=== PATIENT | male | born 1955 | race Caucasian/White ===

== ENCOUNTER 2017-02-06 14:32 | Inpatient (IN) ==
[2017-02-06] MEDS ORDERED: Naloxone 0.4 MG/ML INJ IVP PRN (16:53)
[2017-02-06] MEDS ORDERED: Dextrose Gel 15 GM PO PRN ×2 (16:54)
[2017-02-06] MEDS ORDERED: Nitroglycerin 0.4 MG TAB.SUBL SL PRN (16:54)
[2017-02-06] MEDS ORDERED: *HR* Dextrose 50 % in Water (Syg) 50 ML SYRINGE IVP PRN (16:54)
[2017-02-06] MEDS ORDERED: Albuterol 2.5 MG/3 ML NEBULIZER IH PRN (16:54)
[2017-02-06] MEDS ORDERED: D5% in Water 1,000 ML IVC PRN (16:54)
--- NOTE | 2017-02-06 17:13 | Internal Med History&Physical ---
<Bharat Hernandez J - Last Filed: 02/06/17 18:01> Date of Encounter: 02/06/17 Time of Encounter: 17:07 Assessment and Plan (1) ESRD (end stage renal disease) on dialysis Current visit: No Status: Chronic H/O of ESRD on HD , , Sat. Missed appointment;Dr. Carrillo aware. Consulted nephrology, Plan is to HD tomorrow; avoid nephrotoxins. 2 Daily weights 3 Fluid Restriction 4 Strict i&O (2) Weakness Current visit: No Status: Acute Weakness for last 3 days and unable to complete ADL's. Likely secondary to receiving HD on Friday. Nephrology consulted, patient is to receive HD tomorrow. Falls precautions. (3) Diabetes Current visit: No Status: Chronic H/o DM. Continue basal insulin at home dose. Qualifiers: Diabetes mellitus type: type 2 Diabetes mellitus complication status: with unspecified complications Diabetes mellitus nursing home insulin use: with watermelon inspector use Qualified Code(s): E11.8 - Type 2 diabetes mellitus with unspecified complications; Z79.4 - skilled nursing (current) use of insulin (4) CAD in [place] artery Current visit: No Status: Chronic H/o CAD on ASA, Plavix, dual anti-platelet BB, statin and nitrates; plan is to continue meds. Place on telemetry and trend troponins. (5) Elevated troponin Current visit: No Status: Chronic Elevated troponin likely d/t ESRD but will Trend troponin d/t cardiac history. (6) DVT (deep venous thrombosis) Current visit: Yes Status: Acute H/O dvt. On eliquis plan is to continue home dose. Qualifiers: Qualified Code(s): I82.409 - Acute embolism and thrombosis of unspecified deep veins of unspecified lower extremity (7) DVT prophylaxis Current visit: No Status: Acute Continue eliquis Internal Medicine - H&P: HPI Chief complaint: weakness, fatigue Admitted From: Home Plans for Post Hospital Care: Home History of present illness: Mr. Barcenas is a 61 year old male with a PMH of ESRD, HTN, CHF, COPD, CAD, DVT, cardiomyopathy, arthritis, asthma, HLD, and GERD who presented to [facility] on with a 3 day h/o weakness and fatigue. Information obtained from chart review and patient report. He states that he has become progressively weaker since his Friday HD appointment. C/o decreased enery, decreased appetite and new onset diarrhea. at bedside and concerned for new intermittent confusion. He admits to weight gain, and abdominal swelling since his last HD visit. Missed today's HD appointment d/t feeling ill. Troponins elevated at H but likely d/t ESRD as they have been trending elevated for months upon review. Past Med Surg Social Fam HX - Past Medical History Medical history: arthritis, asthma, cardiomyopathy, CHF, COPD, coronary artery disease, DVT, diabetes, dialysis, GERD, hyperlipidemia, hypertension, osteoporosis, peripheral artery disease, renal disease, other Psychiatric history: no psych history - Past Surgical History Surgical History: coronary bypass (CABG), knee replacement, orthopedic, other, other - Social History Smoking Status: Former smoker Smokeless Tobacco Status: No Alcohol use: none Drug use: none - Family History Father Adopted: [place]: Jese Barcenas Family Member Ethnicity: Non- Living Status: Age at : 84 Cause of : Esophagal Cancer Hx Family Cardiac Disorders: No Hx Family Respiratory Disorders: No Hx Family Cancer: Yes Hx Family GI Disorders: No Hx Family Genitourinary Disorders: No Hx Family Endocrine Disorder: No Hx Family Musculoskeletal Disorders: No Hx Family Neuromuscular Disorders: No Hx Family Neurologic Disorders: No Hx Family HEENT Disorders: No Hx Family Autoimmune Disorders: No Hx Family Reproductive Disorders: No Hx Family Psychosocial Disorders: No Hx Family Medical Disorders: No Mother Adopted: [place]: Itzel Barcenas Family Member Ethnicity: Non- Living Status: Age at : 75 Cause of : Renal failure Hx Family Cardiac Disorders: Yes Hx Family Respiratory Disorders: No Hx Family Cancer: No Hx Family GI Disorders: No Hx Family Genitourinary Disorders: Yes Hx Family Endocrine Disorder: Yes Hx Family Musculoskeletal Disorders: No Hx Family Neuromuscular Disorders: No Hx Family Neurologic Disorders: No Hx Family HEENT Disorders: No Hx Family Autoimmune Disorders: No Hx Family Reproductive Disorders: No Hx Family Psychosocial Disorders: No Hx Family Medical Disorders: No Internal Medicine - H&P: Meds Febuxostat [Uloric] 40 mg PO QAM 03/02/15 [History] Sevelamer [Renvela] 800 mg PO TIDWM 05/01/15 [History] Nitroglycerin 0.4 mg SL Q5MIN PRN #3 tab.subl 08/20/15 [Rx] Apixaban [Eliquis] 5 mg PO BID 10/30/15 [History] Clopidogrel Bisulfate [Clopidogrel] 75 mg PO DAILY 10/30/15 [History] Amitriptyline [Elavil] 25 mg PO HS 04/01/16 [History] Budesonide/Formoterol 160/4.5 [Symbicort 160/4.5] 2 puff IH BIDR 04/01/16 [ History] Fluticasone Propionate Nasal [Flonase] 1 spray NS DAILY PRN 04/01/16 [History] Tiotropium [Spiriva] 18 mcg IH DAILY 04/01/16 [History] Albuterol Neb [Proventil Neb] 2.5 mg IH TID PRN 02/06/17 [History] Amlodipine Besylate 10 mg PO DAILY 02/06/17 [History] Aspirin [Lo-Dose Aspirin EC] 81 mg PO DAILY 02/06/17 [History] Atorvastatin Calcium [Lipitor] 80 mg PO HS 02/06/17 [History] Cholecalciferol (Vitamin D3) [Vitamin D3] 5,000 unit PO DAILY 02/06/17 [History] Hydralazine HCl 50 mg PO AD 02/06/17 [History] Insulin Glargine [Lantus] 20 unit SQ HS 02/06/17 [History] Isosorbide MONOnitrate [Isosorbide Mononitrate ER] 240 mg PO DAILY 02/06/17 [ History] Metoprolol Succinate 100 - 200 mg PO AD 02/06/17 [History] Pantoprazole Sodium [Protonix] 40 mg PO DAILY 02/06/17 [History] Allergies No Known Allergies Allergy (Verified 09/23/16 11:51) All Systems PM: A 10-system review of systems was performed and is negative for pertinent findings except as documented above in the HPI. - Constitutional Constitutional: fatigue, weakness, weight gain, no chills, no fever(s), no night sweats - EENT Eyes: no change in vision, no discharge, no pain, no photophobia Ears: no ear discharge, no ear pain, no tinnitus Nose, mouth and throat: no dysphagia, no nasal discharge, no neck pain, no sore throat - Cardiovascular Cardiovascular ROS IM: no chest pain, no diaphoresis, no dyspnea, no lightheadedness, no palpitations, no syncope - Respiratory Respiratory: no cough, no dyspnea, no wheezing, no excessive phlegm production - Gastrointestinal Gastrointestinal: diarrhea, no abdominal pain, no hematemesis, no hematochezia, no melena, no nausea, no vomiting - Musculoskeletal Musculoskeletal ROS IM: no numbness, no tingling - Integumentary Integumentary IM: no rash, no unusual bruising - Neurological Neurological ROS: behavioral changes, no confusion, no convulsions, no focal weakness, no numbness, no tingling, no tremor(s) Additional comments: behavior changes per at bedside - Hematologic/Lymphatic Hematologic/Lymphatic: no easy bruising - Constitutional Vitals: Temp Pulse Resp BP Pulse Ox 98.5 F 103 20 170/100 96 02/06/17 16:12 02/06/17 16:12 02/06/17 16:12 02/06/17 16:12 02/06/17 16:12 General appearance: Present: A&O X 3, no acute distress, answers questions appropriately - Head Head exam: Present: atraumatic, normocephalic - Eye Eye exam: Present: PERRL, conjuntiva pink, sclera anicteric Pupils: Present: PERRL - Neck Neck exam general surgery: Present: supple, trachea midline. Absent: lymphadenopathy - Respiratory Respiratory exam: Present: decreased breath sounds, CTAB. Absent: accessory muscle use, rales, rhonchi, wheezes - Cardiovascular Cardiovascular exam: Present: RRR, +S1, +S2. Absent: diastolic murmur, gallop, rubs, systolic murmur - GI/Abdominal GI/Abdominal exam: Present: normal bowel sounds, soft, no peritoneal signs. Absent: distended, tenderness Additional comments: Diffuse abdominal tenderness to palpation - Extremities Exam Extremities exam: Present: warm, radial pulses palpable and symetrical. Absent : calf tenderness, cyanotic, pedal edema - Neurological Exam Neurological exam: Present: CN II-XII intact, oriented X3, no focal deficits. Absent: pronater drift, facial droop, speech deficit - Skin Skin exam: Present: dry, intact <Benjamín Hillman H - Last Filed: 02/06/17 19:02> Date of Encounter: 02/06/17 Internal Medicine - H&P: HPI History of present illness: Mr. Barcenas is a 61 year old male All Systems PM: A 10-system review of systems was performed and is negative for pertinent findings except as documented above in the HPI. - Constitutional Vitals: Temp Pulse Resp BP Pulse Ox 98.5 F 103 20 170/100 96 02/06/17 16:12 02/06/17 16:12 02/06/17 16:12 02/06/17 16:12 02/06/17 16:12 - Attending Attestation 1. Acute metabolic encephalopathy likely secondary to noncompliance with hemodialysis Schedule dialysis for the Josefina with Dr. Newman Time spent on this admission 40 minutes For this encounter, I have reviewed the COMMUNITY OUTREACH COORDINATOR or PA documentation, treatment plan, and medical decision making; and I have had face to face time with this patient.
[2017-02-06] MEDS: Budesonide/Formoterol 160/4.5 MDI IH SCH (20:00)
[2017-02-06] MEDS: Insulin DETEMIR 100 UNIT/ML X5UNITS SQ SCH (20:03)
[2017-02-06] MEDS: APIXABAN 5 MG TABLET PO SCH (20:03)
[2017-02-06] MEDS ORDERED: hydrALAZINE 25 MG TABLET PO SCH (21:00)
[2017-02-06] MEDS: Insulin LISPRO 300 UNITS/3 ML VIAL SQ SCH (21:11)
[2017-02-07] MEDS ORDERED: *HR* Metoprolol 5 MG/5 ML VIAL IVP ONE (01:00)
[2017-02-07] MEDS: *HR* Metoprolol 5 MG/5 ML VIAL IVP ONE ×2 (01:14→04:08)
[2017-02-07 01:52] LABS: Basophils % 0.6 %; Eosinophils % 0.4 %; Hemoglobin 13.6 g/dL (12.9-16.9); Immature Granulocytes % 4.6 % (0-4); Lymphocytes # 0.4 K/mcL (0.6-4.6); Lymphocytes % 8.6 %; Mean Corpuscular HGB Conc 34.9 g/dL (31.6-35.5); Mean Corpuscular Hemoglobin 30.6 pg (28.0-33.3); Mean Corpuscular Volume 87.6 fL (83.0-100.0); Mean Platelet Volume 10.1 fL (9.4-12.4); Monocytes # 0.4 K/mcL (0.0-1.3); Monocytes % 7.4 %; Neutrophils # 3.9 K/mcL (1.6-8.9); Platelet Count 107 K/mcL (140-400); Red Blood Count 4.45 M/mcL (4.19-5.50); Red Cell Distribution Width 12.8 % (11.5-14.5); Segmented Neutrophils % 78.4 %
[2017-02-07 02:11] LABS: Albumin 3.2 g/dL (3.5-5.0); Bilirubin,Total 0.8 mg/dL (0.2-1.2); Calcium 8.4 mg/dL (8.6-10.8); Globulin 3.3 g/dL (2.4-3.5); Magnesium 1.8 mg/dL (1.6-2.6); Total Protein 6.5 g/dL (6.0-8.3)
[2017-02-07 02:12] LABS: Potassium 4.6 mEq/L (3.5-4.5)
[2017-02-07] MEDS: Budesonide/Formoterol 160/4.5 MDI IH SCH ×2 (07:58→20:58)
[2017-02-07] MEDS: Tiotropium 18 MCG inhalation IH SCH (07:58)
--- NOTE | 2017-02-07 08:21 | Nephrology Consult Note ---
Date of Encounter: 02/07/17 Time of Encounter: 08:19 Assessment and Plan (1) ESRD (end stage renal disease) on dialysis Current Visit: No Status: Chronic The patient has end-stage renal disease in the setting of diabetes and hypertension. He missed his dialysis yesterday. He presented to the emergency room with a complaint of weakness and simply not feeling well. Laboratory studies were stable. Vital signs are stable. Patient voices no other symptomatic complaints. Patient will undergo dialysis today. His troponin is being monitored. We will go ahead and check blood cultures just to rule out any type of occult infection. The patient does not have any indwelling lines. (2) End stage renal disease on dialysis due to type 2 diabetes mellitus Current Visit: Yes Status: Acute (3) CAD in [place] artery Current Visit: No Status: Chronic (4) History of coronary artery bypass graft Current Visit: No Status: Chronic History of Present Illness - History of Present Illness This is a 61-year-old male with end-stage renal disease receiving dialysis every Friday in [facility]. Patient was medicated through the emergency room with a several day history of weakness and simply not feeling well. He is unable to give any other details. He denies any other symptoms. He denies shortness of breath chest pain chest discomfort abdominal pain nausea vomiting diarrhea constipation fevers chills or sweats. Evaluation emergency room showed a mildly elevated troponin of 0.2. Currently at 0.27. Patient does have a history of coronary disease but again denies any cardiac symptoms whatsoever. He did miss his dialysis yesterday. Lab bower his hemoglobin is good at 13.6. White count is normal at 5.0. Potassium is 4.6. Blood pressure is controlled at 132/66. The patient is afebrile. Past Med Surg Social Fam HX - Past Medical History Medical history: arthritis, asthma, cardiomyopathy, CHF, COPD, coronary artery disease, DVT, diabetes, dialysis, GERD, hyperlipidemia, hypertension, osteoporosis, peripheral artery disease, renal disease, other Psychiatric history: no psych history - Past Surgical History Surgical History: coronary bypass (CABG), knee replacement, orthopedic, other, other - Social History Smoking Status: Former smoker Smokeless Tobacco Status: No Alcohol use: none Drug use: none - Family History Father Adopted: [place]: Jese Narinder Family Member Ethnicity: Non- Living Status: Age at : 84 Cause of : Esophagal Cancer Hx Family Cardiac Disorders: No Hx Family Respiratory Disorders: No Hx Family Cancer: Yes Hx Family GI Disorders: No Hx Family Genitourinary Disorders: No Hx Family Endocrine Disorder: No Hx Family Musculoskeletal Disorders: No Hx Family Neuromuscular Disorders: No Hx Family Neurologic Disorders: No Hx Family HEENT Disorders: No Hx Family Autoimmune Disorders: No Hx Family Reproductive Disorders: No Hx Family Psychosocial Disorders: No Hx Family Medical Disorders: No Mother Adopted: [place]: Itzel Barcenas Family Member Ethnicity: Non- Living Status: Age at : 75 Cause of : Renal failure Hx Family Cardiac Disorders: Yes Hx Family Respiratory Disorders: No Hx Family Cancer: No Hx Family GI Disorders: No Hx Family Genitourinary Disorders: Yes Hx Family Endocrine Disorder: Yes Hx Family Musculoskeletal Disorders: No Hx Family Neuromuscular Disorders: No Hx Family Neurologic Disorders: No Hx Family HEENT Disorders: No Hx Family Autoimmune Disorders: No Hx Family Reproductive Disorders: No Hx Family Psychosocial Disorders: No Hx Family Medical Disorders: No Medications and Allergies Febuxostat [Uloric] 40 mg PO QAM 03/02/15 [History] Sevelamer [Renvela] 800 mg PO TIDWM 05/01/15 [History] Nitroglycerin 0.4 mg SL Q5MIN PRN #3 tab.subl 08/20/15 [Rx] Apixaban [Eliquis] 5 mg PO BID 10/30/15 [History] Clopidogrel Bisulfate [Clopidogrel] 75 mg PO DAILY 10/30/15 [History] Amitriptyline [Elavil] 25 mg PO HS 04/01/16 [History] Budesonide/Formoterol 160/4.5 [Symbicort 160/4.5] 2 puff IH BIDR 04/01/16 [ History] Fluticasone Propionate Nasal [Flonase] 1 spray NS DAILY PRN 04/01/16 [History] Tiotropium [Spiriva] 18 mcg IH DAILY 04/01/16 [History] Albuterol Neb [Proventil Neb] 2.5 mg IH TID PRN 02/06/17 [History] Amlodipine Besylate 10 mg PO DAILY 02/06/17 [History] Aspirin [Lo-Dose Aspirin EC] 81 mg PO DAILY 02/06/17 [History] Atorvastatin Calcium [Lipitor] 80 mg PO HS 02/06/17 [History] Cholecalciferol (Vitamin D3) [Vitamin D3] 5,000 unit PO DAILY 02/06/17 [History] Hydralazine HCl 50 mg PO AD 02/06/17 [History] Insulin Glargine [Lantus] 20 unit SQ HS 02/06/17 [History] Isosorbide MONOnitrate [Isosorbide Mononitrate ER] 240 mg PO DAILY 02/06/17 [ History] Metoprolol Succinate 100 - 200 mg PO AD 02/06/17 [History] Pantoprazole Sodium [Protonix] 40 mg PO DAILY 02/06/17 [History] Allergies No Known Allergies Allergy (Verified 09/23/16 11:51) Review of Systems Constitutional: as per HPI, weakness Eyes: bilateral: blurred vision (patient denies), diplopia (patient denies) Nose, mouth and throat: no dizziness, no headache(s) Cardiovascular: no chest pain, no palpitations Respiratory: no cough, no dyspnea Gastrointestinal: no abdominal pain, no change in bowel habits Musculoskeletal: no muscle weakness, no numbness Integumentary: no hirsutism, no striae Neurological: as per HPI, weakness Psychiatric: no depression, no difficulty concentrating Endocrine: as per HPI Hematologic/Lymphatic: no easy bruising, no lymphadenopathy Exam - Vital Signs Vital signs: Initial Vital Signs Temp Pulse Resp BP Pulse Ox 98.5 F 103 20 170/100 96 02/06/17 16:12 02/06/17 16:12 02/06/17 16:12 02/06/17 16:12 02/06/17 16:12 Vital Signs - Last 8 Hours Temp Pulse Resp BP Pulse Ox 02/07/17 07:24 98.3 F 99 20 132/66 94 02/07/17 05:14 98.4 F 118 17 159/86 94 Intake and Output 02/06/17 02/07/17 02/07/17 23:59 07:59 15:59 Output Total 175 / 175 Balance -175 / -175 Output: Urine 175 / 175 Other: Weight 131 kg 129.98 kg Blood Glucose* 200 149 Patient Weight 02/07/17 23:59 Weight 129.98 kg - General Appearance Exam: Patient is alert and oriented. He is in no acute distress. Vital signs are stable. Neck is supple. Lungs somewhat diminished breath sounds otherwise clear. There is occasional expiratory wheezing noted however. Heart regular rate and rhythm with a 2/6 talk ejection murmur. Abdomen shows normal bowel sounds of breast masses, megaly or tenderness. There is trace lower extremity swelling on the left. Patient is status post right BKA. There is a functioning AV fistula in the right upper extremity. Results - Lab Results 02/07/17 01:12 02/07/17 01:12 Most recent lab results Calcium 8.4 mg/dL (8.6-10.8) L 02/07/17 01:12 Magnesium 1.8 mg/dL (1.6-2.6) 02/07/17 01:12 Consult Discharge Plan - Plan Referrals: Mansoor Loaiza MD [Primary Care Provider] -
[2017-02-07] MEDS ORDERED: 0.9 % Sodium Chloride 250 ML IVC PRN (08:24)
--- NOTE | 2017-02-07 08:38 | Internal Med Progress Note ---
<Babak Farooq - Last Filed: 02/07/17 13:10> Date of Encounter: 02/07/17 Time of Encounter: 08:38 - Assessment and plan (1) ESRD (end stage renal disease) on dialysis Current Visit: Yes Status: Chronic Assessment and plan: Hx ESRD TTS. Missed . Dr. Howell/nephrology are following. HD scheduled for today. avoid nephrotoxins. Follow daily weights, strict I&O and fluid restriction. (2) Diabetes Current Visit: No Status: Chronic Assessment and plan: continue home meds and SSI. Qualifiers: Diabetes mellitus type: type 2 Diabetes mellitus complication status: with unspecified complications Diabetes mellitus intermediate teacher insulin use: with custodial use Qualified Code(s): E11.8 - Type 2 diabetes mellitus with unspecified complications; Z79.4 - FPC (current) use of insulin (3) CAD in [place] artery Current Visit: No Status: Chronic Assessment and plan: continue home ASA, Plavix, BB, statin and nitrates. continue telemetry. (4) DVT prophylaxis Current Visit: No Status: Acute Assessment and plan: continue home eliquis (5) Elevated troponin Current Visit: No Status: Chronic Assessment and plan: chronically elevated trops w/ ESRD. will continue to trend trops 2/2 cardiac history (6) Weakness Current Visit: No Status: Acute Assessment and plan: most likely secondary to HD on friday. Dialysis today. fall precaution. (7) DVT (deep venous thrombosis) Current Visit: Yes Status: Acute Assessment and plan: continue eliquis Qualifiers: Qualified Code(s): I82.409 - Acute embolism and thrombosis of unspecified deep veins of unspecified lower extremity - Subjective Interval history: 61 yo M well known to service was admitted for 3 day h/o weakness and fatigue after dialysis on Friday with PMHx of ESRD, HTN, CHF, COPD, CAD, DVT, cardiomyopahty, arthritis, asthma, HLD, and GERD. He missed HD on due to filling ill. Trops were elevated but most likeley 2/2 ESRD as trops have been elevated for months on chart review. - Constitutional Vitals: Temp Pulse Resp BP Pulse Ox 98.3 F 99 20 132/66 94 02/07/17 07:24 02/07/17 07:24 02/07/17 07:24 02/07/17 07:24 02/07/17 07:24 General appearance: Present: A&O X 3, no acute distress, answers questions appropriately - Head Head exam: Present: atraumatic, normocephalic - Respiratory Respiratory exam: Present: decreased breath sounds (due to habitus, hard to hear breath sounds) - Cardiovascular Cardiovascular exam: Present: distant heart sounds - Expanded Lower Extremities Exam Lower Leg exam: Present: abrasion (left leg BKA. right abrasion between toe 2 and 3.) Internal Medicine: Result - Labs CBC & Chem 7: 02/07/17 01:12 02/07/17 01:12 Labs: Short CBC 02/07/17 Range/Units 01:12 WBC 5.0 (4.3-11.1) K/mcL Hgb 13.6 (12.9-16.9) g/dL Hct 39.0 (37.5-50.1) % Plt Count 107 L (140-400) K/mcL Neutrophils # 3.9 (1.6-8.9) K/mcL BMP 02/07/17 01:12 Sodium 127 L Potassium 4.6 H Chloride 94 L Carbon Dioxide 17 L BUN 72 H Creatinine 8.54 H Glucose 175 H Calcium 8.4 L Cardiac Enzymes 02/06/17 02/07/17 02/07/17 Range/Units 19:47 01:12 06:06 Troponin I 0.20 H* 0.19 H* 0.27 H* (0-0.03) ng/mL Liver Function 02/07/17 Range/Units 01:12 Total Bilirubin 0.8 (0.2-1.2) mg/dL AST 43 H (5-34) Units/L ALT 29 (0-55) Units/L Alkaline Phosphatase 72 (38-126) Units/L Albumin 3.2 L (3.5-5.0) g/dL Consult Discharge Plan - Plan Referrals: Mansoor Loaiza MD [Primary Care Provider] - <Adolph Dickinson - Last Filed: 02/07/17 19:42> Date of Encounter: 02/07/17 - Assessment and plan (1) Acute respiratory failure with hypoxia Current Visit: Yes Status: Acute (2) Acute metabolic encephalopathy Current Visit: Yes Status: Acute (3) Hyponatremia Current Visit: No Status: Acute (4) CAD (coronary artery disease) Current Visit: No Status: Acute Qualifiers: Coronary Disease-Associated Artery/Lesion type: [place] artery [place] vs. transplanted heart: [place] heart Associated angina: without angina Qualified Code(s): I25.10 - Atherosclerotic heart disease of [place] coronary artery without angina pectoris (5) Diabetes Current Visit: No Status: Chronic Qualifiers: Diabetes mellitus type: type 2 Diabetes mellitus complication status: with unspecified complications Diabetes mellitus custodial insulin use: with custodial use Qualified Code(s): E11.8 - Type 2 diabetes mellitus with unspecified complications; Z79.4 - FPC (current) use of insulin - Constitutional Vitals: Temp Pulse Resp BP Pulse Ox 98.9 F 120 16 160/76 100 02/07/17 19:27 02/07/17 19:27 02/07/17 19:27 02/07/17 19:27 02/07/17 19:27 Internal Medicine: Result - Labs CBC & Chem 7: 02/07/17 01:12 02/07/17 01:12 Labs: Short CBC 02/07/17 Range/Units 01:12 WBC 5.0 (4.3-11.1) K/mcL Hgb 13.6 (12.9-16.9) g/dL Hct 39.0 (37.5-50.1) % Plt Count 107 L (140-400) K/mcL Neutrophils # 3.9 (1.6-8.9) K/mcL BMP 02/07/17 01:12 Sodium 127 L Potassium 4.6 H Chloride 94 L Carbon Dioxide 17 L BUN 72 H Creatinine 8.54 H Glucose 175 H Calcium 8.4 L Cardiac Enzymes 02/06/17 02/07/17 02/07/17 Range/Units 19:47 01:12 06:06 Troponin I 0.20 H* 0.19 H* 0.27 H* (0-0.03) ng/mL Liver Function 02/07/17 Range/Units 01:12 Total Bilirubin 0.8 (0.2-1.2) mg/dL AST 43 H (5-34) Units/L ALT 29 (0-55) Units/L Alkaline Phosphatase 72 (38-126) Units/L Albumin 3.2 L (3.5-5.0) g/dL - Attending Attestation I examined this patient and my medical decision-making was reviewed with the Resident Physician on 02/07/17. I agree with the documented findings, disposition and treatment plan as described except to the extent set forth below. Mr. Barcenas is currently in observation for fluid overload and general malaise. He remains moderate to high risk due to potential for respiratory issues associated with fluid overload. Mr. Barcenas is alert but not oriented. He is awaiting dialysis. He denies pain at this time. No fever or chills. No GI issues. Exam Alert. Oriented to person Mucus membranes dry Heart reg - not tachy Lungs diminished Abd soft and nontender Edema present I/P 1. Hypoxic resp failure 2. Fluid overload 3. Encephalopathy Further diagnoses and plan as above.
[2017-02-07] MEDS ORDERED: Metoprolol XL (24 HR) Succ 50 MG TAB.ER.24H PO SCH (09:00)
[2017-02-07] MEDS ORDERED: Febuxostat [Uloric] 40 MG PO SCH (09:00)
[2017-02-07] MEDS: Aspirin Enteric Coated 81 MG Tablet PO SCH (09:56)
[2017-02-07] MEDS: Insulin LISPRO 300 UNITS/3 ML VIAL SQ SCH ×4 (09:57→22:19)
[2017-02-07 10:22] LABS: Hepatitis B Surface Antibody 6.13 mIU/mL; Hepatitis B Surface Antigen Nonreactive (Nonreactive)
[2017-02-07] MEDS: APIXABAN 5 MG TABLET PO SCH ×2 (14:33→22:19)
[2017-02-07] MEDS: amLODIPine 5 MG TABLET PO SCH (14:34)
[2017-02-07] MEDS: Isosorbide MONOnitrate (24 HR) 60 MG TAB.ER.24H PO SCH (14:34)
[2017-02-07] MEDS ORDERED: hydrALAZINE 25 MG TABLET PO SCH ×2 (15:00→21:00)
[2017-02-07] MEDS ORDERED: Ketorolac 30 MG/ML VIAL IVP PRN (16:40)
--- NOTE | 2017-02-07 16:52 | Event Note ---
<Babak Farooq - Last Filed: 02/07/17 16:49> Date of Encounter: 02/07/17 Time of Encounter: 16:49 61 yo M had complaints of sever abdominal pain in the middle of dialysis. Nurse stated patient is restless and having trouble with dialysis. Also encountered who mentions that patient has progressively become more lucid for the last week and today when she was in the room he did not recognize her presence. also reports that patient has not been eating for the last two weeks. Patient was slightly cool to touch, and unable to verbally answer questions. he did follow commands and was able to point to his abdominal pain in the left lower quadrant. Pain was only elicited upon deep palpation. No active bowel sounds were heard. Ordered Toradol for abdominal pain. Ct abd/pelvis/head. Ordered ABG, blood cultures and urine <Adolph Dickinson - Last Filed: 02/07/17 19:43> Date of Encounter: 02/07/17 Above reviewed. Pt more alert but still confused. Noted to be tachycardic and EKG has rapid a fib which is new. BP borderline and has no IV access. Plan CT as above. Small amount IV fluid Rate control if able. Cultures and labs pending.
[2017-02-07] MEDS ORDERED: 0.9 % Sodium Chloride 2,000 ML ONE (21:05)
[2017-02-07] MEDS: Insulin DETEMIR 100 UNIT/ML X5UNITS SQ SCH (22:28)
[2017-02-08] MEDS ORDERED: 0.9 % Sodium Chloride 500 ML IVC ONE ×3 (01:06→02:47)
--- NOTE | 2017-02-08 01:09 | Event Note ---
Date of Encounter: 02/08/17 Time of Encounter: 01:06 61-year-old male history of end-stage renal disease underwent dialysis today with removal of 4 L. During dialysis patient became hypotensive, syncopal. Since then patient's mental status has been waxing and waning. Furthermore he was complaining of abdominal pain and morning team ordered CT abdomen and pelvis and head. CT head was unremarkable. CT abdomen and pelvis shows possible beginnings of acute cholecystitis. Patient was started on IV Zosyn. Furthermore patient's nurse paged me stating that they are unable to drive ABGs and labs due to poor IV access. Patient has a parvovirus which does not drive. Dr. Valentin and I examined the patient appears clammy, cold, and states he feels lethargic. Patient administered 500 mL of normal saline bolus. We will revaluate patient after boluses administered.
[2017-02-08] MEDS ORDERED: 0.9 % Sodium Chloride 500 ML IVC SCH (02:45)
[2017-02-08] MEDS: Budesonide/Formoterol 160/4.5 MDI IH SCH ×2 (07:44→22:13)
[2017-02-08] MEDS: Tiotropium 18 MCG inhalation IH SCH (07:44)
[2017-02-08] MEDS: Insulin LISPRO 300 UNITS/3 ML VIAL SQ SCH ×2 (07:46→16:00)
[2017-02-08] MEDS ORDERED: Lidocaine/EPI 1:100k 2% 20 ML VIAL INFILT ONE (07:58)
[2017-02-08] MEDS ORDERED: Piperacillin/Tazobactam 3.375 GM in D5% in Water (Mini-Bag+) 100 ML IVPB SCH ×2 (08:00→20:00)
[2017-02-08] MEDS: amLODIPine 5 MG TABLET PO SCH (08:11)
[2017-02-08] MEDS: Aspirin Enteric Coated 81 MG Tablet PO SCH (08:12)
[2017-02-08] MEDS: Isosorbide MONOnitrate (24 HR) 60 MG TAB.ER.24H PO SCH (08:12)
[2017-02-08] MEDS ORDERED: Metoprolol XL (24 HR) Succ 50 MG TAB.ER.24H PO SCH ×2 (09:00→09:45)
--- NOTE | 2017-02-08 09:25 | Procedure Note ---
<Parag Corrales - Last Filed: 02/08/17 09:43> Date of procedure: 02/08/17 Pre-op diagnosis: Poor Venous Access Post-op diagnosis: same Procedure: Written consent was obtained from the patient. The left and right internal jugular veins were surveyed using ultrasound and the left was deamed to be a suitable target. The patient was cleaned and draped in usual sterile fashion. The skin and soft tissues were anesthetized using 1% lidocaine with epinephrine. Under ultrasound guidance introducer needle was advanced into the left internal jugular vein. Dark red, nonpulsatile blood flow was returned. The guidewire was advanced into the syringe and needle into the vein without resistance. The needle was removed. The guidewire was visualized using ultrasound within the left internal jugular vein. A marli and the skin was made in the skin and soft tissues were dilated using the dilator. A 20 cm triple- lumen catheter was then advanced over the guidewire and into the vein without resistance. The guidewire was removed intact. The catheter sutured in place to 2 points. Biopatch and sterile dressing were applied by nursing staff. The patient tolerated the procedure well, there were no immediate complications. Chest x-ray is pending. Anesthesia: local (20cc 2% lidocaine with epi) Surgeon: Parag Corrales Estimated blood loss (cc): 5 IV fluids (cc): 15 Pathology: none sent Condition: stable Disposition: floor <Adolph Dickinson - Last Filed: 02/08/17 15:10> Disposition: floor Attestation Statement - Attestation Attestation: I examined this patient and my medical decision-making was reviewed with the Resident Physician on 02/08/17. I agree with the documented findings, disposition and treatment plan as described except to the extent set forth below. I was supervising and procedure was greater than 5 minutes.
--- NOTE | 2017-02-08 09:34 | Nephrology Progress Note ---
Date of Encounter: 02/08/17 Time of Encounter: 09:35 - Assessment and Plan (1) ESRD (end stage renal disease) on dialysis Current Visit: Yes Status: Chronic 1. ESRD. was dialyzed yesterday. f/u labs from today 2. Hypotension. Had UF of 4 lts yeaterday. received 1 lt of IVF last night. - CXR, blood c/s pend. RUQ us pend. on zosyn empirically. pt does not make urine - mild elevation in troponin that is chronic, pt denies chest pain or SOB - Continue metoprolol, decrease isosorbide, hold hydralazine and amlodipine 3. HB stable Subjective Principal diagnosis: esrd Interval history: events from yesterday noted. pt became clammy, hypotensive, waxing and wanning mentlal status. had abdominal pain. received 1 lt of IVF. central line was placed this morning for iv access. hear rate is irregular. pt is awake, feels better this morning. alert oriented x 3. denies abd pain. feels weak, has non productive cough for the last few days Objective - Vital Signs Vital signs: Vital Signs Temp Pulse Resp BP Pulse Ox 02/08/17 08:19 111 18 91/62 99 02/08/17 08:18 99 02/08/17 07:42 17 99 02/08/17 06:57 98.0 F 99 17 95/61 98 02/08/17 03:51 97.8 F 100 16 105/71 96 02/08/17 02:25 109/77 02/08/17 01:05 96/46 02/07/17 23:50 98.2 F 114 18 109/68 100 02/07/17 20:58 17 96 02/07/17 19:27 98.9 F 120 16 160/76 100 02/07/17 18:03 98.4 F 109 16 102/55 96 02/07/17 17:18 99.1 F 16 146/57 02/07/17 17:10 113 18 88/54 100 02/07/17 16:55 126/66 02/07/17 16:40 146/56 02/07/17 16:35 140/72 02/07/17 16:20 138/90 02/07/17 16:13 98.4 F 56 16 102/68 96 02/07/17 16:05 116/63 08/04/17 15:50 127/60 02/07/17 15:35 105/71 02/07/17 15:20 109/80 02/07/17 15:05 115/62 02/07/17 14:50 109/59 02/07/17 14:35 117/66 02/07/17 14:20 111/67 02/07/17 14:05 101/80 02/07/17 13:50 120/88 02/07/17 13:35 122/74 02/07/17 13:20 100.8 F H 20 131/71 02/07/17 11:03 98.4 F 98 20 133/69 93 Intake and Output 02/07/17 02/08/17 02/08/17 23:59 07:59 15:59 Intake Total 500 / 500 Output Total 3396 / 3396 Balance -3396 / -3396 500 / 500 Intake: IV Fluids 500 / 500 0.9 % Sodium Chloride 500 500 / 500 ML @ 937.5 mls/hr IVC . 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 lt BKA, no edema in the rt ankle, DP pulse not palpable AVF in the rt fore arm , has bruit - Lab 02/07/17 01:12 02/07/17 01:12 Most recent lab results Calcium 8.4 mg/dL (8.6-10.8) L 02/07/17 01:12 Magnesium 1.8 mg/dL (1.6-2.6) 02/07/17 01:12 Consult Discharge Plan - Plan Referrals: Mansoor Loaiza MD [Primary Care Provider] -
[2017-02-08 09:42] LABS: Hematocrit 36.5 % (37.5-50.1); Hemoglobin 12.8 g/dL (12.9-16.9); Mean Corpuscular HGB Conc 35.1 g/dL (31.6-35.5); Mean Corpuscular Hemoglobin 30.8 pg (28.0-33.3); Platelet Count 102 K/mcL (140-400); Red Blood Count 4.15 M/mcL (4.19-5.50); Red Cell Distribution Width 13.2 % (11.5-14.5)
[2017-02-08 09:46] LABS: INR 1.7; Prothrombin Time 18.4 Seconds (9.4-12.1); VBG HCO3 22.1 mEq/L (21-27); VBG PH 7.3 pH Units (7.32-7.42)
[2017-02-08 09:52] LABS: Magnesium 2.1 mg/dL (1.6-2.6); Phosphorous 6.8 mg/dL (2.3-4.7)
[2017-02-08 09:54] LABS: Calcium 8.2 mg/dL (8.6-10.8); Potassium 4.7 mEq/L (3.5-4.5)
[2017-02-08 09:55] LABS: Albumin 2.9 g/dL (3.5-5.0); Albumin/Globulin Ratio 0.9 (1.1-2.2); Bilirubin,Direct 0.3 mg/dL (0.0-0.5); Bilirubin,Indirect 0.3 mg/dL (0.0-1.2); Bilirubin,Total 0.6 mg/dL (0.2-1.2); Globulin 3.1 g/dL (2.4-3.5)
[2017-02-08] MEDS: APIXABAN 5 MG TABLET PO SCH ×2 (10:07→21:45)
[2017-02-08] MEDS ORDERED: 0.9 % Sodium Chloride 1,000 ML ONE (10:44)
[2017-02-08] MEDS ORDERED: Norepinephrine 4 MG in D5% in Water 250 ML IVC SCH ×2 (11:45→12:08)
[2017-02-08] MEDS ORDERED: D5% in Water 1,000 ML IVC PRN (12:08)
[2017-02-08] MEDS ORDERED: *HR* Dextrose 50 % in Water (Syg) 50 ML SYRINGE IVP PRN (12:08)
[2017-02-08] MEDS ORDERED: Nitroglycerin 0.4 MG TAB.SUBL SL PRN (12:08)
[2017-02-08] MEDS ORDERED: Dextrose Gel 15 GM PO PRN ×2 (12:08)
[2017-02-08] MEDS ORDERED: 0.9 % Sodium Chloride 250 ML IVC PRN (12:08)
[2017-02-08] MEDS ORDERED: Albuterol 2.5 MG/3 ML NEBULIZER IH PRN (12:08)
[2017-02-08] MEDS ORDERED: Naloxone 0.4 MG/ML INJ IVP PRN (12:08)
--- NOTE | 2017-02-08 12:09 | Pulmonology Consult Note ---
<Akhil Vu M - Last Filed: 02/08/17 12:12> Date of Encounter: 02/08/17 Medications and Allergies Febuxostat [Uloric] 40 mg PO QAM 03/02/15 [History] Sevelamer [Renvela] 800 mg PO TIDWM 05/01/15 [History] Nitroglycerin 0.4 mg SL Q5MIN PRN #3 tab.subl 08/20/15 [Rx] Apixaban [Eliquis] 5 mg PO BID 10/30/15 [History] Clopidogrel Bisulfate [Clopidogrel] 75 mg PO DAILY 10/30/15 [History] Amitriptyline [Elavil] 25 mg PO HS 04/01/16 [History] Budesonide/Formoterol 160/4.5 [Symbicort 160/4.5] 2 puff IH BIDR 04/01/16 [ History] Fluticasone Propionate Nasal [Flonase] 1 spray NS DAILY PRN 04/01/16 [History] Tiotropium [Spiriva] 18 mcg IH DAILY 04/01/16 [History] Albuterol Neb [Proventil Neb] 2.5 mg IH TID PRN 02/06/17 [History] Amlodipine Besylate 10 mg PO DAILY 02/06/17 [History] Aspirin [Lo-Dose Aspirin EC] 81 mg PO DAILY 02/06/17 [History] Atorvastatin Calcium [Lipitor] 80 mg PO HS 02/06/17 [History] Cholecalciferol (Vitamin D3) [Vitamin D3] 5,000 unit PO DAILY 02/06/17 [History] Hydralazine HCl 50 mg PO AD 02/06/17 [History] Insulin Glargine [Lantus] 20 unit SQ HS 02/06/17 [History] Isosorbide MONOnitrate [Isosorbide Mononitrate ER] 240 mg PO DAILY 02/06/17 [ History] Metoprolol Succinate 100 - 200 mg PO AD 02/06/17 [History] Pantoprazole Sodium [Protonix] 40 mg PO DAILY 02/06/17 [History] Allergies No Known Allergies Allergy (Verified 09/23/16 11:51) All Systems: A 10-system review of systems was performed and is negative for pertinent findings except as documented above in the HPI. Physical Examination Vital Signs: Vital Signs, Last 4 Hours Temp Pulse Resp BP Pulse Ox 02/08/17 10:42 50/35 02/08/17 10:38 115 18 94 02/08/17 10:20 98.4 F 108 15 94 02/08/17 08:19 111 18 91/62 99 02/08/17 08:18 99 Results - Laboratory Findings CBC and BMP: 02/08/17 09:30 02/08/17 09:30 PT/INR, D-dimer PT 18.4 Seconds (9.4-12.1) H 02/08/17 09:30 Abnormal lab findings: Abnormal lab results RBC 4.15 M/mcL (4.19-5.50) L 02/08/17 09:30 Hgb 12.8 g/dL (12.9-16.9) L 02/08/17 09:30 Hct 36.5 % (37.5-50.1) L 02/08/17 09:30 Plt Count 102 K/mcL (140-400) L 02/08/17 09:30 Immature Gran % 4.6 % (0-4) H 02/07/17 01:12 Lymphocytes # 0.4 K/mcL (0.6-4.6) L 02/07/17 01:12 PT 18.4 Seconds (9.4-12.1) H 02/08/17 09:30 VBG pH 7.30 pH Units (7.32-7.42) L 02/08/17 09:30 VBG pO2 59 mmHg (25-40) H 02/08/17 09:30 Sodium 134 mEq/L (136-145) L D 02/08/17 09:30 Potassium 4.7 mEq/L (3.5-4.5) H 02/08/17 09:30 Chloride 96 mEq/L (98-109) L 02/08/17 09:30 BUN 68 mg/dL (8-26) H 02/08/17 09:30 Creatinine 8.28 mg/dL (0.72-1.25) H 02/08/17 09:30 Est GFR ( Amer) 8 (> 60) L 02/08/17 09:30 Est GFR (Non-Af Amer) 7 (> 60) L 02/08/17 09:30 Glucose 171 mg/dL (70-99) H 02/08/17 09:30 POC Glucose 154 (58-89) H 02/08/17 10:16 Calculated Osmolality 302 (280-300) H 02/08/17 09:30 Calcium 8.2 mg/dL (8.6-10.8) L 02/08/17 09:30 Phosphorus 6.8 mg/dL (2.3-4.7) H 02/08/17 09:30 AST 44 Units/L (5-34) H 02/08/17 09:30 Troponin I 0.27 ng/mL (0-0.03) H* 02/07/17 06:06 Albumin 2.9 g/dL (3.5-5.0) L 02/08/17 09:30 Albumin/Globulin Ratio 0.9 (1.1-2.2) L 02/08/17 09:30 - Clinical Findings Intake & Output: Intake & Output 02/07/17 02/08/17 02/08/17 23:59 07:59 15:59 Intake Total 500 / 500 500 / 500 Output Total 3396 / 3396 Balance -3396 / -3396 500 / 500 500 / 500 Weight 128.4 kg Consult Discharge Plan - Plan Referrals: Mansoor Loaiza MD [Primary Care Provider] - (web request sent on 02/08/17 ) - Attending Attestation I examined this patient and my medical decision-making was reviewed with the Resident Physician. I agree with the documented findings, disposition and treatment plan as described except to the extent set forth below. Patient seen and examined. Labs, radiology, chart personally reviewed. 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 There is a risk of volume overload with fluid resuscitation and close monitoring to keep his SPO2 above 90 %. Cardiovascular: unstable. Patient with shock at this time since he is not responding to fluid resuscitation and it is not clear at this time the exact etiology I suspect it is multifactorial from side effects of medications mainly of his antihypertensive medication and could be a cardiac event. There is a slight elevation of his troponin. Repeat echocardiogram and cardiology consultation. Repeat EKG to my reading does not show any significant changes from previous one which was done. Patient has significant cardiovascular disease and he is at risk of cardiac events. His left upper extremity is cold or than right side and since he has history of DVT with hypotension he will need CT angiogram to make sure there is no any pulmonary embolisms and to evaluate his thoracic aorta. GI: Nutrition per dietary and GI prophylaxis per routine. We will keep patient nothing by mouth since his condition could deteriorate. Heme: DVT prophylaxis per routine. Patient has been on anticoagulation and he has history of DVT in the past. ID: Continue antibiotics and plan to de-escalation. He was empirically started on antibiotics and I will add empirically vancomycin and check lactic acid, however I do not feel strongly sepsis is the main reason here. Renal; urine out put and renal funtion reviewed. Patient will have IV contrast and nephrology may need to do hemodialysis. Endorcine: blood glucose is monitored Lines: all lines checked and no evidence of infections Skin: skin care to prevent pressure ulcers per nursing routine care Discussed with primary team and thank you for consultation. Overall patient does not look could and I am hoping she will respond to the fluid otherwise he will need to be on vasopressor and also we need to reverse beta petrona medication that he received. I spent 35 min of Critical Care time with this patient. It involved decision making of high complexity to assess, manipulate, and support vital organ system failure and/or to prevent further life threatening deterioration of the patient' s condition. The time involved in the performance of separately reportable procedures was not counted toward critical care time. <Mansoor Melton - Last Filed: 02/08/17 14:44> Date of Encounter: 02/08/17 Time of Encounter: 11:45 Assessment and Plan (1) Hypotension Current Visit: Yes Status: Acute Blood pressure was 50s over 40s when patient was admitted to the ICU. He was given a fluid bolus 1 L normal saline. Blood pressure is now 90s to 100/60 70s. Hypertension could be due to multiple issues. Patient was given extra dose of beta petrona this morning. This could be secondary to beta petrona overdose. This could also be secondary to possible infectious source. CT scan of abdomen and pelvis showed possible early cholecystitis. Possible BB Overdose: Given IV glucagon 5 mg, 3 g of calcium gluconate Possible early cholecystitis: Gallbladder ultrasound pending On Zosyn and vancomycin empirically for possible infectious etiology Blood cultures pending Urine culture pending Lactic acid pending, we will continue to trend Possible cardiac/vascular etiology: Cardiology consulted due to new onset A. fib, elevated troponins We will obtain echocardiogram to assess LV function Trend troponins Will also obtain CT angio of the chest and abdomen and pelvis to assess for any aortic dissection or PE. Qualifiers: Hypotension type: unspecified hypotension type Qualified Code(s): I95.9 - Hypotension, unspecified (2) Weakness Current Visit: No Status: Acute Generalized fatigue. See workup above. (3) ESRD (end stage renal disease) on dialysis Current Visit: Yes Status: Chronic Patient has dialysis on Friday, , Friday. Missed dialysis on Friday. Nephrology consulted, dialyze as necessary per nephrology recs (4) Abdominal pain Current Visit: Yes Status: Acute Patient had abdominal pain yesterday. CT scan of the abdomen and pelvis was obtained by hospitalist team. It showed a subtle injection of the fat surrounding the gallbladder which is either artifact or due to an early finding cholecystitis. Gallbladder ultrasound pending Patient was started on Zosyn empirically in case gallbladder sounds positive Qualifiers: Abdominal location: generalized Qualified Code(s): R10.84 - Generalized abdominal pain (5) CAD (coronary artery disease) Current Visit: No Status: Acute Continue aspirin, Plavix, statin. We will continue metoprolol 50 mg daily once blood pressure is more stable. Qualifiers: Coronary Disease-Associated Artery/Lesion type: [place] artery [place] vs. transplanted heart: [place] heart Associated angina: without angina Qualified Code(s): I25.10 - Atherosclerotic heart disease of [place] coronary artery without angina pectoris (6) Cold extremities Current Visit: Yes Status: Acute Patient has a history of peripheral vascular disease. He is a subsequent left [id number] amputation. Currently, right upper extremity is warm but left upper extremity and bilateral lower extremities are cool to touch. Delayed cap refill of all toes of right foot. Patient has no current complaints of chest pain or shortness of breath but he does complain of fatigue. Concern for possible dissection that could be causing the difference in temperatures of extremities. Will obtain CT angiogram of the chest and abdomen and pelvis for further assessment of the aorta. We will also check for PE due to history of DVT. (7) Diabetes Current Visit: No Status: Chronic Glucose and 170s. He is on sliding scale insulin. We will continue sliding scale and continue to monitor. 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 No active chest pain or shortness of breath at this time. He does have generalized fatigue. He also has a new onset A. fib. EKG shows previous bundle branch block but no acute ST elevation or depression. This could be secondary to end-stage renal disease, however, this is elevated above patient's baseline. We will continue to monitor troponin levels. Cardiology consulted Echocardiogram ordered (9) DVT (deep venous thrombosis) Current Visit: Yes Status: Acute Patient's previous right popliteal vein DVT. He is currently on Eliquis Qualifiers: DVT location: lower extremity Affected thrombotic vein of extremity: unspecified vein of extremity Chronicity: unspecified Laterality: unspecified laterality Qualified Code(s): I82.409 - Acute embolism and thrombosis of unspecified deep veins of unspecified lower extremity History of Present Illness Consult date: 02/08/17 Requesting physician: Parag Corrales Reason for consult: other (hypotension) Chief complaint: hypotension History of present illness: Patient is a 61-year-old male with past medical history of CAD, [place], previous cardiac bypass, end-stage renal disease and on dialysis Friday, , Friday, left [id number] amputation, COPD, hypertension, previous DVT and on Eliquis. He originally presented to the ER on 02/06/2017 due to a 3 day history of weakness and fatigue. Due to not feeling well, he missed his Friday dialysis appointment. He was also confused on presentation per initial H&P note. During his initial stay, nephrology was consulted for hemodialysis. Home beta petrona, Plavix, aspirin,eliquis were all continued. Patient had dialysis on 02/07/2017. Since then, he has been having hypotension. He is complaining of abdominal pain and headache. At that time, according to noting, the patient appeared clammy, cold, said that he felt lethargic. He was given a 500 mL of normal saline bolus and blood pressure improved. CT of the head and abdomen were obtained. CT of the head showed no acute intracranial abnormality , CT of abdomen and pelvis showed subtle injection of the fat surrounding the gallbladder that could be artifact or an early finding of cholecystitis. Patient had a central line placed this morning and was given an additional 500 mL bolus. Blood pressures were 50s over 40s. He was transferred to the ICU for further care. Of note, due to hypotension, patient was planned by primary hospitalist team to decrease his beta petrona to 50 mg daily. His usual dose of metoprolol XL 100-200 mg every other day, norvasc, isosorbide were not canceled this morning and he was given those with an additional 50mg of metoprolol today prior to me receiving the patient. Currently, blood pressures or 60s over 40s. Patient denies any chest pain, chest pressure, shortness of breath, nausea, vomiting, abdominal pain. He complains of generalized fatigue. Past Med Surg Social Fam HX - Past Medical History Medical history: arthritis, asthma, cardiomyopathy, CHF, COPD, coronary artery disease, DVT, diabetes, dialysis, GERD, hyperlipidemia, hypertension, osteoporosis, peripheral artery disease, renal disease, other Psychiatric history: no psych history - Past Surgical History Surgical History: coronary bypass (CABG), knee replacement, orthopedic, other, other - Social History Smoking Status: Former smoker Smokeless Tobacco Status: No Alcohol use: none Drug use: none - Family History Father Adopted: [place]: Jese Barcenas Family Member Ethnicity: Non- Living Status: Age at : 84 Cause of : Esophagal Cancer Hx Family Cardiac Disorders: No Hx Family Respiratory Disorders: No Hx Family Cancer: Yes Hx Family GI Disorders: No Hx Family Genitourinary Disorders: No Hx Family Endocrine Disorder: No Hx Family Musculoskeletal Disorders: No Hx Family Neuromuscular Disorders: No Hx Family Neurologic Disorders: No Hx Family HEENT Disorders: No Hx Family Autoimmune Disorders: No Hx Family Reproductive Disorders: No Hx Family Psychosocial Disorders: No Hx Family Medical Disorders: No Mother Adopted: [place]: Itzel Narinder Family Member Ethnicity: Non- Living Status: Age at : 75 Cause of : Renal failure Hx Family Cardiac Disorders: Yes Hx Family Respiratory Disorders: No Hx Family Cancer: No Hx Family GI Disorders: No Hx Family Genitourinary Disorders: Yes Hx Family Endocrine Disorder: Yes Hx Family Musculoskeletal Disorders: No Hx Family Neuromuscular Disorders: No Hx Family Neurologic Disorders: No Hx Family HEENT Disorders: No Hx Family Autoimmune Disorders: No Hx Family Reproductive Disorders: No Hx Family Psychosocial Disorders: No Hx Family Medical Disorders: No All Systems: A 10-system review of systems was performed and is negative for pertinent findings except as documented above in the HPI. - Constitutional Constitutional: fatigue - EENT Nose, mouth and throat: no dizziness - Cardiovascular Cardiovascular: no chest pain, no dyspnea, no rapid heart rate - Respiratory Respiratory: no cough, no dyspnea - Gastrointestinal Gastrointestinal: no abdominal pain, no diarrhea, no nausea, no vomiting - Musculoskeletal Musculoskeletal: no numbness, no tingling - Integumentary Integumentary: no rash - Endocrine Endocrine: fatigue Physical Examination Vital Signs: Vital Signs, Last 4 Hours Temp Pulse Resp BP Pulse Ox 02/08/17 10:42 50/35 02/08/17 10:38 115 18 94 02/08/17 10:20 98.4 F 108 15 94 02/08/17 08:19 111 18 91/62 99 02/08/17 08:18 99 General appearance: no acute distress Eyes: nonicteric ENT: oropharynx moist Neck: supple Effort: normal Inspection: normal Auscultation: bilateral: clear Cardiovascular: other (A. fib, normal rate) Gastrointestinal: normoactive bowel sounds, non-distended Integumentary: other (Midline chest scar from previous CABG, incisional scar of left below the knee amputation; ) Musculoskeletal: other (right upper extremity is warm, left upper extremity and bilateral lower extremity cold to touch. Delayed cap refill in toes of right foot.) Gait: normal posture normal mental status, non-focal exam mood appropriate, affect normal Results - Laboratory Findings CBC and BMP: 02/08/17 09:30 02/08/17 09:30 PT/INR, D-dimer PT 18.4 Seconds (9.4-12.1) H 02/08/17 09:30 Abnormal lab findings: Abnormal lab results RBC 4.15 M/mcL (4.19-5.50) L 02/08/17 09:30 Hgb 12.8 g/dL (12.9-16.9) L 02/08/17 09:30 Hct 36.5 % (37.5-50.1) L 02/08/17 09:30 Plt Count 102 K/mcL (140-400) L 02/08/17 09:30 Immature Gran % 4.6 % (0-4) H 02/07/17 01:12 Lymphocytes # 0.4 K/mcL (0.6-4.6) L 02/07/17 01:12 PT 18.4 Seconds (9.4-12.1) H 02/08/17 09:30 VBG pH 7.30 pH Units (7.32-7.42) L 02/08/17 09:30 VBG pO2 59 mmHg (25-40) H 02/08/17 09:30 Sodium 134 mEq/L (136-145) L D 02/08/17 09:30 Potassium 4.7 mEq/L (3.5-4.5) H 02/08/17 09:30 Chloride 96 mEq/L (98-109) L 02/08/17 09:30 BUN 68 mg/dL (8-26) H 02/08/17 09:30 Creatinine 8.28 mg/dL (0.72-1.25) H 02/08/17 09:30 Est GFR ( Amer) 8 (> 60) L 02/08/17 09:30 Est GFR (Non-Af Amer) 7 (> 60) L 02/08/17 09:30 Glucose 171 mg/dL (70-99) H 02/08/17 09:30 POC Glucose 154 (58-89) H 02/08/17 10:16 Calculated Osmolality 302 (280-300) H 02/08/17 09:30 Calcium 8.2 mg/dL (8.6-10.8) L 02/08/17 09:30 Phosphorus 6.8 mg/dL (2.3-4.7) H 02/08/17 09:30 AST 44 Units/L (5-34) H 02/08/17 09:30 Troponin I 0.27 ng/mL (0-0.03) H* 02/07/17 06:06 Albumin 2.9 g/dL (3.5-5.0) L 02/08/17 09:30 Albumin/Globulin Ratio 0.9 (1.1-2.2) L 02/08/17 09:30 - Clinical Findings Intake & Output: Intake & Output 02/07/17 02/08/17 02/08/17 23:59 07:59 15:59 Intake Total 500 / 500 500 / 500 Output Total 3396 / 3396 Balance -3396 / -3396 500 / 500 500 / 500 Weight 128.4 kg
[2017-02-08] MEDS ORDERED: 0.9 % Sodium Chloride 1,000 ML IVC ONE (12:12)
[2017-02-08] MEDS ORDERED: Calcium Gluconate 3,000 MG in D5% in Water 250 ML IVPB ONE (12:16)
[2017-02-08] MEDS ORDERED: Vancomycin 2,000 MG in D5% in Water 250 ML IVPB SCH (13:00)
[2017-02-08] MEDS ORDERED: Vancomycin 2,000 MG in D5% in Water 500 ML IVPB ONE (13:30)
[2017-02-08] MEDS ORDERED: Perflutren Lipid Microsphere 1.3 ML in 0.9 % Sodium Chloride 8.7 ML IVP ONE (13:32)
[2017-02-08] MEDS: Ondansetron 4 MG/2 ML VIAL IVP PRN ×2 (13:42→21:48)
--- NOTE | 2017-02-08 14:02 | Internal Med Progress Note ---
<Parag Corrales - Last Filed: 02/08/17 14:05> Date of Encounter: 02/08/17 Time of Encounter: 08:00 - Assessment and plan (1) Weakness Current Visit: No Status: Acute Assessment and plan: Patient has generalized weakness with no focal complaints at this time. He is borderline hypotensive requiring intermittent fluid boluses to support his blood pressure. Differential includes sepsis, relation to atrial fibrillation, vascular disease. At this point we will transfer to the ICU for closer monitoring. Central line placed today for definitive IV access. Critical care consult ordered. (2) Atrial fibrillation Current Visit: Yes Status: Acute Assessment and plan: Apparently this is new onset, no documented A. fib or any record of A. fib in our system, patient states that he has never been told he has had an abnormal heart rhythm before. Possibly related to underlying stress in the setting of illness requiring hospitalization. Patient's heart rate is mildly elevated although unsure if this is driven by his atrial fibrillation or underlying illness. Will continue rate controlling medications as blood pressure allows, his blood pressure remains relatively low patient may benefit from digoxin. Patient is starting anticoagulated with Eliquis. Will obtain echocardiogram and cardiology will see the patient. Qualifiers: Atrial fibrillation type: unspecified Qualified Code(s): I48.91 - Unspecified atrial fibrillation (3) ESRD (end stage renal disease) on dialysis Current Visit: Yes Status: Chronic Assessment and plan: Patient apparently missed dialysis this week due to general feeling of unwell. Dialysis was resumed yesterday on his normal schedule. Further management per nephrology. (4) Diabetes Current Visit: No Status: Chronic Assessment and plan: Blood sugars been under good control. Continue Levemir 20 units at bedtime and sliding scale insulin. Qualifiers: Diabetes mellitus type: type 2 Diabetes mellitus complication status: with unspecified complications Diabetes mellitus tank terminal gauger insulin use: with tank terminal gauger use Qualified Code(s): E11.8 - Type 2 diabetes mellitus with unspecified complications; Z79.4 - correction (current) use of insulin (5) CAD (coronary artery disease) Current Visit: No Status: Acute Assessment and plan: No evidence of active ACS. Troponin is mildly elevated but this is likely related to the patient's end-stage renal disease and poor clearance. No ischemic changes noted on EKG. New onset atrial fibrillation could be indicative of myocardial ischemia, however the patient is not actively having chest pain. We will obtain an echo and consult cardiology. Qualifiers: Coronary Disease-Associated Artery/Lesion type: [place] artery [place] vs. transplanted heart: [place] heart Associated angina: without angina Qualified Code(s): I25.10 - Atherosclerotic heart disease of [place] coronary artery without angina pectoris (6) DVT (deep venous thrombosis) Current Visit: Yes Status: Acute Assessment and plan: Stable. No evidence of new DVT clinically. Continue Eliquis. Qualifiers: DVT location: lower extremity Affected thrombotic vein of extremity: unspecified vein of extremity Chronicity: unspecified Laterality: unspecified laterality Qualified Code(s): I82.409 - Acute embolism and thrombosis of unspecified deep veins of unspecified lower extremity - Subjective Interval history: Patient seen and examined at bedside. Patient states he feels pretty good this morning. He denies cough, shortness of breath, chest pain, abdominal pain, nausea, vomiting. - Constitutional Vitals: Temp Pulse Resp BP Pulse Ox 98.4 F 96 18 93/52 97 02/08/17 10:20 02/08/17 12:35 02/08/17 12:35 02/08/17 12:35 02/08/17 12:35 General appearance: Present: A&O X 3, no acute distress, answers questions appropriately - Respiratory Respiratory exam: Present: CTAB. Absent: rales, rhonchi, wheezes - Cardiovascular Cardiovascular exam: Present: irregular rhythm, tachycardia. Absent: gallop, rubs, systolic murmur - GI/Abdominal GI/Abdominal exam: Present: normal bowel sounds, soft. Absent: distended, tenderness - Extremities Exam Extremities exam: Present: pedal edema (trace). Absent: tenderness, warm Additional comments: All 4 extremities are cool to touch. Radial pulses and pedal pulses palpable. - Neurological Exam Neurological exam: Present: alert, CN II-XII intact, oriented X3, no focal deficits Internal Medicine: Result - Labs CBC & Chem 7: 02/08/17 09:30 02/08/17 09:30 Labs: Short CBC 02/08/17 Range/Units 09:30 WBC 8.1 D (4.3-11.1) K/mcL Hgb 12.8 L (12.9-16.9) g/dL Hct 36.5 L (37.5-50.1) % Plt Count 102 L (140-400) K/mcL BMP 02/08/17 09:30 Sodium 134 L D Potassium 4.7 H Chloride 96 L Carbon Dioxide 21 BUN 68 H Creatinine 8.28 H Glucose 171 H Calcium 8.2 L Cardiac Enzymes 02/08/17 Range/Units 11:54 Troponin I 0.24 H* (0-0.03) ng/mL Liver Function 02/08/17 Range/Units 09:30 Total Bilirubin 0.6 (0.2-1.2) mg/dL Direct Bilirubin 0.3 (0.0-0.5) mg/dL AST 44 H (5-34) Units/L ALT 32 (0-55) Units/L Alkaline Phosphatase 72 (38-126) Units/L Albumin 2.9 L (3.5-5.0) g/dL - ABG Interpretation ABG results: PT/INR, D-dimer PT 18.4 Seconds (9.4-12.1) H 02/08/17 09:30 - Impressions Impressions Abdomen/Pelvis CT 02/07/17 19:00 IMPRESSION: Subtle injection of the fat surrounding the gallbladder, either artifactual or due to an early finding of cholecystitis. D/ / Les Vazquez MD / Les Vazquez MD Interpreting Provider: Les Vazquez MD Head CT 02/07/17 19:00 IMPRESSION: Limited by motion. No acute intracranial abnormality Minimal small vessel ischemic change for age D/ / Les Vazquez MD / Les Vazquez MD Interpreting Provider: Les Vazquez MD Chest X-Ray 02/08/17 09:22 IMPRESSION: 1. Left internal jugular central venous catheter tip terminates in the lower superior vena cava. No complication. 2. Low lung volumes with small left effusion. 3. Mild perihilar vascular prominence without overt failure. D/ / 02/08/2017 09:53:51 Coleen Sanon MD / gabi Interpreting Provider: Coleen Sanon MD Gallbladder Ultrasound 02/08/17 11:00 IMPRESSION: Normal gallbladder. D/ / 02/08/2017 13:16:40 Lux Hernandez MD / [email or web address] Interpreting Provider: Lux Hernandez MD Consult Discharge Plan - Plan Referrals: Mansoor Loaiza MD [Primary Care Provider] - (web request sent on 02/08/17 ) <Adolph Dickinson - Last Filed: 02/08/17 15:07> Date of Encounter: 02/08/17 - Assessment and plan (1) Atrial fibrillation Current Visit: Yes Status: Acute Qualifiers: Atrial fibrillation type: persistent Qualified Code(s): I48.1 - Persistent atrial fibrillation (2) Hypotension Current Visit: Yes Status: Acute Qualifiers: Hypotension type: unspecified hypotension type Qualified Code(s): I95.9 - Hypotension, unspecified (3) Acute respiratory failure with hypoxia Current Visit: Yes Status: Acute (4) Acute metabolic encephalopathy Current Visit: Yes Status: Acute (5) Hyponatremia Current Visit: No Status: Acute (6) CAD (coronary artery disease) Current Visit: No Status: Acute Qualifiers: Coronary Disease-Associated Artery/Lesion type: [place] artery [place] vs. transplanted heart: [place] heart Associated angina: without angina Qualified Code(s): I25.10 - Atherosclerotic heart disease of [place] coronary artery without angina pectoris (7) Diabetes Current Visit: No Status: Chronic Qualifiers: Diabetes mellitus type: type 2 Diabetes mellitus complication status: with unspecified complications Diabetes mellitus tank terminal gauger insulin use: with nursing home use Qualified Code(s): E11.8 - Type 2 diabetes mellitus with unspecified complications; Z79.4 - correction (current) use of insulin (8) Weakness Current Visit: Yes Status: Acute - Constitutional Vitals: Temp Pulse Resp BP Pulse Ox 98.4 F 93 18 71/52 93 02/08/17 10:20 02/08/17 14:00 02/08/17 14:00 02/08/17 14:00 02/08/17 14:00 Internal Medicine: Result - Labs CBC & Chem 7: 02/08/17 09:30 02/08/17 09:30 Labs: Short CBC 02/08/17 Range/Units 09:30 WBC 8.1 D (4.3-11.1) K/mcL Hgb 12.8 L (12.9-16.9) g/dL Hct 36.5 L (37.5-50.1) % Plt Count 102 L (140-400) K/mcL BMP 02/08/17 09:30 Sodium 134 L D Potassium 4.7 H Chloride 96 L Carbon Dioxide 21 BUN 68 H Creatinine 8.28 H Glucose 171 H Calcium 8.2 L Cardiac Enzymes 02/08/17 Range/Units 11:54 Troponin I 0.24 H* (0-0.03) ng/mL Liver Function 02/08/17 Range/Units 09:30 Total Bilirubin 0.6 (0.2-1.2) mg/dL Direct Bilirubin 0.3 (0.0-0.5) mg/dL AST 44 H (5-34) Units/L ALT 32 (0-55) Units/L Alkaline Phosphatase 72 (38-126) Units/L Albumin 2.9 L (3.5-5.0) g/dL - ABG Interpretation ABG results: PT/INR, D-dimer PT 18.4 Seconds (9.4-12.1) H 02/08/17 09:30 - Impressions Impressions Abdomen/Pelvis CT 02/07/17 19:00 IMPRESSION: Subtle injection of the fat surrounding the gallbladder, either artifactual or due to an early finding of cholecystitis. D/ / Les Vazquez MD / Les Vazquez MD Interpreting Provider: Les Vazquez MD Head CT 02/07/17 19:00 IMPRESSION: Limited by motion. No acute intracranial abnormality Minimal small vessel ischemic change for age D/ / Les Vazquez MD / Les Vazquez MD Interpreting Provider: Les Vazquez MD Chest X-Ray 02/08/17 09:22 IMPRESSION: 1. Left internal jugular central venous catheter tip terminates in the lower superior vena cava. No complication. 2. Low lung volumes with small left effusion. 3. Mild perihilar vascular prominence without overt failure. D/ / 02/08/2017 09:53:51 Coleen Sanon MD / gabi Interpreting Provider: Coleen Sanon MD Gallbladder Ultrasound 02/08/17 11:00 IMPRESSION: Normal gallbladder. D/ / 02/08/2017 13:16:40 Lux Hernandez MD / victoriano Interpreting Provider: Lux Hernandez MD - Attending Attestation I examined this patient and my medical decision-making was reviewed with the Resident Physician on 02/08/17. I agree with the documented findings, disposition and treatment plan as described except to the extent set forth below. Mr Barcenas is currently admitted for weakness and fluid overload. He continues to have waxing and waning mental status and blood pressure. Now in atrial fibrillation which is new. He remains high risk due to potential for worsening cardiac, pulmonary and infectious status. Mr. Barcenas is more alert this AM. Says he feels better overall. Powerglide in but not drawing blood. Have been unable to get labs. No current fever or chills. Abd pain not an issue now. BP continued to fluctuate overnight and heart rate elevated. Exam Alert. Comfortable Mucus membranes dry Heart irreg and tachy Lungs diminished Abd nontender today Edema present I/P 1. Abd pain - CT ? cholecystitis - ultrasound pending. 2. New a fib - rate control. On Eliquis 3. ESRD on HD Further diagnoses and plan as above. Pt had drop in his BP and continued to be tachycardic. He is less responsive now. Will transfer to ICU for further monitoring. May need pressor agent.
[2017-02-08 14:20] LABS: Thyroid Stimulating Hormone 0.707 mcIU/mL (0.350-4.840)
[2017-02-08] MEDS ORDERED: Insulin DETEMIR 100 UNIT/ML X5UNITS SQ SCH (21:00)
[2017-02-08] MEDS ORDERED: Insulin LISPRO 300 UNITS/3 ML VIAL SQ SCH (21:00)
[2017-02-09 04:06] LABS: Red Cell Distribution Width 13.2 % (11.5-14.5)
[2017-02-09 04:08] LABS: Basophils % 0.5 %; Eosinophils # 0.2 K/mcL (0.0-0.6); Eosinophils % 2.7 %; Hematocrit 29.6 % (37.5-50.1); Hemoglobin 10.2 g/dL (12.9-16.9); Immature Granulocytes % 1.1 % (0-4); Immature Platelets 5.2 % (1.1-6.1); Lymphocytes # 1.4 K/mcL (0.6-4.6); Lymphocytes % 25.7 %; Mean Corpuscular HGB Conc 34.5 g/dL (31.6-35.5); Mean Corpuscular Hemoglobin 30.8 pg (28.0-33.3); Mean Corpuscular Volume 89.4 fL (83.0-100.0); Mean Platelet Volume 10.5 fL (9.4-12.4); Monocytes # 0.8 K/mcL (0.0-1.3); Monocytes % 14.6 %; Red Blood Count 3.31 M/mcL (4.19-5.50); Segmented Neutrophils % 55.4 %
[2017-02-09 04:19] LABS: Albumin 2.7 g/dL (3.5-5.0); Bilirubin,Direct 0.2 mg/dL (0.0-0.5); Bilirubin,Indirect 0.3 mg/dL (0.0-1.2); Bilirubin,Total 0.5 mg/dL (0.2-1.2); Globulin 2.8 g/dL (2.4-3.5); Magnesium 1.8 mg/dL (1.6-2.6); Phosphorous 5.9 mg/dL (2.3-4.7); Potassium 4.1 mEq/L (3.5-4.5); Total Protein 5.5 g/dL (6.0-8.3)
[2017-02-09 04:31] LABS: Neutrophils # 3.1 K/mcL (1.6-8.9)
[2017-02-09 04:32] LABS: Platelet Count 96 K/mcL (140-400)
[2017-02-09 04:35] LABS: Platelet Estimate Decreased (Normal); Reactive Lymphocytes Present (Not Present)
--- NOTE | 2017-02-09 07:18 | Pulmonology Progress Note ---
<Mansoor Melton - Last Filed: 02/09/17 08:16> Date of Encounter: 02/09/17 Time of Encounter: 07:15 Assessment and Plan (1) Hypotension Current Visit: Yes Status: Acute Blood pressure was 50s over 40s when patient was admitted to the ICU. He was given 1 L fluid bolus and was also given IV glucagon 5 mg and 3 g of calcium gluconate due to possible beta [place] overdose. Blood pressures up in stable since. Blood pressure and 110s/50-60s. No complaints of generalized fatigue, lightheadedness, dizziness; he is mentating well. Additional testing was performed yesterday for possible etiologies and I discussed below. I feel that overall, patient's hypertension was due to beta [place] overdose which was treated yesterday. - Transfer out of the unit today to floor Possible BB Overdose: (Given IV glucagon 5 mg, 3 g of calcium gluconate yesterday) Resolved. Blood pressure stabilized. No additional medication will be given at this time. Holding blood pressure meds in the meantime. Possible early cholecystitis: Gallbladder ultrasound on 02/08/2070 negative. Abdomen soft and nontender today, afebrile overnight, with blood cell count within normal limits. Patient was started on Zosyn and vancomycin empirically for possible infectious etiology of possible early cholecystitis seen on CT scan. However, gallbladder scan was normal, will consider discontinuing these medications at this time. Blood cultures pending Lactic acid on 02/08/2017 was within normal limits. At this point, imaging is negative, lactic acid within normal limits, afebrile, normal white blood cell count. I do not believe that patient's low blood pressure was infectious etiology at this time. We will discontinue the antibiotics and continue to monitor. Possible cardiac/vascular etiology: Cardiology consulted due to new onset A. fib, elevated troponins Echocardiogram obtained on 02/08/2017 showed normal LV EF 60-65%. Troponins highest at 0.27 yesterday, they have trended down to 0.20. No chest pain or shortness of breath at this time. CT angiogram of the chest and abdomen and pelvis was negative for PE and did not show any major abnormalities with the aorta. 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 Patient is in normal sinus rhythm today, troponins trended down, no chest pain or shortness breath, CT angiogram showed no abnormalities of the aorta. At this time, I do not feel that the patient's hypertension was cardiac/vascular in nature. Qualifiers: Hypotension type: unspecified hypotension type Qualified Code(s): I95.9 - Hypotension, unspecified (2) Weakness Current Visit: Yes Status: Acute Resolved. No longer complaining of generalized fatigue. See above. (3) ESRD (end stage renal disease) on dialysis Current Visit: Yes Status: Chronic Patient has dialysis on Friday, , Friday. Nephrology consulted, dialyze as necessary per nephrology recs (4) Abdominal pain Current Visit: Yes Status: Acute Patient had abdominal pain on 02/07/17. CT scan of the abdomen and pelvis was obtained by hospitalist team. It showed a subtle injection of the fat surrounding the gallbladder which is either artifact or due to an early finding cholecystitis. Gallbladder US was ordered for further assessment. Patient has had no abdominal pain, soft nontender abdomen yesterday and today. Gallbladder ultrasound on 02/08/17 - normal exam Patient was started on Zosyn empirically in case gallbladder utrasound was positive, can likely discontinue today. No elevation in WBC and afebrile overnight, no abdominal pain. Qualifiers: Abdominal location: generalized Qualified Code(s): R10.84 - Generalized abdominal pain (5) CAD (coronary artery disease) Current Visit: No Status: Acute Continue aspirin, Plavix, statin. We will continue metoprolol 50 mg daily once blood pressure is stabilized. Qualifiers: Coronary Disease-Associated Artery/Lesion type: [place] artery [place] vs. transplanted heart: [place] heart Associated angina: without angina Qualified Code(s): I25.10 - Atherosclerotic heart disease of [place] coronary artery without angina pectoris (6) Cold extremities Current Visit: Yes Status: Acute Patient has a history of peripheral vascular disease. He is a subsequent left [id number] amputation. Yesterday, right upper extremitywas warm but left upper extremity and bilateral lower extremities are cool to touch. Delayed cap refill of all toes of right foot. 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 He is on sliding scale insulin. We will continue sliding scale and continue to monitor. Qualifiers: Diabetes mellitus type: type 2 Diabetes mellitus complication status: with unspecified complications Diabetes mellitus detention insulin use: with detention use Qualified Code(s): E11.8 - Type 2 diabetes mellitus with unspecified complications; Z79.4 - group home (current) use of insulin (8) Elevated troponin Current Visit: No Status: Chronic Patient had elevated troponin highest at 0.27 yesterday but no active chest pain or shortness of breath at this time. He did have generalized fatigue and a new onset A. fib with previously seen bundle branch block, no acute ST elevation or depression. Troponin in trended down overnight, now 0.20. Continues to be asymptomatic. Cardiology consulted Echocardiogram ordered yesterday 02/08/17 - normal LVEF 60-65% (9) DVT (deep venous thrombosis) Current Visit: Yes Status: Acute Patient has previous right popliteal vein DVT. He is currently on Eliquis Qualifiers: DVT location: lower extremity Affected thrombotic vein of extremity: unspecified vein of extremity Chronicity: unspecified Laterality: unspecified laterality Qualified Code(s): I82.409 - Acute embolism and thrombosis of unspecified deep veins of unspecified lower extremity Subjective Principal diagnosis: esrd Interval history: No acute events overnight. Patient had stable blood pressures overnight. No somatic complaints overnight. This morning he denies any chest pain, shortness of breath, nausea, vomiting, abdominal pain, lightheadedness, dizziness. Objective PUL Vital signs: Last Vital Signs Temp 97.9 F 02/09/17 04:57 Pulse 82 02/09/17 07:00 Resp 18 02/09/17 07:00 BP 97/58 02/09/17 07:00 Pulse Ox 94 02/09/17 07:00 General appearance: no acute distress General appearance: no acute distress Eyes: nonicteric ENT: oropharynx moist Neck: supple Effort: normal Inspection: normal Auscultation: bilateral: clear Cardiovascular: NSR, RR Gastrointestinal: normoactive bowel sounds, non-distended, nontender, soft Integumentary: other (Midline chest scar from previous CABG, incisional scar of left below the knee amputation; ) Musculoskeletal: other (warm left and right UE; cool RLE with delayed cap refill in toes of right foot.) Gait: normal posture normal mental status, non-focal exam mood appropriate, affect normal Results - Laboratory Findings CBC and BMP: 02/09/17 03:55 02/09/17 03:55 PT/INR, D-dimer PT 18.4 Seconds (9.4-12.1) H 02/08/17 09:30 Abnormal lab findings: Abnormal lab results RBC 3.31 M/mcL (4.19-5.50) L 02/09/17 03:55 Hgb 10.2 g/dL (12.9-16.9) L D 02/09/17 03:55 Hct 29.6 % (37.5-50.1) L 02/09/17 03:55 Plt Count 96 K/mcL (140-400) L 02/09/17 03:55 Reactive Lymphocytes Present (Not Present) A 02/09/17 03:55 Platelet Estimate Decreased (Normal) L 02/09/17 03:55 PT 18.4 Seconds (9.4-12.1) H 02/08/17 09:30 VBG pH 7.30 pH Units (7.32-7.42) L 02/08/17 09:30 VBG pO2 59 mmHg (25-40) H 02/08/17 09:30 Sodium 129 mEq/L (136-145) L 02/09/17 03:55 Chloride 94 mEq/L (98-109) L 02/09/17 03:55 BUN 86 mg/dL (8-26) H D 02/09/17 03:55 Creatinine 9.37 mg/dL (0.72-1.25) H 02/09/17 03:55 Est GFR ( Amer) 7 (> 60) L 02/09/17 03:55 Est GFR (Non-Af Amer) 6 (> 60) L 02/09/17 03:55 Glucose 150 mg/dL (70-99) H 02/09/17 03:55 POC Glucose 176 (58-89) H 02/08/17 20:07 Calcium 8.0 mg/dL (8.6-10.8) L 02/09/17 03:55 Phosphorus 5.9 mg/dL (2.3-4.7) H 02/09/17 03:55 AST 36 Units/L (5-34) H 02/09/17 03:55 Troponin I 0.20 ng/mL (0-0.03) H* 02/09/17 03:55 Serum Total Protein 5.5 g/dL (6.0-8.3) L 02/09/17 03:55 Albumin 2.7 g/dL (3.5-5.0) L 02/09/17 03:55 Albumin/Globulin Ratio 1.0 (1.1-2.2) L 02/09/17 03:55 - Clinical Findings Intake & Output: Intake & Output 02/08/17 02/08/17 02/09/17 15:59 23:59 07:59 Intake Total 500 / 500 480 / 480 100 / 100 Output Total 0 / 0 Balance 500 / 500 480 / 480 100 / 100 Weight 124.7 kg - VTE Reasons for not Prescribing Prophylaxis: Not indicated-Anticoagulated or INR therapeutic Consult Discharge Plan - Plan Referrals: Mansoor Loaiza MD [Primary Care Provider] - (web request sent on 02/08/17 ) <Akhil Vu - Last Filed: 02/09/17 09:05> Date of Encounter: 02/09/17 Objective PUL Vital signs: Last Vital Signs Temp 97.6 F 02/09/17 07:36 Pulse 81 02/09/17 08:00 Resp 18 02/09/17 08:00 BP 112/63 02/09/17 08:00 Pulse Ox 95 02/09/17 08:00 Results - Laboratory Findings CBC and BMP: 02/09/17 03:55 02/09/17 03:55 PT/INR, D-dimer PT 18.4 Seconds (9.4-12.1) H 02/08/17 09:30 Abnormal lab findings: Abnormal lab results RBC 3.31 M/mcL (4.19-5.50) L 02/09/17 03:55 Hgb 10.2 g/dL (12.9-16.9) L D 02/09/17 03:55 Hct 29.6 % (37.5-50.1) L 02/09/17 03:55 Plt Count 96 K/mcL (140-400) L 02/09/17 03:55 Reactive Lymphocytes Present (Not Present) A 02/09/17 03:55 Platelet Estimate Decreased (Normal) L 02/09/17 03:55 PT 18.4 Seconds (9.4-12.1) H 02/08/17 09:30 VBG pH 7.30 pH Units (7.32-7.42) L 02/08/17 09:30 VBG pO2 59 mmHg (25-40) H 02/08/17 09:30 Sodium 129 mEq/L (136-145) L 02/09/17 03:55 Chloride 94 mEq/L (98-109) L 02/09/17 03:55 BUN 86 mg/dL (8-26) H D 02/09/17 03:55 Creatinine 9.37 mg/dL (0.72-1.25) H 02/09/17 03:55 Est GFR ( Amer) 7 (> 60) L 02/09/17 03:55 Est GFR (Non-Af Amer) 6 (> 60) L 02/09/17 03:55 Glucose 150 mg/dL (70-99) H 02/09/17 03:55 POC Glucose 111 (58-89) H 02/09/17 07:31 Calcium 8.0 mg/dL (8.6-10.8) L 02/09/17 03:55 Phosphorus 5.9 mg/dL (2.3-4.7) H 02/09/17 03:55 AST 36 Units/L (5-34) H 02/09/17 03:55 Troponin I 0.20 ng/mL (0-0.03) H* 02/09/17 03:55 Serum Total Protein 5.5 g/dL (6.0-8.3) L 02/09/17 03:55 Albumin 2.7 g/dL (3.5-5.0) L 02/09/17 03:55 Albumin/Globulin Ratio 1.0 (1.1-2.2) L 02/09/17 03:55 - Clinical Findings Intake & Output: Intake & Output 02/08/17 02/09/17 02/09/17 23:59 07:59 15:59 Intake Total 480 / 480 100 / 100 120 / 120 Output Total 0 / 0 Balance 480 / 480 100 / 100 120 / 120 Weight 124.7 kg - Attending Attestation I examined this patient and my medical decision-making was reviewed with the Resident Physician. I agree with the documented findings, disposition and treatment plan as described except to the extent set forth below. Patient seen and examined. Labs, radiology, chart personally reviewed. 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 Blood pressure is normal and hypotension was most likely iatrogenic secondary to blood pressure medications. Patient will be transferred to the floor and will defer resuming his blood pressure medications to primary team and his women's health care nurse practitioner. GI: Nutrition per dietary and GI prophylaxis per routine Heme: DVT prophylaxis per routine ID: Continue antibiotics and plan to de-escalation Renal; urine out put and renal funtion reviewed Endorcine: blood glucose is monitored Lines: all lines checked and no evidence of infections Skin: skin care to prevent pressure ulcers per nursing routine care Patient is stable to be transferred to the floor.
[2017-02-09] MEDS: Budesonide/Formoterol 160/4.5 MDI IH SCH ×3 (07:55→22:10)
[2017-02-09] MEDS: APIXABAN 5 MG TABLET PO SCH ×3 (08:15→21:57)
[2017-02-09] MEDS: Insulin LISPRO 300 UNITS/3 ML VIAL SQ SCH ×4 (08:19→21:18)
[2017-02-09] MEDS ORDERED: 0.9 % Sodium Chloride 250 ML IVC PRN (09:00)
[2017-02-09] MEDS ORDERED: Nitroglycerin 0.4 MG TAB.SUBL SL PRN (09:00)
[2017-02-09] MEDS ORDERED: Isosorbide MONOnitrate (24 HR) 30 MG TAB.ER.24H PO SCH (09:00)
[2017-02-09] MEDS ORDERED: Albuterol 2.5 MG/3 ML NEBULIZER IH PRN (09:00)
[2017-02-09] MEDS ORDERED: Dextrose Gel 15 GM PO PRN ×2 (09:00)
[2017-02-09] MEDS ORDERED: D5% in Water 1,000 ML IVC PRN (09:00)
[2017-02-09] MEDS ORDERED: Aspirin Enteric Coated 81 MG Tablet PO SCH (09:00)
[2017-02-09] MEDS ORDERED: Tiotropium 18 MCG inhalation IH SCH (09:00)
[2017-02-09] MEDS ORDERED: Naloxone 0.4 MG/ML INJ IVP PRN (09:00)
[2017-02-09] MEDS ORDERED: Ondansetron 4 MG/2 ML VIAL IVP PRN (09:00)
[2017-02-09] MEDS ORDERED: *HR* Dextrose 50 % in Water (Syg) 50 ML SYRINGE IVP PRN (09:00)
--- NOTE | 2017-02-09 10:15 | Cardiology Consult Note ---
Date of Encounter: 02/09/17 Time of Encounter: 10:10 Assessment and Plan (1) Elevated troponin Current Visit: No Status: Chronic This is likely secondary to hypotension and ESRD. He has chronically elevated troponins. Doubt ACS (2) Hypovolemic shock Current Visit: No Status: Acute (3) Atrial fibrillation Current Visit: Yes Status: Acute New onset, mildy symptomatic. Would add back rate controlling medications as BP allows. retirement anticoagulation would be recommended. Qualifiers: Atrial fibrillation type: paroxysmal Qualified Code(s): I48.0 - Paroxysmal atrial fibrillation Discussion w patient/family: The assessment and plan as outlined above was discussed with the patient and/or family members who expressed understanding and agreement. All questions were answered. Thank you for involving us in the care of your patient. Please call with any questions. History of Present Illness Consult date: 02/09/17 Requesting physician: Adolph Dickinson Consult reason: Elevated trop., AF Chief complaint: Weakness, lethargy History of present illness: Mr. Barcenas is a 61 year old male with multiple medical problems. Known CAD, S/P CABG. He was admitted for nonspecific symptoms and found to have hypotension possibly secondary to hypovolemia. While in the hospital he has also developed atrial fibrillation with mild RVR. Does not appear to be symptomatic. Past Med Surg Social Fam HX - Past Medical History Medical history: arthritis, asthma, cardiomyopathy, CHF, COPD, coronary artery disease, DVT, diabetes, dialysis, GERD, hyperlipidemia, hypertension, osteoporosis, peripheral artery disease, renal disease, other Psychiatric history: no psych history - Past Surgical History Surgical History: coronary bypass (CABG), knee replacement, orthopedic, other, other - Social History Smoking Status: Former smoker Smokeless Tobacco Status: No Alcohol use: none Drug use: none - Family History Father Adopted: [employer]: Jese Barcenas Family Member Ethnicity: Non- Living Status: Age at : 84 Cause of : Esophagal Cancer Hx Family Cardiac Disorders: No Hx Family Respiratory Disorders: No Hx Family Cancer: Yes Hx Family GI Disorders: No Hx Family Genitourinary Disorders: No Hx Family Endocrine Disorder: No Hx Family Musculoskeletal Disorders: No Hx Family Neuromuscular Disorders: No Hx Family Neurologic Disorders: No Hx Family HEENT Disorders: No Hx Family Autoimmune Disorders: No Hx Family Reproductive Disorders: No Hx Family Psychosocial Disorders: No Hx Family Medical Disorders: No Mother Adopted: [employer]: Itzel Barcenas Family Member Ethnicity: Non- Living Status: Age at : 75 Cause of : Renal failure Hx Family Cardiac Disorders: Yes Hx Family Respiratory Disorders: No Hx Family Cancer: No Hx Family GI Disorders: No Hx Family Genitourinary Disorders: Yes Hx Family Endocrine Disorder: Yes Hx Family Musculoskeletal Disorders: No Hx Family Neuromuscular Disorders: No Hx Family Neurologic Disorders: No Hx Family HEENT Disorders: No Hx Family Autoimmune Disorders: No Hx Family Reproductive Disorders: No Hx Family Psychosocial Disorders: No Hx Family Medical Disorders: No Medications and Allergies Febuxostat [Uloric] 40 mg PO QAM 03/02/15 [History] Sevelamer [Renvela] 800 mg PO TIDWM 05/01/15 [History] Nitroglycerin 0.4 mg SL Q5MIN PRN #3 tab.subl 08/20/15 [Rx] Apixaban [Eliquis] 5 mg PO BID 10/30/15 [History] Clopidogrel Bisulfate [Clopidogrel] 75 mg PO DAILY 10/30/15 [History] Amitriptyline [Elavil] 25 mg PO HS 04/01/16 [History] Budesonide/Formoterol 160/4.5 [Symbicort 160/4.5] 2 puff IH BIDR 04/01/16 [ History] Fluticasone Propionate Nasal [Flonase] 1 spray NS DAILY PRN 04/01/16 [History] Tiotropium [Spiriva] 18 mcg IH DAILY 04/01/16 [History] Albuterol Neb [Proventil Neb] 2.5 mg IH TID PRN 02/06/17 [History] Amlodipine Besylate 10 mg PO DAILY 02/06/17 [History] Aspirin [Lo-Dose Aspirin EC] 81 mg PO DAILY 02/06/17 [History] Atorvastatin Calcium [Lipitor] 80 mg PO HS 02/06/17 [History] Cholecalciferol (Vitamin D3) [Vitamin D3] 5,000 unit PO DAILY 02/06/17 [History] Hydralazine HCl 50 mg PO AD 02/06/17 [History] Insulin Glargine [Lantus] 20 unit SQ HS 02/06/17 [History] Isosorbide MONOnitrate [Isosorbide Mononitrate ER] 240 mg PO DAILY 02/06/17 [ History] Metoprolol Succinate 100 - 200 mg PO AD 02/06/17 [History] Pantoprazole Sodium [Protonix] 40 mg PO DAILY 02/06/17 [History] Allergies No Known Allergies Allergy (Verified 09/23/16 11:51) All Systems Review: A 10-system review of systems was performed and is negative for pertinent findings except as documented above in the HPI. Physical Examination Vital Signs, Last 4 Hours Temp Pulse Resp BP Pulse Ox 02/09/17 10:00 83 18 93/44 95 02/09/17 08:00 81 18 112/63 95 02/09/17 07:56 17 95 02/09/17 07:36 97.6 F 02/09/17 07:00 82 18 97/58 94 General: Conversant, No Apparent Distress HEENT: Atraumatic, Normocephaly, Mucus Membranes Moist Neck: No JVD, Normal carotid pulses Cardiac: Other (Irregular) Lungs: Normal Breath Sounds, No Wheeze, Rales, Rhonchi Neuro: Alert and responsive, No focal deficits noted Abdomen: Soft, Non-Tender Skin: No rashes noted on visualized skin Musculoskeletal: No Chest Wall Tenderness Results 02/09/17 03:55 02/09/17 03:55 Lab Results 02/08/17 02/08/17 02/09/17 11:45 11:54 03:55 WBC 5.5 Hgb 10.2 L D Hct 29.6 L Plt Count 96 L Sodium Potassium Chloride Carbon Dioxide BUN Creatinine Glucose Calcium Magnesium Total Bilirubin AST ALT Alkaline Phosphatase Troponin I 0.24 H* TSH 0.707 02/09/17 02/09/17 03:55 03:55 WBC Hgb Hct Plt Count Sodium 129 L Potassium 4.1 Chloride 94 L Carbon Dioxide 21 BUN 86 H D Creatinine 9.37 H Glucose 150 H Calcium 8.0 L Magnesium 1.8 Total Bilirubin 0.5 AST 36 H ALT 28 Alkaline Phosphatase 66 Troponin I 0.20 H* TSH - EKG Interpretation EKG results cardiology: other (AF, mild RVR, no acute ST or T wave chnages) Consult Discharge Plan - Plan Referrals: Mansoor Loaiza MD [Primary Care Provider] - (web request sent on 02/08/17 )
[2017-02-09] MEDS: Aspirin Enteric Coated 81 MG Tablet PO SCH (10:43)
[2017-02-09] MEDS: Tiotropium 18 MCG inhalation IH SCH (10:43)
--- NOTE | 2017-02-09 11:11 | Nephrology Progress Note ---
Date of Encounter: 02/09/17 Time of Encounter: 10:53 - Assessment and Plan (1) ESRD (end stage renal disease) on dialysis Current Visit: Yes Status: Chronic 1. ESRD. plan for HD in a.m depending on fluid status and labs 2. Hypotension. A.FIB with RVR. BP and heart rate are stable. currently not on BP meds. blood c/s pend 3. hyperphosphatemia, cont renvela Subjective Principal diagnosis: esrd Interval history: pt had A.Fib with RVR, became hypotensive yesterday, wa tranferred to ICU. received IVF. RUQ US was unremarkable 2-D echo LVEF 60 to 65%, dilated RV. See by cardiology and Pulmonary services. transfered back to floor. feels much better, has taken PO. Objective - Vital Signs Vital signs: Vital Signs Temp Pulse Resp BP Pulse Ox 02/09/17 10:25 81 18 108/58 96 02/09/17 10:00 83 18 93/44 95 02/09/17 08:00 81 18 112/63 95 02/09/17 07:56 17 95 02/09/17 07:36 97.6 F 02/09/17 07:00 82 18 97/58 94 02/09/17 06:00 84 18 108/53 92 02/09/17 05:00 83 16 110/62 93 02/09/17 04:57 97.9 F 02/09/17 04:00 84 18 98/53 95 02/09/17 03:00 81 14 86/56 95 02/09/17 02:00 85 16 99/57 96 02/09/17 01:00 93 18 101/83 94 02/09/17 00:00 85 16 99/58 90 02/08/17 23:29 97.5 F L 02/08/17 23:00 94 14 73/56 92 02/08/17 22:13 17 96 02/08/17 22:00 90 12 97/70 95 02/08/17 21:00 91 16 106/74 95 02/08/17 20:43 97.7 F 02/08/17 20:00 89 14 96/62 97 02/08/17 19:00 92 16 104/69 96 02/08/17 18:00 92 18 113/73 96 02/08/17 17:00 82 18 110/77 97 02/08/17 16:00 79 18 98/79 97 02/08/17 15:00 85 20 104/61 97 02/08/17 14:00 93 18 71/52 93 02/08/17 13:00 90 18 86/54 94 02/08/17 12:35 96 18 93/52 97 Intake and Output 02/08/17 02/09/17 02/09/17 23:59 07:59 15:59 Intake Total 480 / 480 100 / 100 360 / 360 Output Total 0 / 0 Balance 480 / 480 100 / 100 360 / 360 Intake: IV Fluids 100 / 100 Zosyn 3.375 GM In 100 / 100 Dextrose 5% (Minibag+) 100 ML 100 ML @ 25 mls/hr IVPB Q12H DAVE Rx#: [id number] Oral 480 / 480 360 / 360 Output: Urine 0 / 0 Other: Meal Dinner Breakfast Percent of Meal Consumed 100% 25% Weight 124.7 kg Blood Glucose* 176 111 - General Appearance Exam: CVS;s1s2 present , irregular RSEP;god air entry, clear ABD;soft, NT, BS present EXT; rt foot and left arm are more warm today. rt fore arm AVF has bruit [employer]; alert, oriented x 3. - Lab 02/09/17 03:55 02/09/17 03:55 Most recent lab results Calcium 8.0 mg/dL (8.6-10.8) L 02/09/17 03:55 Phosphorus 5.9 mg/dL (2.3-4.7) H 02/09/17 03:55 Magnesium 1.8 mg/dL (1.6-2.6) 02/09/17 03:55 - VTE Reasons for not Prescribing Prophylaxis: Not indicated-Anticoagulated or INR therapeutic Consult Discharge Plan - Plan Referrals: Mansoor Loaiza MD [Primary Care Provider] - (web request sent on 02/08/17 )
[2017-02-09] MEDS: Insulin DETEMIR 100 UNIT/ML X5UNITS SQ SCH (21:58)
[2017-02-10 04:39] LABS: Albumin 2.7 g/dL (3.5-5.0); Albumin/Globulin Ratio 0.9 (1.1-2.2); Bilirubin,Direct 0.2 mg/dL (0.0-0.5); Bilirubin,Indirect 0.2 mg/dL (0.0-1.2); Bilirubin,Total 0.4 mg/dL (0.2-1.2); Calcium 7.6 mg/dL (8.6-10.8); Globulin 2.9 g/dL (2.4-3.5); Magnesium 2.1 mg/dL (1.6-2.6); Phosphorous 5.7 mg/dL (2.3-4.7); Total Protein 5.6 g/dL (6.0-8.3)
[2017-02-10 04:57] LABS: Hematocrit 28.3 % (37.5-50.1); Hemoglobin 9.6 g/dL (12.9-16.9); Immature Platelets 5.4 % (1.1-6.1); Mean Corpuscular HGB Conc 33.9 g/dL (31.6-35.5); Mean Corpuscular Hemoglobin 30.3 pg (28.0-33.3); Mean Corpuscular Volume 89.3 fL (83.0-100.0); Mean Platelet Volume 10.8 fL (9.4-12.4); Platelet Count 107 K/mcL (140-400); Red Blood Count 3.17 M/mcL (4.19-5.50); Red Cell Distribution Width 13.1 % (11.5-14.5)
[2017-02-10 05:21] LABS: Eosinophils # 0.1 K/mcL (0.0-0.6); Lymphocytes # 2.3 K/mcL (0.6-4.6); Monocytes # 0.9 K/mcL (0.0-1.3); Neutrophils # 3.2 K/mcL (1.6-8.9); Platelet Estimate Decreased (Normal)
[2017-02-10 05:22] LABS: Reactive Lymphocytes Present (Not Present)
[2017-02-10] MEDS: Budesonide/Formoterol 160/4.5 MDI IH SCH ×2 (07:40→19:57)
[2017-02-10] MEDS: Tiotropium 18 MCG inhalation IH SCH (07:41)
--- NOTE | 2017-02-10 09:18 | Cardiology Progress Note ---
Date of Encounter: 02/10/17 Time of Encounter: 09:16 Assessment and Plan (1) Atrial fibrillation Current Visit: Yes Status: Acute New onset afib. Currently HR is controlled. Restart low dose bb as tolerated and increase as needed. CHADS VASC=4. He is already on eliquis for DVT. Continue eliquis. Monitor anemia. Consider anemia evaluation if needed. Denies signs of bleeding. Currently on triple therapy. Ok to stop plavix to avoid triple therapy. Last PCI was a PTCA 08/2015. Qualifiers: Atrial fibrillation type: paroxysmal Qualified Code(s): I48.0 - Paroxysmal atrial fibrillation (2) CAD (coronary artery disease) Current Visit: No Status: Acute H/o CABG. Denies chest pain. Last C 08/2015: 20% stenosis LMCA. LAD: 80% stenosis in the Proximal LAD, FONTAINE-mLAD is patent, SVG to 1st diag is patent. LCx: 100% stenosis in the Mid Circumflex (small vessel), 80-90% stenosis in the proximal 1st Marginal. An intervention was performed on the obtuse marginal with PTCA - small for stenting. There were no lesion complications. 50-60% residual stenosis. RCA: 100% stenosis in the Proximal RCA. Ipsilateral collaterals. The saphenous vein graft to the Right PDA is patent. Continue asa and statin. Restart low dose bb as tolerated. Ok to stop plavix to avoid triple therapy. Qualifiers: Coronary Disease-Associated Artery/Lesion type: [place] artery [place] vs. transplanted heart: [place] heart Associated angina: without angina Qualified Code(s): I25.10 - Atherosclerotic heart disease of [place] coronary artery without angina pectoris (3) Elevated troponin Current Visit: No Status: Chronic This is likely secondary to hypotension and ESRD, doubt ACS. He has chronically elevated troponins. Repeat TTE showes preserved LV function and no significant valvular disease. Discussion w patient/family: The assessment and plan as outlined above was discussed with the patient and/or family members who expressed understanding and agreement. All questions were answered. Thank you for involving us in the care of your patient. Please call with any questions. Subjective Principal diagnosis: Hypotension, ESRD, new afib with RVR, elevated troponin Interval history: Mr. Barcenas is resting in bed with no complaint. Treated for low b/p yesterday. B /p as low as 50/35. Reported to have afib with RVR at that time. Denies chest pain or palpitations. Objective Vital Signs, Last 4 Hours Temp Pulse Resp BP Pulse Ox 02/10/17 07:42 14 96 02/10/17 07:01 97.8 F 91 17 107/64 95 General: Conversant, No Apparent Distress HEENT: Atraumatic, Normocephaly, Mucus Membranes Moist Neck: No JVD, Normal carotid pulses Cardiac: Other (irregularly irregular.) Lungs: Normal Breath Sounds, No Wheeze, Rales, Rhonchi, Other (Moist cough noted.) Neuro: Alert and responsive, No focal deficits noted Abdomen: Soft, Non-Tender Skin: No rashes noted on visualized skin Musculoskeletal: No Chest Wall Tenderness Extremities: No Clubbing, No Cyanosis, No Edema, Normal Pulses Results 02/10/17 04:15 02/10/17 04:15 Lab Results 02/10/17 02/10/17 04:15 04:15 WBC 6.7 Hgb 9.6 L Hct 28.3 L Plt Count 107 L Sodium 131 L Potassium 4.0 Chloride 95 L Carbon Dioxide 21 BUN 96 H Creatinine 11.64 H Glucose 103 H Calcium 7.6 L Magnesium 2.1 Total Bilirubin 0.4 AST 28 ALT 25 Alkaline Phosphatase 64 - EKG Interpretation EKG results cardiology: personally reviewed - VTE Reasons for not Prescribing Prophylaxis: Not indicated-Anticoagulated or INR therapeutic Consult Discharge Plan - Plan Referrals: Mansoor Loaiza MD [Primary Care Provider] - 02/17/17 3:30 pm (web request sent on 02/08/17 )
[2017-02-10] MEDS: Insulin LISPRO 300 UNITS/3 ML VIAL SQ SCH ×4 (09:56→22:04)
[2017-02-10] MEDS: APIXABAN 5 MG TABLET PO SCH ×2 (10:02→22:04)
[2017-02-10] MEDS: Aspirin Enteric Coated 81 MG Tablet PO SCH (10:02)
--- NOTE | 2017-02-10 11:17 | Internal Med Progress Note ---
<Babak Farooq - Last Filed: 02/10/17 11:15> Date of Encounter: 02/10/17 Time of Encounter: 11:16 - Assessment and plan (2) ESRD (end stage renal disease) on dialysis Current Visit: Yes Status: Chronic Assessment and plan: scheduled to received HD today. (3) Diabetes Current Visit: No Status: Chronic Assessment and plan: Blood sugars been under good control. Continue Levemir 20 units at bedtime and sliding scale insulin. 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 continue telemetry. (5) DVT prophylaxis Current Visit: Yes Status: Acute Assessment and plan: continue home eliquis (6) Elevated troponin Current Visit: Yes Status: Chronic Assessment and plan: chronically elevated trops w/ ESRD. (7) Weakness Current Visit: Yes Status: Acute Assessment and plan: no focal complaints at this time. He is borderline hypotensive requiring intermittent fluid boluses to support his blood pressure. Differential includes sepsis, relation to atrial fibrillation, vascular disease. (8) DVT (deep venous thrombosis) Current Visit: Yes Status: Acute Assessment and plan: Stable. No evidence of new DVT clinically. Continue Eliquis. Qualifiers: DVT location: lower extremity Affected thrombotic vein of extremity: unspecified vein of extremity Chronicity: unspecified Laterality: unspecified laterality Qualified Code(s): I82.409 - Acute embolism and thrombosis of unspecified deep veins of unspecified lower extremity - Subjective Interval history: 61 yo M day 4 of admit. well known to service was admitted for 3 day h/o weakness and fatigue after dialysis on Friday with PMHx of ESRD, HTN, CHF, COPD , CAD, DVT, cardiomyopahty, arthritis, asthma, HLD, and GERD. He missed HD on due to filling ill. Patient says he's feeling a lot better today. no complaints of n/v/f/c. he was unsure if he will received dialysis today. - Constitutional Vitals: Temp Pulse Resp BP Pulse Ox 97.7 F 93 18 105/58 92 02/10/17 10:38 02/10/17 10:38 02/10/17 10:38 02/10/17 10:38 02/10/17 10:38 General appearance: Present: A&O X 3, no acute distress, answers questions appropriately - Head Head exam: Present: atraumatic, normocephalic - Respiratory Respiratory exam: Present: CTAB. Absent: accessory muscle use, rales, rhonchi, wheezes - Cardiovascular Cardiovascular exam: Present: irregular rhythm, +S1, +S2. Absent: diastolic murmur, gallop, rubs, systolic murmur Additional comments: radial pulses bilaterally were irregular - GI/Abdominal GI/Abdominal exam: Present: distended, soft - Expanded Neurological Exam Patient oriented to: Present: person (cooperative, and very talkative and coherent today), place, time - Psychiatric Psychiatric exam: Present: normal affect, normal mood Internal Medicine: Result - Labs CBC & Chem 7: 02/10/17 04:15 02/10/17 04:15 Labs: Short CBC 02/10/17 Range/Units 04:15 WBC 6.7 (4.3-11.1) K/mcL Hgb 9.6 L (12.9-16.9) g/dL Hct 28.3 L (37.5-50.1) % Plt Count 107 L (140-400) K/mcL Neutrophils # 3.2 (1.6-8.9) K/mcL BMP 02/10/17 04:15 Sodium 131 L Potassium 4.0 Chloride 95 L Carbon Dioxide 21 BUN 96 H Creatinine 11.64 H Glucose 103 H Calcium 7.6 L Liver Function 02/10/17 Range/Units 04:15 Total Bilirubin 0.4 (0.2-1.2) mg/dL Direct Bilirubin 0.2 (0.0-0.5) mg/dL AST 28 (5-34) Units/L ALT 25 (0-55) Units/L Alkaline Phosphatase 64 (38-126) Units/L Albumin 2.7 L (3.5-5.0) g/dL - ABG Interpretation ABG results: PT/INR, D-dimer PT 18.4 Seconds (9.4-12.1) H 02/08/17 09:30 - VTE Reasons for not Prescribing Prophylaxis: Not indicated-Anticoagulated or INR therapeutic Consult Discharge Plan - Plan Referrals: Mansoor Loaiza MD [Primary Care Provider] - 02/17/17 3:30 pm (web request sent on 02/08/17 ) <Adolph Dickinson - Last Filed: 02/11/17 17:57> Date of Encounter: 02/11/17 - Assessment and plan (1) Atrial fibrillation Current Visit: Yes Status: Acute Qualifiers: Atrial fibrillation type: paroxysmal Qualified Code(s): I48.0 - Paroxysmal atrial fibrillation (2) Hypotension Current Visit: Yes Status: Acute Qualifiers: Hypotension type: unspecified hypotension type Qualified Code(s): I95.9 - Hypotension, unspecified (3) Acute respiratory failure with hypoxia Current Visit: Yes Status: Acute (4) Acute metabolic encephalopathy Current Visit: Yes Status: Acute (5) Hyponatremia Current Visit: No Status: Acute (6) CAD (coronary artery disease) Current Visit: No Status: Acute Qualifiers: Coronary Disease-Associated Artery/Lesion type: [place] artery [place] vs. 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 Qualified Code(s): E11.8 - Type 2 diabetes mellitus with unspecified complications; Z79.4 - FDC (current) use of insulin (8) Weakness Current Visit: Yes Status: Acute - Constitutional Vitals: Temp Pulse Resp BP Pulse Ox 98.1 F 101 18 100/56 96 02/11/17 16:18 02/11/17 16:18 02/11/17 16:18 02/11/17 16:18 02/11/17 16:18 Internal Medicine: Result - Labs CBC & Chem 7: 02/11/17 04:23 02/11/17 04:23 Labs: Short CBC 02/11/17 Range/Units 04:23 WBC 6.7 (4.3-11.1) K/mcL Hgb 9.6 L (12.9-16.9) g/dL Hct 27.8 L (37.5-50.1) % Plt Count 113 L (140-400) K/mcL Neutrophils # 2.4 (1.6-8.9) K/mcL [facility] 02/11/17 04:23 Sodium 135 L Potassium 3.7 Chloride 98 Carbon Dioxide 28 BUN 48 H D Creatinine 8.22 H Glucose 80 Calcium 8.0 L - ABG Interpretation ABG results: PT/INR, D-dimer PT 18.4 Seconds (9.4-12.1) H 02/08/17 09:30 - Attending Attestation Not seen by me today. <Parish Aldana T - Last Filed: 02/12/17 07:25> Date of Encounter: 02/12/17 - Constitutional Vitals: Temp Pulse Resp BP Pulse Ox 98.1 F 98 16 129/61 94 02/12/17 04:12 02/12/17 04:12 02/12/17 04:12 02/12/17 04:12 02/12/17 04:12 Internal Medicine: Result - Labs CBC & Chem 7: 02/12/17 04:30 02/12/17 04:30 Labs: Short CBC 02/12/17 Range/Units 04:30 WBC 6.5 (4.3-11.1) K/mcL Hgb 9.2 L (12.9-16.9) g/dL Hct 27.3 L (37.5-50.1) % Plt Count 148 (140-400) K/mcL [facility] 02/12/17 04:30 Sodium 134 L Potassium 4.1 Chloride 97 L Carbon Dioxide 26 BUN 60 H Creatinine 9.71 H Glucose 90 Calcium 7.5 L - ABG Interpretation ABG results: PT/INR, D-dimer PT 18.4 Seconds (9.4-12.1) H 02/08/17 09:30 - Attending Attestation I examined this patient and my medical decision-making was reviewed with the Resident Physician on 02/11/17. I agree with the documented findings, disposition and treatment plan as described except to the extent set forth below. Seen and evaluated at bedside 61 M, known ESRD on HD, Afib , DVT on AC, CAD, Hypotension He has no new complains Physical ecam: VSS, L BKA, stump clean, R serna with chronic wounds that do not look infected HIs anemia continues to worsen His hypotension improved FOBT positive D/C central line Consult GI NPO till GI eval Rest of details as in resident physician's documentation
--- NOTE | 2017-02-10 11:57 | Nephrology Progress Note ---
Date of Encounter: 02/10/17 Time of Encounter: 11:10 - Assessment and Plan (1) ESRD (end stage renal disease) on dialysis Current Visit: Yes Status: Chronic Will dialyze today. Orders given. Afib, rate stable. Subjective Principal diagnosis: Hypotension, ESRD, new afib with RVR, elevated troponin Interval history: Laying in bed, states still feels weak, no appetite. Objective - Vital Signs Vital signs: Vital Signs Temp Pulse Resp BP Pulse Ox 02/10/17 10:38 97.7 F 93 18 105/58 92 02/10/17 07:42 14 96 02/10/17 07:01 97.8 F 91 17 107/64 95 02/10/17 04:04 98.4 F 90 18 113/61 94 02/09/17 23:20 97.8 F 95 19 111/57 95 02/09/17 22:10 16 95 02/09/17 20:03 97.8 F 84 19 139/71 95 02/09/17 15:45 97.8 F 88 16 115/58 93 02/09/17 12:13 97.6 F 80 18 104/65 94 Intake and Output 02/09/17 02/10/17 02/10/17 23:59 07:59 15:59 Intake Total 120 / 120 Output Total 375 / 375 Balance 120 / 120 -375 / -375 Intake: Oral 120 / 120 Output: Urine 375 / 375 Other: Weight 125.5 kg Blood Glucose* 144 84 93 Patient Weight 02/10/17 23:59 Weight 125.5 kg - General Appearance General appearance: Present: well-developed, well-nourished, appears started age , obese EENT: Present: mucous membranes moist Neck: Present: no JVD Respiratory: Present: clear Cardiology: Present: no edema, irregular rhythm Gastrointestinal: Present: normoactive bowel sounds, no tenderness Integumentary: Present: warm and dry Neurologic: Present: alert and oriented x3 Psychiatric: Present: mood/affect appropriate, cooperative - Lab 02/10/17 04:15 02/10/17 04:15 Most recent lab results Calcium 7.6 mg/dL (8.6-10.8) L 02/10/17 04:15 Phosphorus 5.7 mg/dL (2.3-4.7) H 02/10/17 04:15 Magnesium 2.1 mg/dL (1.6-2.6) 02/10/17 04:15 - VTE Reasons for not Prescribing Prophylaxis: Not indicated-Anticoagulated or INR therapeutic Consult Discharge Plan - Plan Referrals: Mansoor Loaiza MD [Primary Care Provider] - 02/17/17 3:30 pm (web request sent on 02/08/17 )
[2017-02-10] MEDS ORDERED: 0.9 % Sodium Chloride 250 ML IVC PRN (12:01)
[2017-02-10] MEDS ORDERED: 0.9 % Sodium Chloride 1,000 ML PRIME SCH (12:15)
--- NOTE | 2017-02-10 15:09 | Electrocardiograph Report ---
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
--- NOTE | 2017-02-10 15:10 | Electrocardiograph Report ---
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
[2017-02-10] MEDS ORDERED: Acetaminophen 325 MG TABLET PO PRN (18:41)
--- NOTE | 2017-02-10 19:42 | Event Note ---
Date of Encounter: 02/10/17 Time of Encounter: 10:00 I examined this patient and my medical decision-making was reviewed with the Resident Physician on 02/10/17. I agree with the documented findings, disposition and treatment plan as described except to the extent set forth below. I am unable to sign the note from today - EMR won't allow me. I have reviewed the note today from Dr. Farooq. Mr Barcenas is currently admitted for weakness, hypotension. He remains moderate to high risk due to potential for worsening fluid status. Mr. Barcenas feels better today. He is more alert and oriented. BP better. No new issues. Exam alert. Comfortable Heart reg No wheeze Abd soft I/P 1. Hypotension - improved 2. Anemia - check stool guiac 3. ESRD 4. DM 5. Weakness. Working on d/c planning.
[2017-02-10] MEDS ORDERED: 0.9 % Sodium Chloride 1,000 ML ONE (19:46)
[2017-02-10] MEDS: Insulin DETEMIR 100 UNIT/ML X5UNITS SQ SCH (23:23)
[2017-02-11 04:46] LABS: Basophils % 0.6 %; Eosinophils # 0.1 K/mcL (0.0-0.6); Eosinophils % 1.8 %; Hematocrit 27.8 % (37.5-50.1); Hemoglobin 9.6 g/dL (12.9-16.9); Immature Granulocytes % 1.8 % (0-4); Lymphocytes # 3.2 K/mcL (0.6-4.6); Lymphocytes % 48.1 %; Mean Corpuscular HGB Conc 34.5 g/dL (31.6-35.5); Mean Corpuscular Hemoglobin 30.6 pg (28.0-33.3); Mean Corpuscular Volume 88.5 fL (83.0-100.0); Mean Platelet Volume 10.4 fL (9.4-12.4); Monocytes # 0.8 K/mcL (0.0-1.3); Monocytes % 11.5 %; Neutrophils # 2.4 K/mcL (1.6-8.9); Platelet Count 113 K/mcL (140-400); Red Blood Count 3.14 M/mcL (4.19-5.50); Red Cell Distribution Width 13.2 % (11.5-14.5); Segmented Neutrophils % 36.2 %
[2017-02-11 05:00] LABS: Magnesium 1.9 mg/dL (1.6-2.6); Phosphorous 3.3 mg/dL (2.3-4.7); Potassium 3.7 mEq/L (3.5-4.5)
[2017-02-11 05:27] LABS: Platelet Estimate Normal (Normal)
[2017-02-11] MEDS: Budesonide/Formoterol 160/4.5 MDI IH SCH ×2 (08:10→20:26)
[2017-02-11] MEDS: Tiotropium 18 MCG inhalation IH SCH (08:11)
--- NOTE | 2017-02-11 08:18 | Nephrology Progress Note ---
Date of Encounter: 02/11/17 Time of Encounter: 08:00 - Assessment and Plan (1) ESRD (end stage renal disease) on dialysis Current Visit: Yes Status: Chronic No HD today. Will dialyze in [place] on if discharged home. Subjective Principal diagnosis: Hypotension, ESRD, new afib with RVR, elevated troponin Interval history: Laying in bed, states feels somewhat stronger. Appetite remains decreased. Wants to go home today. Objective - Vital Signs Vital signs: Vital Signs Temp Pulse Resp BP Pulse Ox 02/11/17 08:10 18 94 02/11/17 08:02 97.7 F 100 20 106/57 95 02/11/17 03:33 98.0 F 90 17 124/75 96 02/10/17 23:30 97.9 F 86 16 126/98 96 02/10/17 20:00 16 94 02/10/17 19:18 97.9 F 88 18 117/58 96 02/10/17 16:45 97.9 F 18 120/44 02/10/17 16:15 102/57 02/10/17 15:45 112/48 02/10/17 15:15 103/40 02/10/17 14:45 107/81 02/10/17 14:15 118/56 02/10/17 13:45 148/80 02/10/17 13:15 97 F L 18 144/72 02/10/17 10:38 97.7 F 93 18 105/58 92 Intake and Output 02/10/17 02/11/17 02/11/17 23:59 07:59 15:59 Intake Total 500 / 500 0 / 0 Output Total 3600 / 3600 0 / 0 Balance -3100 / -3100 0 / 0 Intake: Oral 500 / 500 0 / 0 Output: Urine 0 / 0 0 / 0 Total Dialysis (HD) 3600 / 3600 Output Other: Weight 124.5 kg Blood Glucose* 160 65 Hemodialysis Net Fluid 3000 Removed (mL) Patient Weight 02/11/17 23:59 Weight 124.5 kg - General Appearance General appearance: Present: well-developed, well-nourished, appears started age , obese EENT: Present: mucous membranes moist Neck: Present: no JVD Respiratory: Present: clear Cardiology: Present: no edema, irregular rhythm Additional Comments: left BKA Gastrointestinal: Present: normoactive bowel sounds, no tenderness Integumentary: Present: warm and dry Neurologic: Present: alert and oriented x3 Psychiatric: Present: mood/affect appropriate, cooperative - Lab 02/11/17 04:23 02/11/17 04:23 Most recent lab results Calcium 8.0 mg/dL (8.6-10.8) L 02/11/17 04:23 Phosphorus 3.3 mg/dL (2.3-4.7) 02/11/17 04:23 Magnesium 1.9 mg/dL (1.6-2.6) 02/11/17 04:23 - VTE Reasons for not Prescribing Prophylaxis: Not indicated-Anticoagulated or INR therapeutic Consult Discharge Plan - Plan Referrals: Mansoor Loaiza MD [Primary Care Provider] - 02/17/17 3:30 pm (web request sent on 02/08/17 )
[2017-02-11] MEDS: Insulin LISPRO 300 UNITS/3 ML VIAL SQ SCH ×4 (08:20→20:48)
[2017-02-11] MEDS: APIXABAN 5 MG TABLET PO SCH (08:24)
[2017-02-11] MEDS: Aspirin Enteric Coated 81 MG Tablet PO SCH (08:25)
--- NOTE | 2017-02-11 11:08 | Internal Med Progress Note ---
<Babak Farooq - Last Filed: 02/11/17 13:09> Date of Encounter: 02/11/17 Time of Encounter: 11:06 - Assessment and plan (1) Anemia Current Visit: Yes Status: Acute Assessment and plan: hgb has downtrended since admission. today and yesterday hgb 9.6. positive occult guiaic. GI consult pending Qualifiers: Qualified Code(s): D64.9 - Anemia, unspecified (2) ESRD (end stage renal disease) on dialysis Current Visit: Yes Status: Chronic Assessment and plan: scheduled HD tomorrow. (3) Diabetes Current Visit: No Status: Chronic Assessment and plan: Blood sugars been under good control. Continue Levemir 20 units at bedtime and sliding scale insulin. 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 continue telemetry. (5) DVT prophylaxis Current Visit: Yes Status: Acute Assessment and plan: continue home eliquis (6) Elevated troponin Current Visit: Yes Status: Chronic Assessment and plan: chronically elevated trops w/ ESRD. (7) Weakness Current Visit: Yes Status: Acute Assessment and plan: no focal complaints at this time. He is borderline hypotensive requiring intermittent fluid boluses to support his blood pressure. Differential includes sepsis, relation to atrial fibrillation, vascular disease. (8) DVT (deep venous thrombosis) Current Visit: Yes Status: Acute Assessment and plan: Stable. No evidence of new DVT clinically. Continue Eliquis. Qualifiers: DVT location: lower extremity Affected thrombotic vein of extremity: unspecified vein of extremity Chronicity: unspecified Laterality: unspecified laterality Qualified Code(s): I82.409 - Acute embolism and thrombosis of unspecified deep veins of unspecified lower extremity - Subjective Interval history: 61 yo M day 5 of admit. well known to service was admitted for 3 day h/o weakness and fatigue after dialysis on Friday with PMHx of ESRD, HTN, CHF, COPD , CAD, DVT, cardiomyopahty, arthritis, asthma, HLD, and GERD. He missed HD on due to filling ill. Patient has no complaints today. he denies n/v/f/c. - Constitutional Vitals: Temp Pulse Resp BP Pulse Ox 97.5 F L 96 20 114/53 96 02/11/17 10:47 02/11/17 10:47 02/11/17 10:47 02/11/17 10:47 02/11/17 10:47 General appearance: Present: A&O X 3, no acute distress, answers questions appropriately - Respiratory Respiratory exam: Present: CTAB. Absent: accessory muscle use, rales, rhonchi, wheezes - Cardiovascular Cardiovascular exam: Present: RRR, +S1, +S2. Absent: diastolic murmur, gallop, rubs, systolic murmur - GI/Abdominal GI/Abdominal exam: Present: normal bowel sounds, soft, no peritoneal signs. Absent: distended, tenderness - Neurological Exam Neurological exam: Present: alert, oriented X3 Internal Medicine: Result - Labs CBC & Chem 7: 02/11/17 04:23 02/11/17 04:23 Labs: Short CBC 02/11/17 Range/Units 04:23 WBC 6.7 (4.3-11.1) K/mcL Hgb 9.6 L (12.9-16.9) g/dL Hct 27.8 L (37.5-50.1) % Plt Count 113 L (140-400) K/mcL Neutrophils # 2.4 (1.6-8.9) K/mcL BMP 02/10/17 02/11/17 04:15 04:23 Sodium 131 L 135 L Potassium 4.0 3.7 Chloride 95 L 98 Carbon Dioxide 21 28 BUN 96 H 48 H D Creatinine 11.64 H 8.22 H Glucose 103 H 80 Calcium 7.6 L 8.0 L Liver Function 02/10/17 Range/Units 04:15 Total Bilirubin 0.4 (0.2-1.2) mg/dL Direct Bilirubin 0.2 (0.0-0.5) mg/dL AST 28 (5-34) Units/L ALT 25 (0-55) Units/L Alkaline Phosphatase 64 (38-126) Units/L Albumin 2.7 L (3.5-5.0) g/dL - ABG Interpretation ABG results: PT/INR, D-dimer PT 18.4 Seconds (9.4-12.1) H 02/08/17 09:30 - Impressions Impressions Echocardiogram 02/08/17 12:11 Impressions: LVEF 60-65%. RV is visualized in Definity images. It appears to be dilated with normal function. Indeterminate diastolic function. Definity echo contrast was used. No significant valvular dysfunction. No pulmonary hypertension. Left Ventricular Wall Motion: Rest Echo Findings The mid inferior lateral and basal inferior lateral [place] were not visualized. All other wall segments showed normal motion. Findings: Study Quality * Technically sub-optimal due to clinical status. ECG Findings * Unclear underlying rhythm. It appears regular with BBB. Aorta * Not well visualized. Aortic Valve * No aortic regurgitation. * No aortic stenosis. * Aortic valve not well visualized. Mitral Valve * No mitral regurgitation. * Mitral valve not well visualized. * No mitral stenosis. Tricuspid Valve * Tricuspid valve not well visualized. * No tricuspid regurgitation. Pulmonic Valve * Pulmonic valve is not well visualized. * No pulmonic stenosis. * No pulmonic regurgitation. Pulmonary Artery * Pulmonary artery not well visualized. Left Atrium * Normal left atrial size. Right Atrium * Normal right atrial size. Right Ventricle * RV is visualized in Definity images. It appears to be dilated with normal function. Left Ventricle * Indeterminate diastolic function. * LVEF 60-65%. * Definity echo contrast was used. * Suboptimal PLAX window for LV measurements. Visually LV size appears normal. Interatrial Septum * Interatrial septum not well evaluated. IVC * The IVC is not well evaluated. - VTE Reasons for not Prescribing Prophylaxis: Not indicated-Anticoagulated or INR therapeutic Consult Discharge Plan - Plan Referrals: Mansoor Loaiza MD [Primary Care Provider] - 02/17/17 3:30 pm (web request sent on 02/08/17 ) <Parish Aldana - Last Filed: 02/11/17 16:27> Date of Encounter: 02/11/17 - Constitutional Vitals: Temp Pulse Resp BP Pulse Ox 98.1 F 101 18 100/56 96 02/11/17 16:18 02/11/17 16:18 02/11/17 16:18 02/11/17 16:18 02/11/17 16:18 Internal Medicine: Result - Labs CBC & Chem 7: 02/11/17 04:23 02/11/17 04:23 Labs: Short CBC 02/11/17 Range/Units 04:23 WBC 6.7 (4.3-11.1) K/mcL Hgb 9.6 L (12.9-16.9) g/dL Hct 27.8 L (37.5-50.1) % Plt Count 113 L (140-400) K/mcL Neutrophils # 2.4 (1.6-8.9) K/mcL BMP 02/11/17 04:23 Sodium 135 L Potassium 3.7 Chloride 98 Carbon Dioxide 28 BUN 48 H D Creatinine 8.22 H Glucose 80 Calcium 8.0 L - ABG Interpretation ABG results: PT/INR, D-dimer PT 18.4 Seconds (9.4-12.1) H 02/08/17 09:30 - Attending Attestation I examined this patient and my medical decision-making was reviewed with the Resident Physician on 02/11/17. I agree with the documented findings, disposition and treatment plan as described except to the extent set forth below. Seen and evaluated at bedside 61 M, known ESRD on HD, Afib , DVT on AC, CAD, Hypotension He has no new complains Physical ecam: VSS, L BKA, stump clean, R serna with chronic wounds that do not look infected HIs anemia continues to worsen His hypotension improved FOBT positive D/C central line Consult GI NPO till GI eval Rest of details as in resident physician's documentation
[2017-02-11] MEDS: Insulin DETEMIR 100 UNIT/ML X5UNITS SQ SCH (21:35)
[2017-02-12 04:38] LABS: Hematocrit 27.3 % (37.5-50.1); Hemoglobin 9.2 g/dL (12.9-16.9); Mean Corpuscular HGB Conc 33.7 g/dL (31.6-35.5); Mean Corpuscular Hemoglobin 30.4 pg (28.0-33.3); Mean Corpuscular Volume 90.1 fL (83.0-100.0); Platelet Count 148 K/mcL (140-400); Red Blood Count 3.03 M/mcL (4.19-5.50); Red Cell Distribution Width 12.9 % (11.5-14.5)
[2017-02-12 04:55] LABS: Calcium 7.5 mg/dL (8.6-10.8); Potassium 4.1 mEq/L (3.5-4.5)
[2017-02-12] MEDS: Budesonide/Formoterol 160/4.5 MDI IH SCH ×2 (07:44→21:49)
[2017-02-12] MEDS: Tiotropium 18 MCG inhalation IH SCH (07:45)
[2017-02-12] MEDS: Insulin LISPRO 300 UNITS/3 ML VIAL SQ SCH ×4 (08:14→20:43)
[2017-02-12] MEDS: Aspirin Enteric Coated 81 MG Tablet PO SCH (08:26)
--- NOTE | 2017-02-12 08:38 | Nephrology Progress Note ---
Date of Encounter: 02/12/17 Time of Encounter: 08:30 - Assessment and Plan (1) ESRD (end stage renal disease) on dialysis Current Visit: Yes Status: Chronic No HD today. Will dialyze in [place] on if discharged home. Awaiting GI consult for guiac pos stool. Subjective Principal diagnosis: Hypotension, ESRD, new afib with RVR, elevated troponin Interval history: Laying in bed, states feels somewhat stronger. Appetite remains decreased. Wants to go home today. Objective - Vital Signs Vital signs: Vital Signs Temp Pulse Resp BP Pulse Ox 02/12/17 07:48 98.3 F 99 18 146/75 94 02/12/17 04:12 98.1 F 98 16 129/61 94 02/11/17 23:57 98.2 F 98 16 110/64 94 02/11/17 20:26 18 95 02/11/17 19:33 98.0 F 100 16 148/74 95 02/11/17 16:18 98.1 F 101 18 100/56 96 02/11/17 10:47 97.5 F L 96 20 114/53 96 Intake and Output 02/11/17 02/12/17 02/12/17 23:59 07:59 15:59 Other: Meal NPO Percent of Meal Consumed 0% Weight 128.2 kg Blood Glucose* 87 85 Patient Weight 02/12/17 23:59 Weight 128.2 kg - General Appearance General appearance: Present: well-developed, well-nourished, appears started age , obese EENT: Present: mucous membranes moist Neck: Present: no JVD Respiratory: Present: clear Cardiology: Present: no edema, irregular rhythm Additional Comments: left BKA Gastrointestinal: Present: normoactive bowel sounds, no tenderness Neurologic: Present: alert and oriented x3 Psychiatric: Present: mood/affect appropriate, cooperative - Lab 02/12/17 04:30 02/12/17 04:30 Most recent lab results Calcium 7.5 mg/dL (8.6-10.8) L 02/12/17 04:30 Phosphorus 3.3 mg/dL (2.3-4.7) 02/11/17 04:23 Magnesium 1.9 mg/dL (1.6-2.6) 02/11/17 04:23 - VTE Reasons for not Prescribing Prophylaxis: Not indicated-Anticoagulated or INR therapeutic Consult Discharge Plan - Plan Referrals: Mansoor Loaiza MD [Primary Care Provider] - 02/17/17 3:30 pm (web request sent on 02/08/17 )
--- NOTE | 2017-02-12 09:08 | Internal Med Progress Note ---
<Babak Farooq - Last Filed: 02/12/17 13:36> Date of Encounter: 02/12/17 Time of Encounter: 09:06 - Assessment and plan (1) Anemia Current Visit: Yes Status: Acute Assessment and plan: hgb has downtrended since admission. today hgb 9.2. positive occult guiaic. GI consult pending Qualifiers: Qualified Code(s): D64.9 - Anemia, unspecified (2) ESRD (end stage renal disease) on dialysis Current Visit: Yes Status: Chronic Assessment and plan: scheduled HD today. (3) Diabetes Current Visit: No Status: Chronic Assessment and plan: Blood sugars been under good control. Continue Levemir 20 units at bedtime and sliding scale insulin. 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 continue telemetry. (5) DVT prophylaxis Current Visit: Yes Status: Acute Assessment and plan: continue home eliquis (6) Elevated troponin Current Visit: Yes Status: Chronic Assessment and plan: chronically elevated trops w/ ESRD. (7) Weakness Current Visit: Yes Status: Acute Assessment and plan: no focal complaints at this time. He is borderline hypotensive requiring intermittent fluid boluses to support his blood pressure. Differential includes sepsis, relation to atrial fibrillation, vascular disease. (8) DVT (deep venous thrombosis) Current Visit: Yes Status: Acute Assessment and plan: Stable. No evidence of new DVT clinically. Qualifiers: DVT location: lower extremity Affected thrombotic vein of extremity: unspecified vein of extremity Chronicity: unspecified Laterality: unspecified laterality Qualified Code(s): I82.409 - Acute embolism and thrombosis of unspecified deep veins of unspecified lower extremity - Subjective Interval history: 61 yo M day 6 of admit. well known to service was admitted for 3 day h/o weakness and fatigue after dialysis on Friday with PMHx of ESRD, HTN, CHF, COPD , CAD, DVT, cardiomyopahty, arthritis, asthma, HLD, and GERD. He missed HD on due to filling ill. Patient has no new complaints today. he denies n/v/f/c. - Constitutional Vitals: Temp Pulse Resp BP Pulse Ox 98.3 F 99 18 146/75 94 02/12/17 07:48 02/12/17 07:48 02/12/17 07:48 02/12/17 07:48 02/12/17 07:48 General appearance: Present: A&O X 3, no acute distress, answers questions appropriately - Head Head exam: Present: atraumatic, normocephalic - Respiratory Respiratory exam: Present: CTAB. Absent: accessory muscle use, rales, rhonchi, wheezes - Cardiovascular Cardiovascular exam: Present: RRR, +S1, +S2. Absent: diastolic murmur, gallop, rubs, systolic murmur - GI/Abdominal GI/Abdominal exam: Present: normal bowel sounds, soft, no peritoneal signs. Absent: distended, tenderness Internal Medicine: Result - Labs CBC & Chem 7: 02/12/17 04:30 02/12/17 04:30 Labs: Short CBC 02/12/17 Range/Units 04:30 WBC 6.5 (4.3-11.1) K/mcL Hgb 9.2 L (12.9-16.9) g/dL Hct 27.3 L (37.5-50.1) % Plt Count 148 (140-400) K/mcL BMP 02/12/17 04:30 Sodium 134 L Potassium 4.1 Chloride 97 L Carbon Dioxide 26 BUN 60 H Creatinine 9.71 H Glucose 90 Calcium 7.5 L - ABG Interpretation ABG results: PT/INR, D-dimer PT 18.4 Seconds (9.4-12.1) H 02/08/17 09:30 - VTE Reasons for not Prescribing Prophylaxis: Not indicated-Anticoagulated or INR therapeutic Consult Discharge Plan - Plan Referrals: Mansoor Loaiza MD [Primary Care Provider] - 02/17/17 3:30 pm (web request sent on 02/08/17 ) <Parish Aldana - Last Filed: 02/12/17 15:33> Date of Encounter: 02/12/17 - Constitutional Vitals: Temp Pulse Resp BP Pulse Ox 97.7 F 86 18 153/70 95 02/12/17 10:58 02/12/17 10:58 02/12/17 10:58 02/12/17 10:58 02/12/17 10:58 Internal Medicine: Result - Labs CBC & Chem 7: 02/12/17 04:30 02/12/17 04:30 Labs: Short CBC 02/12/17 Range/Units 04:30 WBC 6.5 (4.3-11.1) K/mcL Hgb 9.2 L (12.9-16.9) g/dL Hct 27.3 L (37.5-50.1) % Plt Count 148 (140-400) K/mcL BMP 02/12/17 04:30 Sodium 134 L Potassium 4.1 Chloride 97 L Carbon Dioxide 26 BUN 60 H Creatinine 9.71 H Glucose 90 Calcium 7.5 L - ABG Interpretation ABG results: PT/INR, D-dimer PT 18.4 Seconds (9.4-12.1) H 02/08/17 09:30 - Attending Attestation I examined this patient and my medical decision-making was reviewed with the Resident Physician on 02/12/17. I agree with the documented findings, disposition and treatment plan as described except to the extent set forth below. Seen and evaluated at bedside 61 M, known ESRD on HD, Afib , DVT on AC, CAD, Hypotension At time of review, he was awaiting GI review He denies new complains Physical exam: VSS, L BKA, stump clean, Chest is clear, R serna with chronic wounds that do not look infected, overlying wound dressing slightly soaked A/P Acute on chronic anemia: Hb is stable, and no melena. GI eval today, for EGD/ Colonoscopy. D/C Plavix, Hold eliquis till procedure, no indication for blood transfusion at this time Consult wound care for R serna wound, patient has Home nursing care, but no wound care is noted Continue other management Renal is following for scheduled HD Rest of details as in resident physician's documentation
--- NOTE | 2017-02-12 11:04 | Gastroenterology Consult Note ---
<Parag Juarez Hugo - Last Filed: 02/12/17 11:01> Date of Encounter: 02/12/17 Time of Encounter: 10:05 - Assessment and plan (1) Anemia Current Visit: Yes Status: Acute Assessment and plan: On admission, Hgb 13.6 which has trended downward and today Hgb 9.2. FOBT was positive on 02/10. Continue to monitor CBC and transfuse PRBC as needed. Pt has never had EGD or colonoscopy. Plan for EGD and colonoscopy tomorrow. Clear liquid diet today, no red or purple. NPO at midnight. If unable tolerate NuLytely please use MiraLAX prep. If not clear by 6 AM, give 2 tap water enemas. Request director of early childhood education dialysis tomorrow. Qualifiers: Qualified Code(s): D64.9 - Anemia, unspecified (2) ESRD (end stage renal disease) on dialysis Current Visit: Yes Status: Chronic Assessment and plan: Request director of early childhood education dialysis tomorrow so we can complete EGD and colonoscopy tomorrow afternoon. (3) Hx of CABG Current Visit: No Status: Chronic - Time Spent With Patient Total time spent is greater than 50% in coordination of care (as documented) at patient's floor/unit and/or counseling patient: GI History of Present Illness - Data of Consult Patient: new to practice Consult date: 02/12/17 Requesting Physician: Parish Aldana MD - Consult Narrative Reason for consult: Downward trending Hgb History of present illness: Mr. Barcenas is a 61 year old male with PMHx of ESRD, HTN, CHF, COPD, CAD, DVT, cardiomyopathy, arthritis, asthma, HLD, and GERD who presented with 3 day history of weakness and fatigue since his Friday HD. He denied fever, chills, shortness of breath, chest pain, abdominal pain, nausea, vomiting, diarrhea, or constipation. CT A/P the subtle injection of fat surrounding the gallbladder. RUQ US with normal gallbladder. On admission, Hgb 13.6 which has trended downward and today Hgb 9.2. FOBT was positive on 02/10. He states he has never had EGD or colonoscopy. Procedures: None NSAIDs: ASA Anticoagulation: Plavix, Eliquis Past Med Surg Social Fam HX - Past Medical History Medical history: arthritis, asthma, cardiomyopathy, CHF, COPD, coronary artery disease, DVT, diabetes, dialysis, GERD, hyperlipidemia, hypertension, osteoporosis, peripheral artery disease, renal disease, other Psychiatric history: no psych history - Past Surgical History Surgical History: coronary bypass (CABG), knee replacement, orthopedic, other, other - Social History Smoking Status: Former smoker Smokeless Tobacco Status: No Alcohol use: none Drug use: none - Family History Father Adopted: [place]: Jese Barcenas Family Member Ethnicity: Non- Living Status: Age at : 84 Cause of : Esophagal Cancer Hx Family Cardiac Disorders: No Hx Family Respiratory Disorders: No Hx Family Cancer: Yes Hx Family GI Disorders: No Hx Family Genitourinary Disorders: No Hx Family Endocrine Disorder: No Hx Family Musculoskeletal Disorders: No Hx Family Neuromuscular Disorders: No Hx Family Neurologic Disorders: No Hx Family HEENT Disorders: No Hx Family Autoimmune Disorders: No Hx Family Reproductive Disorders: No Hx Family Psychosocial Disorders: No Hx Family Medical Disorders: No Mother Adopted: [place]: Itzel Barcenas Family Member Ethnicity: Non- Living Status: Age at : 75 Cause of : Renal failure Hx Family Cardiac Disorders: Yes Hx Family Respiratory Disorders: No Hx Family Cancer: No Hx Family GI Disorders: No Hx Family Genitourinary Disorders: Yes Hx Family Endocrine Disorder: Yes Hx Family Musculoskeletal Disorders: No Hx Family Neuromuscular Disorders: No Hx Family Neurologic Disorders: No Hx Family HEENT Disorders: No Hx Family Autoimmune Disorders: No Hx Family Reproductive Disorders: No Hx Family Psychosocial Disorders: No Hx Family Medical Disorders: No - Gastrointestinal Gastrointestinal: Present: as per HPI - Constitutional Constitutional: as per HPI - EENT Eyes: as per HPI Ears: Present: as per HPI Nose, mouth and throat: Present: as per HPI - Cardiovascular Cardiovascular ROS: Present: as per HPI - Respiratory Respiratory IM: Present: as per HPI - Genitourinary Genitourinary: Absent: change in color, Urinary frequency - Neurological ROS Neurological GI: Present: as per HPI - Hematologic/Lymphatic Hematologic/Lymphatic pediatric: Present: as per HPI - Musculoskeletal Musculoskeletal ROS GI: Present: as per HPI - Integumentary Integumentary GI: Present: as per HPI - Psychiatric ROS Psychiatric GI: Present: as per HPI - Endocrine Endocrine IM: Present: as per HPI - Constitutional Vitals: Temp Pulse Resp BP Pulse Ox 98.3 F 99 18 146/75 94 02/12/17 07:48 02/12/17 07:48 02/12/17 07:48 02/12/17 07:48 02/12/17 07:48 General appearance: Present: cooperative, A&O X 3, no acute distress, answers questions appropriately - Head Head exam: Present: atraumatic, normocephalic - Eye Eye exam: Present: normal appearance, sclera anicteric - ENT ENT exam: Present: mucous membranes dry - Neck Neck exam general surgery: Present: normal inspection, trachea midline - Respiratory Respiratory exam: Present: CTAB. Absent: rales, rhonchi - Cardiovascular Cardiovascular exam: Present: RRR, +S1, +S2 - GI/Abdominal GI/Abdominal exam: Present: soft, no peritoneal signs. Absent: distended, firm , guarding, tenderness - Rectal Rectal exam: Present: deferred - Extremities Exam Extremities exam: Present: warm - Neurological Exam Neurological exam: Present: no focal deficits - Psychiatric Psychiatric exam: Present: normal affect, normal mood - Skin Skin exam: Present: dry, intact, normal color, warm Results - Labs CBC & Chem 7: 02/12/17 04:30 02/12/17 04:30 Labs: Last Result Calcium 7.5 mg/dL (8.6-10.8) L 02/12/17 04:30 Iron 128 mcg/dL (65-175) 02/10/17 04:15 % Saturation 89 % (20-55) H 02/10/17 04:15 Transferrin 103 mg/dL (174-364) L 02/10/17 04:15 Ferritin 51226 ng/ml (22-275) H 02/10/17 04:15 Troponin I 0.20 ng/mL (0-0.03) H* 02/09/17 03:55 Stool Occult Blood Positive (Negative) A 02/10/17 Unknown Entire Visit Hgb 9.2 g/dL (12.9-16.9) L 02/12/17 04:30 Hct 27.3 % (37.5-50.1) L 02/12/17 04:30 PT 18.4 Seconds (9.4-12.1) H 02/08/17 09:30 Ferritin 58789 ng/ml (22-275) H 02/10/17 04:15 Total Bilirubin 0.4 mg/dL (0.2-1.2) 02/10/17 04:15 AST 28 Units/L (5-34) 02/10/17 04:15 ALT 25 Units/L (0-55) 02/10/17 04:15 Ammonia 48 mcmol/L (18-72) 02/08/17 00:24 - ABG ABG results: PT/INR, D-dimer PT 18.4 Seconds (9.4-12.1) H 02/08/17 09:30 Consult Discharge Plan - Plan Referrals: Mansoor Loaiza MD [Primary Care Provider] - 02/17/17 3:30 pm (web request sent on 02/08/17 ) <Alexei Moulton - Last Filed: 02/12/17 17:03> Date of Encounter: 02/12/17 Time of Encounter: 14:00 - Time Spent With Patient Total time spent is greater than 50% in coordination of care (as documented) at patient's floor/unit and/or counseling patient: GI History of Present Illness - Data of Consult Requesting Physician: Parish Aldana MD - Consult Narrative History of present illness: Mr. Barcenas is a 61 year old male - Constitutional Vitals: Temp Pulse Resp BP Pulse Ox 98.5 F 93 23 173/81 97 02/12/17 16:10 02/12/17 16:10 02/12/17 16:10 02/12/17 16:10 02/12/17 16:10 Results - Labs CBC & Chem 7: 02/12/17 04:30 02/12/17 04:30 Labs: Last Result Calcium 7.5 mg/dL (8.6-10.8) L 02/12/17 04:30 Iron 128 mcg/dL (65-175) 02/10/17 04:15 % Saturation 89 % (20-55) H 02/10/17 04:15 Transferrin 103 mg/dL (174-364) L 02/10/17 04:15 Ferritin 39585 ng/ml (22-275) H 02/10/17 04:15 Troponin I 0.20 ng/mL (0-0.03) H* 02/09/17 03:55 Stool Occult Blood Positive (Negative) A 02/10/17 Unknown Entire Visit Hgb 9.2 g/dL (12.9-16.9) L 02/12/17 04:30 Hct 27.3 % (37.5-50.1) L 02/12/17 04:30 PT 18.4 Seconds (9.4-12.1) H 02/08/17 09:30 Ferritin 98849 ng/ml (22-275) H 02/10/17 04:15 Total Bilirubin 0.4 mg/dL (0.2-1.2) 02/10/17 04:15 AST 28 Units/L (5-34) 02/10/17 04:15 ALT 25 Units/L (0-55) 02/10/17 04:15 Ammonia 48 mcmol/L (18-72) 02/08/17 00:24 - ABG ABG results: PT/INR, D-dimer PT 18.4 Seconds (9.4-12.1) H 02/08/17 09:30 - Attending Attestation I examined this patient and my medical decision-making was reviewed with the Resident Physician. I agree with the documented findings, disposition and treatment plan as described except to the extent set forth below.
[2017-02-12] MEDS: APIXABAN 5 MG TABLET PO SCH (11:34)
[2017-02-12] MEDS ORDERED: SODIUM CHLORIDE/NAHCO3/KCL/PEG 4,000 ML SOLN.RECON PO ONE (17:00)
[2017-02-12] MEDS: Insulin DETEMIR 100 UNIT/ML X5UNITS SQ SCH (22:57)
[2017-02-13 05:42] LABS: Hematocrit 27.5 % (37.5-50.1); Hemoglobin 9.5 g/dL (12.9-16.9); Mean Corpuscular HGB Conc 34.5 g/dL (31.6-35.5); Mean Corpuscular Hemoglobin 30.8 pg (28.0-33.3); Mean Corpuscular Volume 89.3 fL (83.0-100.0); Mean Platelet Volume 10.1 fL (9.4-12.4); Platelet Count 190 K/mcL (140-400); Red Blood Count 3.08 M/mcL (4.19-5.50); Red Cell Distribution Width 12.8 % (11.5-14.5)
[2017-02-13 05:45] LABS: Calcium 7.8 mg/dL (8.6-10.8)
[2017-02-13 06:01] LABS: Potassium 4.4 mEq/L (3.5-4.5)
[2017-02-13] MEDS: Tiotropium 18 MCG inhalation IH SCH (07:46)
[2017-02-13] MEDS: Budesonide/Formoterol 160/4.5 MDI IH SCH ×2 (07:47→20:35)
[2017-02-13] MEDS: Insulin LISPRO 300 UNITS/3 ML VIAL SQ SCH ×4 (07:56→21:17)
[2017-02-13] MEDS: Aspirin Enteric Coated 81 MG Tablet PO SCH (08:02)
--- NOTE | 2017-02-13 08:52 | Internal Med Progress Note ---
<Babak Farooq - Last Filed: 02/13/17 15:15> Date of Encounter: 02/13/17 Time of Encounter: 08:49 - Assessment and plan (1) Anemia Current Visit: Yes Status: Acute Assessment and plan: hgb has downtrended since admission. today hgb 9.5. positive occult guiaic. GI consult will perform EGD and Colonoscopy today. Plavix was D/C'ed and Eliquis was held until after procedure. Pt has not had a bowel movement since hospitalization. - D/C NPO after procedure - consider enema if patient still has not had a bowel movement. Qualifiers: Qualified Code(s): D64.9 - Anemia, unspecified (2) ESRD (end stage renal disease) on dialysis Current Visit: Yes Status: Chronic Assessment and plan: scheduled HD tomorrow (3) Diabetes Current Visit: No Status: Chronic Assessment and plan: Blood sugars been under good control. Continue Levemir 20 units at bedtime and sliding scale insulin. Qualifiers: Diabetes mellitus type: type 2 Diabetes mellitus complication status: with unspecified complications Diabetes mellitus fdc insulin use: with fdc use Qualified Code(s): E11.8 - Type 2 diabetes mellitus with unspecified complications; Z79.4 - group home (current) use of insulin (4) CAD in [place] artery Current Visit: Yes Status: Chronic Assessment and plan: continue home ASA, Plavix(D/C'ed), BB, statin and nitrates. continue telemetry. (5) DVT prophylaxis Current Visit: Yes Status: Acute Assessment and plan: continue home eliquis after procedure, held for now. (6) Elevated troponin Current Visit: Yes Status: Chronic Assessment and plan: chronically elevated trops w/ ESRD. (7) Weakness Current Visit: Yes Status: Acute Assessment and plan: no focal complaints at this time. He is borderline hypotensive requiring intermittent fluid boluses to support his blood pressure. Differential includes sepsis, relation to atrial fibrillation, vascular disease. (8) DVT (deep venous thrombosis) Current Visit: Yes Status: Acute Assessment and plan: Stable. No evidence of new DVT clinically. Qualifiers: DVT location: lower extremity Affected thrombotic vein of extremity: unspecified vein of extremity Chronicity: unspecified Laterality: unspecified laterality Qualified Code(s): I82.409 - Acute embolism and thrombosis of unspecified deep veins of unspecified lower extremity - Subjective Interval history: 61 yo M day 7 of admit. well known to service was admitted for 3 day h/o weakness and fatigue after dialysis on Friday with PMHx of ESRD, HTN, CHF, COPD , CAD, DVT, cardiomyopahty, arthritis, asthma, HLD, and GERD. He missed HD on due to filling ill. Patient continues to have no new complaints today. he denies n/v/f/c. - Constitutional Vitals: Temp Pulse Resp BP Pulse Ox 97.9 F 80 16 136/71 96 02/13/17 07:50 02/13/17 07:50 02/13/17 07:50 02/13/17 07:50 02/13/17 07:50 General appearance: Present: A&O X 3, no acute distress, answers questions appropriately - Head Head exam: Present: atraumatic, normocephalic - Respiratory Respiratory exam: Present: CTAB. Absent: accessory muscle use, rales, rhonchi, wheezes - Cardiovascular Cardiovascular exam: Present: RRR, +S1, +S2. Absent: diastolic murmur, gallop, rubs, systolic murmur - GI/Abdominal GI/Abdominal exam: Present: hypoactive bowel sounds, soft, no peritoneal signs. Absent: distended, tenderness Internal Medicine: Result - Labs CBC & Chem 7: 02/13/17 05:18 02/13/17 05:18 Labs: Short CBC 02/13/17 Range/Units 05:18 WBC 7.3 (4.3-11.1) K/mcL Hgb 9.5 L (12.9-16.9) g/dL Hct 27.5 L (37.5-50.1) % Plt Count 190 (140-400) K/mcL BMP 02/13/17 05:18 Sodium 133 L Potassium 4.4 Chloride 96 L Carbon Dioxide 24 BUN 64 H Creatinine 10.52 H Glucose 108 H Calcium 7.8 L - ABG Interpretation ABG results: PT/INR, D-dimer PT 18.4 Seconds (9.4-12.1) H 02/08/17 09:30 - VTE Reasons for not Prescribing Prophylaxis: Not indicated-Anticoagulated or INR therapeutic Consult Discharge Plan - Plan Referrals: Mansoor Loaiza MD [Primary Care Provider] - 02/17/17 3:30 pm (web request sent on 02/08/17 ) <Parish Aldana T - Last Filed: 02/13/17 16:56> Date of Encounter: 02/13/17 - Constitutional Vitals: Temp Pulse Resp BP Pulse Ox 97.6 F 81 17 150/84 94 02/13/17 16:00 02/13/17 16:15 02/13/17 16:15 02/13/17 16:15 02/13/17 16:15 Internal Medicine: Result - Labs CBC & Chem 7: 02/13/17 05:18 02/13/17 05:18 Labs: Short CBC 02/13/17 Range/Units 05:18 WBC 7.3 (4.3-11.1) K/mcL Hgb 9.5 L (12.9-16.9) g/dL Hct 27.5 L (37.5-50.1) % Plt Count 190 (140-400) K/mcL BMP 02/13/17 05:18 Sodium 133 L Potassium 4.4 Chloride 96 L Carbon Dioxide 24 BUN 64 H Creatinine 10.52 H Glucose 108 H Calcium 7.8 L - ABG Interpretation ABG results: PT/INR, D-dimer PT 18.4 Seconds (9.4-12.1) H 02/08/17 09:30 - Attending Attestation I examined this patient and my medical decision-making was reviewed with the Resident Physician on 02/13/17. I agree with the documented findings, disposition and treatment plan as described except to the extent set forth below. Seen and evaluated at bedside 61 M, known ESRD on HD, Afib , DVT on AC, CAD He has no ew symptoms and is awaiting EGD/Colonoscopy Physical exam: VSS, Not in distress, L BKA, stump clean, Chest is clear, S1, S2 only, R serna with clean wound dressing A/P Acute on chronic anemia: Hb is stable, and no melena. for EGD/Colonoscopy. D/C Plavix, Hold eliquis till procedure, no indication for blood transfusion at this time. Resume eliquis if no active bleeding on EGD/Colonoscopy Continue other management Renal is following for scheduled HD Rest of details as in resident physician's documentation
[2017-02-13] MEDS ORDERED: Silvasorb 44.4 ML TUBE TP SCH (09:00)
[2017-02-13] MEDS ORDERED: 0.9 % Sodium Chloride 250 ML IVC PRN (09:05)
[2017-02-13] MEDS ORDERED: 0.9 % Sodium Chloride 1,000 ML ONE (09:12)
[2017-02-13] MEDS ORDERED: 0.9 % Sodium Chloride 1,000 ML PRIME SCH (09:15)
--- NOTE | 2017-02-13 10:07 | Nephrology Progress Note ---
Date of Encounter: 02/13/17 Time of Encounter: 09:25 - Assessment and Plan (1) ESRD (end stage renal disease) on dialysis Current Visit: Yes Status: Chronic HD today, orders given. Subjective Principal diagnosis: Hypotension, ESRD, new afib with RVR, elevated troponin Interval history: Laying in bed, states feels somewhat better. Scheduled for EGD and Colonoscopy this morning. Objective - Vital Signs Vital signs: Vital Signs Temp Pulse Resp BP Pulse Ox 02/13/17 07:50 97.9 F 80 16 136/71 96 02/13/17 05:13 98.5 F 76 16 128/64 96 02/13/17 00:27 98.0 F 96 18 131/70 97 02/12/17 21:49 21 96 02/12/17 19:25 98.1 F 98 20 135/79 96 02/12/17 16:10 98.5 F 93 23 173/81 97 02/12/17 10:58 97.7 F 86 18 153/70 95 Intake and Output 02/12/17 02/13/17 02/13/17 23:59 07:59 15:59 Intake Total 240 / 240 Balance 240 / 240 Intake: Oral 240 / 240 Other: Meal Dinner NPO Stool Size Small Moderate Smear Stool Consistency formed liquid Stool Characteristics Normal for Patient Normal for Patient Stool Color Brown Brown # Voids 1 # Bowel Movements 1 # Bowel Movement Diapers 1 Weight 129.6 kg Blood Glucose* 144 95 Patient Weight 02/13/17 23:59 Weight 129.6 kg - General Appearance General appearance: Present: well-developed, well-nourished, appears started age , obese EENT: Present: mucous membranes moist Neck: Present: no JVD Respiratory: Present: clear Cardiology: Present: no edema, regular rate, regular rhythm Additional Comments: left BKA Gastrointestinal: Present: normoactive bowel sounds, no tenderness Integumentary: Present: warm and dry Neurologic: Present: alert and oriented x3 Psychiatric: Present: mood/affect appropriate, cooperative - Lab 02/13/17 05:18 02/13/17 05:18 Most recent lab results Calcium 7.8 mg/dL (8.6-10.8) L 02/13/17 05:18 Phosphorus 3.3 mg/dL (2.3-4.7) 02/11/17 04:23 Magnesium 1.9 mg/dL (1.6-2.6) 02/11/17 04:23 - VTE Reasons for not Prescribing Prophylaxis: Not indicated-Anticoagulated or INR therapeutic Consult Discharge Plan - Plan Referrals: Mansoor Loaiza MD [Primary Care Provider] - 02/17/17 3:30 pm (web request sent on 02/08/17 )
[2017-02-13] MEDS ORDERED: Lidocaine -MPF 2% 5 ML VIAL INFILT ONE (12:35)
[2017-02-13] MEDS ORDERED: *HR* Propofol 200 MG/20 ML VIAL IVP ONE (12:35)
--- NOTE | 2017-02-13 14:30 | Anesthesia Evaluation PreOp ---
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 HX Other Medical History: Renal (ESRD for 3 years; dialysis today), Diabetes Type II Anesthesia History: No Prior Anesthetic Complications Alcohol Use: none Drug use: none Medications and Allergies Febuxostat [Uloric] 40 mg PO QAM 03/02/15 [History] Sevelamer [Renvela] 800 mg PO TIDWM 05/01/15 [History] Nitroglycerin 0.4 mg SL Q5MIN PRN #3 tab.subl 08/20/15 [Rx] Apixaban [Eliquis] 5 mg PO BID 10/30/15 [History] Clopidogrel Bisulfate [Clopidogrel] 75 mg PO DAILY 10/30/15 [History] Amitriptyline [Elavil] 25 mg PO HS 04/01/16 [History] Budesonide/Formoterol 160/4.5 [Symbicort 160/4.5] 2 puff IH BIDR 04/01/16 [ History] Fluticasone Propionate Nasal [Flonase] 1 spray NS DAILY PRN 04/01/16 [History] Tiotropium [Spiriva] 18 mcg IH DAILY 04/01/16 [History] Albuterol Neb [Proventil Neb] 2.5 mg IH TID PRN 02/06/17 [History] Amlodipine Besylate 10 mg PO DAILY 02/06/17 [History] Aspirin [Lo-Dose Aspirin EC] 81 mg PO DAILY 02/06/17 [History] Atorvastatin Calcium [Lipitor] 80 mg PO HS 02/06/17 [History] Cholecalciferol (Vitamin D3) [Vitamin D3] 5,000 unit PO DAILY 02/06/17 [History] Hydralazine HCl 50 mg PO AD 02/06/17 [History] Insulin Glargine [Lantus] 20 unit SQ HS 02/06/17 [History] Isosorbide MONOnitrate [Isosorbide Mononitrate ER] 240 mg PO DAILY 02/06/17 [ History] Metoprolol Succinate 100 - 200 mg PO AD 02/06/17 [History] Pantoprazole Sodium [Protonix] 40 mg PO DAILY 02/06/17 [History] Allergies No Known Allergies Allergy (Verified 09/23/16 11:51) - Meds/Allergy Pre-op Review Medications Reviewed: Yes Allergies Reviewed: Yes Beta Blockers on Current Med List: Yes If Beta Blockers taken, Date/Time (Last Dose taken): 02-13-17 metoprolol 8:02 Anesthesia Results - Labs 02/13/17 05:18 02/13/17 05:18 - Imaging EKG: report reviewed, image reviewed (ATRIAL FIBRILLATION WITH RAPID VENTRICULAR RESPONSE INFERIOR MYOCARDIAL INFARCTION, PROBABLY OLD WITH POSTERIOR EXTENSION) Additional studies: TTE: Impressions: LVEF 60-65%. RV is visualized in Definity images. It appears to be dilated with normal function. Indeterminate diastolic function. Definity echo contrast was used. No significant valvular dysfunction. No pulmonary hypertension. 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
--- NOTE | 2017-02-13 15:23 | Electrocardiograph Report ---
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
[2017-02-13] MEDS: Insulin DETEMIR 100 UNIT/ML X5UNITS SQ SCH (21:32)
[2017-02-14 05:30] LABS: Potassium 3.8 mEq/L (3.5-4.5)
[2017-02-14 05:38] LABS: Hematocrit 22.7 % (37.5-50.1); Mean Corpuscular Hemoglobin 30.4 pg (28.0-33.3); Mean Corpuscular Volume 91.9 fL (83.0-100.0); Mean Platelet Volume 9.7 fL (9.4-12.4); Platelet Count 250 K/mcL (140-400); Red Blood Count 2.47 M/mcL (4.19-5.50); Red Cell Distribution Width 12.7 % (11.5-14.5)
[2017-02-14 05:40] LABS: Hemoglobin 7.5 g/dL (12.9-16.9)
[2017-02-14 08:03] VITALS: BP 133/75
--- NOTE | 2017-02-14 08:43 | Discharge Summary ---
<Babak Farooq - Last Filed: 02/14/17 14:45> Date of Encounter: 02/14/17 Time of Encounter: 08:40 - Discharge Diagnosis (1) Anemia Priority: Secondary Status: Acute Qualifiers: Qualified Code(s): D64.9 - Anemia, unspecified (2) ESRD (end stage renal disease) on dialysis Priority: Primary Status: Chronic (3) Diabetes Priority: Secondary Status: Chronic Qualifiers: Diabetes mellitus type: type 2 Diabetes mellitus complication status: with unspecified complications Diabetes mellitus alf insulin use: with alf use Qualified Code(s): E11.8 - Type 2 diabetes mellitus with unspecified complications; Z79.4 - director long term care (current) use of insulin (4) CAD in [place] artery Priority: Secondary Status: Chronic (5) DVT prophylaxis Priority: Secondary Status: Acute (6) Elevated troponin Priority: Secondary Status: Chronic (7) Weakness Priority: Secondary Status: Inactive (8) DVT (deep venous thrombosis) Priority: Secondary Status: Acute Qualifiers: DVT location: lower extremity Affected thrombotic vein of extremity: unspecified vein of extremity Chronicity: unspecified Laterality: unspecified laterality Qualified Code(s): I82.409 - Acute embolism and thrombosis of unspecified deep veins of unspecified lower extremity - Discharge Medications Home Medications: Febuxostat [Uloric] 40 mg PO QAM 03/02/15 [History] Sevelamer [Renvela] 800 mg PO TIDWM 05/01/15 [History] Nitroglycerin 0.4 mg SL Q5MIN PRN #3 tab.subl 08/20/15 [Rx] Apixaban [Eliquis] 5 mg PO BID 10/30/15 [History] Clopidogrel Bisulfate [Clopidogrel] 75 mg PO DAILY 10/30/15 [History] Amitriptyline [Elavil] 25 mg PO HS 04/01/16 [History] Budesonide/Formoterol 160/4.5 [Symbicort 160/4.5] 2 puff IH BIDR 04/01/16 [ History] Fluticasone Propionate Nasal [Flonase] 1 spray NS DAILY PRN 04/01/16 [History] Tiotropium [Spiriva] 18 mcg IH DAILY 04/01/16 [History] Albuterol Neb [Proventil Neb] 2.5 mg IH TID PRN 02/06/17 [History] Amlodipine Besylate 10 mg PO DAILY 02/06/17 [History] Aspirin [Lo-Dose Aspirin EC] 81 mg PO DAILY 02/06/17 [History] Atorvastatin Calcium [Lipitor] 80 mg PO HS 02/06/17 [History] Cholecalciferol (Vitamin D3) [Vitamin D3] 5,000 unit PO DAILY 02/06/17 [History] Hydralazine HCl 50 mg PO AD 02/06/17 [History] Insulin Glargine [Lantus] 20 unit SQ HS 02/06/17 [History] Isosorbide MONOnitrate [Isosorbide Mononitrate ER] 240 mg PO DAILY 02/06/17 [ History] Metoprolol Succinate 100 - 200 mg PO AD 02/06/17 [History] Pantoprazole Sodium [Protonix] 40 mg PO DAILY 02/06/17 [History] Allergies/Adverse Reactions: Allergies No Known Allergies Allergy (Verified 09/23/16 11:51) Procedures/tests Complete & Pending: Procedures Performed prior 72 hours Category Date Time Status ECG 12 lead ECG [ECG] Routine Y 02/12/17 00:39 Completed Date of admission: 02/09/17 10:57 Primary care physician: Mansoor Loaiza MD Consults: 02/06/17 16:52 Consult to Nephrology [CONS] Routine Consulting Provider: [facility] SRAVAN Reason for Consult: dialysis Time Notified: 16:53 Call Completed: Yes 02/08/17 12:39 Consult to Cardiology [CONS] Routine Comment: Consulting Provider: Cardiology Mala Reason for Consult: hx of CAD, NH, bypass, ESRD on dilaysis. In ICU for hypotension; generalized fatigue, elevated trop, new onset a fib; Call Completed: Yes 02/10/17 12:15 Consult to Dialysis [CONS] ONCE 02/11/17 12:57 Consult to Gastroenterology [CONS] Routine Consulting Provider: Gastroenterology Mala Reason for Consult: downward trending hgb Call Completed: Yes 02/12/17 13:49 Consult to Wound Care [CONS] Routine Reason for Consult: leg ulcers Call Completed: No 02/13/17 09:15 Consult to Dialysis [CONS] ONCE - Patient Status Disposition: Home, Self-Care Condition: Good Functional capacity at discharge: wheelchair bound Overall status at discharge: patient is back to baseline - Discharge Instructions Follow Up With: Mansoor Loaiza MD [Primary Care Provider] - 02/17/17 3:30 pm (web request sent on 02/08/17 ) Additional Instructions: Recommended to patient to not over consume liquids and to not miss dialysis appointments. Will follow up with PCP within a week. continue HD TuThSat - Diet and Activity Activity: as per physical therapy Diet: diabetic diet Hospital course: Mr. Barcenas is a 61 year old male was admitted due to 3 day history of weakness and fatigue after dialysis on Friday with PMHx of ESRD, HTN, CHF, COPD, CAD, DVT, cardiomyopahty, arthritis, asthma, HLD, and GERD. He missed HD on before admission due to filling ill. In the ED his Trops were elevated but had been for months on chart review. During first dialysis patient stopped mentating, and developed abdominal pain. 20 minutes after dialysis patient started being able to verbalize but started to develop chest pain. Abd/Pelvis Ct fat surrounding gallbladder found that was either artifactual or early finding of cholecystitis, Head CT - minimal vessel change, CXR - low lung volumes and mild perihilar vascular prominence w/o over failure. Gallbladder U/S showed normal gallbladder. Trops remianed stable. EKG taken showed newl developed afib. Echo showed LVEF 60-65%. Patient two days later returned to normal mental state, with continued HD. On 02/08 hgb started to downward trend which eventually remained at 9.5. Blood Occult was positive. EGD and colonscopy were performed. No acute bleeding, but polyps were removed. Eliquis was restarted upon discharge, and patient instructed to strictly follow diabetic diet and HD. - Time Spent with Patient Total time spent providing and/or coordinating discharge services: - Constitutional Vitals: Temp Pulse Resp BP Pulse Ox 97.8 F 85 18 133/75 97 02/14/17 08:06 02/14/17 08:06 02/14/17 08:06 02/14/17 08:06 02/14/17 08:06 General appearance: Present: A&O X 3, no acute distress, answers questions appropriately - Head Head exam: Present: atraumatic, normocephalic - Respiratory Respiratory exam: Present: CTAB. Absent: accessory muscle use, rales, rhonchi, wheezes - Cardiovascular Cardiovascular exam: Present: RRR, +S1, +S2. Absent: diastolic murmur, gallop, rubs, systolic murmur - GI/Abdominal GI/Abdominal exam: Present: normal bowel sounds, soft, no peritoneal signs. Absent: distended, tenderness - Extremities Exam Additional comments: bilateral BKA - Neurological Exam Neurological exam: Present: alert, oriented X3 - Psychiatric Psychiatric exam: Present: normal affect, normal mood - VTE Reasons for not Prescribing Prophylaxis: Not indicated-Anticoagulated or INR therapeutic <Parish Aldana T - Last Filed: 02/14/17 16:14> Date of Encounter: 02/14/17 Procedures/tests Complete & Pending: Procedures Performed prior 72 hours Category Date Time Status ECG 12 lead ECG [ECG] Routine Y 02/12/17 00:39 Completed Date of admission: 02/09/17 10:57 Primary care physician: Mansoor Loaiza MD Consults: 02/06/17 16:52 Consult to Nephrology [CONS] Routine Consulting Provider: [facility] SRAVAN Reason for Consult: dialysis Time Notified: 16:53 Call Completed: Yes 02/08/17 12:39 Consult to Cardiology [CONS] Routine Comment: Consulting Provider: Cardiology Mala Reason for Consult: hx of CAD, NH, bypass, ESRD on dilaysis. In ICU for hypotension; generalized fatigue, elevated trop, new onset a fib; Call Completed: Yes 02/10/17 12:15 Consult to Dialysis [CONS] ONCE 02/11/17 12:57 Consult to Gastroenterology [CONS] Routine Consulting Provider: Gastroenterology Mala Reason for Consult: downward trending hgb Call Completed: Yes 02/12/17 13:49 Consult to Wound Care [CONS] Routine Reason for Consult: leg ulcers Call Completed: No 02/13/17 09:15 Consult to Dialysis [CONS] ONCE Hospital course: Mr. Barcenas is a 61 year old male - Time Spent with Patient Total time spent providing and/or coordinating discharge services: - Constitutional Vitals: Temp Pulse Resp BP Pulse Ox 97.8 F 85 17 133/75 98 02/14/17 08:06 02/14/17 08:06 02/14/17 10:17 02/14/17 08:06 02/14/17 10:17 - Attending Attestation I examined this patient and my medical decision-making was reviewed with the Resident Physician on 02/14/17. I agree with the documented findings, disposition and treatment plan as described except to the extent set forth below. Seen and evaluated at bedside 61 M, known ESRD on HD, Afib , DVT on AC, CAD No new complains EGD showed non-bleeding duodenal ulcers Colonoscopy showed polyps s/p resection Physical exam: VSS, Not in distress, L BKA, stump clean, Chest is clear, S1, S2 only, R serna with clean wound dressing Labs and imaging reviewed Hb today 7.5 (9.5 yesterday)-patient has no source of bleeding A/P Acute on chronic anemia: Repeat Hb a.m at dialysis center , no current source of bleeding He is otherwise stable for discharge on current meds Rest of details as in resident physician's documentation
[2017-02-14] MEDS: Aspirin Enteric Coated 81 MG Tablet PO SCH (08:44)
[2017-02-14] MEDS: Insulin LISPRO 300 UNITS/3 ML VIAL SQ SCH (08:45)
--- NOTE | 2017-02-14 09:00 | Physician Discharge Referral ---
Home Health/Hosp Referral Info Transfer to: Home Health Provider in Charge Post Discharge: PCP - Diagnosis (1) Anemia Priority: Secondary Status: Acute (2) ESRD (end stage renal disease) on dialysis Priority: Primary Status: Chronic (3) Diabetes Priority: Secondary Status: Chronic (4) CAD in [place] artery Priority: Secondary Status: Chronic (5) DVT prophylaxis Priority: Secondary Status: Acute (6) Elevated troponin Priority: Secondary Status: Chronic (7) Weakness Priority: Secondary Status: Inactive (8) DVT (deep venous thrombosis) Priority: Secondary Status: Acute - Respiratory Orders Smoking Cessation: Smoking cessation has been advised. For more information, call the [place] Tobacco Quit Line at 5-202-FGNP-NOW. - Diet/Nutrition Diet/Nutrition Orders: Renal - Activity Activity Orders: Chair - Transfer Medications Home Medications: Febuxostat [Uloric] 40 mg PO QAM 03/02/15 [History] Sevelamer [Renvela] 800 mg PO TIDWM 05/01/15 [History] Nitroglycerin 0.4 mg SL Q5MIN PRN #3 tab.subl 08/20/15 [Rx] Apixaban [Eliquis] 5 mg PO BID 10/30/15 [History] Clopidogrel Bisulfate [Clopidogrel] 75 mg PO DAILY 10/30/15 [History] Amitriptyline [Elavil] 25 mg PO HS 04/01/16 [History] Budesonide/Formoterol 160/4.5 [Symbicort 160/4.5] 2 puff IH BIDR 04/01/16 [ History] Fluticasone Propionate Nasal [Flonase] 1 spray NS DAILY PRN 04/01/16 [History] Tiotropium [Spiriva] 18 mcg IH DAILY 04/01/16 [History] Albuterol Neb [Proventil Neb] 2.5 mg IH TID PRN 02/06/17 [History] Amlodipine Besylate 10 mg PO DAILY 02/06/17 [History] Aspirin [Lo-Dose Aspirin EC] 81 mg PO DAILY 02/06/17 [History] Atorvastatin Calcium [Lipitor] 80 mg PO HS 02/06/17 [History] Cholecalciferol (Vitamin D3) [Vitamin D3] 5,000 unit PO DAILY 02/06/17 [History] Hydralazine HCl 50 mg PO AD 02/06/17 [History] Insulin Glargine [Lantus] 20 unit SQ HS 02/06/17 [History] Isosorbide MONOnitrate [Isosorbide Mononitrate ER] 240 mg PO DAILY 02/06/17 [ History] Metoprolol Succinate 100 - 200 mg PO AD 02/06/17 [History] Pantoprazole Sodium [Protonix] 40 mg PO DAILY 02/06/17 [History] Allergies/Adverse Reactions: Allergies No Known Allergies Allergy (Verified 09/23/16 11:51) Certification: Further, I certify that my clinical findings support that this patient is homebound (i.e. absences from home require considerable and taxing effort and are for medical reasons or christian services or infrequently or short duration when for other reasons) because: Homebound Reason: Patient requires assistance of a person or device to safely leave home Attestation: My signature below is to certify that this patient is under my care and that I, or nurse practitioner, or a physician's graduate assistant athletic trainer working with me, has a face-to -face encounter with this patient.
--- NOTE | 2017-02-14 09:28 | Nephrology Progress Note ---
Date of Encounter: 02/14/17 Time of Encounter: 09:15 - Assessment and Plan (1) ESRD (end stage renal disease) on dialysis Current Visit: Yes Status: Chronic EGD, Colonoscopy yesterday-see report. NO HD today. If discharged home will dialyze in [place] tomorrow, keeping TTS schedule. Subjective Principal diagnosis: Hypotension, ESRD, new afib with RVR, elevated troponin Interval history: Laying in bed, states feels somewhat better. No new complaints. Objective - Vital Signs Vital signs: Vital Signs Temp Pulse Resp BP Pulse Ox 02/14/17 08:06 97.8 F 85 18 133/75 97 02/14/17 08:01 97.7 F 81 18 133/75 100 02/14/17 07:41 97.7 F 82 19 146/56 02/14/17 04:04 97.7 F 89 21 111/61 94 02/13/17 23:59 98.2 F 77 20 136/81 97 02/13/17 21:12 98.8 F 94 14 105/64 96 02/13/17 20:36 18 94 02/13/17 17:19 90 18 138/65 94 02/13/17 17:00 98 16 137/79 95 02/13/17 16:15 81 17 150/84 94 02/13/17 16:00 97.6 F 82 16 116/70 95 02/13/17 14:17 97.6 F 83 18 114/78 96 02/13/17 12:50 97.6 F 18 123/88 02/13/17 12:35 106/82 02/13/17 12:20 106/73 02/13/17 12:05 121/80 02/13/17 11:50 128/57 02/13/17 11:35 120/70 02/13/17 11:20 139/82 02/13/17 11:05 137/76 02/13/17 10:50 144/80 02/13/17 10:35 137/62 02/13/17 10:20 116/92 02/13/17 10:05 123/71 02/13/17 09:50 143/76 02/13/17 09:35 97.9 F 18 164/84 Intake and Output 02/13/17 02/14/17 02/14/17 23:59 07:59 15:59 Intake Total 360 / 360 Output Total 500 / 500 Balance -140 / -140 Intake: Oral 360 / 360 Output: Urine 500 / 500 Other: Meal Dinner Percent of Meal Consumed 85% Weight 129.3 kg Blood Glucose* 220 94 Patient Weight 02/14/17 23:59 Weight 129.3 kg - General Appearance General appearance: Present: well-developed, well-nourished, appears started age , obese EENT: Present: mucous membranes moist Neck: Present: no JVD Respiratory: Present: clear Cardiology: Present: no edema, regular rate, regular rhythm Gastrointestinal: Present: normoactive bowel sounds, no tenderness Integumentary: Present: warm and dry Neurologic: Present: alert and oriented x3 Psychiatric: Present: mood/affect appropriate, cooperative - Lab 02/14/17 05:12 02/14/17 05:12 Most recent lab results Calcium 8.0 mg/dL (8.6-10.8) L 02/14/17 05:12 Phosphorus 3.3 mg/dL (2.3-4.7) 02/11/17 04:23 Magnesium 1.9 mg/dL (1.6-2.6) 02/11/17 04:23 - VTE Reasons for not Prescribing Prophylaxis: Not indicated-Anticoagulated or INR therapeutic Consult Discharge Plan - Plan Additional Instructions: Recommended to patient to not over consume liquids and to not miss dialysis appointments. Will follow up with PCP within a week. continue HD TuThSat Referrals: Mansoor Loaiza MD [Primary Care Provider] - 02/17/17 3:30 pm (web request sent on 02/08/17 )
[2017-02-14] MEDS: Budesonide/Formoterol 160/4.5 MDI IH SCH (10:15)
[2017-02-14] MEDS: Tiotropium 18 MCG inhalation IH SCH (10:15)
[2017-02-14] MEDS ORDERED: Aminoglycoside Consult 1 EACH MC ONE (12:35)
== END 2017-02-14 12:36 | disposition home health service (06) | DRG 917 ==
LOC: 2ANU → SUATTDRO 15:52 → ICNU 02-08 11:36 → 2ANU 02-09 10:37 → SUATTDRO 02-09 10:57
PROVIDERS: ADMIT Internal Medicine; ATTEND Internal Medicine
PROC: ENDOCBX (2017-02-13 14:00)
PROC: ENDOEBX (2017-02-13 14:00)

== ENCOUNTER 2017-08-18 08:46 | Inpatient (IN) ==
--- NOTE | 2017-08-17 21:59 | Discharge Summary ---
<Isabella Bass E - Last Filed: 08/17/17 21:57> Date of Encounter: 08/17/17 - Discharge Diagnosis (1) Osteoarthritis of right knee Priority: Primary Status: Chronic Qualifiers: Osteoarthritis type: unspecified Qualified Code(s): M17.11 - Unilateral primary osteoarthritis, right knee (2) HTN (hypertension) Priority: Secondary Status: Chronic Qualifiers: Hypertension type: unspecified Qualified Code(s): I10 - Essential (primary ) hypertension (3) Diabetes mellitus Priority: Secondary Status: Chronic Qualifiers: Diabetes mellitus type: type 2 Diabetes mellitus complication status: with unspecified complications Diabetes mellitus snf insulin use: with snf use Qualified Code(s): E11.8 - Type 2 diabetes mellitus with unspecified complications; Z79.4 - half-way (current) use of insulin; Z79.4 - garageman ( current) use of insulin; Z79.4 - garageman (current) use of insulin; Z79.4 - garageman (current) use of insulin (4) CAD (coronary artery disease) Priority: Secondary Status: Chronic Qualifiers: Coronary Disease-Associated Artery/Lesion type: unspecified vessel or lesion type [place] vs. transplanted heart: unspecified whether [place] or transplanted heart Associated angina: angina presence unspecified Qualified Code(s): I25.10 - Atherosclerotic heart disease of [place] coronary artery without angina pectoris (5) garageman current use of anticoagulant Priority: Secondary Status: Chronic (6) ESRD (end stage renal disease) on dialysis Priority: Secondary Status: Chronic (7) HLD (hyperlipidemia) Priority: Secondary Status: Chronic Qualifiers: Hyperlipidemia type: unspecified Qualified Code(s): E78.5 - Hyperlipidemia , unspecified (8) Gout Priority: Secondary Status: Chronic Qualifiers: Gout site: unspecified site Gout etiology: unspecified cause Chronicity: unspecified Qualified Code(s): M10.9 - Gout, unspecified (9) CHF (congestive heart failure) Priority: Secondary Status: Chronic Qualifiers: Heart failure type: unspecified Heart failure chronicity: unspecified Qualified Code(s): I50.9 - Heart failure, unspecified (10) PVD (peripheral vascular disease) Priority: Secondary Status: Chronic (11) Obesity Priority: Secondary Status: Chronic Qualifiers: Obesity type: unspecified obesity type Obesity classification: unspecified obesity classification Serious obesity comorbidity presence: unspecified whether serious comorbidity present Qualified Code(s): E66.9 - Obesity, unspecified; Z68.35 - Body mass index (BMI) 35.0-35.9, adult; Z68.35 - Body mass index (BMI) 35.0-35.9, adult (12) History of left below knee amputation Priority: Secondary Status: Chronic (13) Status post right knee replacement Priority: Primary Status: Acute - Discharge Medications Home Medications: Febuxostat [Uloric] 40 mg PO QAM 03/02/15 [History] Sevelamer [Renvela] 800 mg PO TIDWM 05/01/15 [History] Nitroglycerin 0.4 mg SL Q5MIN PRN #3 tab.subl 08/20/15 [Rx] Apixaban [Eliquis] 5 mg PO BID 10/30/15 [History] Amitriptyline [Elavil] 25 mg PO HS 04/01/16 [History] Budesonide/Formoterol 160/4.5 [Symbicort 160/4.5] 2 puff IH BIDR 04/01/16 [ History] Fluticasone Propionate Nasal [Flonase] 1 spray NS DAILY PRN 04/01/16 [History] Tiotropium [Spiriva] 18 mcg IH DAILY 04/01/16 [History] Albuterol Neb [Proventil Neb] 2.5 mg IH TID PRN 02/06/17 [History] Amlodipine Besylate 10 mg PO DAILY 02/06/17 [History] Aspirin [Lo-Dose Aspirin EC] 81 mg PO DAILY 02/06/17 [History] Atorvastatin Calcium [Lipitor] 80 mg PO HS 02/06/17 [History] Cholecalciferol (Vitamin D3) [Vitamin D3] 5,000 unit PO DAILY 02/06/17 [History] Insulin Glargine [Lantus] 20 unit SQ HS 02/06/17 [History] Isosorbide MONOnitrate [Isosorbide Mononitrate ER] 240 mg PO DAILY 02/06/17 [ History] Metoprolol Succinate 200 mg PO DAILY 02/06/17 [History] Pantoprazole Sodium [Protonix] 40 mg PO DAILY 02/06/17 [History] OxyCODONE Immed Rel [Roxicodone 5 MG] 5 mg PO Q6HR PRN 7 Days #28 tablet [Rx] Allergies/Adverse Reactions: 3 Allergy/AdvReac Type Severity Reaction Status Date / Time No Known Allergies Allergy Verified 08/18/17 09:34 Primary care physician: Mansoor Loaiza MD - Patient Status Disposition: Transfer Inpatient Rehab Fac Condition: Good - Discharge Instructions Follow Up With: Mansoor Loaiza MD [Primary Care Provider] - - Hospital Course Hospital course: Mr. Barcenas is a 61 year old male - Time Spent with Patient Total time spent providing and/or coordinating discharge services: <Raimundo Anderson - Last Filed: 08/20/17 05:59> Date of Encounter: 08/20/17 Time of Encounter: 05:58 - Discharge Diagnosis (1) Hx of CABG Priority: Secondary Status: Chronic (2) Diabetes Priority: Secondary Status: Chronic Qualifiers: Diabetes mellitus type: type 2 Diabetes mellitus complication status: with unspecified complications Diabetes mellitus traffic supervisor insulin use: with snf use Qualified Code(s): E11.8 - Type 2 diabetes mellitus with unspecified complications; Z79.4 - half-way (current) use of insulin (3) Hyperlipemia Priority: Secondary Status: Chronic Qualifiers: Hyperlipidemia type: mixed hyperlipidemia Qualified Code(s): E78.2 - Mixed hyperlipidemia (4) PVD (peripheral vascular disease) Priority: Secondary Status: Chronic (5) Chronic deep venous thrombosis Priority: Secondary Status: Chronic Qualifiers: DVT location: lower extremity Affected thrombotic vein of extremity: unspecified vein of extremity Laterality: unspecified laterality Qualified Code(s): I82.509 - Chronic embolism and thrombosis of unspecified deep veins of unspecified lower extremity (6) CAD in [place] artery Priority: Secondary Status: Chronic (7) History of coronary artery bypass graft Priority: Secondary Status: Chronic (8) Insulin dependent diabetes mellitus Priority: Secondary Status: Chronic (9) Hypotension Priority: Secondary Status: Acute Qualifiers: Hypotension type: unspecified hypotension type Qualified Code(s): I95.9 - Hypotension, unspecified (10) Atrial fibrillation Priority: Secondary Status: Acute Qualifiers: Atrial fibrillation type: paroxysmal Qualified Code(s): I48.0 - Paroxysmal atrial fibrillation (11) Osteoarthritis of right knee Priority: Primary Status: Chronic Qualifiers: Osteoarthritis type: unspecified Qualified Code(s): M17.11 - Unilateral primary osteoarthritis, right knee (12) HTN (hypertension) Priority: Secondary Status: Chronic Qualifiers: Hypertension type: unspecified Qualified Code(s): I10 - Essential (primary ) hypertension (13) CAD (coronary artery disease) Priority: Secondary Status: Chronic Qualifiers: Coronary Disease-Associated Artery/Lesion type: unspecified vessel or lesion type [place] vs. transplanted heart: unspecified whether [place] or transplanted heart Associated angina: angina presence unspecified Qualified Code(s): I25.10 - Atherosclerotic heart disease of [place] coronary artery without angina pectoris (14) ESRD (end stage renal disease) on dialysis Priority: Secondary Status: Chronic (15) HLD (hyperlipidemia) Priority: Secondary Status: Chronic Qualifiers: Hyperlipidemia type: unspecified Qualified Code(s): E78.5 - Hyperlipidemia , unspecified (16) Gout Priority: Secondary Status: Chronic Qualifiers: Gout site: unspecified site Gout etiology: unspecified cause Chronicity: unspecified Qualified Code(s): M10.9 - Gout, unspecified (17) CHF (congestive heart failure) Priority: Secondary Status: Chronic Qualifiers: Heart failure type: unspecified Heart failure chronicity: unspecified Qualified Code(s): I50.9 - Heart failure, unspecified (18) Obesity Priority: Secondary Status: Chronic Qualifiers: Obesity type: unspecified obesity type Obesity classification: adult class 2 (BMI 35 - 39.9) Serious obesity comorbidity presence: unspecified whether serious comorbidity present Body mass index: BMI 35.0-35.9 Qualified Code(s) : E66.9 - Obesity, unspecified; Z68.35 - Body mass index (BMI) 35.0-35.9, adult ; Z68.35 - Body mass index (BMI) 35.0-35.9, adult (19) History of left below knee amputation Priority: Secondary Status: Chronic (20) Status post right knee replacement Priority: Primary Status: Acute Primary care physician: Mansoor Loaiza MD - Patient Status Functional capacity at discharge: uses cane/walker Overall status at discharge: patient is progressing back to baseline - Hospital Course Hospital course: Mr. Barcenas is a 61 year old male Status post right total knee replacementThe patient had an uneventful postoperative course. They received antibiotics and physical therapy and were discharged in stable condition. There will follow-up in the office in 2 weeks. - Time Spent with Patient Total time spent providing and/or coordinating discharge services:
--- NOTE | 2017-08-17 22:04 | Physician Discharge Referral ---
ExtendedCare Referral Info Transfer To: [facility] Provider in Charge: Dr Anderson - Diagnosis (1) Osteoarthritis of right knee Priority: Primary Status: Chronic (2) HTN (hypertension) Priority: Secondary Status: Chronic (3) Diabetes mellitus Priority: Secondary Status: Chronic (4) CAD (coronary artery disease) Priority: Secondary Status: Chronic (5) half-way current use of anticoagulant Priority: Secondary Status: Chronic (6) ESRD (end stage renal disease) on dialysis Priority: Secondary Status: Chronic (7) HLD (hyperlipidemia) Priority: Secondary Status: Chronic (8) Gout Priority: Secondary Status: Chronic (9) CHF (congestive heart failure) Priority: Secondary Status: Chronic (10) PVD (peripheral vascular disease) Priority: Secondary Status: Chronic (11) Obesity Priority: Secondary Status: Chronic (12) History of left below knee amputation Priority: Secondary Status: Chronic (13) Status post right knee replacement Priority: Primary Status: Acute Expected Duration of Placement: less than 30 days Prognosis: Good Aware of Diagnosis: Patient Aware of Prognosis: Patient - Transfer Medications Prescriptions: OxyCODONE Immed Rel [Roxicodone 5 MG] 5 mg PO Q6HR PRN 7 Days #28 tablet PRN Reason: Severe Pain Home Medications: Febuxostat [Uloric] 40 mg PO QAM 03/02/15 [History] Sevelamer [Renvela] 800 mg PO TIDWM 05/01/15 [History] Nitroglycerin 0.4 mg SL Q5MIN PRN #3 tab.subl 08/20/15 [Rx] Apixaban [Eliquis] 5 mg PO BID 10/30/15 [History] Clopidogrel Bisulfate [Clopidogrel] 75 mg PO DAILY 10/30/15 [History] Amitriptyline [Elavil] 25 mg PO HS 04/01/16 [History] Budesonide/Formoterol 160/4.5 [Symbicort 160/4.5] 2 puff IH BIDR 04/01/16 [ History] Fluticasone Propionate Nasal [Flonase] 1 spray NS DAILY PRN 04/01/16 [History] Tiotropium [Spiriva] 18 mcg IH DAILY 04/01/16 [History] Albuterol Neb [Proventil Neb] 2.5 mg IH TID PRN 02/06/17 [History] Amlodipine Besylate 10 mg PO DAILY 02/06/17 [History] Aspirin [Lo-Dose Aspirin EC] 81 mg PO DAILY 02/06/17 [History] Atorvastatin Calcium [Lipitor] 80 mg PO HS 02/06/17 [History] Cholecalciferol (Vitamin D3) [Vitamin D3] 5,000 unit PO DAILY 02/06/17 [History] Hydralazine HCl 50 mg PO AD 02/06/17 [History] Insulin Glargine [Lantus] 20 unit SQ HS 02/06/17 [History] Isosorbide MONOnitrate [Isosorbide Mononitrate ER] 240 mg PO DAILY 02/06/17 [ History] Metoprolol Succinate 100 - 200 mg PO AD 02/06/17 [History] Pantoprazole Sodium [Protonix] 40 mg PO DAILY 02/06/17 [History] HYDROcodone/Acet 5/325 mg [[place] 5-325 mg] 1 tab PO Q4H PRN #7 tab 06/23/17 [Rx] OxyCODONE Immed Rel [Roxicodone 5 MG] 5 mg PO Q6HR PRN 7 Days #28 tablet [Rx] Allergies/Adverse Reactions: 3 Allergy/AdvReac Type Severity Reaction Status Date / Time No Known Allergies Allergy Verified 09/23/16 11:51 - Respiratory Orders Smoking Cessation: Smoking cessation has been advised. For more information, call the [place] Tobacco Quit Line at 6-099-IYUT-NOW. - Ancillary Orders May use pressure relief devices daily prn, May go on LUBNA w/family/respon democrat w /meds at nurse discretion PRN, May consult with Dentist, Supreme Court Judge, Back Gray Cloth Washer PRN - Mobility Orders Chair, Ambulate - Rehabiliation Orders Rehab Potential: Good Rehab Orders: Evaluation for Physical Therapy, Evaluation for Occupational Therapy Other: Total Knee replacement Precautions x 6 weeks Apply cold therapy wrap 3-6x/day for 20 minutes at a time. Encourage ambulation throughout the day and incentive spirometer 10x/hour. Elevate affected extremity above heart as tolerated. Brace: Wear knee immobilizer at night x 2 weeks. - Treatments Skin tear care topically daily PRN per policy List/Other: Opsite placed. Keep dressing intact until first follow up appointment. If > 50% saturated, notify office, remove dressing and place appropriate dressing back in place. Leave Zipline intact. Opsite dressing is water resistant, not water- proof. OK to shower, but do not get dressing wet. - Diet Orders Regular CERTIFICATION: I certify that the transfer of the above named patient to an Extended Care Facility is necessary for the continuing treatment of the diagnosis listed. The above information is true and accurate reflection of patient's current condition. Confidential - Redisclosure prohibited without a patient's written consent.
[2017-08-18] MEDS ORDERED: CeFAZolin Syr 2,000MG/20 ML 2,000 MG/20 ML SYRINGE IVPB ONE (09:05)
[2017-08-18] MEDS ORDERED: Vancomycin 1,750 MG in D5% in Water 500 ML IVPB ONE (09:08)
[2017-08-18] MEDS ORDERED: Albuterol 2.5 MG/3 ML NEBULIZER IH ONE (09:09)
[2017-08-18] MEDS ORDERED: Albuterol 2.5 MG/3 ML NEBULIZER ONE (09:11)
[2017-08-18] MEDS ORDERED: Ethanol\\Acetic Acid\\Na Ace\\Ben 1,000 ML IRRIG.SOLN IR ONE (09:12)
[2017-08-18] MEDS ORDERED: 0.9 % Sodium Chloride 1,000 ML IVC SCH (09:15)
--- NOTE | 2017-08-18 09:47 | History & Physical Report ---
Date of Encounter: 08/18/17 Time of Encounter: 09:47 24 Hour HP Update - Instructions Instructions: If the History and Physical is less than 30 days old and was completed prior to A.M. admission and or procedure and has NOT been updated on calendar day of procedure please complete this update prior to performing procedure. - Update Patient reports changes in Medical Condition: No Changes in examination, assessment, or condition: No Changes in Medication: No Preop tests/diagnostics Reviewed: Yes Surgery Remains Indicated: Yes Consent for Planned Operative Procedure(s) Verified: Yes - Pre-Operative Checklist Preoperative Checklist Indicated: No Prophylactic Antibiotic Ordered: Yes Is VTE Prophylaxis Indicated?: Yes
--- NOTE | 2017-08-18 09:53 | Anesthesia Evaluation PreOp ---
Date of Encounter: 08/18/17 Time of Encounter: 09:50 - Past History Planned Operation: Robotic R-TKR Cardiac History: IN (NSTEMI 2015), CHF ( R-sided heart failure), HTN ( maintained on Imdur, Metoprolol, Norvasc), Hyperlipidemia (maintained on Lipitor ), Cardiac Surgery (s/p CABG x 3v 2008), Other (PVDz maintained on ASA off since 08/15, Eliquis off since 08/16..............ECHO 02/08/2017 - 0014 EV/EV echocardiogram w enhance Impressions: LVEF 60-65%. RV is visualized in Definity images. It appears to be dilated with normal function. Indeterminate diastolic function. Definity echo contrast was used. No significant valvular dysfunction. No pulmonary hypertension. Left Ventricular Wall Motion: Rest Echo Findings The mid inferior lateral and basal inferior lateral tomlinson were not visualized. All other wall segments showed normal motion.) Pulmonary History: Smoker (quit 25yrs ago), COPD (maintained on Symbicort, Spiriva, Albuterol) PROMOTIONAL MARKETING ANALYST History: Other (maintained on Amitryptiline) Other Medical History: Renal (ESRD w/Dialysis T/R/Sa - maintained on Renvela), Diabetes Type II (maintained on Lantus), GERD (maintained on Pantoprazole) Anesthesia History: No Prior Anesthetic Complications, Past Anesthesia (L-BKA 2012, CABG 2008, TKR 2009, L-ankle ORIF 2011, laser eye surgery 10/2014) Alcohol Use: none Drug use: none Medications and Allergies RX: Febuxostat [Uloric] 40 mg PO QAM 03/02/15 [History] RX: Sevelamer [Renvela] 800 mg PO TIDWM 05/01/15 [History] RX: Nitroglycerin 0.4 mg SL Q5MIN PRN #3 tab.subl 08/20/15 [Rx] RX: Apixaban [Eliquis] 5 mg PO BID 10/30/15 [History] RX: Amitriptyline [Elavil] 25 mg PO HS 04/01/16 [History] RX: Budesonide/Formoterol 160/4.5 [Symbicort 160/4.5] 2 puff IH BIDR 04/01/16 [ History] RX: Fluticasone Propionate Nasal [Flonase] 1 spray NS DAILY PRN 04/01/16 [ History] RX: Tiotropium [Spiriva] 18 mcg IH DAILY 04/01/16 [History] RX: Albuterol Neb [Proventil Neb] 2.5 mg IH TID PRN 02/06/17 [History] RX: Amlodipine Besylate 10 mg PO DAILY 02/06/17 [History] RX: Aspirin [Lo-Dose Aspirin EC] 81 mg PO DAILY 02/06/17 [History] RX: Atorvastatin Calcium [Lipitor] 80 mg PO HS 02/06/17 [History] RX: Cholecalciferol (Vitamin D3) [Vitamin D3] 5,000 unit PO DAILY 02/06/17 [ History] RX: Insulin Glargine [Lantus] 20 unit SQ HS 02/06/17 [History] RX: Isosorbide MONOnitrate [Isosorbide Mononitrate ER] 240 mg PO DAILY 02/06/17 [History] RX: Metoprolol Succinate 200 mg PO DAILY 02/06/17 [History] RX: Pantoprazole Sodium [Protonix] 40 mg PO DAILY 02/06/17 [History] RX: OxyCODONE Immed Rel [Roxicodone 5 MG] 5 mg PO Q6HR PRN 7 Days #28 tablet 05/24 [Rx] 3 Allergy/AdvReac Type Severity Reaction Status Date / Time No Known Allergies Allergy Verified 08/18/17 09:34 - Meds/Allergy Pre-op Review Medications Reviewed: Yes Allergies Reviewed: Yes Beta Blockers on Current Med List: Yes (Metoprolol) If Beta Blockers taken, Date/Time (Last Dose taken): 08/18/2017 @ 0700 Anesthesia Results - Labs Laboratory Tests 07/21/17 07/21/17 07/21/17 16:00 16:00 16:00 WBC 9.0 Hgb 11.0 L Hct 33.0 L Plt Count 318 INR 1.6 Sodium 130 L Potassium 4.9 Chloride 95 L Carbon Dioxide 19 L BUN 93 H Creatinine 11.82 H Est GFR (Non-Af Amer) 4 L Est Mean Plasma Glucose Hemoglobin A1c 07/21/17 16:00 WBC Hgb Hct Plt Count INR Sodium Potassium Chloride Carbon Dioxide BUN Creatinine Est GFR (Non-Af Amer) Est Mean Plasma Glucose 126 Hemoglobin A1c 6.0 H Anesthesia Exam O2 Sat Height 1.83 m Height 1.83 m Weight 117.934 kg Weight 117.934 kg O2 Sat by Pulse Oximetry 100 Vital Signs Temp Pulse Resp BP Pulse Ox 97.8 F 70 18 146/74 100 08/18/17 09:10 08/18/17 09:10 08/18/17 09:10 08/18/17 09:10 08/18/17 09:10 Height: 5'11" Weight: 260# BMI = 35 NPO (# of Hours): MNOC - HEENT Pupil (Motor): Pupils equal, EOMI Mallampati: III Teeth: Missing, Poor dentition Oral Opening: Greater than 3 - PROMOTIONAL MARKETING ANALYST LOC: Confused PROMOTIONAL MARKETING ANALYST Motor: Normal RUE, Normal LUE, Normal RLE, Normal Face, Deficit LLE (NOt present) PROMOTIONAL MARKETING ANALYST Sensory: Deficit: LLE - Cardiac Rhythm: Regular Murmur: None - Pulmonary Breath Sounds: bilateral Clear Respiratory Effort: Symmetrical Anesthesia Assess/Plan ASA Score: 4 (ESRD, DM, HTN, CAD, PVDz, COPD/Asthma) Modified Rice Scale for Level of Consciousness: Cooperative, oriented, and tranquil Anesthetic Plan: Regional (SAB + Femoral PNB), MAC Monitoring Plan: Standard Monitors Recovery Plan: PACU Anes Supervising Prov Stmt: Pt seen/evaluated, R&B Discussed,questions answered and consent obtained. Sea Hankins MD
[2017-08-18] MEDS ORDERED: *HR* Midazolam HCl 2 MG/2 ML VIAL ONE (10:04)
[2017-08-18] MEDS ORDERED: *HR* FentaNYL (PF) 100 MCG/2 ML VIAL ONE (10:04)
[2017-08-18] MEDS ORDERED: Propofol 500 MG/50 ML INFUS..BTL ONE (10:07)
[2017-08-18] MEDS ORDERED: *HR* Morphine Sulfate/PF 10 MG/10 ML AMPUL ONE (10:42)
[2017-08-18] MEDS ORDERED: *HR* Ropivacaine/PF 0.5% 20 ML VIAL ONE (10:42)
--- NOTE | 2017-08-18 11:54 | Anesthesia Procedures ---
Date of Encounter: 08/18/17 Time of Encounter: 11:52 Procedures: Anesthesia - Nerve Block Procedure Date: 08/18/17 Time: 11:53 Allergies/Adv Reactions: Allergies No Known Allergies Allergy (Verified 08/18/17 09:34) Pre-op Diagnosis: oa righlt knee Surgical Procedure: right tka Checklist: Correct Patient Identifier, Correct procedure, History checked Correct side: Right Blood Thinner: No Monitor Applied: EKG, BP, Pulse Oximetry Supplemental Oxygen via Nasal Cannula (L/min): 2 Sedation: Versed (mg): 2 Sedation: Fentanyl (mcg): 100 Indication: Post Op Analgesia Block Type: Femoral Catheter placed: No Sterile Technique: Yes Ultrasound used: Yes Anatomy identified: Yes Visual spread of Local: Yes Neuro Stimulation: No Blood on Needle Aspiration: No Smooth Injection of Local: Yes Pain with Injection of Local: No Prep: Chlorhexadine Needle: 22 x 50 mm Stimuplex Local: Ropivacaine (0.5%) Volume (cc): 40 Number of Attempts: 1 Complications: None/effective block
--- NOTE | 2017-08-18 12:20 | Orthopedic Operative Note ---
Date of procedure: 08/18/17 Pre-op diagnosis: Right knee arthritis Post-op diagnosis: same Procedure: Procedure: Right robotic-assisted Total knee replacement Estimated blood loss: 200 cc Hardware: Metal and polyethylene replacement. [place] Femur: 6 Tibia: 7 tS insert: 9 Patella: 39 Exam Under anesthesia: Flexion contracture of 14 degrees varus 8 degrees as calculated by the robot full flexion and no instability Procedural Notes: Grade 4 arthritic changes OR compartments. Operative procedure: The patient was brought to the operating room and placed on the operating room table. After general anesthesia was administered the operative knee was examined. Findings were noted in the exam under anesthesia. The operative extremity was prepped and draped in sterile surgical fashion. The patient received IV antibiotics prior to skin incision. A standard midline incision was made centered over the patella. The incision was made through the skin and subcutaneous tissue. A medial parapatellar tendon approach was performed. Care was taken to preserve tissue along the medial aspect of the patella. And to protect the patella tendon. The deep MCL was released off the medial tibia. The infra patella fat pad was excised. The patella was everted and cut was made at the level of the insertion of the quadriceps and patella tendon. The patella was sized to a 39 the guide was seated and the lug holes are drilled. Knee was brought into flexion. Patient noted to have grade 4 arthritic changes all 3 compartments. Steinmann pins were placed in the tibia and the femur for the tibial and femoral arrays respectively. Checkpoints were also placed in the tibia and the femur for calculation purposes. The knee including the femur and the tibial registered. Osteophytes, ACL and PCL were excised at this point. Extension and flexion were assessed with a valgus stress components were adjusted on the computer to balance the knee. Femoral cuts were made first with robotic assistance, these included the anterior cut posterior cuts chamfer cuts. Tibial cut was then performed with robotic assistance as well. Bone fragments were removed, as well as the medial and lateral meniscus. The size 6 femoral guide was seated box cut was made lug holes are drilled. The size 7 tibial tray was seated and prepared with the fin cutter. Trial reduction with the 9 TS Kirsten revealed extension of 2 degree loss and 3 varus and full flexion. No varus valgus instability. Trial reduction revealed excellent patella tracking. All trial components were removed all bony surfaces were irrigated. The Tibia was seated followed by the femur, The Kirsten size 9 was seated and secured patella. Patient had similar findings for motion and stability. The knee was closed by the PA. The knee was then irrigated out with 2 L of pulse irrigation. The extensor mechanism was closed with #2 FiberWire suture and #2 PDS suture. The subcutaneous tissue was then irrigated and closed deep with #1 PDS suture superficially with 0 PDS suture and skin was closed with zip tie The patient was then placed in a sterile dressing and a postoperative brace extubated and transferred to recovery room in stable condition. Anesthesia: GETA Surgeon: Raimundo Anderson Was there an care team assistant present: No Estimated blood loss (cc): 200 Condition: stable Disposition: PACU
[2017-08-18 13:43] LABS: Hematocrit 29.1 % (37.5-50.1); Hemoglobin 9.3 g/dL (12.9-16.9)
--- NOTE | 2017-08-18 14:14 | Anesthesia Evaluation Post Op ---
Date of Encounter: 08/18/17 Time of Encounter: 14:12 - Vital Signs Vital Signs: Vital Signs Temp Pulse Resp BP Pulse Ox 08/18/17 13:59 97.4 F L 59 16 101/69 94 08/18/17 13:49 58 16 102/53 98 08/18/17 13:39 60 16 88/49 98 08/18/17 13:29 97.5 F L 59 16 80/47 98 08/18/17 13:19 58 16 70/42 98 08/18/17 13:09 60 18 65/47 98 08/18/17 12:59 97.1 F L 61 18 67/42 95 08/18/17 11:08 66 16 127/97 99 08/18/17 10:55 66 16 127/77 99 08/18/17 10:43 67 16 155/82 95 08/18/17 09:10 97.8 F 70 18 146/74 100 Intake and Output 08/17/17 08/18/17 08/18/17 23:59 07:59 15:59 Intake Total 500 / 500 Balance 500 / 500 Intake: IV Fluids 500 / 500 Vancocin 1,750 MG In Dextrose 5 500 / 500 % 500 ML @ 334.014 mls/hr IVPB ONCE ONE Rx#:[id number] Other: Weight 117.934 kg Blood Glucose* 113 Patient Weight 08/18/17 23:59 Weight 117.934 kg - Lungs Lungs: Clear Ascult./Percussion - Airway Airway: Non-obstructed - Cardiovascular Irregular Rate, Baseline Rhythm - Mental Status Mental Status: Alert & Oriented, Answers Appropriately - Pain Pain Scale: 0 Pain Scale used: Numeric (1 - 10) - Nausea Vomiting Nausea Vomiting: Not Present - Hydration Hydration: Tolerates oral liquids - Discharge PostOp Status: Discharge Patient to home Anes Supervising Prov Stmt: PT seen/evaluated, VSS and pt has met criteria for discharge to floor. - MD Nhi
[2017-08-18] MEDS ORDERED: Sennosides 8.6 MG TABLET PO PRN (14:28)
[2017-08-18] MEDS ORDERED: MOM Conc 10 ML UD.LIQ PO PRN (14:28)
[2017-08-18] MEDS ORDERED: Fluticasone Propionate Nasal 50 MCG/SPRAY BOTTLE NS PRN (14:28)
[2017-08-18] MEDS ORDERED: *HR* OxyCODONE Immed Rel 5 MG TABLET PO PRN (14:28)
[2017-08-18] MEDS ORDERED: Nitroglycerin 0.4 MG TAB.SUBL SL PRN (14:28)
[2017-08-18] MEDS ORDERED: Ondansetron 4 MG/2 ML VIAL IVP PRN (14:28)
[2017-08-18] MEDS ORDERED: Albuterol 2.5 MG/3 ML NEBULIZER IH PRN (14:28)
[2017-08-18] MEDS ORDERED: Naloxone 0.4 MG/ML INJ IVP PRN (14:28)
[2017-08-18] MEDS: Ringers Solution, Lactated 1,000 ML IVC SCH (16:26)
[2017-08-18] MEDS: CeFAZolin Premix DUPLEX 2,000 MG/50 ML BAG IVPB SCH ×2 (16:27→22:56)
[2017-08-18] MEDS ORDERED: Temazepam 15 MG CAPSULE PO PRN (21:00)
[2017-08-18] MEDS ORDERED: NON-FORMULARY MEDICATION 1 EACH EACH (Insulin Glargine [Lantus] 20 UNIT) SQ SCH (21:00)
[2017-08-18] MEDS: Apixaban 5 MG TABLET PO SCH (22:43)
[2017-08-18] MEDS: Budesonide/Formoterol 160/4.5 MDI IH SCH (22:44)
[2017-08-18] MEDS: *HR* OxyCODONE Immed Rel 5 MG TABLET PO PRN (22:45)
[2017-08-18] MEDS: Insulin DETEMIR 100 UNIT/ML X5UNITS SQ SCH (23:00)
[2017-08-19] MEDS: *HR* OxyCODONE Immed Rel 5 MG TABLET PO PRN ×2 (05:55→21:04)
--- NOTE | 2017-08-19 06:22 | Orthopedics Progress Note ---
Date of Encounter: 08/19/17 Time of Encounter: 06:21 - Assessment and Plan (1) Hx of CABG Current Visit: No Status: Chronic (2) Diabetes Current Visit: No Status: Chronic Qualifiers: Diabetes mellitus type: type 2 Diabetes mellitus complication status: with unspecified complications Diabetes mellitus intermission coordinator insulin use: with intermission coordinator use Qualified Code(s): E11.8 - Type 2 diabetes mellitus with unspecified complications; Z79.4 - termination clerk (current) use of insulin (3) Hyperlipemia Current Visit: No Status: Chronic Qualifiers: Hyperlipidemia type: mixed hyperlipidemia Qualified Code(s): E78.2 - Mixed hyperlipidemia (4) PVD (peripheral vascular disease) Current Visit: No Status: Chronic (5) Chronic deep venous thrombosis Current Visit: No Status: Chronic Qualifiers: DVT location: lower extremity Affected thrombotic vein of extremity: unspecified vein of extremity Laterality: unspecified laterality Qualified Code(s): I82.509 - Chronic embolism and thrombosis of unspecified deep veins of unspecified lower extremity (6) CAD in [place] artery Current Visit: No Status: Chronic (7) History of coronary artery bypass graft Current Visit: No Status: Chronic (8) Insulin dependent diabetes mellitus Current Visit: No Status: Chronic (9) Hypotension Current Visit: No Status: Acute Qualifiers: Hypotension type: unspecified hypotension type Qualified Code(s): I95.9 - Hypotension, unspecified (10) Atrial fibrillation Current Visit: No Status: Acute Qualifiers: Atrial fibrillation type: paroxysmal Qualified Code(s): I48.0 - Paroxysmal atrial fibrillation (11) Osteoarthritis of right knee Current Visit: No Status: Chronic Qualifiers: Osteoarthritis type: unspecified Qualified Code(s): M17.11 - Unilateral primary osteoarthritis, right knee (12) HTN (hypertension) Current Visit: No Status: Chronic Qualifiers: Hypertension type: unspecified Qualified Code(s): I10 - Essential (primary ) hypertension (13) CAD (coronary artery disease) Current Visit: No Status: Chronic Qualifiers: Coronary Disease-Associated Artery/Lesion type: unspecified vessel or lesion type [place] vs. transplanted heart: unspecified whether [place] or transplanted heart Associated angina: angina presence unspecified Qualified Code(s): I25.10 - Atherosclerotic heart disease of [place] coronary artery without angina pectoris (14) ESRD (end stage renal disease) on dialysis Current Visit: No Status: Chronic (15) HLD (hyperlipidemia) Current Visit: No Status: Chronic Qualifiers: Hyperlipidemia type: unspecified Qualified Code(s): E78.5 - Hyperlipidemia , unspecified (16) Gout Current Visit: No Status: Chronic Qualifiers: Gout site: unspecified site Gout etiology: unspecified cause Chronicity: unspecified Qualified Code(s): M10.9 - Gout, unspecified (17) CHF (congestive heart failure) Current Visit: No Status: Chronic Qualifiers: Heart failure type: unspecified Heart failure chronicity: unspecified Qualified Code(s): I50.9 - Heart failure, unspecified (18) Obesity Current Visit: No Status: Chronic Qualifiers: Obesity type: unspecified obesity type Obesity classification: adult class 2 (BMI 35 - 39.9) Serious obesity comorbidity presence: unspecified whether serious comorbidity present Body mass index: BMI 35.0-35.9 Qualified Code(s) : E66.9 - Obesity, unspecified; Z68.35 - Body mass index (BMI) 35.0-35.9, adult ; Z68.35 - Body mass index (BMI) 35.0-35.9, adult (19) History of left below knee amputation Current Visit: No Status: Chronic (20) Status post right knee replacement Current Visit: No Status: Acute Subjective Interval history: Patient was seen this morning doing well without complaints. Afebrile vital signs stable. Operative extremity: Neurovascularly intact Dressing clean dry and intact Calves nontender Assessment and plan: Continue with postoperative care Hematocrit 29 Objective Vital signs: Vital Signs Temp Pulse Resp BP Pulse Ox 08/19/17 04:02 97.8 F 67 18 105/70 93 08/18/17 23:40 98.6 F 63 18 90/52 94 08/18/17 22:45 12 98 08/18/17 19:58 97.6 F 67 18 104/61 98 08/18/17 17:30 97.4 F L 57 16 104/62 95 08/18/17 16:30 97.3 F L 58 16 103/30 96 08/18/17 15:30 59 16 127/69 96 08/18/17 15:00 60 16 113/62 94 08/18/17 14:30 97.3 F L 60 16 124/70 94 08/18/17 13:59 97.4 F L 59 16 101/69 94 08/18/17 13:49 58 16 102/53 98 08/18/17 13:39 60 16 88/49 98 08/18/17 13:29 97.5 F L 59 16 80/47 98 08/18/17 13:19 58 16 70/42 98 08/18/17 13:09 60 18 65/47 98 08/18/17 12:59 97.1 F L 61 18 67/42 95 08/18/17 11:08 66 16 127/97 99 08/18/17 10:55 66 16 127/77 99 08/18/17 10:43 67 16 155/82 95 08/18/17 09:10 97.8 F 70 18 146/74 100 Intake and Output 08/18/17 08/18/17 08/19/17 15:59 23:59 07:59 Intake Total 500 / 500 925 / 925 50 / 50 Output Total 0 / 0 0 / 0 Balance 500 / 500 925 / 925 50 / 50 Intake: IV Fluids 500 / 500 50 / 50 50 / 50 Ancef Premix DUPLEX 2,000 mg In 50 / 50 50 / 50 50 ml @ 100 mls/hr IVPB Q8HR DAVE Rx#:[id number] Vancocin 1,750 MG In Dextrose 5 500 / 500 % 500 ML @ 334.014 mls/hr IVPB ONCE ONE Rx#:[id number] Oral 875 / 875 0 / 0 Output: Urine 0 / 0 0 / 0 Other: Meal Dinner Percent of Meal Consumed 100% Weight 117.934 kg Blood Glucose* 113 - Labs CBC & BMP: 08/18/17 13:09 Labs: Abnormal lab results Hgb 9.3 g/dL (12.9-16.9) L 08/18/17 13:09 Hct 29.1 % (37.5-50.1) L 08/18/17 13:09 POC Glucose 123 (58-89) H 08/18/17 20:07 - VTE Documentation of Mechanical Device: Venous foot pump, device Consult Discharge Plan - Plan Referrals: Mansoor Loaiza MD [Primary Care Provider] -
[2017-08-19] MEDS: Budesonide/Formoterol 160/4.5 MDI IH SCH ×2 (07:40→22:06)
[2017-08-19] MEDS: Tiotropium 18 MCG inhalation IH SCH ×2 (07:41→07:49)
[2017-08-19] MEDS: Metoprolol XL (24 HR) Succ 50 MG TAB.ER.24H PO SCH (08:14)
[2017-08-19 08:26] LABS: Hematocrit 31.4 % (37.5-50.1); Hemoglobin 10.1 g/dL (12.9-16.9)
[2017-08-19] MEDS: Isosorbide MONOnitrate (24 HR) 60 MG TAB.ER.24H PO SCH (08:41)
[2017-08-19] MEDS: amLODIPine 5 MG TABLET PO SCH (08:42)
[2017-08-19] MEDS: (Febuxostat [Uloric] 40 MG) PO SCH (08:42)
[2017-08-19 09:20] LABS: Calcium 8.4 mg/dL (8.6-10.3); Potassium 5.4 mEq/L (3.5-5.1)
--- NOTE | 2017-08-19 09:37 | Nephrology Consult Note ---
Date of Encounter: 08/19/17 Time of Encounter: 08:35 Assessment and Plan (1) ESRD (end stage renal disease) on dialysis Current Visit: No Status: Chronic S/P right knee replacement. ESRD-Will do HD today, keeping TTS schedule. Orders given. Will hold BP medication for SBP< 130. History of Present Illness - Reason for Consult end stage renal disease - History of Present Illness Mr. Barcenas is a 61 year old male with ESRD who dialyzes at [place] on TTS. Last dialysis on Friday. Other PMH-DM, HTN, CAD, PVD, COPD/asthma, left BKA. Mr. Barcenas is S/P right knee replacement on Aug 18. This morning he is somnolent, but arousable when name called. He states his pain is under control and readily falls back to sleep. Nursing states BP low this AM and held BP rx. Past Med Surg Social Fam HX - Past Medical History Medical history: arthritis, asthma, cardiomyopathy, CHF, COPD, coronary artery disease, DVT, diabetes, dialysis, GERD, hyperlipidemia, hypertension, osteoporosis, peripheral artery disease, renal disease, other Psychiatric history: no psych history - Past Surgical History Surgical History: coronary bypass (CABG), knee replacement, orthopedic, other, other - Social History Smoking Status: Former smoker Smokeless Tobacco Status: No Alcohol use: none Drug use: none - Family History Father Adopted: No Family Member Ethnicity: Non- Living Status: Hx Family Cardiac Disorders: No Hx Family Respiratory Disorders: No Hx Family Cancer: Yes Hx Family GI Disorders: No Hx Family Endocrine Disorder: No Hx Family Neuromuscular Disorders: No Hx Family Neurologic Disorders: No Hx Family HEENT Disorders: No Hx Family Autoimmune Disorders: No Mother Adopted: No Family Member Ethnicity: Non- Living Status: Hx Family Cardiac Disorders: Yes Hx Family Respiratory Disorders: No Hx Family Cancer: No Hx Family GI Disorders: No Hx Family Endocrine Disorder: Yes Hx Family Neuromuscular Disorders: No Hx Family Neurologic Disorders: No Hx Family HEENT Disorders: No Hx Family Autoimmune Disorders: No Medications and Allergies Febuxostat [Uloric] 40 mg PO QAM 03/02/15 [History] Sevelamer [Renvela] 800 mg PO TIDWM 05/01/15 [History] Nitroglycerin 0.4 mg SL Q5MIN PRN #3 tab.subl 08/20/15 [Rx] Apixaban [Eliquis] 5 mg PO BID 10/30/15 [History] Amitriptyline [Elavil] 25 mg PO HS 04/01/16 [History] Budesonide/Formoterol 160/4.5 [Symbicort 160/4.5] 2 puff IH BIDR 04/01/16 [ History] Fluticasone Propionate Nasal [Flonase] 1 spray NS DAILY PRN 04/01/16 [History] Tiotropium [Spiriva] 18 mcg IH DAILY 04/01/16 [History] Albuterol Neb [Proventil Neb] 2.5 mg IH TID PRN 02/06/17 [History] Amlodipine Besylate 10 mg PO DAILY 02/06/17 [History] Aspirin [Lo-Dose Aspirin EC] 81 mg PO DAILY 02/06/17 [History] Atorvastatin Calcium [Lipitor] 80 mg PO HS 02/06/17 [History] Cholecalciferol (Vitamin D3) [Vitamin D3] 5,000 unit PO DAILY 02/06/17 [History] Insulin Glargine [Lantus] 20 unit SQ HS 02/06/17 [History] Isosorbide MONOnitrate [Isosorbide Mononitrate ER] 240 mg PO DAILY 02/06/17 [ History] Metoprolol Succinate 200 mg PO DAILY 02/06/17 [History] Pantoprazole Sodium [Protonix] 40 mg PO DAILY 02/06/17 [History] OxyCODONE Immed Rel [Roxicodone 5 MG] 5 mg PO Q6HR PRN 7 Days #28 tablet [Rx] 3 Allergy/AdvReac Type Severity Reaction Status Date / Time No Known Allergies Allergy Verified 08/18/17 09:34 Review of Systems All Systems: reviewed and no additional remarkable complaints except as stated Exam - Vital Signs Vital signs: Initial Vital Signs Temp Pulse Resp BP Pulse Ox 97.8 F 70 18 146/74 100 08/18/17 09:10 08/18/17 09:10 08/18/17 09:10 08/18/17 09:10 08/18/17 09:10 Vital Signs - Last 8 Hours Temp Pulse Resp BP Pulse Ox 08/19/17 07:43 14 94 08/19/17 07:34 66 10 102/59 94 08/19/17 07:15 98.0 F 64 10 83/52 96 08/19/17 04:02 97.8 F 67 18 105/70 93 Intake and Output 08/18/17 08/19/17 08/19/17 23:59 07:59 15:59 Intake Total 925 / 925 50 / 50 Output Total 0 / 0 0 / 0 Balance 925 / 925 50 / 50 Intake: IV Fluids 50 / 50 50 / 50 Ancef Premix DUPLEX 2,000 mg In 50 / 50 50 / 50 50 ml @ 100 mls/hr IVPB Q8HR [facility] Rx#:[id number] Oral 875 / 875 0 / 0 Output: Urine 0 / 0 0 / 0 Other: Meal Dinner Percent of Meal Consumed 100% Blood Glucose* 106 - General Appearance General appearance: well-developed, well-nourished, appears started age Exam: somnolent, arousable when name called EENT: mucous membranes moist Neck: no JVD Respiratory: clear Cardiology: regular rate, regular rhythm Additional Comments: left BKA, mild RLE edema Gastrointestinal: hypoactive bowel sounds, no tenderness Integumentary: warm and dry Psychiatric: mood/affect appropriate Results - Lab Results 08/19/17 07:52 08/19/17 07:52 Most recent lab results Calcium 8.4 mg/dL (8.6-10.3) L 08/19/17 07:52 Consult Discharge Plan - Plan Referrals: Mansoor Loaiza MD [Primary Care Provider] -
[2017-08-19] MEDS: Cholecalciferol (D-3) 1,000 UNIT TABLET PO SCH (09:47)
[2017-08-19] MEDS: Aspirin Enteric Coated 81 MG Tablet PO SCH (09:47)
[2017-08-19 10:52] LABS: Hepatitis B Surface Antigen Nonreactive (Nonreactive)
[2017-08-19] MEDS ORDERED: 0.9 % Sodium Chloride 250 ML IVC PRN (11:23)
[2017-08-19] MEDS ORDERED: 0.9 % Sodium Chloride 1,000 ML PRIME SCH (11:30)
[2017-08-19] MEDS: Apixaban 5 MG TABLET PO SCH ×2 (11:58→21:04)
--- NOTE | 2017-08-19 18:05 | Event Note ---
Date of Encounter: 08/19/17 Time of Encounter: 12:35 PCR- POD#1 R TKR robot Justin PCR - Patient seen at bedside. Pain control: Adequate Participating in PT. All questions and concerns addressed. Educated on use of incentive spirometer, ambulation, and hydration. Patient educated on post-operative restrictions and care. Addressed: Patient to get Dialysis today. Hypotensive - holding meds - Maria De Jesus with nephro aware of hypotension D/C plan:. ECF
[2017-08-19] MEDS: Insulin DETEMIR 100 UNIT/ML X5UNITS SQ SCH (21:07)
[2017-08-20 01:45] LABS: Hepatitis B Surface Antibody 0.34 mIU/mL
--- NOTE | 2017-08-20 06:00 | Orthopedics Progress Note ---
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 of insulin (3) Hyperlipemia Current Visit: No Status: Chronic Qualifiers: Hyperlipidemia type: mixed hyperlipidemia Qualified Code(s): E78.2 - Mixed hyperlipidemia (4) PVD (peripheral vascular disease) Current Visit: No Status: Chronic (5) Chronic deep venous thrombosis Current Visit: No Status: Chronic Qualifiers: DVT location: lower extremity Affected thrombotic vein of extremity: unspecified vein of extremity Laterality: unspecified laterality Qualified Code(s): I82.509 - Chronic embolism and thrombosis of unspecified deep veins of unspecified lower extremity (6) CAD in [place] artery Current Visit: No Status: Chronic (7) History of coronary artery bypass graft Current Visit: No Status: Chronic (8) Insulin dependent diabetes mellitus Current Visit: No Status: Chronic (9) Hypotension Current Visit: No Status: Acute Qualifiers: Hypotension type: unspecified hypotension type Qualified Code(s): I95.9 - Hypotension, unspecified (10) Atrial fibrillation Current Visit: No Status: Acute Qualifiers: Atrial fibrillation type: paroxysmal Qualified Code(s): I48.0 - Paroxysmal atrial fibrillation (11) Osteoarthritis of right knee Current Visit: No Status: Chronic Qualifiers: Osteoarthritis type: unspecified Qualified Code(s): M17.11 - Unilateral primary osteoarthritis, right knee (12) HTN (hypertension) Current Visit: No Status: Chronic Qualifiers: Hypertension type: unspecified Qualified Code(s): I10 - Essential (primary ) hypertension (13) CAD (coronary artery disease) Current Visit: No Status: Chronic Qualifiers: Coronary Disease-Associated Artery/Lesion type: unspecified vessel or lesion type [place] vs. transplanted heart: unspecified whether [place] or transplanted heart Associated angina: angina presence unspecified Qualified Code(s): I25.10 - Atherosclerotic heart disease of [place] coronary artery without angina pectoris (14) ESRD (end stage renal disease) on dialysis Current Visit: No Status: Chronic (15) HLD (hyperlipidemia) Current Visit: No Status: Chronic Qualifiers: Hyperlipidemia type: unspecified Qualified Code(s): E78.5 - Hyperlipidemia , unspecified (16) Gout Current Visit: No Status: Chronic Qualifiers: Gout site: unspecified site Gout etiology: unspecified cause Chronicity: unspecified Qualified Code(s): M10.9 - Gout, unspecified (17) CHF (congestive heart failure) Current Visit: No Status: Chronic Qualifiers: Heart failure type: unspecified Heart failure chronicity: unspecified Qualified Code(s): I50.9 - Heart failure, unspecified (18) Obesity Current Visit: No Status: Chronic Qualifiers: Obesity type: unspecified obesity type Obesity classification: adult class 2 (BMI 35 - 39.9) Serious obesity comorbidity presence: unspecified whether serious comorbidity present Body mass index: BMI 35.0-35.9 Qualified Code(s) : E66.9 - Obesity, unspecified; Z68.35 - Body mass index (BMI) 35.0-35.9, adult ; Z68.35 - Body mass index (BMI) 35.0-35.9, adult (19) History of left below knee amputation Current Visit: No Status: Chronic (20) Status post right knee replacement Current Visit: No Status: Acute Subjective Interval history: Patient was seen this morning doing well without complaints. Afebrile vital signs stable. Operative extremity: Neurovascularly intact Dressing clean dry and intact Calves nontender Assessment and plan: Continue with postoperative care Discharge today Objective Vital signs: Vital Signs Temp Pulse Resp BP Pulse Ox 08/20/17 02:51 99.0 F 96 14 93/46 95 08/19/17 23:35 100.1 F H 94 18 98/63 94 08/19/17 22:07 17 96 08/19/17 19:27 100.0 F H 83 18 132/58 95 08/19/17 18:10 98.7 F 15 145/92 08/19/17 17:50 127/77 08/19/17 17:35 133/65 08/19/17 17:20 144/69 08/19/17 17:05 121/93 08/19/17 16:50 115/63 08/19/17 16:35 116/97 08/19/17 16:20 149/70 08/19/17 16:05 155/90 08/19/17 15:50 144/72 08/19/17 15:35 124/64 08/19/17 15:20 144/80 08/19/17 15:05 127/67 08/19/17 14:50 98.8 F 15 115/51 08/19/17 11:54 98.2 F 64 16 93/60 96 08/19/17 07:43 14 94 08/19/17 07:34 66 10 102/59 94 08/19/17 07:15 98.0 F 64 10 83/52 96 Intake and Output 08/19/17 08/19/17 08/20/17 15:59 23:59 07:59 Intake Total 600 / 600 400 / 400 0 / 0 Output Total 600 / 600 0 / 0 Balance 600 / 600 -200 / -200 0 / 0 Intake: Oral 0 / 0 400 / 400 0 / 0 Intake, Rinseback and Flushes 600 / 600 Output: Urine 0 / 0 0 / 0 Total Dialysis (HD) Output 600 / 600 Other: Blood Glucose* 78 124 Hemodialysis Net Fluid Removed 200 0 (mL) - Labs CBC & BMP: 08/19/17 07:52 08/19/17 07:52 Labs: Abnormal lab results Hgb 10.1 g/dL (12.9-16.9) L 08/19/17 07:52 Hct 31.4 % (37.5-50.1) L 08/19/17 07:52 Sodium 129 mEq/L (136-145) L 08/19/17 07:52 Potassium 5.4 mEq/L (3.5-5.1) H 08/19/17 07:52 Chloride 94 mEq/L (98-107) L 08/19/17 07:52 Carbon Dioxide 21 mEq/L (23-29) L 08/19/17 07:52 BUN 62 mg/dL (8-23) H 08/19/17 07:52 Creatinine 9.06 mg/dL (0.70-1.30) H 08/19/17 07:52 Est GFR ( Amer) 7 (> 60) L 08/19/17 07:52 Est GFR (Non-Af Amer) 6 (> 60) L 08/19/17 07:52 Glucose 114 mg/dL (70-105) H 08/19/17 07:52 Calcium 8.4 mg/dL (8.6-10.3) L 08/19/17 07:52 - VTE Documentation of Mechanical Device: Venous foot pump, device Consult Discharge Plan - Plan Referrals: Mansoor Loaiza MD [Primary Care Provider] -
[2017-08-20 06:07] LABS: Hematocrit 26.6 % (37.5-50.1); Hemoglobin 8.8 g/dL (12.9-16.9)
[2017-08-20 06:42] LABS: Calcium 8.2 mg/dL (8.6-10.3); Potassium 3.5 mEq/L (3.5-5.1)
[2017-08-20] MEDS: Metoprolol XL (24 HR) Succ 50 MG TAB.ER.24H PO SCH (08:08)
[2017-08-20] MEDS: *HR* OxyCODONE Immed Rel 5 MG TABLET PO PRN ×2 (08:08→17:52)
[2017-08-20] MEDS: (Febuxostat [Uloric] 40 MG) PO SCH (08:08)
[2017-08-20] MEDS: Apixaban 5 MG TABLET PO SCH ×2 (08:08→22:46)
[2017-08-20] MEDS: Cholecalciferol (D-3) 1,000 UNIT TABLET PO SCH (08:08)
[2017-08-20] MEDS: amLODIPine 5 MG TABLET PO SCH (08:08)
[2017-08-20] MEDS: Aspirin Enteric Coated 81 MG Tablet PO SCH (08:08)
[2017-08-20] MEDS: Isosorbide MONOnitrate (24 HR) 60 MG TAB.ER.24H PO SCH (08:08)
[2017-08-20] MEDS: Tiotropium 18 MCG inhalation IH SCH (08:31)
[2017-08-20] MEDS: Budesonide/Formoterol 160/4.5 MDI IH SCH ×2 (08:31→20:14)
--- NOTE | 2017-08-20 09:49 | Nephrology Progress Note ---
Date of Encounter: 08/20/17 Time of Encounter: 09:20 - Assessment and Plan (1) ESRD (end stage renal disease) on dialysis Current Visit: No Status: Chronic S/P right knee replacement. ESRD- No HD today, keeping TTS schedule. Hold BP medication for SBP< 130. Subjective Interval history: PT in room, assisting to chair. Objective - Vital Signs Vital signs: Vital Signs Temp Pulse Resp BP Pulse Ox 08/20/17 06:36 98.8 F 91 16 98/53 96 08/20/17 02:51 99.0 F 96 14 93/46 95 08/19/17 23:35 100.1 F H 94 18 98/63 94 08/19/17 22:07 17 96 08/19/17 19:27 100.0 F H 83 18 132/58 95 08/19/17 18:10 98.7 F 15 145/92 08/19/17 17:50 127/77 08/19/17 17:35 133/65 08/19/17 17:20 144/69 08/19/17 17:05 121/93 08/19/17 16:50 115/63 08/19/17 16:35 116/97 08/19/17 16:20 149/70 08/19/17 16:05 155/90 08/19/17 15:50 144/72 08/19/17 15:35 124/64 08/19/17 15:20 144/80 08/19/17 15:05 127/67 08/19/17 14:50 98.8 F 15 115/51 08/19/17 11:54 98.2 F 64 16 93/60 96 Intake and Output 08/19/17 08/20/17 08/20/17 23:59 07:59 15:59 Intake Total 400 / 400 0 / 0 Output Total 600 / 600 0 / 0 200 / 200 Balance -200 / -200 0 / 0 -200 / -200 Intake: Oral 400 / 400 0 / 0 Output: Urine 0 / 0 0 / 0 Total Dialysis (HD) Output 600 / 600 Estimated Blood Loss 200 / 200 Other: Blood Glucose* 124 61 Hemodialysis Net Fluid Removed 0 (mL) - General Appearance General appearance: Present: well-developed, well-nourished, appears started age , obese EENT: Present: mucous membranes moist Neck: Present: no JVD Respiratory: Present: clear Cardiology: Present: edema, regular rate, regular rhythm Additional Comments: mild right LE, left BKA Gastrointestinal: Present: normoactive bowel sounds, no tenderness Integumentary: Present: warm and dry Neurologic: Present: alert and oriented x3 - Lab 08/20/17 05:44 08/20/17 05:44 Most recent lab results Calcium 8.2 mg/dL (8.6-10.3) L 08/20/17 05:44 - VTE Documentation of Mechanical Device: Intermittent pneumatic compression device Consult Discharge Plan - Plan Referrals: Mansoor Loaiza MD [Primary Care Provider] -
--- NOTE | 2017-08-20 16:10 | Event Note ---
Date of Encounter: 08/20/17 Time of Encounter: 12:55 PCR- POD#2 R TKR robot Justin 08/18/17 PCR - Patient seen at bedside. Pain control: will add lidoderm patch for better control Participating in PT although patient has left BTKA so only RLE exercises in bed , he is being transferred into chair at bedside/non-ambulatory All questions and concerns addressed. Educated on use of incentive spirometer, ambulation, and hydration. Patient educated on post-operative restrictions and care. Addressed: Patient got Dialysis yesterday. Hypotensive - holding meds - Maria De Jesus with nephro aware of hypotension D/C plan:. ECF No current bed availability at [facility] where patient would like to go. [facility] has availability tomorrow if patient willing to go until a bed opens at [place], patient still deciding on plan.
[2017-08-20] MEDS ORDERED: Ipratropium/Albuterol Neb 3 ML IH ONE (22:09)
[2017-08-20] MEDS ORDERED: Ipratropium/Albuterol Neb 3 ML IH PRN (22:16)
[2017-08-20] MEDS ORDERED: D5% in Water 1,000 ML IVC PRN (22:24)
[2017-08-20] MEDS ORDERED: Dextrose Gel 15 GM/37.5 ML TUBE PO PRN ×2 (22:24)
[2017-08-20] MEDS ORDERED: *HR* Dextrose 50 % in Water (Syg) 50 ML SYRINGE IVP PRN (22:24)
[2017-08-20 22:25] LABS: Basophils % 0.2 %; Hemoglobin 8.4 g/dL (12.9-16.9); Immature Granulocytes % 1.4 % (0-4); Lymphocytes % 10.2 %; Mean Corpuscular HGB Conc 33.6 g/dL (31.6-35.5); Mean Corpuscular Volume 92.3 fL (83.0-100.0); Mean Platelet Volume 9.6 fL (9.4-12.4); Monocytes # 1.1 K/mcL (0.0-1.3); Monocytes % 11.4 %; Neutrophils # 7.3 K/mcL (1.6-8.9); Platelet Count 148 K/mcL (140-400); Red Blood Count 2.71 M/mcL (4.19-5.50); Red Cell Distribution Width 13.7 % (11.5-14.5); Segmented Neutrophils % 76.8 %
[2017-08-20 22:45] LABS: Calcium 8.4 mg/dL (8.6-10.3); Potassium 4.3 mEq/L (3.5-5.1)
[2017-08-20] MEDS: methylPREDNISolone 125 MG/2 ML VIAL IVP SCH ×2 (22:45→22:51)
[2017-08-20] MEDS: 0.9 % Sodium Chloride 1,000 ML IVC SCH (22:46)
[2017-08-20 22:55] LABS: Bilirubin,Urine Negative (Negative); Blood,Urine Large (Negative); Clarity,Urine Cloudy (Clear); Color,Urine Yellow (Yellow); Glucose,Urine (UA) Normal (Normal); Ketones,Urine Negative (Negative); Leukocyte Esterase,Urine Moderate (Negative); Nitrite,Urine Negative (Negative); Protein,Urine 100 mg/dL (Neg-Trace); Specific Gravity,Urine 1.014 (1.010-1.025); Urobilinogen,Urine Normal (Normal)
[2017-08-20] MEDS: Insulin DETEMIR 100 UNIT/ML X5UNITS SQ SCH (22:56)
[2017-08-20 22:57] LABS: Bacteria,Urine None Seen per hpf (None-Few); Hyaline Casts,Urine None Seen per lpf (None-Few); RBC,Urine TNTC per hpf (0-3); Squamous Epithelial Cell,Urine Few per lpf (None-Few); WBC,Urine 15-30 per hpf (0-3)
[2017-08-20] MEDS ORDERED: Vancomycin 1,750 MG in D5% in Water 250 ML IVPB SCH (23:00)
[2017-08-20 23:05] LABS: ABG Base Excess 3 mEq/L (-2 to 3); ABG HCO3 26 mEq/L (21-27); ABG Oxygen Saturation 91 % (95-98); ABG PCO2 35 mmHg (35-45); ABG PH 7.49 pH Units (7.32-7.45); ABG PO2 56 mmHg (85-104); ABG TCO2 28 mEq/L (20-26)
--- NOTE | 2017-08-21 03:10 | Internal Medicine Consult Note ---
Date of Encounter: 08/20/17 Time of Encounter: 21:00 - Assessment and Plan (1) Sepsis Current Visit: Yes Status: Acute Assessment and plan: Pt meets sepsis criteria with tachycardia, tachypnea, hypoxia, and fever. Etiology is probably pneumonia. - Early goal directed fluid resuscitation started. - Cont Abx treatment. - F/l lactate level. F/U blood culture. Qualifiers: Sepsis type: sepsis due to unspecified organism Qualified Code(s): A41.9 - Sepsis, unspecified organism (2) Hospital acquired PNA Current Visit: Yes Status: Acute Assessment and plan: Pt was suspected PE as hx of DVT and recent TKR. CTA shows negative for PE to the segmental level but signs of lung inflammation/infection. Pt has general anesthesia yesterday, will treat pt as hospital acquired pneumonia/ventilation associated pneumonia. - Flu test negatibe - Will start to treat pt with vanco and zosyn at this point, f/u with blood culture. - Place pt on BiPAP tonight for supportive treatment. - Closely monitor pt. (3) CAD (coronary artery disease) Current Visit: No Status: Chronic Assessment and plan: S/P CABG, denies chest pain. Will cont home meds. Qualifiers: Coronary Disease-Associated Artery/Lesion type: unspecified vessel or lesion type [place] vs. transplanted heart: unspecified whether [place] or transplanted heart Associated angina: angina presence unspecified Qualified Code(s): I25.10 - Atherosclerotic heart disease of [place] coronary artery without angina pectoris (4) CHF (congestive heart failure) Current Visit: No Status: Chronic Assessment and plan: Appears not fluid overload. Pt has chronic elevated BNP and this time the value is about at baseline. Will check Echo. Qualifiers: Heart failure type: unspecified Heart failure chronicity: unspecified Qualified Code(s): I50.9 - Heart failure, unspecified (5) COPD exacerbation Current Visit: No Status: Chronic Assessment and plan: Pt has wheezes. Consider COPD exacerbation. - Cont Abx, steroid, and bronchidilater. - Cont O2 supportive treatment. (6) Diabetes Current Visit: No Status: Chronic Assessment and plan: Cont basal and sliding scale insulin Qualifiers: Diabetes mellitus type: type 2 Diabetes mellitus complication status: with unspecified complications Diabetes mellitus long-term insulin use: with middle or intermediate school principal use Qualified Code(s): E11.8 - Type 2 diabetes mellitus with unspecified complications; Z79.4 - middle or intermediate school principal (current) use of insulin (7) ESRD (end stage renal disease) on dialysis Current Visit: No Status: Chronic Assessment and plan: Cont HD. Pt had CTA today, need HD within 24 hours. (8) Elevated troponin Current Visit: No Status: Chronic Assessment and plan: Pt has chronic elevated troponin. However, this time troponin level higher than baseline. - Pt has no chest pain, EKG shows no ST elevation, no significant changes vs previous EKG. - Consider NSTEMI vs demand ischemia caused by sepsis - No heparin drip because pt is on full dose Eliquis. - Will cont patient monitor, track 3 sets of troponin. - Will consult cardio in AM. (9) UTI (urinary tract infection) Current Visit: Yes Status: Acute Assessment and plan: Pt's UA shows UTI, he is on abx now, will f/u urine culture. Thank you for the consult, hospitalist will follow. Qualifiers: Urinary tract infection type: acute cystitis Hematuria presence: without hematuria Qualified Code(s): N30.00 - Acute cystitis without hematuria Internal Medicine - CN: HPI - Data of Consult Patient: new to practice Consult date: 08/20/17 Requesting Physician: Raimundo Anderson MD - Consult Narrative Reason for consult: SOB History of present illness: Mr. Barcenas is a 61 year old male with Hx of COPD, CAD s/p CABG, CHF, HTN, DM, Hx of DVT on Eliquis, ESRD on HD, admitted for Rt TKR. Pt had surgery done yesterday. Medical consult was called because sudden onset SOB since last evening. Pt has worsen cough as well, which is nonproductive. Pt also has mild fever. Pt has some runny nose earlier. Pt denies chest pain, or nausea. Pt denies muscle ache. His respiratory rate increased to 34 per min and pt is in acute distress. Past Med Surg Social Fam HX - Past Medical History Medical history: arthritis, asthma, cardiomyopathy, CHF, COPD, coronary artery disease, DVT, diabetes, dialysis, GERD, hyperlipidemia, hypertension, osteoporosis, peripheral artery disease, renal disease, other Psychiatric history: no psych history - Past Surgical History Surgical History: coronary bypass (CABG), knee replacement, orthopedic, other, other - Social History Smoking Status: Former smoker Smokeless Tobacco Status: No Alcohol use: none Drug use: none - Family History Father Adopted: No Family Member Ethnicity: Non- Living Status: Hx Family Cardiac Disorders: No Hx Family Respiratory Disorders: No Hx Family Cancer: Yes Hx Family GI Disorders: No Hx Family Endocrine Disorder: No Hx Family Neuromuscular Disorders: No Hx Family Neurologic Disorders: No Hx Family HEENT Disorders: No Hx Family Autoimmune Disorders: No Mother Adopted: No Family Member Ethnicity: Non- Living Status: Hx Family Cardiac Disorders: Yes Hx Family Respiratory Disorders: No Hx Family Cancer: No Hx Family GI Disorders: No Hx Family Endocrine Disorder: Yes Hx Family Neuromuscular Disorders: No Hx Family Neurologic Disorders: No Hx Family HEENT Disorders: No Hx Family Autoimmune Disorders: No Internal Medicine - CN: Meds Febuxostat [Uloric] 40 mg PO QAM 03/02/15 [History] Sevelamer [Renvela] 800 mg PO TIDWM 05/01/15 [History] Nitroglycerin 0.4 mg SL Q5MIN PRN #3 tab.subl 08/20/15 [Rx] Apixaban [Eliquis] 5 mg PO BID 10/30/15 [History] Amitriptyline [Elavil] 25 mg PO HS 04/01/16 [History] Budesonide/Formoterol 160/4.5 [Symbicort 160/4.5] 2 puff IH BIDR 04/01/16 [ History] Fluticasone Propionate Nasal [Flonase] 1 spray NS DAILY PRN 04/01/16 [History] Tiotropium [Spiriva] 18 mcg IH DAILY 04/01/16 [History] Albuterol Neb [Proventil Neb] 2.5 mg IH TID PRN 02/06/17 [History] Amlodipine Besylate 10 mg PO DAILY 02/06/17 [History] Aspirin [Lo-Dose Aspirin EC] 81 mg PO DAILY 02/06/17 [History] Atorvastatin Calcium [Lipitor] 80 mg PO HS 02/06/17 [History] Cholecalciferol (Vitamin D3) [Vitamin D3] 5,000 unit PO DAILY 02/06/17 [History] Insulin Glargine [Lantus] 20 unit SQ HS 02/06/17 [History] Isosorbide MONOnitrate [Isosorbide Mononitrate ER] 240 mg PO DAILY 02/06/17 [ History] Metoprolol Succinate 200 mg PO DAILY 02/06/17 [History] Pantoprazole Sodium [Protonix] 40 mg PO DAILY 02/06/17 [History] OxyCODONE Immed Rel [Roxicodone 5 MG] 5 mg PO Q6HR PRN 7 Days #28 tablet [Rx] 3 Allergy/AdvReac Type Severity Reaction Status Date / Time No Known Allergies Allergy Verified 08/18/17 09:34 Internal Medicine - CN: Exam - Constitutional Vitals: Temp Pulse Resp BP Pulse Ox 98.8 F 100 28 153/87 97 08/21/17 02:39 08/21/17 02:39 08/21/17 02:39 08/21/17 02:39 08/21/17 02:39 General appearance IM: Present: mild distress, A&O X 3, answers questions appropriately - Head Head exam: Present: atraumatic, normocephalic - Eye Eye exam: Present: EOMI, PERRL - Neck Neck exam general surgery: Present: full ROM. Absent: lymphadenopathy - Respiratory Respiratory exam: Present: accessory muscle use, wheezes (Scattered wheezes b/l , Rt > Lt) - Cardiovascular Cardiovascular exam IM: Present: RRR, tachycardia - GI/Abdominal GI/Abdominal exam IM: Present: normal bowel sounds, soft. Absent: tenderness - Extremities Exam Extremities exam IM: Present: full ROM, warm Additional comments: S/P Rt TKR and S/P left BKA - Neurological Exam Neurological exam: Present: alert, altered, CN II-XII intact, oriented X3, strengths equal and symetr throughout. Absent: pronater drift, facial droop, speech deficit - Skin Skin exam IM: Present: intact, warm Internal Medicine - CN: Reslt - Labs CBC & Chem 7: 08/20/17 21:55 08/20/17 21:55 Labs: Short CBC 08/20/17 08/20/17 Range/Units 05:44 21:55 WBC 9.5 (4.3-11.1) K/mcL Hgb 8.8 L 8.4 L (12.9-16.9) g/dL Hct 26.6 L 25.0 L (37.5-50.1) % Plt Count 148 (140-400) K/mcL Neutrophils # 7.3 (1.6-8.9) K/mcL BMP 08/20/17 08/20/17 05:44 21:55 Sodium 134 L 129 L Potassium 3.5 D 4.3 Chloride 95 L 91 L Carbon Dioxide 26 22 L BUN 42 H 49 H Creatinine 6.93 H 8.22 H Glucose 62 L 130 H Calcium 8.2 L 8.4 L Cardiac Enzymes 08/20/17 Range/Units 21:54 Troponin I 1.07 H* (< 0.04) ng/mL Urine 08/20/17 Range/Units 22:40 Urine Color Yellow (Yellow) Urine Clarity Cloudy A (Clear) Urine pH 6.0 (5.0-8.0) pH Units Ur Specific [place] 1.014 (1.010-1.025) Urine Protein 100 H (Neg-Trace) mg/dL Urine Glucose (UA) Normal (Normal) mg/dL - ABG Interpretation ABG results: ABG ABG pH 7.49 pH Units (7.32-7.45) H 08/20/17 23:02 ABG pCO2 35 mmHg (35-45) 08/20/17 23:02 ABG pO2 56 mmHg (85-104) L 08/20/17 23:02 ABG O2 Saturation 91 % (95-98) L 08/20/17 23:02 - EKG Data -: EKG Interpreted by Myself EKG shows normal: sinus rhythm Rate: normal - EKG Data Prior EKG available for review: yes When compared to previous EKG: there is no significant change Interpretation IM: normal EKG - Impressions Impressions Chest CTA 08/20/17 20:38 IMPRESSION: Negative for acute pulmonary embolism to the segmental level. Evaluation limited by respiratory motion artifact. Mosaic attenuation of the pulmonary parenchyma suspected to be due to air trapping given patient is in expiration during imaging. Difficult to exclude superimposed airspace disease such as aspiration or pneumonia in some areas, particularly the right upper and middle lobes. Hydropic gallbladder. No definite wall thickening or pericholecystic fluid although evaluation is limited. Correlate with cholestatic parameters and consider further evaluation with ultrasound if there is concern for cholecystitis. Mildly enlarged main pulmonary artery which may indicate underlying pulmonary hypertension. D/ / Jorge Elise / Jorge Elise Interpreting Provider: Jorge Elise Chest X-Ray 08/20/17 20:46 IMPRESSION: No focal airspace disease identified. D/ / 08/20/2017 21:05:49 Korey Dejesus MD / [email or web address] Interpreting Provider: Korey Dejesus MD Consult Discharge Plan - Plan Referrals: Mansoor Loaiza MD [Primary Care Provider] -
[2017-08-21] MEDS: Ipratropium/Albuterol Neb 3 ML IH SCH ×4 (03:28→21:50)
[2017-08-21] MEDS ORDERED: 0.9 % Sodium Chloride 2,000 ML ONE (07:02)
[2017-08-21] MEDS ORDERED: 0.9 % Sodium Chloride 250 ML IVC PRN (07:36)
[2017-08-21] MEDS: methylPREDNISolone 125 MG/2 ML VIAL IVP SCH ×2 (08:23→17:38)
[2017-08-21] MEDS: Isosorbide MONOnitrate (24 HR) 60 MG TAB.ER.24H PO SCH (08:24)
[2017-08-21] MEDS: amLODIPine 5 MG TABLET PO SCH (08:24)
[2017-08-21] MEDS: Apixaban 5 MG TABLET PO SCH (08:25)
[2017-08-21] MEDS: Metoprolol XL (24 HR) Succ 50 MG TAB.ER.24H PO SCH (08:25)
[2017-08-21] MEDS: Aspirin Enteric Coated 81 MG Tablet PO SCH (08:25)
[2017-08-21] MEDS: Cholecalciferol (D-3) 1,000 UNIT TABLET PO SCH (08:25)
[2017-08-21] MEDS: Insulin LISPRO 300 UNITS/3 ML VIAL SQ SCH ×4 (08:25→21:00)
--- NOTE | 2017-08-21 09:27 | Orthopedics Progress Note ---
Date of Encounter: 08/21/17 Time of Encounter: 09:25 - Assessment and Plan (1) Hx of CABG Current Visit: No Status: Chronic (2) Diabetes Current Visit: No Status: Chronic Qualifiers: Diabetes mellitus type: type 2 Diabetes mellitus complication status: with unspecified complications Diabetes mellitus terminologist insulin use: with terminologist use Qualified Code(s): E11.8 - Type 2 diabetes mellitus with unspecified complications; Z79.4 - [facility] (current) use of insulin (3) Hyperlipemia Current Visit: No Status: Chronic Qualifiers: Hyperlipidemia type: mixed hyperlipidemia Qualified Code(s): E78.2 - Mixed hyperlipidemia (4) PVD (peripheral vascular disease) Current Visit: No Status: Chronic (5) Chronic deep venous thrombosis Current Visit: No Status: Chronic Qualifiers: DVT location: lower extremity Affected thrombotic vein of extremity: unspecified vein of extremity Laterality: unspecified laterality Qualified Code(s): I82.509 - Chronic embolism and thrombosis of unspecified deep veins of unspecified lower extremity (6) CAD in [place] artery Current Visit: No Status: Chronic (7) History of coronary artery bypass graft Current Visit: No Status: Chronic (8) Insulin dependent diabetes mellitus Current Visit: No Status: Chronic (9) Hypotension Current Visit: No Status: Acute Qualifiers: Hypotension type: unspecified hypotension type Qualified Code(s): I95.9 - Hypotension, unspecified (10) Atrial fibrillation Current Visit: No Status: Acute Qualifiers: Atrial fibrillation type: paroxysmal Qualified Code(s): I48.0 - Paroxysmal atrial fibrillation (11) Osteoarthritis of right knee Current Visit: No Status: Chronic Qualifiers: Osteoarthritis type: unspecified Qualified Code(s): M17.11 - Unilateral primary osteoarthritis, right knee (12) HTN (hypertension) Current Visit: No Status: Chronic Qualifiers: Hypertension type: unspecified Qualified Code(s): I10 - Essential (primary ) hypertension (13) CAD (coronary artery disease) Current Visit: No Status: Chronic Qualifiers: Coronary Disease-Associated Artery/Lesion type: unspecified vessel or lesion type [place] vs. transplanted heart: unspecified whether [place] or transplanted heart Associated angina: angina presence unspecified Qualified Code(s): I25.10 - Atherosclerotic heart disease of [place] coronary artery without angina pectoris (14) ESRD (end stage renal disease) on dialysis Current Visit: No Status: Chronic (15) HLD (hyperlipidemia) Current Visit: No Status: Chronic Qualifiers: Hyperlipidemia type: unspecified Qualified Code(s): E78.5 - Hyperlipidemia , unspecified (16) Gout Current Visit: No Status: Chronic Qualifiers: Gout site: unspecified site Gout etiology: unspecified cause Chronicity: unspecified Qualified Code(s): M10.9 - Gout, unspecified (17) CHF (congestive heart failure) Current Visit: No Status: Chronic Qualifiers: Heart failure type: unspecified Heart failure chronicity: unspecified Qualified Code(s): I50.9 - Heart failure, unspecified (18) Obesity Current Visit: No Status: Chronic Qualifiers: Obesity type: unspecified obesity type Obesity classification: adult class 2 (BMI 35 - 39.9) Serious obesity comorbidity presence: unspecified whether serious comorbidity present Body mass index: BMI 35.0-35.9 Qualified Code(s) : E66.9 - Obesity, unspecified; Z68.35 - Body mass index (BMI) 35.0-35.9, adult ; Z68.35 - Body mass index (BMI) 35.0-35.9, adult (19) History of left below knee amputation Current Visit: No Status: Chronic (20) Status post right knee replacement Current Visit: No Status: Acute Subjective Interval history: Patient was seen this morning overnight the patient had acute onset of shortness of breath. Patient was evaluated by the hospitalist. Patient CTA which was negative for PE. It did show infiltrates and he is being treated for pneumonia. Patient has a significant end-stage kidney disease and is on dialysis. Afebrile vital signs stable. Operative extremity: Neurovascularly intact Dressing clean dry and intact Calves nontender Assessment and plan: Continue with postoperative care As per hospitalist cardiac consult also placed. Objective Vital signs: Vital Signs Temp Pulse Resp BP Pulse Ox 08/21/17 08:46 96 08/21/17 06:48 23 96 08/21/17 06:38 98.5 F 104 20 148/91 96 08/21/17 03:28 20 99 08/21/17 02:39 98.8 F 100 28 153/87 97 08/20/17 23:48 100.4 F H 104 30 142/71 100 08/20/17 23:12 98 08/20/17 23:08 26 98 08/20/17 22:35 22 96 02/14/18 21:42 29 92 08/20/17 20:39 99.7 F H 113 34 153/79 92 08/20/17 20:15 18 93 08/20/17 19:35 99.1 F 109 18 159/81 93 08/20/17 14:08 98.7 F 101 16 98/67 96 08/20/17 10:00 98.4 F 97 16 102/63 95 Intake and Output 08/20/17 08/21/17 08/21/17 23:59 07:59 15:59 Intake Total 500 / 500 650 / 650 Output Total 300 / 300 0 / 0 Balance 200 / 200 650 / 650 Intake: IV Fluids 600 / 600 Zosyn 3.375 GM In 0.9 % Sodium 100 / 100 Chloride 100 ML @ 25 mls/hr IVPB Q12HR DAVE Rx#:[id number] Vancocin 1,750 MG In 0.9 % 500 / 500 Sodium Chloride 500 ML @ 333.3 mls/hr IVPB ONCE ONE Rx#: [id number] Oral 500 / 500 50 / 50 Output: Urine 0 / 0 0 / 0 Catheter 300 / 300 Other: Blood Glucose* 143 193 - Labs CBC & BMP: 08/20/17 21:55 08/20/17 21:55 Labs: Abnormal lab results RBC 2.71 M/mcL (4.19-5.50) L 08/20/17 21:55 Hgb 8.4 g/dL (12.9-16.9) L 08/20/17 21:55 Hct 25.0 % (37.5-50.1) L 08/20/17 21:55 ABG pH 7.49 pH Units (7.32-7.45) H 08/20/17 23:02 ABG pO2 56 mmHg (85-104) L 08/20/17 23:02 ABG Total CO2 28 mEq/L (20-26) H 08/20/17 23:02 ABG O2 Saturation 91 % (95-98) L 08/20/17 23:02 Sodium 129 mEq/L (136-145) L 08/20/17 21:55 Chloride 91 mEq/L (98-107) L 08/20/17 21:55 Carbon Dioxide 22 mEq/L (23-29) L 08/20/17 21:55 BUN 49 mg/dL (8-23) H 08/20/17 21:55 Creatinine 8.22 mg/dL (0.70-1.30) H 08/20/17 21:55 Est GFR ( Amer) 8 (> 60) L 08/20/17 21:55 Est GFR (Non-Af Amer) 7 (> 60) L 08/20/17 21:55 Glucose 130 mg/dL (70-105) H 08/20/17 21:55 POC Glucose 143 (58-89) H 08/20/17 20:48 Calcium 8.4 mg/dL (8.6-10.3) L 08/20/17 21:55 Troponin I 1.07 ng/mL (< 0.04) H* 08/20/17 21:54 B-Natriuretic Peptide 1415 pg/mL (Less than 100) H 08/20/17 21:55 Urine Clarity Cloudy (Clear) A 08/20/17 22:40 Urine Protein 100 mg/dL (Neg-Trace) H 08/20/17 22:40 Urine Blood Large (Negative) H 08/20/17 22:40 Ur Leukocyte Esterase Moderate (Negative) H 08/20/17 22:40 Urine Microscopic RBC TNTC per hpf (0-3) H 08/20/17 22:40 Urine Microscopic WBC 15-30 per hpf (0-3) H 08/20/17 22:40 Ur Culture Indicated? YES (NO) A 08/20/17 22:40 - VTE Documentation of Mechanical Device: Venous foot pump, device Consult Discharge Plan - Plan Referrals: Isabella Bass PAC [Physician Cancer Genetic Counselor] - 08/28/17 9:15 am Raimundo Anderson MD [Partnered Physician] - 09/17/17 4:45 pm Mansoor Loaiza MD [Primary Care Provider] - Ranulfo Warren MD [Non-Partnered Physician] - 08/22/17 9:40 am
[2017-08-21 09:29] LABS: Basophils % 0.2 %; Hematocrit 23.2 % (37.5-50.1); Hemoglobin 7.9 g/dL (12.9-16.9); Immature Granulocytes % 1.9 % (0-4); Lymphocytes # 0.3 K/mcL (0.6-4.6); Lymphocytes % 2.7 %; Mean Corpuscular HGB Conc 34.1 g/dL (31.6-35.5); Mean Corpuscular Hemoglobin 31.2 pg (28.0-33.3); Mean Corpuscular Volume 91.7 fL (83.0-100.0); Mean Platelet Volume 9.7 fL (9.4-12.4); Monocytes # 0.3 K/mcL (0.0-1.3); Platelet Count 152 K/mcL (140-400); Red Blood Count 2.53 M/mcL (4.19-5.50); Red Cell Distribution Width 13.8 % (11.5-14.5); Segmented Neutrophils % 92.2 %
[2017-08-21] MEDS: (Febuxostat [Uloric] 40 MG) PO SCH (09:40)
[2017-08-21] MEDS: Tiotropium 18 MCG inhalation IH SCH (09:45)
[2017-08-21 10:31] LABS: Calcium 8.7 mg/dL (8.6-10.3); Potassium 3.9 mEq/L (3.5-5.1)
--- NOTE | 2017-08-21 10:43 | Internal Med Progress Note ---
Date of Encounter: 08/21/17 Time of Encounter: 10:42 - Assessment and plan (1) Elevated troponin Current Visit: No Status: Chronic Assessment and plan: Anticoagulated with eliquis. Echo was ordered. Cardiology is consulted. Repeat EKG. EKG checked last night with some [place] inversions in leads I, aVL, v5, v6. Also ST depression in those leads. Trend cardiac enzymes. Troponin seems to be elevated above baseline. Patient is already on aspirin, statin, beta [place]. (2) Acute blood loss as cause of postoperative anemia Current Visit: Yes Status: Acute Assessment and plan: Expected postoperatively. We will continue to monitor. No need to transfuse. (3) COPD exacerbation Current Visit: No Status: Chronic Assessment and plan: Continue Solu-Medrol IV. No weaning today. Continue nebulizers. Wean down oxygen as tolerated. (4) Sepsis Current Visit: Yes Status: Acute Assessment and plan: Patient is tachycardic and tachypneic. Has a source being pneumonia as well as possibly a urinary tract infection. Lactic acid is not elevated. We will continue to treat underlying source as below. Qualifiers: Sepsis type: sepsis due to unspecified organism Qualified Code(s): A41.9 - Sepsis, unspecified organism (5) Hospital acquired PNA Current Visit: Yes Status: Acute Assessment and plan: Continue with vancomycin and Zosyn. Follow up on cultures. We will check urine strep and Legionella. Check sputum cultures if able to get a sample. wean down oxygen as tolerated. Continue nebulizers. (6) CAD (coronary artery disease) Current Visit: No Status: Acute Assessment and plan: Continue aspirin and statin beta [place]. Qualifiers: Coronary Disease-Associated Artery/Lesion type: [place] artery [place] vs. transplanted heart: [place] heart Associated angina: without angina Qualified Code(s): I25.10 - Atherosclerotic heart disease of [place] coronary artery without angina pectoris (7) CHF (congestive heart failure) Current Visit: No Status: Chronic Assessment and plan: Euvolemic. BNP is chronically elevated. Echo is pending. Qualifiers: Heart failure type: unspecified Heart failure chronicity: unspecified Qualified Code(s): I50.9 - Heart failure, unspecified (8) Diabetes mellitus Current Visit: No Status: Chronic Assessment and plan: Continue with insulin sliding scale. Continue with Levemir 20 units nightly. Continue Accu-Cheks. Qualifiers: Diabetes mellitus type: type 2 Diabetes mellitus complication status: with unspecified complications Diabetes mellitus non destructive testing engineer insulin use: with usp use Qualified Code(s): E11.8 - Type 2 diabetes mellitus with unspecified complications; Z79.4 - friction paint machine tender (current) use of insulin; Z79.4 - custodial ( current) use of insulin; Z79.4 - custodial (current) use of insulin; Z79.4 - friction paint machine tender (current) use of insulin (9) ESRD (end stage renal disease) on dialysis Current Visit: No Status: Chronic Assessment and plan: Continue dialysis per nephrology. (10) History of DVT (deep vein thrombosis) Current Visit: Yes Status: Acute Assessment and plan: on eliquis (11) DVT prophylaxis Current Visit: No Status: Acute Assessment and plan: Patient is on eliquis - Subjective Interval history: She was seen and examined. No acute events but medicine has been consulted regarding shortness breath. Being treated as healthcare associated pneumonia and COPD exacerbation. Noted to have elevated troponins for which cardiology is consulted. No chest pain. MAXIMUM TEMPERATURE of 100.4 around midnight - Constitutional Vitals: Temp Pulse Resp BP Pulse Ox 97.4 F L 104 20 130/75 96 08/21/17 08:35 08/21/17 06:38 08/21/17 08:35 08/21/17 09:35 08/21/17 08:46 General appearance: Present: mild distress, A&O X 3, answers questions appropriately Exam: GEN: NAD CVS: RRR. S1, S2, No m/r/g RESP: Diminished ABD: Soft, NT, ND, +BS EXT: No edema. 2+ DP. No rashes. R AKA noted NEURO: Nonfocal Internal Medicine: Result - Labs CBC & Chem 7: 08/21/17 09:11 08/21/17 09:11 Labs: Short CBC 08/20/17 08/21/17 Range/Units 21:55 09:11 WBC 9.5 9.8 (4.3-11.1) K/mcL Hgb 8.4 L 7.9 L (12.9-16.9) g/dL Hct 25.0 L 23.2 L (37.5-50.1) % Plt Count 148 152 (140-400) K/mcL Neutrophils # 7.3 9.0 H (1.6-8.9) K/mcL BMP 08/20/17 08/21/17 21:55 09:11 Sodium 129 L 134 L Potassium 4.3 3.9 Chloride 91 L 95 L Carbon Dioxide 22 L 23 BUN 49 H 43 H Creatinine 8.22 H 6.93 H Glucose 130 H 176 H Calcium 8.4 L 8.7 Cardiac Enzymes 08/20/17 08/21/17 Range/Units 21:54 09:11 Troponin I 1.07 H* 4.61 H* (< 0.04) ng/mL Urine 08/20/17 Range/Units 22:40 Urine Color Yellow (Yellow) Urine Clarity Cloudy A (Clear) Urine pH 6.0 (5.0-8.0) pH Units Ur Specific [place] 1.014 (1.010-1.025) Urine Protein 100 H (Neg-Trace) mg/dL Urine Glucose (UA) Normal (Normal) mg/dL - ABG Interpretation ABG results: ABG ABG pH 7.49 pH Units (7.32-7.45) H 08/20/17 23:02 ABG pCO2 35 mmHg (35-45) 08/20/17 23:02 ABG pO2 56 mmHg (85-104) L 08/20/17 23:02 ABG O2 Saturation 91 % (95-98) L 08/20/17 23:02 - Impressions Impressions Chest CTA 08/20/17 20:38 IMPRESSION: Negative for acute pulmonary embolism to the segmental level. Evaluation limited by respiratory motion artifact. Mosaic attenuation of the pulmonary parenchyma suspected to be due to air trapping given patient is in expiration during imaging. Difficult to exclude superimposed airspace disease such as aspiration or pneumonia in some areas, particularly the right upper and middle lobes. Hydropic gallbladder. No definite wall thickening or pericholecystic fluid although evaluation is limited. Correlate with cholestatic parameters and consider further evaluation with ultrasound if there is concern for cholecystitis. Mildly enlarged main pulmonary artery which may indicate underlying pulmonary hypertension. D/ / Jorge Elise / Jorge Elise Interpreting Provider: Jorge Elise Chest X-Ray 08/20/17 20:46 IMPRESSION: No focal airspace disease identified. D/ / 08/20/2017 21:05:49 Korey Dejesus MD / [email or web address] Interpreting Provider: Korey Dejesus MD - VTE Documentation of Mechanical Device: Venous foot pump, device Consult Discharge Plan - Plan Referrals: Isabella Bass PAC [Physician Drier Take Off Tender] - 08/28/17 9:15 am Raimundo Anderson MD [Partnered Physician] - 09/17/17 4:45 pm Mansoor Loaiza MD [Primary Care Provider] - Ranulfo Warren MD [Non-Partnered Physician] - 08/22/17 9:40 am
--- NOTE | 2017-08-21 11:15 | Nephrology Progress Note ---
Date of Encounter: 08/21/17 Time of Encounter: 09:45 - Assessment and Plan (1) ESRD (end stage renal disease) on dialysis Current Visit: No Status: Chronic S/P right knee replacement. ESRD- No HD today, keeping TTS schedule. Hold BP medication for SBP< 130. Subjective Interval history: Seen on HD. Objective - Vital Signs Vital signs: Vital Signs Temp Pulse Resp BP Pulse Ox 08/21/17 10:35 120/67 08/21/17 10:20 130/81 08/21/17 10:05 133/84 08/21/17 09:50 123/77 08/21/17 09:35 130/75 08/21/17 09:20 143/79 08/21/17 09:05 130/77 08/21/17 08:50 147/99 08/21/17 08:46 96 08/21/17 08:35 97.4 F L 20 169/86 08/21/17 06:48 23 96 08/21/17 06:38 98.5 F 104 20 148/91 96 08/21/17 03:28 20 99 08/21/17 02:39 98.8 F 100 28 153/87 97 08/20/17 23:48 100.4 F H 104 30 142/71 100 08/20/17 23:12 98 08/20/17 23:08 26 98 08/20/17 22:35 22 96 08/20/17 21:42 29 92 08/20/17 20:39 99.7 F H 113 34 153/79 92 08/20/17 20:15 18 93 08/20/17 19:35 99.1 F 109 18 159/81 93 08/20/17 14:08 98.7 F 101 16 98/67 96 Intake and Output 08/20/17 08/21/17 08/21/17 23:59 07:59 15:59 Intake Total 500 / 500 650 / 650 600 / 600 Output Total 300 / 300 0 / 0 Balance 200 / 200 650 / 650 600 / 600 Intake: IV Fluids 600 / 600 Zosyn 3.375 GM In 0.9 % Sodium 100 / 100 Chloride 100 ML @ 25 mls/hr IVPB Q12HR [facility] Rx#:[id number] Vancocin 1,750 MG In 0.9 % 500 / 500 Sodium Chloride 500 ML @ 333.3 mls/hr IVPB ONCE ONE Rx#: [id number] Oral 500 / 500 50 / 50 0 / 0 Intake, Rinseback and Flushes 600 / 600 Output: Urine 0 / 0 0 / 0 Catheter 300 / 300 Other: Weight 117.934 kg Blood Glucose* 143 193 Hemodialysis Net Fluid Removed 1739 (mL) Patient Weight 08/21/17 23:59 Weight 117.934 kg - General Appearance General appearance: Present: well-developed, well-nourished, appears started age , obese EENT: Present: mucous membranes moist Neck: Present: no JVD Respiratory: Present: clear Cardiology: Present: edema, regular rate, regular rhythm Additional Comments: mild-1+ right LE edema, left BKA. Gastrointestinal: Present: normoactive bowel sounds, no tenderness Integumentary: Present: warm and dry Neurologic: Present: alert and oriented x3 - Lab 08/21/17 09:11 08/21/17 09:11 Most recent lab results ABG pH 7.49 pH Units (7.32-7.45) H 08/20/17 23:02 ABG pCO2 35 mmHg (35-45) 08/20/17 23:02 ABG pO2 56 mmHg (85-104) L 08/20/17 23:02 ABG HCO3 26 mEq/L (21-27) 08/20/17 23:02 ABG O2 Saturation 91 % (95-98) L 08/20/17 23:02 Calcium 8.7 mg/dL (8.6-10.3) 08/21/17 09:11 - VTE Documentation of Mechanical Device: Venous foot pump, device Consult Discharge Plan - Plan Referrals: Isabella Bass PAC [Physician Supervisor Cytology] - 08/28/17 9:15 am Raimundo Anderson MD [Partnered Physician] - 09/17/17 4:45 pm Mansoor Loaiza MD [Primary Care Provider] - Ranulfo Warren MD [Non-Partnered Physician] - 08/22/17 9:40 am
[2017-08-21] MEDS: Budesonide/Formoterol 160/4.5 MDI IH SCH ×2 (11:20→21:50)
[2017-08-21] MEDS: *HR* OxyCODONE Immed Rel 5 MG TABLET PO PRN ×2 (12:30→21:00)
[2017-08-21] MEDS ORDERED: Perflutren Lipid Microsphere 1.3 ML in 0.9 % Sodium Chloride 8.7 ML IVP ONE (14:22)
--- NOTE | 2017-08-21 17:33 | Cardiology Consult Note ---
Date of Encounter: 08/21/17 Time of Encounter: 14:00 Assessment and Plan (1) NSTEMI (non-ST elevated myocardial infarction) Current Visit: No Status: Acute Per cardiology: -Troponins 1.07, 4.61. In the setting of anemia, post op, sepsis, hospital acquired PNA, ESRD on HD. -Denies chest pain. -ECG with no acute ECG changes. -TTE with LVEF preserved, no segmental wall motion abnormalities. -On asa, eliquis, statin, beta petron[place]. -Will hold eliquis. Possible heparin drip in am if hemoglobin stable. -Suspect will need C prior to discharge once hemoglobin and clinical picture improves. (2) CAD (coronary artery disease) Current Visit: No Status: Chronic Per cardiology: -Known CAD s/p CABG 2008. -Left heart catheterization 08/19/2015: Left main 20% stenosis. LAD proximal 80% stenosis. Circumflex mid 100% stenosis. OM1 80-90% stenosis (PTCA performed, residual stenosis 50-60% stenosis, too small for stenting). Ramus minimal disease. RCA proximal 100% stenosis. SVG to RPDA patent. FONTAINE to mid LAD patent. SVG to D1 patent. Qualifiers: Coronary Disease-Associated Artery/Lesion type: unspecified vessel or lesion type [place] vs. transplanted heart: [place] heart Associated angina: without angina Qualified Code(s): I25.10 - Atherosclerotic heart disease of [place] coronary artery without angina pectoris Discussion w patient/family: The assessment and plan as outlined above was discussed with the patient who expressed understanding and agreement. All questions were answered. Thank you for involving us in the care of your patient. Please call with any questions. Discussed and reviewed with . History of Present Illness Consult date: 08/20/17 Requesting physician: Dara Tracey Consult reason: elevated troponin Chief complaint: right knee pain History of present illness: Mr. Barcenas is a 61 year old male with a relevant past medical history of DM, ESRD on HD, CHF, HTN, COPD, PVD, CAD s/p CABG 2008, PR, DVT. Patient presented to [facility] for right total knee replacement. Cardiology has been asked to see and evaluate patient due to elevated troponins. Patient denies chest pain. Admits to shortness of breath. Patient reports a lot of pain in right leg. Past Med Surg Social Fam HX - Past Medical History Attestation: Yes The following information was validated with the patient. Source: patient, old records reviewed Medical history: arthritis, asthma, cardiomyopathy, CHF, COPD, coronary artery disease, DVT, diabetes, dialysis, GERD, hyperlipidemia, hypertension, osteoporosis, peripheral artery disease, renal disease, other Psychiatric history: no psych history - Past Surgical History Surgical History: coronary bypass (CABG), knee replacement, orthopedic, other, other - Social History Smoking Status: Former smoker Smokeless Tobacco Status: No Alcohol use: none Drug use: none - Family History Father Adopted: No Family Member Ethnicity: Non- Living Status: Hx Family Cardiac Disorders: No Hx Family Respiratory Disorders: No Hx Family Cancer: Yes Hx Family GI Disorders: No Hx Family Endocrine Disorder: No Hx Family Neuromuscular Disorders: No Hx Family Neurologic Disorders: No Hx Family HEENT Disorders: No Hx Family Autoimmune Disorders: No Mother Adopted: No Family Member Ethnicity: Non- Living Status: Hx Family Cardiac Disorders: Yes Hx Family Respiratory Disorders: No Hx Family Cancer: No Hx Family GI Disorders: No Hx Family Endocrine Disorder: Yes Hx Family Neuromuscular Disorders: No Hx Family Neurologic Disorders: No Hx Family HEENT Disorders: No Hx Family Autoimmune Disorders: No Medications and Allergies Febuxostat [Uloric] 40 mg PO QAM 03/02/15 [History] Sevelamer [Renvela] 800 mg PO TIDWM 05/01/15 [History] Nitroglycerin 0.4 mg SL Q5MIN PRN #3 tab.subl 08/20/15 [Rx] Apixaban [Eliquis] 5 mg PO BID 10/30/15 [History] Amitriptyline [Elavil] 25 mg PO HS 04/01/16 [History] Budesonide/Formoterol 160/4.5 [Symbicort 160/4.5] 2 puff IH BIDR 04/01/16 [ History] Fluticasone Propionate Nasal [Flonase] 1 spray NS DAILY PRN 04/01/16 [History] Tiotropium [Spiriva] 18 mcg IH DAILY 04/01/16 [History] Albuterol Neb [Proventil Neb] 2.5 mg IH TID PRN 02/06/17 [History] Amlodipine Besylate 10 mg PO DAILY 02/06/17 [History] Aspirin [Lo-Dose Aspirin EC] 81 mg PO DAILY 02/06/17 [History] Atorvastatin Calcium [Lipitor] 80 mg PO HS 02/06/17 [History] Cholecalciferol (Vitamin D3) [Vitamin D3] 5,000 unit PO DAILY 02/06/17 [History] Insulin Glargine [Lantus] 20 unit SQ HS 02/06/17 [History] Isosorbide MONOnitrate [Isosorbide Mononitrate ER] 240 mg PO DAILY 02/06/17 [ History] Metoprolol Succinate 200 mg PO DAILY 02/06/17 [History] Pantoprazole Sodium [Protonix] 40 mg PO DAILY 02/06/17 [History] OxyCODONE Immed Rel [Roxicodone 5 MG] 5 mg PO Q6HR PRN 7 Days #28 tablet [Rx] 3 Allergy/AdvReac Type Severity Reaction Status Date / Time No Known Allergies Allergy Verified 08/18/17 09:34 All Systems Review: A 10-system review of systems was performed and is negative for pertinent findings except as documented above in the HPI. - Cardiovascular Cardiovascular: as per HPI, dyspnea on exertion - Musculoskeletal Musculoskeletal: arthralgias Physical Examination Vital Signs, Last 4 Hours Temp Pulse Resp BP Pulse Ox 08/21/17 16:14 18 97 08/21/17 14:38 98.5 F 108 24 144/78 96 General: Conversant, No Apparent Distress HEENT: Atraumatic, Normocephaly, Mucus Membranes Moist Neck: No JVD, Normal carotid pulses Cardiac: Reg Rate and Rhythm, Normal S1 and S2, No Murmur Lungs: Other (Lung sounds diminished throughout. ) Neuro: Alert and responsive, No focal deficits noted Abdomen: Soft, Non-Tender Skin: Other (Right lower extremity with redness noted. ) Musculoskeletal: No Chest Wall Tenderness Extremities: No Clubbing, No Cyanosis, Normal Pulses, Other (Right lower extremity edema noted. ) Results 08/21/17 09:11 08/21/17 09:11 Lab Results Impressions Chest CTA 08/20/17 20:38 IMPRESSION: Negative for acute pulmonary embolism to the segmental level. Evaluation limited by respiratory motion artifact. Mosaic attenuation of the pulmonary parenchyma suspected to be due to air trapping given patient is in expiration during imaging. Difficult to exclude superimposed airspace disease such as aspiration or pneumonia in some areas, particularly the right upper and middle lobes. Hydropic gallbladder. No definite wall thickening or pericholecystic fluid although evaluation is limited. Correlate with cholestatic parameters and consider further evaluation with ultrasound if there is concern for cholecystitis. Mildly enlarged main pulmonary artery which may indicate underlying pulmonary hypertension. D/ / Jorge Elise / Jorge Elise Interpreting Provider: Jorge Elise Chest X-Ray 08/20/17 20:46 IMPRESSION: No focal airspace disease identified. D/ / 08/20/2017 21:05:49 Korey Dejesus MD / [email or web address] Interpreting Provider: Korey Dejesus MD Echocardiogram 08/21/17 03:09 Impressions: Technically challenging study due to body habitus. LVEF 60%. Definity echo contrast was used. Not all LV segments were well visualized. RV is not well visualized. Indeterminate diastolic function. No significant valvular dysfunction. Lack of TR signal to estimate RVSP. Left Ventricular Wall Motion: Rest Echo Findings The mid anterior septal, mid inferior lateral, basal anterior septal and basal inferior lateral [place] were not visualized. All other wall segments showed normal motion. Findings: Study Quality * Technically sub-optimal due to body habitus. ECG Findings * Normal sinus rhythm. Left Ventricle * Unable to evaluate segmental wall motion due to technical quality. * LV size and wall measurements could not be well obtained. * Indeterminate diastolic function. * Definity echo contrast was used. * LVEF 60%. Right Ventricle * RV is not well visualized. Left Atrium * Left atrium is not well visualized. Right Atrium * Right atrium is not well visualized. Aortic Valve * Aortic valve not well visualized. * No aortic regurgitation. * No aortic stenosis. Mitral Valve * No mitral regurgitation. * Mitral valve not well visualized. * No mitral stenosis. Tricuspid Valve * Tricuspid valve not well visualized. * No tricuspid regurgitation. Pulmonic Valve * Pulmonic valve is not well visualized. * No pulmonic stenosis. * No pulmonic regurgitation. Pulmonary Artery * Pulmonary artery not well visualized. Aorta * Not well visualized. Pericardium * There is no pericardial effusion present. Interatrial Septum * No evidence of PFO by color Doppler. IVC * The IVC is not well evaluated. Active Medications Albuterol Sulfate (Proventil Neb) 2.5 mg IH TIDR PRN; Protocol PRN Reason: Shortness Of Breath Stop: 02/17/18 14:29 Last Admin: 08/21/17 06:48 Dose: 2.5 mg Albuterol/Ipratropium (Duoneb) 3 ml IH [id number] DAVE Stop: 02/20/18 04:01 Last Admin: 08/21/17 16:13 Dose: 3 ml Albuterol/Ipratropium (Duoneb) 3 ml IH [id number] PRN PRN Reason: Shortness Of Breath/Wheezing Stop: 02/19/18 22:17 Amitriptyline HCl (Elavil) 25 mg PO HS DAVE Stop: 02/17/18 21:01 Last Admin: 08/20/17 22:12 Dose: Not Given Amlodipine Besylate (Norvasc) 10 mg PO DAILY DAVE Stop: 02/18/18 09:01 Last Admin: 08/21/17 08:24 Dose: 10 mg Aspirin (Aspirin Ec) 81 mg PO DAILY DAVE Stop: 02/18/18 09:01 Last Admin: 08/21/17 08:25 Dose: 81 mg Atorvastatin Calcium (Lipitor) 80 mg PO HS DAVE Stop: 02/17/18 21:01 Last Admin: 08/20/17 22:12 Dose: Not Given Budesonide/Formoterol Fumarate (Symbicort) 2 puff IH BIDR DAVE PRN Reason: Protocol Stop: 02/17/18 22:01 Last Admin: 08/21/17 11:20 Dose: Not Given Dextrose/Water (Dextrose 50% (Syg)) 25 ml IVP AD PRN PRN Reason: Hypoglycemia Stop: 02/19/18 22:25 Docusate Sodium (Colace) 100 mg PO BID DAVE Stop: 02/17/18 21:01 Last Admin: 08/21/17 08:24 Dose: 100 mg Fluticasone Propionate (Flonase) 50 mcg NS DAILY PRN; Protocol PRN Reason: Allergy Symptoms Stop: 02/17/18 14:29 Glucagon (Glucagen) 1 mg IM ONCE PRN PRN Reason: Hypoglycemia Stop: 02/19/18 22:25 Glucose (Gluctose) 15 gm PO ONCE PRN PRN Reason: Hypoglycemia Stop: 02/19/18 22:25 Glucose (Gluctose) 30 gm PO ONCE PRN PRN Reason: Hypoglycemia Stop: 02/19/18 22:25 Guaifenesin (Robitussin/Dm) 10 ml PO Q6HR DAVE Stop: 02/20/18 00:01 Last Admin: 08/21/17 12:31 Dose: 10 ml Lactated Ringer's (Lactated Ringers) 1,000 mls @ 75 mls/hr IVC .[id number] DAVE Stop: 02/17/18 14:29 Last Admin: 08/18/17 16:26 Dose: 75 mls/hr Sodium Chloride (0.9 % Sodium Chloride) 250 mls @ 937.5 mls/hr IVC .Q16M PRN PRN Reason: Hypotension Stop: 02/18/18 11:24 Sodium Chloride (0.9 % Sodium Chloride) 1,000 mls @ 0 mls/hr PRIME .Q0M DAVE PRN Reason: As Directed Stop: 02/18/18 11:31 Sodium Chloride (0.9 % Sodium Chloride) 1,000 mls @ 100 mls/hr IVC .Q10H [facility] Stop: 08/21/17 18:14 Last Admin: 08/20/17 22:46 Dose: 100 mls/hr Dextrose (Dextrose 5%) 1,000 mls @ 100 mls/hr IVC .Q10H PRN PRN Reason: HYPOGLYCEMIA Stop: 02/19/18 22:25 Piperacillin Sod/Tazobactam (Sod 3.375 gm/ Sodium Chloride) 100 mls @ 25 mls/ hr IVPB Q12H [facility] Stop: 02/20/18 11:01 Last Admin: 08/21/17 12:29 Dose: 25 mls/hr Sodium Chloride (0.9 % Sodium Chloride) 250 mls @ 937.5 mls/hr IVC .Q16M PRN PRN Reason: Hypotension Stop: 02/20/18 07:37 Insulin Detemir (Levemir) 20 unit SQ HS [facility] Stop: 02/17/18 21:01 Last Admin: 08/20/17 22:56 Dose: 20 unit Insulin Human Lispro (Humalog) 0 units SQ HS DAVE PRN Reason: Protocol Stop: 02/20/18 21:01 Insulin Human Lispro (Humalog) 0 units SQ TIDAC [facility] PRN Reason: Protocol Stop: 02/20/18 07:31 Last Admin: 08/21/17 12:31 Dose: Not Given Isosorbide Mononitrate (Imdur) 240 mg PO DAILY [facility] Stop: 02/18/18 09:01 Last Admin: 08/21/17 08:24 Dose: 240 mg Lidocaine HCl (Lidoderm 5% Patch) 1 each TP DAILY [facility] Stop: 02/19/18 12:46 Last Admin: 08/21/17 08:22 Dose: 1 each Magnesium Hydroxide (Milk Of Magnesia Conc) 5 ml PO HS PRN PRN Reason: Constipation Stop: 02/17/18 14:29 Methylprednisolone (Solu-Medrol) 60 mg IVP Q8HR [facility] Stop: 02/19/18 22:31 Last Admin: 08/21/17 08:23 Dose: 60 mg Metoprolol Succinate (Toprol Xl) 200 mg PO DAILY [facility] Stop: 02/18/18 09:01 Last Admin: 08/21/17 08:25 Dose: 200 mg Naloxone HCl (Narcan) 0.4 mg IVP Q2MIN PRN PRN Reason: SEE COMMENTS Stop: 02/17/18 14:29 Nitroglycerin (Nitroglycerin) 0.4 mg SL Q5MIN PRN PRN Reason: Chest Pain Stop: 02/17/18 14:29 Omeprazole (Prilosec) 40 mg PO DAILY [facility] Stop: 02/18/18 09:01 Last Admin: 08/21/17 08:24 Dose: 40 mg Ondansetron HCl (Zofran) 4 mg IVP Q6HR PRN PRN Reason: Nausea And Vomiting Stop: 02/17/18 14:29 Last Admin: 08/18/17 22:47 Dose: 4 mg Oxycodone HCl (Roxicodone) 5 mg PO Q4HR PRN PRN Reason: Mild pain 1-3 Stop: 02/17/18 14:29 Oxycodone HCl (Roxicodone) 10 mg PO Q4HR PRN PRN Reason: Moderate pain 4-6 Stop: 02/17/18 14:29 Last Admin: 08/21/17 12:30 Dose: 10 mg Pharmacy Profile Note (Patient Taking Own Medication) 0 each PO QAM [facility] Stop: 02/18/18 09:01 Last Admin: 08/21/17 09:40 Dose: Not Given Senna (Senna) 17.2 mg PO HS PRN PRN Reason: Constipation Stop: 02/17/18 14:29 Sevelamer HCl (Renvela) 800 mg PO TIDWM DAVE Stop: 02/17/18 14:29 Last Admin: 08/21/17 12:30 Dose: 800 mg Temazepam (Restoril) 15 mg PO HS PRN; Protocol PRN Reason: Insomnia Stop: 02/17/18 21:01 Tiotropium [place] (Spiriva) 18 mcg IH DAILYR DAVE Stop: 02/18/18 09:01 Last Admin: 08/21/17 09:45 Dose: Not Given Vancomycin HCl (Vancocin) 0 each IVPB RPHPROT PRN PRN Reason: PULSE DOSE Stop: 02/20/18 00:25 Vitamin D (Vitamin D) 1,000 unit PO DAILY DAVE Stop: 02/18/18 09:01 Last Admin: 08/21/17 08:25 Dose: 1,000 unit - Imaging and Cardiology Chest Xray: report reviewed Echo: report reviewed Cardiac cath: report reviewed - EKG Interpretation EKG results cardiology: personally reviewed (ECG with ST, HR 117.), other ( Telemetry reviewed with average HR previous 12 hours noted to be 104, ST. PVCs noted.) Consult Discharge Plan - Plan Referrals: Isabella Bass PAC [Physician Job Superintendent] - 08/28/17 9:15 am Raimundo Anderson MD [Partnered Physician] - 09/17/17 4:45 pm Mansoor Loaiza MD [Primary Care Provider] - Ranulfo Warren MD [Non-Partnered Physician] - 08/22/17 9:40 am
[2017-08-21] MEDS ORDERED: *HR* Heparin 5,000 UNIT/ML VIAL IVP PRN ×2 (17:39)
--- NOTE | 2017-08-21 17:42 | Event Note ---
Date of Encounter: 08/21/17 Time of Encounter: 17:[address] Ramirez about the patient's concerning rise in troponins and my concerns with the EKG changes. Per recommendations, will put the patient on heparin drip and hold Eliquis dose tonight as the patient may need a LHC tomorrow. Will make NPO after midnight. Patient on proper cardiac meds otherwise.
[2017-08-21] MEDS ORDERED: Heparin 25,000 UNIT/500 ML D5W 25,000 UNIT/500 ML BAG IVC SCH (17:45)
--- NOTE | 2017-08-21 18:23 | Event Note ---
Date of Encounter: 08/21/17 Time of Encounter: 12:45 PCR- POD#3 R TKR robot Justin 08/18/17 PCR - Patient seen at bedside. O2 via NC being administered. Patient had dialysis this morning. Pain control: adequate Participating in PT although patient has left BTKA so only RLE exercises in bed , he is being transferred into chair at bedside/non-ambulatory All questions and concerns addressed. Educated on use of incentive spirometer, ambulation, and hydration. Patient educated on post-operative restrictions and care. Addressed: Patient had hypotension last night (08/20) and hospitalist team brought on board. Patient dx with pneumonia and possible sepsis. Concern for other organ system involvement given patient's medical history. Appreciate hospitalist team action and recommendations. D/C plan:. [facility] - discharge on hold while other medical conditions being evaluated and treated.
[2017-08-21 20:12] LABS: Hematocrit 20.5 % (37.5-50.1); Hemoglobin 6.6 g/dL (12.9-16.9); INR 2.2; Mean Corpuscular HGB Conc 32.2 g/dL (31.6-35.5); Mean Corpuscular Hemoglobin 30.4 pg (28.0-33.3); Mean Corpuscular Volume 94.5 fL (83.0-100.0); Mean Platelet Volume 10.1 fL (9.4-12.4); Platelet Count 157 K/mcL (140-400); Prothrombin Time 24.4 Seconds (9.4-12.1); Red Blood Count 2.17 M/mcL (4.19-5.50); Red Cell Distribution Width 13.9 % (11.5-14.5)
[2017-08-21 20:14] LABS: Activated Partial Thrombo Time 31.1 Seconds (26.0-36.0)
[2017-08-21] MEDS: Insulin DETEMIR 100 UNIT/ML X5UNITS SQ SCH (21:00)
[2017-08-22] MEDS: methylPREDNISolone 125 MG/2 ML VIAL IVP SCH ×3 (00:01→21:31)
[2017-08-22 01:53] LABS: Basophils % 0.1 %; Hematocrit 19.5 % (37.5-50.1); Hemoglobin 6.4 g/dL (12.9-16.9); Immature Granulocytes % 1.8 % (0-4); Lymphocytes # 0.4 K/mcL (0.6-4.6); Mean Corpuscular HGB Conc 32.8 g/dL (31.6-35.5); Mean Corpuscular Hemoglobin 31.1 pg (28.0-33.3); Mean Corpuscular Volume 94.7 fL (83.0-100.0); Monocytes # 0.4 K/mcL (0.0-1.3); Monocytes % 4.4 %; Neutrophils # 7.1 K/mcL (1.6-8.9); Platelet Count 153 K/mcL (140-400); Red Blood Count 2.06 M/mcL (4.19-5.50); Red Cell Distribution Width 13.9 % (11.5-14.5); Segmented Neutrophils % 88.7 %
[2017-08-22] MEDS ORDERED: Furosemide 20 MG/2 ML VIAL IVP PRN (02:42)
--- NOTE | 2017-08-22 03:09 | Event Note ---
Date of Encounter: 08/22/17 Time of Encounter: 03:07 Informed by JOHN Milligan that there is a drop in hemoglobin. Baseline hemoglobin around 9.3 noted that patient's hemoglobin now is 6.4 Patient is presently on heparin drip after discontinuation of alliquis since yesterday Case discussed with cardiology on-call Dr Pappas Plan: Transfuse 3 PRBC. Intravenous Lasix in between every transfusion. Hold heparin drip for now. Cardiology will be following up this patient.
[2017-08-22] MEDS: Ipratropium/Albuterol Neb 3 ML IH SCH ×4 (03:27→22:37)
[2017-08-22] MEDS ORDERED: 0.9 % Sodium Chloride 250 ML ONE ×2 (04:40→14:39)
--- NOTE | 2017-08-22 05:53 | Event Note ---
Date of Encounter: 08/22/17 Time of Encounter: 05:52 Patient is doing well. vitals stable plan will get stool OB IV PPI 40 mg BID GI consult
--- NOTE | 2017-08-22 07:38 | Internal Med Progress Note ---
Date of Encounter: 08/22/17 Time of Encounter: 07:35 - Assessment and plan (1) Elevated troponin Current Visit: No Status: Chronic Assessment and plan: Was being Anticoagulated with eliquis. That has been on hold and heparin was started however that is also now on hold given the drop in hemoglobin. Echo is done with an EF of 60%. No significant valvular dysfunction. Cardiology is following. Repeat concerning changes. Patient is already on aspirin, statin, beta [place]. (2) Acute blood loss as cause of postoperative anemia Current Visit: Yes Status: Acute Assessment and plan: Possibly postoperative anemia however given the drop in his hemoglobin and heparin has been stopped and transfusion of 3 units PRBCs was started. check FOBT (3) COPD exacerbation Current Visit: No Status: Chronic Assessment and plan: Continue Solu-Medrol IV. Wean down to every 12 hours. Continue nebulizers. Wean down oxygen as tolerated. (4) Sepsis Current Visit: Yes Status: Acute Assessment and plan: Patient is no longer tachycardic and tachypneic. Has a source being pneumonia as well and possibly a urinary tract infection. Lactic acid is not elevated. We will continue to treat underlying source as below. Qualifiers: Sepsis type: sepsis due to unspecified organism Qualified Code(s): A41.9 - Sepsis, unspecified organism (5) Hospital acquired PNA Current Visit: Yes Status: Acute Assessment and plan: Continue with vancomycin and Zosyn. Follow up on cultures. We will check urine strep and Legionella. Check sputum cultures if able to get a sample. wean down oxygen as tolerated. Continue nebulizers. (6) CAD (coronary artery disease) Current Visit: No Status: Acute Assessment and plan: Continue aspirin and statin beta [place]. Qualifiers: Coronary Disease-Associated Artery/Lesion type: [place] artery [place] vs. transplanted heart: [place] heart Associated angina: without angina Qualified Code(s): I25.10 - Atherosclerotic heart disease of [place] coronary artery without angina pectoris (7) CHF (congestive heart failure) Current Visit: No Status: Chronic Assessment and plan: Euvolemic. BNP is chronically elevated. Echo is noted as above. Qualifiers: Heart failure type: unspecified Heart failure chronicity: unspecified Qualified Code(s): I50.9 - Heart failure, unspecified (8) Diabetes mellitus Current Visit: No Status: Chronic Assessment and plan: Continue with insulin sliding scale. Continue with Levemir 20 units nightly. Continue Accu-Cheks. 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 (10) History of DVT (deep vein thrombosis) Current Visit: Yes Status: Acute Assessment and plan: Chronically on eliquis did we are holding that for now as well as any anticoagulation due to a drop in his hemoglobin (11) DVT prophylaxis Current Visit: No Status: Acute Assessment and plan: Placed patient on SCDs - Subjective Interval history: Patient was seen and examined. Started on a heparin drip yesterday per cardiology but that is stopped now to drop in hemoglobin. Hemoglobin continues to drop and now he is transfused 3 units after my colleague had spoken to cardiology. The patient troponins continued to elevate and cardiology were involved. Medicine has been consulted regarding shortness breath. Being treated as healthcare associated pneumonia and COPD exacerbation. No chest pain. Afebrile - Constitutional Vitals: Temp Pulse Resp BP Pulse Ox 97.7 F 84 16 115/71 96 08/22/17 05:22 08/22/17 05:22 08/22/17 05:22 08/22/17 05:22 08/22/17 05:22 General appearance: Present: mild distress, A&O X 3, answers questions appropriately Exam: GEN: NAD CVS: RRR. S1, S2, No m/r/g RESP: Diminished ABD: Soft, NT, ND, +BS EXT: No edema. 2+ DP. No rashes. R AKA noted NEURO: Nonfocal Internal Medicine: Result - Labs CBC & Chem 7: 08/22/17 01:42 08/21/17 09:11 Labs: Short CBC 08/21/17 08/21/17 08/22/17 Range/Units 09:11 19:54 01:42 WBC 9.8 8.2 8.0 (4.3-11.1) K/mcL Hgb 7.9 L 6.6 L 6.4 L (12.9-16.9) g/dL Hct 23.2 L 20.5 L 19.5 L (37.5-50.1) % Plt Count 152 157 153 (140-400) K/mcL Neutrophils # 9.0 H 7.1 (1.6-8.9) K/mcL BMP 08/21/17 09:11 Sodium 134 L Potassium 3.9 Chloride 95 L Carbon Dioxide 23 BUN 43 H Creatinine 6.93 H Glucose 176 H Calcium 8.7 Cardiac Enzymes 08/21/17 08/21/17 Range/Units 09:11 16:24 Troponin I 4.61 H* 5.06 H* (< 0.04) ng/mL - ABG Interpretation ABG results: ABG ABG pH 7.49 pH Units (7.32-7.45) H 08/20/17 23:02 ABG pCO2 35 mmHg (35-45) 08/20/17 23:02 ABG pO2 56 mmHg (85-104) L 08/20/17 23:02 ABG O2 Saturation 91 % (95-98) L 08/20/17 23:02 PT/INR, D-dimer PT 24.4 Seconds (9.4-12.1) H 08/21/17 19:54 - Impressions Impressions Chest X-Ray 08/20/17 20:46 IMPRESSION: No focal airspace disease identified. D/ / 08/20/2017 21:05:49 Korey Dejesus MD / [email or web address] Interpreting Provider: Korey Dejesus MD Echocardiogram 08/21/17 03:09 Impressions: Technically challenging study due to body habitus. LVEF 60%. Definity echo contrast was used. Not all LV segments were well visualized. RV is not well visualized. Indeterminate diastolic function. No significant valvular dysfunction. Lack of TR signal to estimate RVSP. Left Ventricular Wall Motion: Rest Echo Findings The mid anterior septal, mid inferior lateral, basal anterior septal and basal inferior lateral tomlinson were not visualized. All other wall segments showed normal motion. Findings: Study Quality * Technically sub-optimal due to body habitus. ECG Findings * Normal sinus rhythm. Left Ventricle * Unable to evaluate segmental wall motion due to technical quality. * LV size and wall measurements could not be well obtained. * Indeterminate diastolic function. * Definity echo contrast was used. * LVEF 60%. Right Ventricle * RV is not well visualized. Left Atrium * Left atrium is not well visualized. Right Atrium * Right atrium is not well visualized. Aortic Valve * Aortic valve not well visualized. * No aortic regurgitation. * No aortic stenosis. Mitral Valve * No mitral regurgitation. * Mitral valve not well visualized. * No mitral stenosis. Tricuspid Valve * Tricuspid valve not well visualized. * No tricuspid regurgitation. Pulmonic Valve * Pulmonic valve is not well visualized. * No pulmonic stenosis. * No pulmonic regurgitation. Pulmonary Artery * Pulmonary artery not well visualized. Aorta * Not well visualized. Pericardium * There is no pericardial effusion present. Interatrial Septum * No evidence of PFO by color Doppler. IVC * The IVC is not well evaluated. - VTE Documentation of Mechanical Device: Venous foot pump, device Consult Discharge Plan - Plan Referrals: Isabella Bass PAC [Physician Bead Inspector] - 08/28/17 9:15 am Raimundo Anderson MD [Partnered Physician] - 09/17/17 4:45 pm Mansoor Loaiza MD [Primary Care Provider] - Ranulfo Warren MD [Non-Partnered Physician] - 08/22/17 9:40 am
[2017-08-22] MEDS: (Febuxostat [Uloric] 40 MG) PO SCH (08:02)
[2017-08-22] MEDS: Insulin LISPRO 300 UNITS/3 ML VIAL SQ SCH ×4 (08:03→21:35)
[2017-08-22] MEDS: Cholecalciferol (D-3) 1,000 UNIT TABLET PO SCH (08:03)
[2017-08-22] MEDS: Pantoprazole 40 MG VIAL IVP SCH ×2 (08:03→16:40)
[2017-08-22] MEDS: *HR* OxyCODONE Immed Rel 5 MG TABLET PO PRN ×3 (08:03→23:33)
[2017-08-22] MEDS: Aspirin Enteric Coated 81 MG Tablet PO SCH (08:04)
[2017-08-22] MEDS: Metoprolol XL (24 HR) Succ 50 MG TAB.ER.24H PO SCH (08:12)
[2017-08-22] MEDS: Isosorbide MONOnitrate (24 HR) 60 MG TAB.ER.24H PO SCH (08:12)
[2017-08-22] MEDS: amLODIPine 5 MG TABLET PO SCH (08:12)
--- NOTE | 2017-08-22 08:40 | Discharge Summary ---
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 (3) Hyperlipemia Priority: Secondary Status: Chronic Qualifiers: Hyperlipidemia type: mixed hyperlipidemia Qualified Code(s): E78.2 - Mixed hyperlipidemia (4) PVD (peripheral vascular disease) Priority: Secondary Status: Chronic (5) Chronic deep venous thrombosis Priority: Secondary Status: Chronic Qualifiers: DVT location: lower extremity Affected thrombotic vein of extremity: unspecified vein of extremity Laterality: unspecified laterality Qualified Code(s): I82.509 - Chronic embolism and thrombosis of unspecified deep veins of unspecified lower extremity (6) CAD in [place] artery Priority: Secondary Status: Chronic (7) History of coronary artery bypass graft Priority: Secondary Status: Chronic (8) Insulin dependent diabetes mellitus Priority: Secondary Status: Chronic (9) Hypotension Priority: Secondary Status: Acute Qualifiers: Hypotension type: unspecified hypotension type Qualified Code(s): I95.9 - Hypotension, unspecified (10) Atrial fibrillation Priority: Secondary Status: Chronic Qualifiers: Atrial fibrillation type: paroxysmal Qualified Code(s): I48.0 - Paroxysmal atrial fibrillation (11) Osteoarthritis of right knee Priority: Primary Status: Chronic Qualifiers: Osteoarthritis type: unspecified Qualified Code(s): M17.11 - Unilateral primary osteoarthritis, right knee (12) HTN (hypertension) Priority: Secondary Status: Chronic Qualifiers: Hypertension type: unspecified Qualified Code(s): I10 - Essential (primary ) hypertension (13) CAD (coronary artery disease) Priority: Secondary Status: Chronic Qualifiers: Coronary Disease-Associated Artery/Lesion type: unspecified vessel or lesion type [place] vs. transplanted heart: [place] heart Associated angina: without angina Qualified Code(s): I25.10 - Atherosclerotic heart disease of [place] coronary artery without angina pectoris (14) ESRD (end stage renal disease) on dialysis Priority: Secondary Status: Chronic (15) HLD (hyperlipidemia) Priority: Secondary Status: Chronic Qualifiers: Hyperlipidemia type: unspecified Qualified Code(s): E78.5 - Hyperlipidemia , unspecified (16) Gout Priority: Secondary Status: Chronic Qualifiers: Gout site: unspecified site Gout etiology: unspecified cause Chronicity: unspecified Qualified Code(s): M10.9 - Gout, unspecified (17) CHF (congestive heart failure) Priority: Secondary Status: Chronic Qualifiers: Heart failure type: unspecified Heart failure chronicity: unspecified Qualified Code(s): I50.9 - Heart failure, unspecified (18) Obesity Priority: Secondary Status: Chronic Qualifiers: Obesity type: unspecified obesity type Obesity classification: adult class 2 (BMI 35 - 39.9) Serious obesity comorbidity presence: unspecified whether serious comorbidity present Body mass index: BMI 35.0-35.9 Qualified Code(s) : E66.9 - Obesity, unspecified; Z68.35 - Body mass index (BMI) 35.0-35.9, adult ; Z68.35 - Body mass index (BMI) 35.0-35.9, adult (19) History of left below knee amputation Priority: Secondary Status: Chronic (20) Status post right knee replacement Priority: Primary Status: Acute (21) Sepsis Priority: Primary Status: Acute Qualifiers: Sepsis type: sepsis due to unspecified organism Qualified Code(s): A41.9 - Sepsis, unspecified organism (22) Hospital acquired PNA Priority: Primary Status: Acute (23) Acute blood loss as cause of postoperative anemia Priority: Primary Status: Acute - Discharge Medications Home Medications: Febuxostat [Uloric] 40 mg PO QAM 03/02/15 [History] Sevelamer [Renvela] 800 mg PO TIDWM 05/01/15 [History] Nitroglycerin 0.4 mg SL Q5MIN PRN #3 tab.subl 08/20/15 [Rx] Apixaban [Eliquis] 5 mg PO BID 10/30/15 [History] Amitriptyline [Elavil] 25 mg PO HS 04/01/16 [History] Budesonide/Formoterol 160/4.5 [Symbicort 160/4.5] 2 puff IH BIDR 04/01/16 [ History] Fluticasone Propionate Nasal [Flonase] 1 spray NS DAILY PRN 04/01/16 [History] Tiotropium [Spiriva] 18 mcg IH DAILY 04/01/16 [History] Albuterol Neb [Proventil Neb] 2.5 mg IH TID PRN 02/06/17 [History] Amlodipine Besylate 10 mg PO DAILY 02/06/17 [History] Aspirin [Lo-Dose Aspirin EC] 81 mg PO DAILY 02/06/17 [History] Atorvastatin Calcium [Lipitor] 80 mg PO HS 02/06/17 [History] Cholecalciferol (Vitamin D3) [Vitamin D3] 5,000 unit PO DAILY 02/06/17 [History] Insulin Glargine [Lantus] 20 unit SQ HS 02/06/17 [History] Isosorbide MONOnitrate [Isosorbide Mononitrate ER] 240 mg PO DAILY 02/06/17 [ History] Metoprolol Succinate 200 mg PO DAILY 02/06/17 [History] Pantoprazole Sodium [Protonix] 40 mg PO DAILY 02/06/17 [History] OxyCODONE Immed Rel [Roxicodone 5 MG] 5 mg PO Q6HR PRN 7 Days #28 tablet [Rx] Allergies/Adverse Reactions: 3 Allergy/AdvReac Type Severity Reaction Status Date / Time No Known Allergies Allergy Verified 08/18/17 09:34 Labs on day of discharge: Labs from last 24 hours 08/22/17 08/22/17 08/22/17 01:42 01:42 01:10 WBC 8.0 RBC 2.06 L Hgb 6.4 L Hct 19.5 L MCV 94.7 MCH 31.1 MCHC 32.8 RDW 13.9 Plt Count 153 MPV 10.0 Immature Gran % 1.8 Seg Neutrophils % 88.7 Lymphocytes % 5.0 Monocytes % 4.4 Eosinophils % 0.0 Basophils % 0.1 Neutrophils # 7.1 Lymphocytes # 0.4 L Monocytes # 0.4 Eosinophils # 0.0 Basophils # 0.0 PT INR APTT 40.5 H Sodium Potassium Chloride Carbon Dioxide BUN Creatinine Est GFR ( Amer) Est GFR (Non-Af Amer) BUN/Creatinine Ratio Glucose POC Glucose Calculated Osmolality Lactic Acid Calcium Troponin I Random Vancomycin Blood Type O POSITIVE Antibody Screen NEGATIVE Crossmatch See Detail 08/21/17 08/21/17 08/21/17 22:18 20:28 19:54 WBC RBC Hgb Hct MCV MCH MCHC RDW Plt Count MPV Immature Gran % Seg Neutrophils % Lymphocytes % Monocytes % Eosinophils % Basophils % Neutrophils # Lymphocytes # Monocytes # Eosinophils # Basophils # PT 24.4 H INR 2.2 APTT 31.1 Sodium Potassium Chloride Carbon Dioxide BUN Creatinine Est GFR ( Amer) Est GFR (Non-Af Amer) BUN/Creatinine Ratio Glucose POC Glucose 202 H Calculated Osmolality Lactic Acid Calcium Troponin I Random Vancomycin 20.0 Blood Type Antibody Screen Crossmatch 08/21/17 08/21/17 08/21/17 19:54 17:08 16:24 WBC 8.2 RBC 2.17 L Hgb 6.6 L Hct 20.5 L MCV 94.5 MCH 30.4 MCHC 32.2 RDW 13.9 Plt Count 157 MPV 10.1 Immature Gran % Seg Neutrophils % Lymphocytes % Monocytes % Eosinophils % Basophils % Neutrophils # Lymphocytes # Monocytes # Eosinophils # Basophils # PT INR APTT Sodium Potassium Chloride Carbon Dioxide BUN Creatinine Est GFR ( Amer) Est GFR (Non-Af Amer) BUN/Creatinine Ratio Glucose POC Glucose 182 H Calculated Osmolality Lactic Acid Calcium Troponin I 5.06 H* Random Vancomycin Blood Type Antibody Screen Crossmatch 08/21/17 08/21/17 08/21/17 09:11 09:11 09:11 WBC 9.8 RBC 2.53 L Hgb 7.9 L Hct 23.2 L MCV 91.7 MCH 31.2 MCHC 34.1 RDW 13.8 Plt Count 152 MPV 9.7 Immature Gran % 1.9 Seg Neutrophils % 92.2 Lymphocytes % 2.7 Monocytes % 3.0 Eosinophils % 0.0 Basophils % 0.2 Neutrophils # 9.0 H Lymphocytes # 0.3 L Monocytes # 0.3 Eosinophils # 0.0 Basophils # 0.0 PT INR APTT Sodium 134 L Potassium 3.9 Chloride 95 L Carbon Dioxide 23 BUN 43 H Creatinine 6.93 H Est GFR ( Amer) 10 L Est GFR (Non-Af Amer) 8 L BUN/Creatinine Ratio 6 Glucose 176 H POC Glucose Calculated Osmolality 293 Lactic Acid 2.2 Calcium 8.7 Troponin I Random Vancomycin Blood Type Antibody Screen Crossmatch 08/21/17 09:11 WBC RBC Hgb Hct MCV MCH MCHC RDW Plt Count MPV Immature Gran % Seg Neutrophils % Lymphocytes % Monocytes % Eosinophils % Basophils % Neutrophils # Lymphocytes # Monocytes # Eosinophils # Basophils # PT INR APTT Sodium Potassium Chloride Carbon Dioxide BUN Creatinine Est GFR ( Amer) Est GFR (Non-Af Amer) BUN/Creatinine Ratio Glucose POC Glucose Calculated Osmolality Lactic Acid Calcium Troponin I 4.61 H* Random Vancomycin Blood Type Antibody Screen Crossmatch - Impressions ITS Impressions Knee X-Ray 08/18/17 01:00 IMPRESSION: No radiographic evidence of complication status post right total knee arthroplasty. D/ / Alexis Mccain MD / Alexis Mccain MD Interpreting Provider: Alexis Mccain MD Chest CTA 08/20/17 20:38 IMPRESSION: Negative for acute pulmonary embolism to the segmental level. Evaluation limited by respiratory motion artifact. Mosaic attenuation of the pulmonary parenchyma suspected to be due to air trapping given patient is in expiration during imaging. Difficult to exclude superimposed airspace disease such as aspiration or pneumonia in some areas, particularly the right upper and middle lobes. Hydropic gallbladder. No definite wall thickening or pericholecystic fluid although evaluation is limited. Correlate with cholestatic parameters and consider further evaluation with ultrasound if there is concern for cholecystitis. Mildly enlarged main pulmonary artery which may indicate underlying pulmonary hypertension. D/ / Jorge Elise / Jorge Elise Interpreting Provider: Jorge Elise Chest X-Ray 08/20/17 20:46 IMPRESSION: No focal airspace disease identified. D/ / 08/20/2017 21:05:49 Korey Dejesus MD / [email or web address] Interpreting Provider: Korey Dejesus MD Echocardiogram 08/21/17 03:09 Impressions: Technically challenging study due to body habitus. LVEF 60%. Definity echo contrast was used. Not all LV segments were well visualized. RV is not well visualized. Indeterminate diastolic function. No significant valvular dysfunction. Lack of TR signal to estimate RVSP. Left Ventricular Wall Motion: Rest Echo Findings The mid anterior septal, mid inferior lateral, basal anterior septal and basal inferior lateral tomlinson were not visualized. All other wall segments showed normal motion. Findings: Study Quality * Technically sub-optimal due to body habitus. ECG Findings * Normal sinus rhythm. Left Ventricle * Unable to evaluate segmental wall motion due to technical quality. * LV size and wall measurements could not be well obtained. * Indeterminate diastolic function. * Definity echo contrast was used. * LVEF 60%. Right Ventricle * RV is not well visualized. Left Atrium * Left atrium is not well visualized. Right Atrium * Right atrium is not well visualized. Aortic Valve * Aortic valve not well visualized. * No aortic regurgitation. * No aortic stenosis. Mitral Valve * No mitral regurgitation. * Mitral valve not well visualized. * No mitral stenosis. Tricuspid Valve * Tricuspid valve not well visualized. * No tricuspid regurgitation. Pulmonic Valve * Pulmonic valve is not well visualized. * No pulmonic stenosis. * No pulmonic regurgitation. Pulmonary Artery * Pulmonary artery not well visualized. Aorta * Not well visualized. Pericardium * There is no pericardial effusion present. Interatrial Septum * No evidence of PFO by color Doppler. IVC * The IVC is not well evaluated. Date of admission: 08/18/17 15:09 Primary care physician: Mansoor Loaiza MD Consults: 08/18/17 14:28 Consult to Occupational Therapy [CONS] Routine Comment: Evaluate, develop and implement POC Reason for Consult: post knee surgery Consult to Orthopedic Navigator [CONS] [CONS] Routine Consult to Physical Therapy [CONS] Routine Comment: Evaluate, develop and impliment POC Reason for Consult: post knee surgery Consult to [employer] [CONS] Routine Reason for SW Consult: post op joint replacement RT Post Op Consult [CONS] Routine 08/19/17 08:26 Consult to Nephrology [CONS] Routine Consulting Provider: Karsten Newman Reason for Consult: Dialysis - mutual patient Time Notified: 08:26 Call Completed: Yes 08/19/17 11:30 Consult to Dialysis [CONS] ONCE 08/20/17 20:39 Consult to Hospitalist [CONS] Stat Consulting Provider: Hospitalist George Reason for Consult: dyspnea Call Completed: No 08/20/17 23:09 Consult to Cardiology [CONS] Routine Comment: Consulting Provider: Cardiology Mala Reason for Consult: Elevated troponin Call Completed: No 08/21/17 07:45 Consult to Dialysis [CONS] ONCE 08/21/17 17:37 Consult to Cardiac Rehabilitation-Phase1 [CONS] Routine Comment: Reason for Consult: NSTEMI Call Completed: No 08/22/17 05:50 Consult to Gastroenterology [CONS] Routine Consulting Provider: Gastroenterology Mala Reason for Consult: drop in Hb after heparin drip and Aliquis. Call Completed: No - Patient Status Disposition: Still a Patient - Discharge Instructions Follow Up With: Isabella Bass PAC [Physician County Commissioner] - 08/28/17 9:15 am Raimundo Anderson MD [Partnered Physician] - 09/17/17 4:45 pm Mansoor Loaiza MD [Primary Care Provider] - Ranulfo Warren MD [Non-Partnered Physician] - 08/22/17 9:40 am - Hospital Course Hospital course: Mr. Barcenas is a 61 year old male - Time Spent with Patient Total time spent providing and/or coordinating discharge services: - VTE Documentation of Mechanical Device: Venous foot pump, device
--- NOTE | 2017-08-22 08:42 | Orthopedics Progress Note ---
Date of Encounter: 08/22/17 Time of Encounter: 08:41 - Assessment and Plan (1) Hx of CABG Current Visit: No Status: Chronic (2) Diabetes Current Visit: No Status: Chronic Qualifiers: Diabetes mellitus type: type 2 Diabetes mellitus complication status: with unspecified complications Diabetes mellitus intermission coordinator insulin use: with intermission coordinator use Qualified Code(s): E11.8 - Type 2 diabetes mellitus with unspecified complications; Z79.4 - nursing home (current) use of insulin (3) Hyperlipemia Current Visit: No Status: Chronic Qualifiers: Hyperlipidemia type: mixed hyperlipidemia Qualified Code(s): E78.2 - Mixed hyperlipidemia (4) PVD (peripheral vascular disease) Current Visit: No Status: Chronic (5) Chronic deep venous thrombosis Current Visit: No Status: Chronic Qualifiers: DVT location: lower extremity Affected thrombotic vein of extremity: unspecified vein of extremity Laterality: unspecified laterality Qualified Code(s): I82.509 - Chronic embolism and thrombosis of unspecified deep veins of unspecified lower extremity (6) CAD in [place] artery Current Visit: No Status: Chronic (7) History of coronary artery bypass graft Current Visit: No Status: Chronic (8) Insulin dependent diabetes mellitus Current Visit: No Status: Chronic (9) Hypotension Current Visit: No Status: Acute Qualifiers: Hypotension type: unspecified hypotension type Qualified Code(s): I95.9 - Hypotension, unspecified (10) Atrial fibrillation Current Visit: No Status: Chronic Qualifiers: Atrial fibrillation type: paroxysmal Qualified Code(s): I48.0 - Paroxysmal atrial fibrillation (11) Osteoarthritis of right knee Current Visit: No Status: Chronic Qualifiers: Osteoarthritis type: unspecified Qualified Code(s): M17.11 - Unilateral primary osteoarthritis, right knee (12) HTN (hypertension) Current Visit: No Status: Chronic Qualifiers: Hypertension type: unspecified Qualified Code(s): I10 - Essential (primary ) hypertension (13) CAD (coronary artery disease) Current Visit: No Status: Chronic Qualifiers: Coronary Disease-Associated Artery/Lesion type: unspecified vessel or lesion type [place] vs. transplanted heart: [place] heart Associated angina: without angina Qualified Code(s): I25.10 - Atherosclerotic heart disease of [place] coronary artery without angina pectoris (14) ESRD (end stage renal disease) on dialysis Current Visit: No Status: Chronic (15) HLD (hyperlipidemia) Current Visit: No Status: Chronic Qualifiers: Hyperlipidemia type: unspecified Qualified Code(s): E78.5 - Hyperlipidemia , unspecified (16) Gout Current Visit: No Status: Chronic Qualifiers: Gout site: unspecified site Gout etiology: unspecified cause Chronicity: unspecified Qualified Code(s): M10.9 - Gout, unspecified (17) CHF (congestive heart failure) Current Visit: No Status: Chronic Qualifiers: Heart failure type: unspecified Heart failure chronicity: unspecified Qualified Code(s): I50.9 - Heart failure, unspecified (18) Obesity Current Visit: No Status: Chronic Qualifiers: Obesity type: unspecified obesity type Obesity classification: adult class 2 (BMI 35 - 39.9) Serious obesity comorbidity presence: unspecified whether serious comorbidity present Body mass index: BMI 35.0-35.9 Qualified Code(s) : E66.9 - Obesity, unspecified; Z68.35 - Body mass index (BMI) 35.0-35.9, adult ; Z68.35 - Body mass index (BMI) 35.0-35.9, adult (19) History of left below knee amputation Current Visit: No Status: Chronic (20) Status post right knee replacement Current Visit: No Status: Acute (21) Sepsis Current Visit: Yes Status: Acute Qualifiers: Sepsis type: sepsis due to unspecified organism Qualified Code(s): A41.9 - Sepsis, unspecified organism (22) Hospital acquired PNA Current Visit: Yes Status: Acute (23) Acute blood loss as cause of postoperative anemia Current Visit: Yes Status: Acute Subjective Interval history: Patient seems morning a new complaints with acute blood loss anemia transfusing 3 units patient may have hospital acquired pneumonia, being evaluated by medicine and cardiology. Operative extremity: Neurovascularly intact Dressing clean dry and intact Calves nontender Assessment and plan: Continue with postoperative care As per hospitalist and call centre supervisor. Objective Vital signs: Vital Signs Temp Pulse Resp BP Pulse Ox 08/22/17 05:22 97.7 F 84 16 115/71 96 08/22/17 05:07 97.6 F 88 18 126/75 95 08/22/17 03:27 20 97 08/21/17 22:53 98.0 F 86 17 101/53 94 08/21/17 21:50 22 97 08/21/17 20:22 98.1 F 86 17 96/61 96 08/21/17 16:14 18 97 08/21/17 14:38 98.5 F 108 24 144/78 96 08/21/17 11:46 98.4 F 22 139/77 08/21/17 11:35 131/67 08/21/17 11:20 123/63 08/21/17 11:05 116/76 08/21/17 10:50 127/90 08/21/17 10:35 120/67 08/21/17 10:20 130/81 08/21/17 10:05 133/84 08/21/17 09:50 123/77 08/21/17 09:35 130/75 08/21/17 09:20 143/79 08/21/17 09:05 130/77 08/21/17 08:50 147/99 08/21/17 08:46 96 Intake and Output 08/21/17 08/22/17 08/22/17 23:59 07:59 15:59 Intake Total 100 / 100 122 / 122 300 / 300 Balance 100 / 100 122 / 122 300 / 300 Intake: IV Fluids 100 / 100 122 / 122 Heparin 25,000 UNIT/500 ML D5W 122 / 122 25,000 unit In 500 ml @ 8 UNIT/ KG/HR 18.869 mls/hr IVC .Q24H [facility] Rx#:[id number] Zosyn 3.375 GM In 0.9 % Sodium 100 / 100 Chloride 100 ML @ 25 mls/hr IVPB Q12H [facility] Rx#:[id number] Blood Product 0 / 0 300 / 300 Rbcs Leuko Poor As-3 2nd Unit 0 / 0 300 / 300 [id number] Other: Blood Glucose* 202 208 - Labs CBC & BMP: 08/22/17 01:42 08/21/17 09:11 Labs: Abnormal lab results RBC 2.06 M/mcL (4.19-5.50) L 08/22/17 01:42 Hgb 6.4 g/dL (12.9-16.9) L 08/22/17 01:42 Hct 19.5 % (37.5-50.1) L 08/22/17 01:42 Lymphocytes # 0.4 K/mcL (0.6-4.6) L 08/22/17 01:42 PT 24.4 Seconds (9.4-12.1) H 08/21/17 19:54 APTT 40.5 Seconds (26.0-36.0) H 08/22/17 01:10 ABG pH 7.49 pH Units (7.32-7.45) H 08/20/17 23:02 ABG pO2 56 mmHg (85-104) L 08/20/17 23:02 ABG Total CO2 28 mEq/L (20-26) H 08/20/17 23:02 ABG O2 Saturation 91 % (95-98) L 08/20/17 23:02 Sodium 134 mEq/L (136-145) L 08/21/17 09:11 Chloride 95 mEq/L (98-107) L 08/21/17 09:11 BUN 43 mg/dL (8-23) H 08/21/17 09:11 Creatinine 6.93 mg/dL (0.70-1.30) H 08/21/17 09:11 Est GFR ( Amer) 10 (> 60) L 08/21/17 09:11 Est GFR (Non-Af Amer) 8 (> 60) L 08/21/17 09:11 Glucose 176 mg/dL (70-105) H 08/21/17 09:11 POC Glucose 202 (58-89) H 08/21/17 20:28 Troponin I 5.06 ng/mL (< 0.04) H* 08/21/17 16:24 B-Natriuretic Peptide 1415 pg/mL (Less than 100) H 08/20/17 21:55 Urine Clarity Cloudy (Clear) A 08/20/17 22:40 Urine Protein 100 mg/dL (Neg-Trace) H 08/20/17 22:40 Urine Blood Large (Negative) H 08/20/17 22:40 Ur Leukocyte Esterase Moderate (Negative) H 08/20/17 22:40 Urine Microscopic RBC TNTC per hpf (0-3) H 08/20/17 22:40 Urine Microscopic WBC 15-30 per hpf (0-3) H 08/20/17 22:40 Ur Culture Indicated? YES (NO) A 08/20/17 22:40 - VTE Documentation of Mechanical Device: Venous foot pump, device Consult Discharge Plan - Plan Referrals: Isabella Bass, PAC [Physician Excavating Machine Operator] - 08/28/17 9:15 am Raimundo Anderson MD [Partnered Physician] - 09/17/17 4:45 pm Mansoor Loaiza MD [Primary Care Provider] - Ranulfo Warren MD [Non-Partnered Physician] - 08/22/17 9:40 am
[2017-08-22 09:11] LABS: Basophils % 0.1 %; Hematocrit 25.8 % (37.5-50.1); Immature Granulocytes % 1.5 % (0-4); Lymphocytes # 0.4 K/mcL (0.6-4.6); Lymphocytes % 4.1 %; Mean Corpuscular HGB Conc 32.6 g/dL (31.6-35.5); Mean Corpuscular Hemoglobin 30.7 pg (28.0-33.3); Mean Corpuscular Volume 94.2 fL (83.0-100.0); Mean Platelet Volume 9.9 fL (9.4-12.4); Monocytes # 0.4 K/mcL (0.0-1.3); Monocytes % 4.1 %; Neutrophils # 8.3 K/mcL (1.6-8.9); Platelet Count 183 K/mcL (140-400); Red Blood Count 2.74 M/mcL (4.19-5.50); Red Cell Distribution Width 14.3 % (11.5-14.5); Segmented Neutrophils % 90.2 %
[2017-08-22 09:12] LABS: Hemoglobin 8.4 g/dL (12.9-16.9)
[2017-08-22 09:19] LABS: Calcium 8.4 mg/dL (8.6-10.3); Potassium 4.5 mEq/L (3.5-5.1)
[2017-08-22] MEDS: Tiotropium 18 MCG inhalation IH SCH (10:30)
[2017-08-22] MEDS: Budesonide/Formoterol 160/4.5 MDI IH SCH ×2 (10:32→22:37)
[2017-08-22] MEDS ORDERED: ceFAZolin 1,000 MG in Water for inj. (sterile) 20 ML 10 ML IVP ONE (12:17)
--- NOTE | 2017-08-22 12:30 | Nephrology Progress Note ---
Date of Encounter: 08/22/17 Time of Encounter: 12:10 - Assessment and Plan (1) ESRD (end stage renal disease) on dialysis Current Visit: No Status: Chronic S/P right knee replacement. ESRD- No HD today, keeping TTS schedule. Hold BP medication for SBP< 130. Subjective Interval history: Laying in bed, receiving PRBC. Objective - Vital Signs Vital signs: Vital Signs Temp Pulse Resp BP Pulse Ox 08/22/17 11:53 97.4 F L 91 16 114/70 93 08/22/17 11:36 97.4 F L 81 16 109/66 94 08/22/17 10:45 97.9 F 86 20 108/68 99 08/22/17 10:34 16 96 08/22/17 08:10 98.1 F 82 16 132/71 96 08/22/17 05:22 97.7 F 84 16 115/71 96 08/22/17 05:07 97.6 F 88 18 126/75 95 08/22/17 03:27 20 97 08/21/17 22:53 98.0 F 86 17 101/53 94 08/21/17 21:50 22 97 08/21/17 20:22 98.1 F 86 17 96/61 96 08/21/17 16:14 18 97 08/21/17 14:38 98.5 F 108 24 144/78 96 Intake and Output 08/21/17 08/22/17 08/22/17 23:59 07:59 15:59 Intake Total 100 / 100 222 / 222 300 / 300 Balance 100 / 100 222 / 222 300 / 300 Intake: IV Fluids 100 / 100 222 / 222 Heparin 25,000 UNIT/500 ML D5W 122 / 122 25,000 unit In 500 ml @ 8 UNIT/ KG/HR 18.869 mls/hr IVC .Q24H [facility] Rx#:[id number] Zosyn 3.375 GM In 0.9 % Sodium 100 / 100 100 / 100 Chloride 100 ML @ 25 mls/hr IVPB Q12H [facility] Rx#:[id number] Blood Product 0 / 0 300 / 300 Rbcs Leuko Poor As-1 Unit 0 / 0 [id number] Rbcs Leuko Poor As-3 2nd Unit 0 / 0 300 / 300 [id number] Other: Blood Glucose* 202 208 187 - General Appearance General appearance: Present: well-developed, well-nourished, appears started age , obese EENT: Present: mucous membranes moist Neck: Present: no JVD Respiratory: Present: clear Cardiology: Present: edema, regular rate, regular rhythm Additional Comments: RLKevin Jimenez BKA Gastrointestinal: Present: normoactive bowel sounds, no tenderness Integumentary: Present: warm and dry Neurologic: Present: alert and oriented x3 - Lab 08/22/17 08:55 08/22/17 08:55 Most recent lab results ABG pH 7.49 pH Units (7.32-7.45) H 08/20/17 23:02 ABG pCO2 35 mmHg (35-45) 08/20/17 23:02 ABG pO2 56 mmHg (85-104) L 08/20/17 23:02 ABG HCO3 26 mEq/L (21-27) 08/20/17 23:02 ABG O2 Saturation 91 % (95-98) L 08/20/17 23:02 Calcium 8.4 mg/dL (8.6-10.3) L 08/22/17 08:55 - VTE Documentation of Mechanical Device: Venous foot pump, device Consult Discharge Plan - Plan Referrals: Isabella Bass PAC [Physician End User Consultant] - 08/28/17 9:15 am Raimundo Anderson MD [Partnered Physician] - 09/17/17 4:45 pm Mansoor Loaiza MD [Primary Care Provider] - Ranulfo Warren MD [Non-Partnered Physician] - 08/22/17 9:40 am
--- NOTE | 2017-08-22 14:05 | Cardiology Progress Note ---
Date of Encounter: 08/22/17 Time of Encounter: 13:00 Assessment and Plan (1) NSTEMI (non-ST elevated myocardial infarction) Current Visit: No Status: Acute Per cardiology: -Troponins 1.07, 4.61, 5.06 In the setting of anemia, post op, sepsis, hospital acquired PNA, ESRD on HD. -Denies chest pain. -ECG with no acute ECG changes. -TTE with LVEF preserved, no segmental wall motion abnormalities. -On asa, statin, beta petrona. -Of note, was started on heparin drip last night and then subsequently had a significant drop in hemoglobin. Required blood transfusions. -Patient is not a good candidate for invasive cardiac work up due to significant anemia requiring blood transfusions. -Continue medical management. (2) CAD (coronary artery disease) Current Visit: No Status: Chronic Per cardiology: -Known CAD s/p CABG 2008. -Left heart catheterization 08/19/2015: Left main 20% stenosis. LAD proximal 80% stenosis. Circumflex mid 100% stenosis. OM1 80-90% stenosis (PTCA performed, residual stenosis 50-60% stenosis, too small for stenting). Ramus minimal disease. RCA proximal 100% stenosis. SVG to RPDA patent. FONTAINE to mid LAD patent. SVG to D1 patent. -Continue medical management. Qualifiers: Coronary Disease-Associated Artery/Lesion type: unspecified vessel or lesion type [place] vs. transplanted heart: [place] heart Associated angina: without angina Qualified Code(s): I25.10 - Atherosclerotic heart disease of [place] coronary artery without angina pectoris Discussion w patient/family: The assessment and plan as outlined above was discussed with the patient who expressed understanding and agreement. All questions were answered. Thank you for involving us in the care of your patient. Please call with any questions. Discussed and reviewed with . Subjective Principal diagnosis: Right total knee replacement. Interval history: Patient states overall he feels better than yesterday. Denies chest pain. Still complains of right knee pain. Objective Vital Signs, Last 4 Hours Temp Pulse Resp BP Pulse Ox 08/22/17 11:53 97.4 F L 91 16 114/70 93 08/22/17 11:36 97.4 F L 81 16 109/66 94 08/22/17 10:45 97.9 F 86 20 108/68 99 08/22/17 10:34 16 96 General: Conversant, No Apparent Distress HEENT: Atraumatic, Normocephaly, Mucus Membranes Moist Neck: No JVD, Normal carotid pulses Cardiac: Reg Rate and Rhythm, Normal S1 and S2, No Murmur Lungs: Normal Breath Sounds, No Wheeze, Rales, Rhonchi Neuro: Alert and responsive, No focal deficits noted Abdomen: Soft, Non-Tender Skin: Other (Right lower extremity redness noted. ) Musculoskeletal: No Chest Wall Tenderness Extremities: No Clubbing, No Cyanosis, Normal Pulses, Other (Right lower extremity edema noted. ) Results 08/22/17 08:55 08/22/17 08:55 Lab Results Impressions Chest X-Ray 08/20/17 20:46 IMPRESSION: No focal airspace disease identified. D/ / 08/20/2017 21:05:49 Korey Dejesus MD / [email or web address] Interpreting Provider: Korey Dejesus MD Echocardiogram 08/21/17 03:09 Impressions: Technically challenging study due to body habitus. LVEF 60%. Definity echo contrast was used. Not all LV segments were well visualized. RV is not well visualized. Indeterminate diastolic function. No significant valvular dysfunction. Lack of TR signal to estimate RVSP. Left Ventricular Wall Motion: Rest Echo Findings The mid anterior septal, mid inferior lateral, basal anterior septal and basal inferior lateral tomlinson were not visualized. All other wall segments showed normal motion. Findings: Study Quality * Technically sub-optimal due to body habitus. ECG Findings * Normal sinus rhythm. Left Ventricle * Unable to evaluate segmental wall motion due to technical quality. * LV size and wall measurements could not be well obtained. * Indeterminate diastolic function. * Definity echo contrast was used. * LVEF 60%. Right Ventricle * RV is not well visualized. Left Atrium * Left atrium is not well visualized. Right Atrium * Right atrium is not well visualized. Aortic Valve * Aortic valve not well visualized. * No aortic regurgitation. * No aortic stenosis. Mitral Valve * No mitral regurgitation. * Mitral valve not well visualized. * No mitral stenosis. Tricuspid Valve * Tricuspid valve not well visualized. * No tricuspid regurgitation. Pulmonic Valve * Pulmonic valve is not well visualized. * No pulmonic stenosis. * No pulmonic regurgitation. Pulmonary Artery * Pulmonary artery not well visualized. Aorta * Not well visualized. Pericardium * There is no pericardial effusion present. Interatrial Septum * No evidence of PFO by color Doppler. IVC * The IVC is not well evaluated. Active Medications Albuterol Sulfate (Proventil Neb) 2.5 mg IH TIDR PRN; Protocol PRN Reason: Shortness Of Breath Stop: 02/17/18 14:29 Last Admin: 08/21/17 06:48 Dose: 2.5 mg Albuterol/Ipratropium (Duoneb) 3 ml IH [id number] [facility] Stop: 02/20/18 04:01 Last Admin: 08/22/17 10:32 Dose: 3 ml Albuterol/Ipratropium (Duoneb) 3 ml IH [id number] PRN PRN Reason: Shortness Of Breath/Wheezing Stop: 02/19/18 22:17 Amitriptyline HCl (Elavil) 25 mg PO HS [facility] Stop: 02/17/18 21:01 Last Admin: 08/21/17 19:41 Dose: 25 mg Amlodipine Besylate (Norvasc) 10 mg PO DAILY [facility] Stop: 02/18/18 09:01 Last Admin: 08/22/17 08:12 Dose: 10 mg Aspirin (Aspirin Ec) 81 mg PO DAILY [facility] Stop: 02/18/18 09:01 Last Admin: 08/22/17 08:04 Dose: 81 mg Atorvastatin Calcium (Lipitor) 80 mg PO HS [facility] Stop: 02/17/18 21:01 Last Admin: 08/21/17 19:41 Dose: 80 mg Budesonide/Formoterol Fumarate (Symbicort) 2 puff IH BIDR [facility] PRN Reason: Protocol Stop: 02/17/18 22:01 Last Admin: 08/22/17 10:32 Dose: 2 puff Dextrose/Water (Dextrose 50% (Syg)) 25 ml IVP AD PRN PRN Reason: Hypoglycemia Stop: 02/19/18 22:25 Docusate Sodium (Colace) 100 mg PO BID [facility] Stop: 02/17/18 21:01 Last Admin: 08/22/17 08:03 Dose: 100 mg Fluticasone Propionate (Flonase) 50 mcg NS DAILY PRN; Protocol PRN Reason: Allergy Symptoms Stop: 02/17/18 14:29 Furosemide (Lasix) 20 mg IVP TID PRN PRN Reason: Blood Pressure Stop: 02/21/18 09:01 Glucagon (Glucagen) 1 mg IM ONCE PRN PRN Reason: Hypoglycemia Stop: 02/19/18 22:25 Glucose (Gluctose) 15 gm PO ONCE PRN PRN Reason: Hypoglycemia Stop: 02/19/18 22:25 Glucose (Gluctose) 30 gm PO ONCE PRN PRN Reason: Hypoglycemia Stop: 02/19/18 22:25 Guaifenesin (Robitussin/Dm) 10 ml PO Q6HR [facility] Stop: 02/20/18 00:01 Last Admin: 08/22/17 11:59 Dose: Not Given Lactated Ringer's (Lactated Ringers) 1,000 mls @ 75 mls/hr IVC .[id number] [facility] Stop: 02/17/18 14:29 Last Admin: 08/18/17 16:26 Dose: 75 mls/hr Sodium Chloride (0.9 % Sodium Chloride) 250 mls @ 937.5 mls/hr IVC .Q16M PRN PRN Reason: Hypotension Stop: 02/18/18 11:24 Sodium Chloride (0.9 % Sodium Chloride) 1,000 mls @ 0 mls/hr PRIME .Q0M [facility] PRN Reason: As Directed Stop: 02/18/18 11:31 Dextrose (Dextrose 5%) 1,000 mls @ 100 mls/hr IVC .Q10H PRN PRN Reason: HYPOGLYCEMIA Stop: 02/19/18 22:25 Piperacillin Sod/Tazobactam (Sod 3.375 gm/ Sodium Chloride) 100 mls @ 25 mls/ hr IVPB Q12H [facility] Stop: 02/20/18 11:01 Last Admin: 08/22/17 11:30 Dose: 25 mls/hr Sodium Chloride (0.9 % Sodium Chloride) 250 mls @ 937.5 mls/hr IVC .Q16M PRN PRN Reason: Hypotension Stop: 02/20/18 07:37 Insulin Detemir (Levemir) 20 unit SQ HS [facility] Stop: 02/17/18 21:01 Last Admin: 08/21/17 21:00 Dose: 20 unit Insulin Human Lispro (Humalog) 0 units SQ HS [facility] PRN Reason: Protocol Stop: 02/20/18 21:01 Last Admin: 08/21/17 21:00 Dose: 2 units Insulin Human Lispro (Humalog) 0 units SQ TIDAC [facility] PRN Reason: Protocol Stop: 02/20/18 07:31 Last Admin: 08/22/17 11:44 Dose: 4 units Isosorbide Mononitrate (Imdur) 240 mg PO DAILY [facility] Stop: 02/18/18 09:01 Last Admin: 08/22/17 08:12 Dose: 240 mg Lidocaine HCl (Lidoderm 5% Patch) 1 each TP DAILY [facility] Stop: 02/19/18 12:46 Last Admin: 08/22/17 08:04 Dose: 1 each Magnesium Hydroxide (Milk Of Magnesia Conc) 5 ml PO HS PRN PRN Reason: Constipation Stop: 02/17/18 14:29 Methylprednisolone (Solu-Medrol) 60 mg IVP Q12H [facility] Stop: 02/21/18 07:46 Last Admin: 08/22/17 08:03 Dose: 60 mg Metoprolol Succinate (Toprol Xl) 200 mg PO DAILY [facility] Stop: 02/18/18 09:01 Last Admin: 08/22/17 08:12 Dose: 200 mg Naloxone HCl (Narcan) 0.4 mg IVP Q2MIN PRN PRN Reason: SEE COMMENTS Stop: 02/17/18 14:29 Nitroglycerin (Nitroglycerin) 0.4 mg SL Q5MIN PRN PRN Reason: Chest Pain Stop: 02/17/18 14:29 Ondansetron HCl (Zofran) 4 mg IVP Q6HR PRN PRN Reason: Nausea And Vomiting Stop: 02/17/18 14:29 Last Admin: 08/18/17 22:47 Dose: 4 mg Oxycodone HCl (Roxicodone) 5 mg PO Q4HR PRN PRN Reason: Mild pain 1-3 Stop: 02/17/18 14:29 Oxycodone HCl (Roxicodone) 10 mg PO Q4HR PRN PRN Reason: Moderate pain 4-6 Stop: 02/17/18 14:29 Last Admin: 08/22/17 08:03 Dose: 10 mg Pantoprazole Sodium (Protonix) 40 mg IVP Q12HR [facility] Stop: 02/21/18 06:01 Last Admin: 08/22/17 08:03 Dose: 40 mg Pharmacy Profile Note (Patient Taking Own Medication) 0 each PO QAM [facility] Stop: 02/18/18 09:01 Last Admin: 08/22/17 08:02 Dose: Not Given Senna (Senna) 17.2 mg PO HS PRN PRN Reason: Constipation Stop: 02/17/18 14:29 Sevelamer HCl (Renvela) 800 mg PO TIDWM [facility] Stop: 02/17/18 14:29 Last Admin: 08/22/17 11:30 Dose: 800 mg Temazepam (Restoril) 15 mg PO HS PRN; Protocol PRN Reason: Insomnia Stop: 02/17/18 21:01 Tiotropium Ipava (Spiriva) 18 mcg IH DAILYR [facility] Stop: 02/18/18 09:01 Last Admin: 08/22/17 10:30 Dose: Not Given Vancomycin HCl (Vancocin) 0 each IVPB RPHPROT PRN PRN Reason: PULSE DOSE Stop: 02/20/18 00:25 Vitamin D (Vitamin D) 1,000 unit PO DAILY [facility] Stop: 02/18/18 09:01 Last Admin: 08/22/17 08:03 Dose: 1,000 unit Laboratory Tests 08/18/17 08/20/17 08/21/17 13:09 21:54 09:11 Hgb 9.3 L Creatinine Troponin I 1.07 H* 4.61 H* 08/21/17 08/22/17 08/22/17 16:24 01:42 08:55 Hgb 6.4 L 8.4 L D Creatinine Troponin I 5.06 H* 08/22/17 08:55 Hgb Creatinine 7.18 H Troponin I - Imaging and Cardiology Chest Xray: report reviewed Echo: report reviewed Cardiac cath: report reviewed - EKG Interpretation EKG results cardiology: other (Telemetry reviewed with average HR previous 12 hours noted to be 83, SR. PVCs and PACs noted.) - VTE Documentation of Mechanical Device: Venous foot pump, device Consult Discharge Plan - Plan Referrals: Isabella Bass PAC [Physician Driver] - 08/28/17 9:15 am Raimundo Anderson MD [Partnered Physician] - 09/17/17 4:45 pm Mansoor Loaiza MD [Primary Care Provider] - Ranulfo Warren MD [Non-Partnered Physician] - 08/22/17 9:40 am
--- NOTE | 2017-08-22 15:09 | Gastroenterology Consult Note ---
<Crystal Villalobos - Last Filed: 08/22/17 15:05> Date of Encounter: 08/22/17 Time of Encounter: 09:45 - Assessment and plan (1) Anemia Status: Acute Assessment and plan: Pt has a history of anemia and duodenal ulcers. he is on chronic anticoagulation and is post op knee replacement. Will do EGD to rule out bleeding duodenal ulcers, MW tears. He has been transfused, monitor H&H. Continue PPI. Qualifiers: Anemia type: unspecified type Qualified Code(s): D64.9 - Anemia, unspecified - Time Spent With Patient Total time spent is greater than 50% in coordination of care (as documented) at patient's floor/unit and/or counseling patient: GI History of Present Illness - Data of Consult Patient: known to practice within the last 3 years Consult date: 08/22/17 Requesting Physician: Raimundo Anderson MD - Consult Narrative Reason for consult: anemia History of present illness: Mr. Barcenas is a 61 year old male with Hx of COPD, CAD s/p CABG, CHF, HTN, DM, Hx of DVT on Eliquis, ESRD on HD. He was admitted for Rt TKR.He developed sudden onset SOB, and was treated for post-op sepsis most likely from pneumonia. He also had elevated troponins and is being seen by cardiology. Hgb was 9.3 on admission and droppped to 6.4 this am and he was transfused. He was on asa, eliquis and heparin. He denies any nausea, vomiting, abdominal pain. He denies bloody or tarry stools. He denies chest pain but was having shortness of breath. He has ESRD and had HD yesterday. He denies coronary stents or pacer but he had a CABG in 2008 and has a history of DVT. He has continued edema and pain to right knee and states he has not been able to do much with physical therapy. He had anemia and was seen by Dr Moulton in the hospital last year for an EGD and Colonoscopy. Colonoscopy: 02/20 2 tubular adenomas EGD:02/20 many non bleeding duodenal ulcers, negative for h pylori nSaIDS: asa, Anticoagulants: eliquis heparin Past Med Surg Social Fam HX - Past Medical History Medical history: arthritis, asthma, cardiomyopathy, CHF, COPD, coronary artery disease, DVT, diabetes, dialysis, GERD, hyperlipidemia, hypertension, osteoporosis, peripheral artery disease, renal disease, other Psychiatric history: no psych history - Past Surgical History Surgical History: coronary bypass (CABG), knee replacement, orthopedic, other, other - Social History Smoking Status: Former smoker Smokeless Tobacco Status: No Alcohol use: none Drug use: none - Family History Father Adopted: No Family Member Ethnicity: Non- Living Status: Hx Family Cardiac Disorders: No Hx Family Respiratory Disorders: No Hx Family Cancer: Yes Hx Family GI Disorders: No Hx Family Endocrine Disorder: No Hx Family Neuromuscular Disorders: No Hx Family Neurologic Disorders: No Hx Family HEENT Disorders: No Hx Family Autoimmune Disorders: No Mother Adopted: No Family Member Ethnicity: Non- Living Status: Hx Family Cardiac Disorders: Yes Hx Family Respiratory Disorders: No Hx Family Cancer: No Hx Family GI Disorders: No Hx Family Endocrine Disorder: Yes Hx Family Neuromuscular Disorders: No Hx Family Neurologic Disorders: No Hx Family HEENT Disorders: No Hx Family Autoimmune Disorders: No Review of Systems: GI: as per KAW GENERAL: had fever EYES: denies yellow discoloration ENT: denies pain with swallowing or difficulty swallowing CARDIO: denies chest pain, palpitations RESP: increased shortness of breath even at rest : denies change in color of urine NEURO: weakness HEME: Denies any bruising MS: chronic joint pain, s/p left AKA 4 years ago. DERM: denies rash or itching PSYCH: history of anxiety and depression - Constitutional Vitals: Temp Pulse Resp BP Pulse Ox 97.6 F 80 16 118/74 96 08/22/17 14:33 08/22/17 14:33 08/22/17 14:33 08/22/17 14:33 08/22/17 14:33 Exam: CONSTITUTIONAL:~alert, no acute distress.~HEAD:~normocephalic.~EYES:~no jaundice.~NECK:~no obvious swelling.~HEART:~regular rate and rhythm, no murmurs. ~LUNGS:~bilateral poor air entry.~ABDOMEN:~non distended, soft, non tender, no masses palpable, no organomegaly, obese~RECTAL EXAM:~brown stool no bleeding or tarry stool~EXTREMITIES:~right knee drsg with old drainage noted, intact, edema noted, light bruising noted around incision site, left aka, right forearm AV shunt.~SKIN:~no stigmata of chronic liver disease, pallor noted.~NEUROLOGIC:~no obvious focal defect.~~~~ Results - Labs CBC & Chem 7: 08/22/17 08:55 08/22/17 08:55 Labs: Last Result Calcium 8.4 mg/dL (8.6-10.3) L 08/22/17 08:55 Troponin I 5.06 ng/mL (< 0.04) H* 08/21/17 16:24 Entire Visit Hgb 8.4 g/dL (12.9-16.9) L D 08/22/17 08:55 Hct 25.8 % (37.5-50.1) L 08/22/17 08:55 PT 24.4 Seconds (9.4-12.1) H 08/21/17 19:54 - ABG ABG results: ABG ABG pH 7.49 pH Units (7.32-7.45) H 08/20/17 23:02 ABG pCO2 35 mmHg (35-45) 08/20/17 23:02 ABG pO2 56 mmHg (85-104) L 08/20/17 23:02 ABG O2 Saturation 91 % (95-98) L 08/20/17 23:02 PT/INR, D-dimer PT 24.4 Seconds (9.4-12.1) H 08/21/17 19:54 - Impressions Impressions Chest X-Ray 08/20/17 20:46 IMPRESSION: No focal airspace disease identified. D/ / 08/20/2017 21:05:49 Korey Dejesus MD / [email or web address] Interpreting Provider: Korey Dejesus MD Echocardiogram 08/21/17 03:09 Impressions: Technically challenging study due to body habitus. LVEF 60%. Definity echo contrast was used. Not all LV segments were well visualized. RV is not well visualized. Indeterminate diastolic function. No significant valvular dysfunction. Lack of TR signal to estimate RVSP. Left Ventricular Wall Motion: Rest Echo Findings The mid anterior septal, mid inferior lateral, basal anterior septal and basal inferior lateral tomlinson were not visualized. All other wall segments showed normal motion. Findings: Study Quality * Technically sub-optimal due to body habitus. ECG Findings * Normal sinus rhythm. Left Ventricle * Unable to evaluate segmental wall motion due to technical quality. * LV size and wall measurements could not be well obtained. * Indeterminate diastolic function. * Definity echo contrast was used. * LVEF 60%. Right Ventricle * RV is not well visualized. Left Atrium * Left atrium is not well visualized. Right Atrium * Right atrium is not well visualized. Aortic Valve * Aortic valve not well visualized. * No aortic regurgitation. * No aortic stenosis. Mitral Valve * No mitral regurgitation. * Mitral valve not well visualized. * No mitral stenosis. Tricuspid Valve * Tricuspid valve not well visualized. * No tricuspid regurgitation. Pulmonic Valve * Pulmonic valve is not well visualized. * No pulmonic stenosis. * No pulmonic regurgitation. Pulmonary Artery * Pulmonary artery not well visualized. Aorta * Not well visualized. Pericardium * There is no pericardial effusion present. Interatrial Septum * No evidence of PFO by color Doppler. IVC * The IVC is not well evaluated. Consult Discharge Plan - Plan Instructions: Sepsis (DC) Referrals: Isabella Bass PAC [Physician Frame Polisher] - 08/28/17 9:15 am Raimundo Anderson MD [Partnered Physician] - 09/17/17 4:45 pm Mansoor Loaiza MD [Primary Care Provider] - 09/03/17 11:30 am (web request sent on 08-28-17) Ranulfo Warren MD [Non-Partnered Physician] - 08/22/17 9:40 am <Fausto Coon - Last Filed: 09/14/17 10:53> Date of Encounter: 08/22/17 - Time Spent With Patient Total time spent is greater than 50% in coordination of care (as documented) at patient's floor/unit and/or counseling patient: GI History of Present Illness - Data of Consult Requesting Physician: Adolph Dickinson DO - Consult Narrative History of present illness: Mr. Barcenas is a 61 year old male - Constitutional Vitals: Temp Pulse Resp BP Pulse Ox 97.9 F 85 94 160/80 96 08/28/17 15:48 08/28/17 15:48 08/28/17 15:48 08/28/17 15:48 08/28/17 15:24 Results - Labs CBC & Chem 7: 08/28/17 06:24 08/28/17 06:24 Labs: Last Result Calcium 7.3 mg/dL (8.6-10.3) L 08/28/17 06:24 Troponin I 2.09 ng/mL (< 0.04) H* 08/23/17 12:52 Entire Visit Hgb 7.3 g/dL (12.9-16.9) L 08/28/17 06:24 Hct 22.6 % (37.5-50.1) L 08/28/17 06:24 PT 13.3 Seconds (9.4-12.1) H 08/26/17 03:16 - ABG ABG results: ABG ABG pH 7.49 pH Units (7.32-7.45) H 08/20/17 23:02 ABG pCO2 35 mmHg (35-45) 08/20/17 23:02 ABG pO2 56 mmHg (85-104) L 08/20/17 23:02 ABG O2 Saturation 91 % (95-98) L 08/20/17 23:02 PT/INR, D-dimer PT 13.3 Seconds (9.4-12.1) H 08/26/17 03:16 - Attending Attestation Mr. Barcenas is a very pleasant 61-year-old male with a history of duodenal ulcers. His last endoscopy was about a year ago. He underwent a total knee replacement and was noted to have 3 g drop in hemoglobin. Agree with proceeding with an upper endoscopy and making further recommendations after that would use intravenous Protonix for now thank you very much this consultation I have personally performed a face to face evaluation on this patient. I have reviewed and agree with the care plan. History and Exam by me shows:
--- NOTE | 2017-08-22 16:47 | Event Note ---
Date of Encounter: 08/22/17 Time of Encounter: 12:45 PCR- POD#4 R TKR robot Justin 08/18/17 PCR - Patient seen at bedside. Pain control: adequate Participating in PT although patient has left BTKA so only RLE exercises in bed , he is being transferred into chair at bedside/non-ambulatory All questions and concerns addressed. Educated on use of incentive spirometer, ambulation, and hydration. Patient educated on post-operative restrictions and care. Addressed: Patient dx with pneumonia and possible sepsis. Concern for other organ system involvement given patient's medical history. Appreciate hospitalist team action and recommendations. Cardiology on board, medical management for now until anemia work up by GI performed, plan for EGD. D/C plan:. ECF - discharge on hold while other medical conditions being evaluated and treated.
[2017-08-22] MEDS: Insulin DETEMIR 100 UNIT/ML X5UNITS SQ SCH (21:37)
[2017-08-23 03:23] LABS: Basophils % 0.1 %; Hematocrit 24.7 % (37.5-50.1); Immature Granulocytes % 1.8 % (0-4); Lymphocytes # 0.4 K/mcL (0.6-4.6); Lymphocytes % 4.3 %; Mean Corpuscular HGB Conc 32.4 g/dL (31.6-35.5); Mean Corpuscular Hemoglobin 29.9 pg (28.0-33.3); Mean Corpuscular Volume 92.2 fL (83.0-100.0); Mean Platelet Volume 9.8 fL (9.4-12.4); Monocytes # 0.4 K/mcL (0.0-1.3); Monocytes % 4.4 %; Neutrophils # 8.2 K/mcL (1.6-8.9); Nucleated Red Blood Cells 0.2 /100 WBC (0); Platelet Count 165 K/mcL (140-400); Red Blood Count 2.68 M/mcL (4.19-5.50); Red Cell Distribution Width 14.9 % (11.5-14.5); Segmented Neutrophils % 89.4 %
[2017-08-23 03:43] LABS: Potassium 5.6 mEq/L (3.5-5.1)
[2017-08-23] MEDS: Ipratropium/Albuterol Neb 3 ML IH SCH ×4 (04:18→22:34)
[2017-08-23] MEDS: Pantoprazole 40 MG VIAL IVP SCH ×2 (05:40→17:56)
[2017-08-23] MEDS: *HR* OxyCODONE Immed Rel 5 MG TABLET PO PRN ×2 (05:40→23:02)
--- NOTE | 2017-08-23 06:54 | Orthopedics Progress Note ---
Date of Encounter: 08/23/17 Time of Encounter: 06:53 - Assessment and Plan (1) Hx of CABG Current Visit: No Status: Chronic (2) Diabetes Current Visit: No Status: Chronic Qualifiers: Diabetes mellitus type: type 2 Diabetes mellitus complication status: with unspecified complications Diabetes mellitus exterminator insulin use: with exterminator use Qualified Code(s): E11.8 - Type 2 diabetes mellitus with unspecified complications; Z79.4 - alf (current) use of insulin (3) Hyperlipemia Current Visit: No Status: Chronic Qualifiers: Hyperlipidemia type: mixed hyperlipidemia Qualified Code(s): E78.2 - Mixed hyperlipidemia (4) PVD (peripheral vascular disease) Current Visit: No Status: Chronic (5) Chronic deep venous thrombosis Current Visit: No Status: Chronic Qualifiers: DVT location: lower extremity Affected thrombotic vein of extremity: unspecified vein of extremity Laterality: unspecified laterality Qualified Code(s): I82.509 - Chronic embolism and thrombosis of unspecified deep veins of unspecified lower extremity (6) CAD in [place] artery Current Visit: No Status: Chronic (7) History of coronary artery bypass graft Current Visit: No Status: Chronic (8) Insulin dependent diabetes mellitus Current Visit: No Status: Chronic (9) Hypotension Current Visit: No Status: Acute Qualifiers: Hypotension type: unspecified hypotension type Qualified Code(s): I95.9 - Hypotension, unspecified (10) Atrial fibrillation Current Visit: No Status: Chronic Qualifiers: Atrial fibrillation type: paroxysmal Qualified Code(s): I48.0 - Paroxysmal atrial fibrillation (11) Osteoarthritis of right knee Current Visit: No Status: Chronic Qualifiers: Osteoarthritis type: unspecified Qualified Code(s): M17.11 - Unilateral primary osteoarthritis, right knee (12) HTN (hypertension) Current Visit: No Status: Chronic Qualifiers: Hypertension type: unspecified Qualified Code(s): I10 - Essential (primary ) hypertension (13) CAD (coronary artery disease) Current Visit: No Status: Chronic Qualifiers: Coronary Disease-Associated Artery/Lesion type: unspecified vessel or lesion type [place] vs. transplanted heart: [place] heart Associated angina: without angina Qualified Code(s): I25.10 - Atherosclerotic heart disease of [place] coronary artery without angina pectoris (14) ESRD (end stage renal disease) on dialysis Current Visit: No Status: Chronic (15) HLD (hyperlipidemia) Current Visit: No Status: Chronic Qualifiers: Hyperlipidemia type: unspecified Qualified Code(s): E78.5 - Hyperlipidemia , unspecified (16) Gout Current Visit: No Status: Chronic Qualifiers: Gout site: unspecified site Gout etiology: unspecified cause Chronicity: unspecified Qualified Code(s): M10.9 - Gout, unspecified (17) CHF (congestive heart failure) Current Visit: No Status: Chronic Qualifiers: Heart failure type: unspecified Heart failure chronicity: unspecified Qualified Code(s): I50.9 - Heart failure, unspecified (18) Obesity Current Visit: No Status: Chronic Qualifiers: Obesity type: unspecified obesity type Obesity classification: adult class 2 (BMI 35 - 39.9) Serious obesity comorbidity presence: unspecified whether serious comorbidity present Body mass index: BMI 35.0-35.9 Qualified Code(s) : E66.9 - Obesity, unspecified; Z68.35 - Body mass index (BMI) 35.0-35.9, adult ; Z68.35 - Body mass index (BMI) 35.0-35.9, adult (19) History of left below knee amputation Current Visit: No Status: Chronic (20) Status post right knee replacement Current Visit: No Status: Acute (21) Sepsis Current Visit: Yes Status: Acute Qualifiers: Sepsis type: sepsis due to unspecified organism Qualified Code(s): A41.9 - Sepsis, unspecified organism (22) Hospital acquired PNA Current Visit: Yes Status: Acute (23) Acute blood loss as cause of postoperative anemia Current Visit: Yes Status: Acute Subjective Principal diagnosis: Right total knee replacement. Interval history: Patient without complaints this morning Operative extremity: Neurovascularly intact Dressing dried blood will change Calves nontender Assessment and plan: Continue with postoperative care As per hospitalist and marketing coordinator, awaiting GI workup. Objective Vital signs: Vital Signs Temp Pulse Resp BP Pulse Ox 08/23/17 04:18 16 98 08/23/17 03:41 97.5 F L 81 17 115/70 98 08/22/17 23:38 18 96 08/22/17 23:28 97.7 F 82 17 99/59 96 08/22/17 22:14 98.3 F 100 17 120/52 91 08/22/17 20:39 97.8 F 82 16 106/67 92 08/22/17 20:10 97.5 F L 81 16 122/67 91 08/22/17 18:05 97.9 F 85 14 116/70 91 08/22/17 16:10 16 92 08/22/17 15:07 97.6 F 82 18 116/72 93 08/22/17 14:33 97.6 F 80 16 118/74 96 08/22/17 11:53 97.4 F L 91 16 114/70 93 08/22/17 11:36 97.4 F L 81 16 109/66 94 08/22/17 10:45 97.9 F 86 20 108/68 99 08/22/17 10:34 16 96 08/22/17 08:10 98.1 F 82 16 132/71 96 Intake and Output 08/22/17 08/22/17 08/23/17 15:59 23:59 07:59 Intake Total 720 / 720 100 / 100 Balance 720 / 720 100 / 100 Intake: IV Fluids 100 / 100 Zosyn 3.375 GM In 0.9 % Sodium 100 / 100 Chloride 100 ML @ 25 mls/hr IVPB Q12H [facility] Rx#:[id number] Oral 120 / 120 Blood Product 600 / 600 0 / 0 Rbcs Leuko Poor As-1 Unit 0 / 0 0 / 0 [id number] Rbcs Leuko Poor As-1 Unit 300 / 300 [id number] Rbcs Leuko Poor As-3 2nd Unit 300 / 300 [id number] Other: Meal Lunch Percent of Meal Consumed 95% Blood Glucose* 187 187 - Labs CBC & BMP: 08/23/17 03:14 08/23/17 03:14 Labs: Abnormal lab results RBC 2.68 M/mcL (4.19-5.50) L 08/23/17 03:14 Hgb 8.0 g/dL (12.9-16.9) L 08/23/17 03:14 Hct 24.7 % (37.5-50.1) L 08/23/17 03:14 RDW 14.9 % (11.5-14.5) H 08/23/17 03:14 Lymphocytes # 0.4 K/mcL (0.6-4.6) L 08/23/17 03:14 Nucleated RBCs/100 WBC 0.2 /100 WBC (0) H 08/23/17 03:14 PT 24.4 Seconds (9.4-12.1) H 08/21/17 19:54 APTT 40.5 Seconds (26.0-36.0) H 08/22/17 01:10 ABG pH 7.49 pH Units (7.32-7.45) H 08/20/17 23:02 ABG pO2 56 mmHg (85-104) L 08/20/17 23:02 ABG Total CO2 28 mEq/L (20-26) H 08/20/17 23:02 ABG O2 Saturation 91 % (95-98) L 08/20/17 23:02 Sodium 131 mEq/L (136-145) L 08/23/17 03:14 Potassium 5.6 mEq/L (3.5-5.1) H 08/23/17 03:14 Chloride 95 mEq/L (98-107) L 08/23/17 03:14 Carbon Dioxide 22 mEq/L (23-29) L 08/23/17 03:14 BUN 61 mg/dL (8-23) H 08/23/17 03:14 Creatinine 8.40 mg/dL (0.70-1.30) H 08/23/17 03:14 Est GFR ( Amer) 8 (> 60) L 08/23/17 03:14 Est GFR (Non-Af Amer) 6 (> 60) L 08/23/17 03:14 Glucose 281 mg/dL (70-105) H 08/23/17 03:14 POC Glucose 187 (58-89) H 08/22/17 10:49 Calcium 8.0 mg/dL (8.6-10.3) L 08/23/17 03:14 Troponin I 5.06 ng/mL (< 0.04) H* 08/21/17 16:24 B-Natriuretic Peptide 1415 pg/mL (Less than 100) H 08/20/17 21:55 Urine Clarity Cloudy (Clear) A 08/20/17 22:40 Urine Protein 100 mg/dL (Neg-Trace) H 08/20/17 22:40 Urine Blood Large (Negative) H 08/20/17 22:40 Ur Leukocyte Esterase Moderate (Negative) H 08/20/17 22:40 Urine Microscopic RBC TNTC per hpf (0-3) H 08/20/17 22:40 Urine Microscopic WBC 15-30 per hpf (0-3) H 08/20/17 22:40 Ur Culture Indicated? YES (NO) A 08/20/17 22:40 - VTE Documentation of Mechanical Device: Venous foot pump, device Consult Discharge Plan - Plan Referrals: Isabella Bass, RAND [Physician Jumpbasting Armhole Baster] - 08/28/17 9:15 am Raimundo Anderson MD [Partnered Physician] - 09/17/17 4:45 pm Mansoor Loaiza MD [Primary Care Provider] - Ranulfo Warren MD [Non-Partnered Physician] - 08/22/17 9:40 am
--- NOTE | 2017-08-23 07:27 | Internal Med Progress Note ---
Date of Encounter: 08/23/17 Time of Encounter: 07:25 - Assessment and plan (1) Elevated troponin Current Visit: No Status: Chronic Assessment and plan: Was being Anticoagulated with eliquis. That has been on hold and heparin was started however that is also now on hold given the drop in hemoglobin. Echo is done with an EF of 60%. No significant valvular dysfunction. Cardiology is following. No plans on intervention for now. Patient is already on aspirin, statin, beta [place]ron[place]. (2) Acute blood loss as cause of postoperative anemia Current Visit: Yes Status: Acute Assessment and plan: Status post 3 units PRBCs. Hemoglobin is appropriate this morning. GI is involved and are planning an EGD. check FOBT (3) COPD exacerbation Current Visit: No Status: Chronic Assessment and plan: Continue Solu-Medrol IV. Wean down to daily. Continue nebulizers. Wean down oxygen as tolerated. (4) Sepsis Current Visit: Yes Status: Acute Assessment and plan: Patient is no longer tachycardic and tachypneic. Has a source being pneumonia as well and possibly a urinary tract infection. Lactic acid is not elevated. We will continue to treat underlying source as below. Qualifiers: Sepsis type: sepsis due to unspecified organism Qualified Code(s): A41.9 - Sepsis, unspecified organism (5) Hospital acquired PNA Current Visit: Yes Status: Acute Assessment and plan: Continue with vancomycin and Zosyn. Follow up on cultures. We will check urine strep and Legionella. Check sputum cultures if able to get a sample. wean down oxygen as tolerated. Continue nebulizers. (6) CAD (coronary artery disease) Current Visit: No Status: Acute Assessment and plan: Continue aspirin and statin beta petron[place]. Qualifiers: Coronary Disease-Associated Artery/Lesion type: [place] artery [place] vs. transplanted heart: [place] heart Associated angina: without angina Qualified Code(s): I25.10 - Atherosclerotic heart disease of [place] coronary artery without angina pectoris (7) CHF (congestive heart failure) Current Visit: No Status: Chronic Assessment and plan: Euvolemic. BNP is chronically elevated. Echo is noted as above. Qualifiers: Heart failure type: unspecified Heart failure chronicity: unspecified Qualified Code(s): I50.9 - Heart failure, unspecified (8) Diabetes mellitus Current Visit: No Status: Chronic Assessment and plan: Continue with insulin sliding scale. Continue with Levemir 20 units nightly. Continue Accu-Cheks. Qualifiers: Diabetes mellitus type: type 2 Diabetes mellitus complication status: with unspecified complications Diabetes mellitus shelter insulin use: with termite exterminator helper use Qualified Code(s): E11.8 - Type 2 diabetes mellitus with unspecified complications; Z79.4 - termite exterminator helper (current) use of insulin; Z79.4 - termite exterminator helper ( current) use of insulin; Z79.4 - senior care (current) use of insulin; Z79.4 - termite exterminator helper (current) use of insulin (9) ESRD (end stage renal disease) on dialysis Current Visit: No Status: Chronic Assessment and plan: Continue dialysis per nephrology. fix K with dialysis today (10) History of DVT (deep vein thrombosis) Current Visit: Yes Status: Acute Assessment and plan: Chronically on eliquis but we are holding that for now as well as any anticoagulation due to a drop in his hemoglobin (11) DVT prophylaxis Current Visit: No Status: Acute Assessment and plan: SCDs - Subjective Interval history: Patient was seen and examined. Transfused 3 units yesterday with appropriate response in H/H. No signs of bleeding. Seen by GI. The patient troponins continued to elevate and cardiology are involved. Medicine has been consulted regarding shortness breath. Being treated as healthcare associated pneumonia and COPD exacerbation. No chest pain. Afebrile - Constitutional Vitals: Temp Pulse Resp BP Pulse Ox 97.9 F 85 16 107/66 97 08/23/17 07:14 08/23/17 07:14 08/23/17 07:14 08/23/17 07:14 08/23/17 07:14 General appearance: Present: mild distress, A&O X 3, answers questions appropriately Exam: GEN: NAD CVS: RRR. S1, S2, No m/r/g RESP: Diminished ABD: Soft, NT, ND, +BS EXT: No edema. 2+ DP. No rashes. R AKA noted NEURO: Nonfocal Internal Medicine: Result - Labs CBC & Chem 7: 08/23/17 03:14 08/23/17 03:14 Labs: Short CBC 08/22/17 08/23/17 Range/Units 08:55 03:14 WBC 9.2 9.2 (4.3-11.1) K/mcL Hgb 8.4 L D 8.0 L (12.9-16.9) g/dL Hct 25.8 L 24.7 L (37.5-50.1) % Plt Count 183 165 (140-400) K/mcL Neutrophils # 8.3 8.2 (1.6-8.9) K/mcL BMP 08/22/17 08/23/17 08:55 03:14 Sodium 131 L 131 L Potassium 4.5 5.6 H Chloride 93 L 95 L Carbon Dioxide 24 22 L BUN 49 H 61 H Creatinine 7.18 H 8.40 H Glucose 200 H 281 H Calcium 8.4 L 8.0 L - ABG Interpretation ABG results: ABG ABG pH 7.49 pH Units (7.32-7.45) H 08/20/17 23:02 ABG pCO2 35 mmHg (35-45) 08/20/17 23:02 ABG pO2 56 mmHg (85-104) L 08/20/17 23:02 ABG O2 Saturation 91 % (95-98) L 08/20/17 23:02 PT/INR, D-dimer PT 24.4 Seconds (9.4-12.1) H 08/21/17 19:54 - VTE Documentation of Mechanical Device: Venous foot pump, device Consult Discharge Plan - Plan Referrals: Isabella Bass PAC [Physician Shower Maid] - 08/28/17 9:15 am Raimundo Anderson MD [Partnered Physician] - 09/17/17 4:45 pm Mansoor Loaiza MD [Primary Care Provider] - Ranulfo Warren MD [Non-Partnered Physician] - 08/22/17 9:40 am
[2017-08-23] MEDS: Ringers Solution, Lactated 1,000 ML IVC SCH ×3 (08:00→23:03)
[2017-08-23] MEDS: 0.9 % Sodium Chloride 1,000 ML IVC SCH (08:03)
[2017-08-23] MEDS ORDERED: 0.9 % Sodium Chloride 1,000 ML ONE (08:08)
[2017-08-23] MEDS: (Febuxostat [Uloric] 40 MG) PO SCH (08:56)
[2017-08-23] MEDS: amLODIPine 5 MG TABLET PO SCH (08:57)
[2017-08-23] MEDS: Metoprolol XL (24 HR) Succ 50 MG TAB.ER.24H PO SCH (08:58)
--- NOTE | 2017-08-23 09:04 | Nephrology Progress Note ---
Date of Encounter: 08/23/17 Time of Encounter: 08:55 - Assessment and Plan (1) ESRD (end stage renal disease) on dialysis Current Visit: No Status: Chronic S/P right knee replacement. ESRD- HD today, keeping TTS schedule. Orders given. Hold BP medication for SBP< 130. Subjective Principal diagnosis: Right total knee replacement. Interval history: Laying in bed, eating breakfast. Objective - Vital Signs Vital signs: Vital Signs Temp Pulse Resp BP Pulse Ox 08/23/17 07:14 97.9 F 85 16 107/66 97 08/23/17 04:18 16 98 08/23/17 03:41 97.5 F L 81 17 115/70 98 08/22/17 23:38 18 96 08/22/17 23:28 97.7 F 82 17 99/59 96 08/22/17 22:14 98.3 F 100 17 120/52 91 08/22/17 20:39 97.8 F 82 16 106/67 92 08/22/17 20:10 97.5 F L 81 16 122/67 91 08/22/17 18:05 97.9 F 85 14 116/70 91 08/22/17 16:10 16 92 08/22/17 15:07 97.6 F 82 18 116/72 93 08/22/17 14:33 97.6 F 80 16 118/74 96 08/22/17 11:53 97.4 F L 91 16 114/70 93 08/22/17 11:36 97.4 F L 81 16 109/66 94 08/22/17 10:45 97.9 F 86 20 108/68 99 08/22/17 10:34 16 96 Intake and Output 08/22/17 08/23/17 08/23/17 23:59 07:59 15:59 Intake Total 100 / 100 100 / 100 Balance 100 / 100 100 / 100 Intake: IV Fluids 100 / 100 100 / 100 Zosyn 3.375 GM In 0.9 % Sodium 100 / 100 100 / 100 Chloride 100 ML @ 25 mls/hr IVPB Q12H [facility] Rx#:[id number] Blood Product 0 / 0 Rbcs Leuko Poor As-1 Unit 0 / 0 [id number] Other: Blood Glucose* 187 327 - General Appearance General appearance: Present: well-developed, well-nourished, appears started age EENT: Present: mucous membranes moist Neck: Present: no JVD Respiratory: Present: clear Cardiology: Present: edema, regular rate, regular rhythm Additional Comments: left BKA, Right mild edema Gastrointestinal: Present: normoactive bowel sounds, no tenderness Integumentary: Present: warm and dry Neurologic: Present: alert and oriented x3 - Lab 08/23/17 03:14 08/23/17 03:14 Most recent lab results ABG pH 7.49 pH Units (7.32-7.45) H 08/20/17 23:02 ABG pCO2 35 mmHg (35-45) 08/20/17 23:02 ABG pO2 56 mmHg (85-104) L 08/20/17 23:02 ABG HCO3 26 mEq/L (21-27) 08/20/17 23:02 ABG O2 Saturation 91 % (95-98) L 08/20/17 23:02 Calcium 8.0 mg/dL (8.6-10.3) L 08/23/17 03:14 - VTE Documentation of Mechanical Device: Venous foot pump, device Consult Discharge Plan - Plan Referrals: Isabella Bass PAC [Physician Services Program Manager] - 08/28/17 9:15 am Raimundo Anderson MD [Partnered Physician] - 09/17/17 4:45 pm Mansoor Loaiza MD [Primary Care Provider] - Ranulfo Warren MD [Non-Partnered Physician] - 08/22/17 9:40 am
[2017-08-23] MEDS: Aspirin Enteric Coated 81 MG Tablet PO SCH (09:05)
[2017-08-23] MEDS: Cholecalciferol (D-3) 1,000 UNIT TABLET PO SCH (09:05)
[2017-08-23] MEDS: Isosorbide MONOnitrate (24 HR) 60 MG TAB.ER.24H PO SCH (09:05)
[2017-08-23] MEDS: methylPREDNISolone 125 MG/2 ML VIAL IVP SCH (09:07)
[2017-08-23] MEDS ORDERED: 0.9 % Sodium Chloride 250 ML IVC PRN (09:09)
[2017-08-23] MEDS: Insulin LISPRO 300 UNITS/3 ML VIAL SQ SCH ×4 (09:11→23:03)
[2017-08-23] MEDS ORDERED: 0.9 % Sodium Chloride 1,000 ML PRIME SCH (09:15)
[2017-08-23] MEDS: Tiotropium 18 MCG inhalation IH SCH (10:39)
[2017-08-23] MEDS: Budesonide/Formoterol 160/4.5 MDI IH SCH ×2 (10:39→22:34)
--- NOTE | 2017-08-23 12:22 | Cardiology Progress Note ---
Date of Encounter: 08/23/17 Time of Encounter: 12:20 Assessment and Plan (1) NSTEMI (non-ST elevated myocardial infarction) Current Visit: Yes Status: Acute NSTEMI in postoperative setting, concomitant anemia requiring transfusion. Known history of CAD, prior CABG. [facility] 2016 - PTCA to LCx. LVEF remains preserved. Continues to deny chest discomfort. Given lack of symptoms and anemia, I would favor a conservative strategy. This is not an ideal situation to proceed with a cardiac catheterization. Recommend continue aspirin/statin/BB/Imdur therapy. Ideally, we would add Plavix for possible NSTEMI, but will hold off for fear of worsening anemia. Patient understands, agreeable to this plan. We will continue to monitor for now. Thanks, Angel King DO, FACC Discussion w patient/family: The assessment and plan as outlined above was discussed with the patient and/or family members who expressed understanding and agreement. All questions were answered. Thank you for involving us in the care of your patient. Please call with any questions. Subjective Principal diagnosis: Right total knee replacement. Interval history: Seen and examined. Continues to deny chest pain. Hg improved after transfusion. EGD was to be performed by GI. NSTEMI - LVEF preserved, 60%. Objective Vital Signs, Last 4 Hours Pulse Ox 08/23/17 09:06 97 General: Conversant, No Apparent Distress, Other (Chronically ill appearing) HEENT: Atraumatic, Normocephaly, Mucus Membranes Moist Neck: No JVD Cardiac: Reg Rate and Rhythm, Normal S1 and S2, No Murmur, Other (Distant) Lungs: Normal Breath Sounds, No Wheeze, Rales, Rhonchi Neuro: Alert and responsive, No focal deficits noted Abdomen: Soft, Non-Tender, Other (Obese) Skin: No rashes noted on visualized skin Musculoskeletal: No Chest Wall Tenderness Results 08/23/17 03:14 08/23/17 03:14 Lab Results 08/23/17 08/23/17 03:14 03:14 WBC 9.2 Hgb 8.0 L Hct 24.7 L Plt Count 165 Sodium 131 L Potassium 5.6 H Chloride 95 L Carbon Dioxide 22 L BUN 61 H Creatinine 8.40 H Glucose 281 H Calcium 8.0 L - Imaging and Cardiology Echo: report reviewed - VTE Documentation of Mechanical Device: Intermittent pneumatic compression device Consult Discharge Plan - Plan Referrals: Isabella Bass, RAND [Physician Web Marketing Analyst] - 08/28/17 9:15 am Raimundo Anderson MD [Partnered Physician] - 09/17/17 4:45 pm Mansoor Loaiza MD [Primary Care Provider] - Ranulfo Warren MD [Non-Partnered Physician] - 08/22/17 9:40 am
[2017-08-23] MEDS: Insulin DETEMIR 100 UNIT/ML X5UNITS SQ SCH (23:20)
[2017-08-24] MEDS: Ipratropium/Albuterol Neb 3 ML IH SCH ×4 (04:28→23:01)
[2017-08-24] MEDS: Pantoprazole 40 MG VIAL IVP SCH ×2 (04:54→18:37)
[2017-08-24] MEDS: *HR* OxyCODONE Immed Rel 5 MG TABLET PO PRN ×2 (04:54→21:59)
[2017-08-24 06:20] LABS: Basophils % 0.3 %; Hematocrit 25.2 % (37.5-50.1); Hemoglobin 8.1 g/dL (12.9-16.9); Immature Granulocytes % 7.1 % (0-4); Lymphocytes # 0.9 K/mcL (0.6-4.6); Lymphocytes % 11.6 %; Mean Corpuscular HGB Conc 32.1 g/dL (31.6-35.5); Mean Corpuscular Hemoglobin 30.3 pg (28.0-33.3); Mean Corpuscular Volume 94.4 fL (83.0-100.0); Mean Platelet Volume 9.4 fL (9.4-12.4); Monocytes # 0.7 K/mcL (0.0-1.3); Monocytes % 9.5 %; Neutrophils # 5.6 K/mcL (1.6-8.9); Nucleated Red Blood Cells 0.3 /100 WBC (0); Platelet Count 151 K/mcL (140-400); Red Blood Count 2.67 M/mcL (4.19-5.50); Segmented Neutrophils % 71.5 %
--- NOTE | 2017-08-24 06:27 | Orthopedics Progress Note ---
Date of Encounter: 08/24/17 Time of Encounter: 06:26 - Assessment and Plan (1) Hx of CABG Current Visit: No Status: Chronic (2) Diabetes Current Visit: No Status: Chronic Qualifiers: Diabetes mellitus type: type 2 Diabetes mellitus complication status: with unspecified complications Diabetes mellitus local intermodal truck driver insulin use: with local intermodal truck driver use Qualified Code(s): E11.8 - Type 2 diabetes mellitus with unspecified complications; Z79.4 - FPC (current) use of insulin (3) Hyperlipemia Current Visit: No Status: Chronic Qualifiers: Hyperlipidemia type: mixed hyperlipidemia Qualified Code(s): E78.2 - Mixed hyperlipidemia (4) PVD (peripheral vascular disease) Current Visit: No Status: Chronic (5) Chronic deep venous thrombosis Current Visit: No Status: Chronic Qualifiers: DVT location: lower extremity Affected thrombotic vein of extremity: unspecified vein of extremity Laterality: unspecified laterality Qualified Code(s): I82.509 - Chronic embolism and thrombosis of unspecified deep veins of unspecified lower extremity (6) CAD in [place] artery Current Visit: No Status: Chronic (7) History of coronary artery bypass graft Current Visit: No Status: Chronic (8) Insulin dependent diabetes mellitus Current Visit: No Status: Chronic (9) Hypotension Current Visit: No Status: Acute Qualifiers: Hypotension type: unspecified hypotension type Qualified Code(s): I95.9 - Hypotension, unspecified (10) Atrial fibrillation Current Visit: No Status: Chronic Qualifiers: Atrial fibrillation type: paroxysmal Qualified Code(s): I48.0 - Paroxysmal atrial fibrillation (11) Osteoarthritis of right knee Current Visit: No Status: Chronic Qualifiers: Osteoarthritis type: unspecified Qualified Code(s): M17.11 - Unilateral primary osteoarthritis, right knee (12) HTN (hypertension) Current Visit: No Status: Chronic Qualifiers: Hypertension type: unspecified Qualified Code(s): I10 - Essential (primary ) hypertension (13) CAD (coronary artery disease) Current Visit: No Status: Chronic Qualifiers: Coronary Disease-Associated Artery/Lesion type: unspecified vessel or lesion type [place] vs. transplanted heart: [place] heart Associated angina: without angina Qualified Code(s): I25.10 - Atherosclerotic heart disease of [place] coronary artery without angina pectoris (14) ESRD (end stage renal disease) on dialysis Current Visit: No Status: Chronic (15) HLD (hyperlipidemia) Current Visit: No Status: Chronic Qualifiers: Hyperlipidemia type: unspecified Qualified Code(s): E78.5 - Hyperlipidemia , unspecified (16) Gout Current Visit: No Status: Chronic Qualifiers: Gout site: unspecified site Gout etiology: unspecified cause Chronicity: unspecified Qualified Code(s): M10.9 - Gout, unspecified (17) CHF (congestive heart failure) Current Visit: No Status: Chronic Qualifiers: Heart failure type: unspecified Heart failure chronicity: unspecified Qualified Code(s): I50.9 - Heart failure, unspecified (18) Obesity Current Visit: No Status: Chronic Qualifiers: Obesity type: unspecified obesity type Obesity classification: adult class 2 (BMI 35 - 39.9) Serious obesity comorbidity presence: unspecified whether serious comorbidity present Body mass index: BMI 35.0-35.9 Qualified Code(s) : E66.9 - Obesity, unspecified; Z68.35 - Body mass index (BMI) 35.0-35.9, adult ; Z68.35 - Body mass index (BMI) 35.0-35.9, adult (19) History of left below knee amputation Current Visit: No Status: Chronic (20) Status post right knee replacement Current Visit: No Status: Acute (21) Sepsis Current Visit: Yes Status: Acute Qualifiers: Sepsis type: sepsis due to unspecified organism Qualified Code(s): A41.9 - Sepsis, unspecified organism (22) Hospital acquired PNA Current Visit: Yes Status: Acute (23) Acute blood loss as cause of postoperative anemia Current Visit: Yes Status: Acute Subjective Principal diagnosis: Right total knee replacement. Interval history: Patient without complaints this morning Operative extremity: Neurovascularly intact Dressing dried blood will change Calves nontender Assessment and plan: Continue with postoperative care awaiting GI workup. Objective Vital signs: Vital Signs Temp Pulse Resp BP Pulse Ox 08/24/17 04:45 97.9 F 96 18 150/67 99 08/24/17 04:30 16 99 08/23/17 22:54 98.7 F 98 17 133/69 97 08/23/17 22:35 16 95 08/23/17 20:10 97.9 F 08/23/17 19:27 97.3 F L 18 134/68 08/23/17 18:50 125/69 02/17/18 18:35 120/73 0217/18 18:20 134/79 08/23/17 18:05 138/75 08/23/17 17:50 132/66 08/23/17 17:35 117/66 08/23/17 17:20 118/65 08/23/17 17:05 103/62 08/23/17 16:50 114/69 08/23/17 16:35 119/66 08/23/17 16:20 122/65 08/23/17 16:05 132/74 08/23/17 15:50 97.5 F L 18 113/69 08/23/17 14:02 97.7 F 92 18 108/66 95 08/23/17 10:39 18 97 08/23/17 09:06 97 08/23/17 07:14 97.9 F 85 16 107/66 97 Intake and Output 08/23/17 08/23/17 08/24/17 15:59 23:59 07:59 Intake Total 920 / 920 700 / 700 Output Total 2600 / 2600 Balance 920 / 920 -1900 / -1900 Intake: IV Fluids 200 / 200 Zosyn 3.375 GM In 0.9 % Sodium 200 / 200 Chloride 100 ML @ 25 mls/hr IVPB Q12H [facility] Rx#:[id number] Oral 120 / 120 700 / 700 Intake, Rinseback and Flushes 600 / 600 Output: Urine 0 / 0 Total Dialysis (HD) Output 2600 / 2600 Other: Meal Breakfast Percent of Meal Consumed 100% Blood Glucose* 258 236 Hemodialysis Net Fluid Removed 0 2000 (mL) - Labs CBC & BMP: 08/23/17 03:14 08/23/17 03:14 Labs: Abnormal lab results RBC 2.68 M/mcL (4.19-5.50) L 08/23/17 03:14 Hgb 8.0 g/dL (12.9-16.9) L 08/23/17 03:14 Hct 24.7 % (37.5-50.1) L 08/23/17 03:14 RDW 14.9 % (11.5-14.5) H 08/23/17 03:14 Lymphocytes # 0.4 K/mcL (0.6-4.6) L 08/23/17 03:14 Nucleated RBCs/100 WBC 0.2 /100 WBC (0) H 08/23/17 03:14 PT 24.4 Seconds (9.4-12.1) H 08/21/17 19:54 APTT 40.5 Seconds (26.0-36.0) H 08/22/17 01:10 ABG pH 7.49 pH Units (7.32-7.45) H 08/20/17 23:02 ABG pO2 56 mmHg (85-104) L 08/20/17 23:02 ABG Total CO2 28 mEq/L (20-26) H 08/20/17 23:02 ABG O2 Saturation 91 % (95-98) L 08/20/17 23:02 Sodium 131 mEq/L (136-145) L 08/23/17 03:14 Potassium 5.6 mEq/L (3.5-5.1) H 08/23/17 03:14 Chloride 95 mEq/L (98-107) L 08/23/17 03:14 Carbon Dioxide 22 mEq/L (23-29) L 08/23/17 03:14 BUN 61 mg/dL (8-23) H 08/23/17 03:14 Creatinine 8.40 mg/dL (0.70-1.30) H 08/23/17 03:14 Est GFR ( Amer) 8 (> 60) L 08/23/17 03:14 Est GFR (Non-Af Amer) 6 (> 60) L 08/23/17 03:14 Glucose 281 mg/dL (70-105) H 08/23/17 03:14 POC Glucose 258 (58-89) H 08/23/17 12:10 Calcium 8.0 mg/dL (8.6-10.3) L 08/23/17 03:14 Troponin I 2.09 ng/mL (< 0.04) H* 08/23/17 12:52 B-Natriuretic Peptide 1415 pg/mL (Less than 100) H 08/20/17 21:55 Urine Clarity Cloudy (Clear) A 08/20/17 22:40 Urine Protein 100 mg/dL (Neg-Trace) H 08/20/17 22:40 Urine Blood Large (Negative) H 08/20/17 22:40 Ur Leukocyte Esterase Moderate (Negative) H 08/20/17 22:40 Urine Microscopic RBC TNTC per hpf (0-3) H 08/20/17 22:40 Urine Microscopic WBC 15-30 per hpf (0-3) H 08/20/17 22:40 Ur Culture Indicated? YES (NO) A 08/20/17 22:40 - VTE Documentation of Mechanical Device: Intermittent pneumatic compression device Consult Discharge Plan - Plan Referrals: Isabella Bass PAC [Physician Chassis Inspector] - 08/28/17 9:15 am Raimundo Anderson MD [Partnered Physician] - 09/17/17 4:45 pm Mansoor Loaiza MD [Primary Care Provider] - Ranulfo Warren MD [Non-Partnered Physician] - 08/22/17 9:40 am
[2017-08-24 06:42] LABS: Potassium 4.2 mEq/L (3.5-5.1)
[2017-08-24 06:43] LABS: Platelet Estimate Normal (Normal)
[2017-08-24] MEDS: Ringers Solution, Lactated 1,000 ML IVC SCH ×2 (08:37→15:13)
--- NOTE | 2017-08-24 08:46 | Nephrology Progress Note ---
Date of Encounter: 08/24/17 Time of Encounter: 08:25 - Assessment and Plan (1) ESRD (end stage renal disease) on dialysis Current Visit: No Status: Chronic S/P right knee replacement. NSTEMI in setting of anemia. ESRD- No HD today, keeping TTS schedule. Hold BP medication for SBP< 130. Subjective Principal diagnosis: Right total knee replacement. Interval history: Laying in bed, eating breakfast. Objective - Vital Signs Vital signs: Vital Signs Temp Pulse Resp BP Pulse Ox 08/24/17 07:53 97.9 F 92 18 130/71 98 08/24/17 04:45 97.9 F 96 18 150/67 99 08/24/17 04:30 16 99 08/23/17 22:54 98.7 F 98 17 133/69 97 08/23/17 22:35 16 95 08/23/17 20:10 97.9 F 08/23/17 19:27 97.3 F L 18 134/68 08/23/17 18:50 125/69 08/23/17 18:35 120/73 08/23/17 18:20 134/79 08/23/17 18:05 138/75 08/23/17 17:50 132/66 08/23/17 17:35 117/66 08/23/17 17:20 118/65 08/23/17 17:05 103/62 08/23/17 16:50 114/69 08/23/17 16:35 119/66 08/23/17 16:20 122/65 08/23/17 16:05 132/74 08/23/17 15:50 97.5 F L 18 113/69 08/23/17 14:02 97.7 F 92 18 108/66 95 08/23/17 10:39 18 97 08/23/17 09:06 97 Intake and Output 08/23/17 08/24/17 08/24/17 23:59 07:59 15:59 Intake Total 700 / 700 Output Total 2600 / 2600 Balance -1900 / -1900 Intake: Oral 700 / 700 Output: Urine 0 / 0 Total Dialysis (HD) Output 2600 / 2600 Other: Blood Glucose* 236 180 Hemodialysis Net Fluid Removed 2000 (mL) - General Appearance General appearance: Present: well-developed, well-nourished, appears started age , obese EENT: Present: mucous membranes moist Neck: Present: no JVD Respiratory: Present: clear Cardiology: Present: edema, regular rate, regular rhythm Additional Comments: pitting edema, moderate RLE. Left BKA Gastrointestinal: Present: normoactive bowel sounds, no tenderness Integumentary: Present: warm and dry Neurologic: Present: alert and oriented x3 - Lab 08/24/17 05:58 08/24/17 05:58 Most recent lab results ABG pH 7.49 pH Units (7.32-7.45) H 08/20/17 23:02 ABG pCO2 35 mmHg (35-45) 08/20/17 23:02 ABG pO2 56 mmHg (85-104) L 08/20/17 23:02 ABG HCO3 26 mEq/L (21-27) 08/20/17 23:02 ABG O2 Saturation 91 % (95-98) L 08/20/17 23:02 Calcium 8.0 mg/dL (8.6-10.3) L 08/24/17 05:58 - VTE Documentation of Mechanical Device: Intermittent pneumatic compression device Consult Discharge Plan - Plan Referrals: Isabella Bass PAC [Physician Sr. Payroll Processor] - 08/28/17 9:15 am Raimundo Anderson MD [Partnered Physician] - 09/17/17 4:45 pm Mansoor Loaiza MD [Primary Care Provider] - Ranulfo Warren MD [Non-Partnered Physician] - 08/22/17 9:40 am
[2017-08-24] MEDS: amLODIPine 5 MG TABLET PO SCH (08:48)
[2017-08-24] MEDS: Metoprolol XL (24 HR) Succ 50 MG TAB.ER.24H PO SCH (08:48)
[2017-08-24] MEDS: Cholecalciferol (D-3) 1,000 UNIT TABLET PO SCH (08:48)
[2017-08-24] MEDS: Insulin LISPRO 300 UNITS/3 ML VIAL SQ SCH ×4 (08:49→22:00)
[2017-08-24] MEDS: Aspirin Enteric Coated 81 MG Tablet PO SCH (08:49)
[2017-08-24] MEDS: Isosorbide MONOnitrate (24 HR) 60 MG TAB.ER.24H PO SCH (08:49)
[2017-08-24] MEDS: methylPREDNISolone 125 MG/2 ML VIAL IVP SCH (08:49)
[2017-08-24] MEDS: (Febuxostat [Uloric] 40 MG) PO SCH (08:50)
[2017-08-24] MEDS ORDERED: Vancomycin 500 MG in 0.9 % Sodium Chloride Mini Bag 100 ML IVPB ONE (10:00)
--- NOTE | 2017-08-24 10:46 | Cardiology Progress Note ---
Date of Encounter: 08/24/17 Time of Encounter: 09:00 Assessment and Plan (1) NSTEMI (non-ST elevated myocardial infarction) Current Visit: No Status: Acute Per cardiology: -Troponins 1.07, 4.61, 5.06, 2.09 In the setting of anemia, post op, sepsis, hospital acquired PNA, ESRD on HD. -Denies chest pain. -ECG with no acute ECG changes. -TTE with LVEF preserved, no segmental wall motion abnormalities. -On asa, statin, beta petrona, imdur. -Anemia being worked up per primary service. -Not a good candidate for invasive cardiac workup due to anemia requiring blood transfusions. -Unable to anticoagulate or add plavix due to anemia. -Will continue to monitor. (2) CAD (coronary artery disease) Current Visit: No Status: Chronic Per cardiology: -Known CAD s/p CABG 2008. -Left heart catheterization 08/19/2015: Left main 20% stenosis. LAD proximal 80% stenosis. Circumflex mid 100% stenosis. OM1 80-90% stenosis (PTCA performed, residual stenosis 50-60% stenosis, too small for stenting). Ramus minimal disease. RCA proximal 100% stenosis. SVG to RPDA patent. FONTAINE to mid LAD patent. SVG to D1 patent. -Continue current medical management. Qualifiers: Coronary Disease-Associated Artery/Lesion type: unspecified vessel or lesion type [place] vs. transplanted heart: [place] heart Associated angina: without angina Qualified Code(s): I25.10 - Atherosclerotic heart disease of [place] coronary artery without angina pectoris Discussion w patient/family: The assessment and plan as outlined above was discussed with the patient who expressed understanding and agreement. All questions were answered. Thank you for involving us in the care of your patient. Please call with any questions. Discussed and reviewed with . Subjective Principal diagnosis: Right total knee replacement. Interval history: Patient states overall he feels better than yesterday. Denies chest pain. Reports pain is improved today. Objective Vital Signs, Last 4 Hours Temp Pulse Resp BP Pulse Ox 08/24/17 09:04 2 08/24/17 07:53 97.9 F 92 18 130/71 98 General: Conversant, No Apparent Distress HEENT: Atraumatic, Normocephaly, Mucus Membranes Moist Neck: No JVD, Normal carotid pulses Cardiac: Reg Rate and Rhythm, Normal S1 and S2, No Murmur Lungs: Normal Breath Sounds, No Wheeze, Rales, Rhonchi Neuro: Alert and responsive, No focal deficits noted Abdomen: Soft, Non-Tender Skin: No rashes noted on visualized skin Musculoskeletal: No Chest Wall Tenderness Extremities: No Clubbing, No Cyanosis, Normal Pulses, Other (Mild right lower extremity pedal edema noted. ) Results 08/24/17 05:58 08/24/17 05:58 Lab Results Active Medications Albuterol Sulfate (Proventil Neb) 2.5 mg IH TIDR PRN; Protocol PRN Reason: Shortness Of Breath Stop: 02/17/18 14:29 Last Admin: 08/21/17 06:48 Dose: 2.5 mg Albuterol/Ipratropium (Duoneb) 3 ml IH [id number] DAVE Stop: 02/20/18 04:01 Last Admin: 08/24/17 04:28 Dose: 3 ml Albuterol/Ipratropium (Duoneb) 3 ml IH [id number] PRN PRN Reason: Shortness Of Breath/Wheezing Stop: 02/19/18 22:17 Amitriptyline HCl (Elavil) 25 mg PO HS DAVE Stop: 02/17/18 21:01 Last Admin: 08/23/17 23:02 Dose: 25 mg Amlodipine Besylate (Norvasc) 10 mg PO DAILY DAVE Stop: 02/18/18 09:01 Last Admin: 08/24/17 08:48 Dose: 10 mg Aspirin (Aspirin Ec) 81 mg PO DAILY DAVE Stop: 02/18/18 09:01 Last Admin: 08/24/17 08:49 Dose: 81 mg Atorvastatin Calcium (Lipitor) 80 mg PO HS DAVE Stop: 02/17/18 21:01 Last Admin: 08/23/17 23:02 Dose: 80 mg Budesonide/Formoterol Fumarate (Symbicort) 2 puff IH BIDR DAVE PRN Reason: Protocol Stop: 02/17/18 22:01 Last Admin: 08/23/17 22:34 Dose: 2 puff Dextrose/Water (Dextrose 50% (Syg)) 25 ml IVP AD PRN PRN Reason: Hypoglycemia Stop: 02/19/18 22:25 Docusate Sodium (Colace) 100 mg PO BID DAVE Stop: 02/17/18 21:01 Last Admin: 08/24/17 08:48 Dose: 100 mg Fluticasone Propionate (Flonase) 50 mcg NS DAILY PRN; Protocol PRN Reason: Allergy Symptoms Stop: 02/17/18 14:29 Furosemide (Lasix) 20 mg IVP TID PRN PRN Reason: Blood Pressure Stop: 02/21/18 09:01 Glucagon (Glucagen) 1 mg IM ONCE PRN PRN Reason: Hypoglycemia Stop: 02/19/18 22:25 Glucose (Gluctose) 15 gm PO ONCE PRN PRN Reason: Hypoglycemia Stop: 02/19/18 22:25 Glucose (Gluctose) 30 gm PO ONCE PRN PRN Reason: Hypoglycemia Stop: 02/19/18 22:25 Guaifenesin (Robitussin/Dm) 10 ml PO Q6HR [facility] Stop: 02/20/18 00:01 Last Admin: 08/24/17 04:55 Dose: 10 ml Lactated Ringer's (Lactated Ringers) 1,000 mls @ 75 mls/hr IVC .[id number] [facility] Stop: 02/17/18 14:29 Last Admin: 08/24/17 08:37 Dose: Not Given Sodium Chloride (0.9 % Sodium Chloride) 250 mls @ 937.5 mls/hr IVC .Q16M PRN PRN Reason: Hypotension Stop: 02/18/18 11:24 Sodium Chloride (0.9 % Sodium Chloride) 1,000 mls @ 0 mls/hr PRIME .Q0M DAVE PRN Reason: As Directed Stop: 02/18/18 11:31 Dextrose (Dextrose 5%) 1,000 mls @ 100 mls/hr IVC .Q10H PRN PRN Reason: HYPOGLYCEMIA Stop: 02/19/18 22:25 Piperacillin Sod/Tazobactam (Sod 3.375 gm/ Sodium Chloride) 100 mls @ 25 mls/ hr IVPB Q12H [facility] Stop: 02/20/18 11:01 Last Admin: 08/23/17 23:04 Dose: 25 mls/hr Sodium Chloride (0.9 % Sodium Chloride) 250 mls @ 937.5 mls/hr IVC .Q16M PRN PRN Reason: Hypotension Stop: 02/20/18 07:37 Sodium Chloride (0.9 % Sodium Chloride) 250 mls @ 937.5 mls/hr IVC .Q16M PRN PRN Reason: Hypotension Stop: 02/22/18 09:10 Sodium Chloride (0.9 % Sodium Chloride) 1,000 mls @ 0 mls/hr PRIME .Q0M DAVE PRN Reason: As Directed Stop: 02/22/18 09:16 Vancomycin HCl 500 mg/ Sodium (Chloride) 100 mls @ 100 mls/hr IVPB ONCE ONE Stop: 08/24/17 10:59 Insulin Detemir (Levemir) 20 unit SQ HS DAVE Stop: 02/17/18 21:01 Last Admin: 08/23/17 23:20 Dose: 20 unit Insulin Human Lispro (Humalog) 0 units SQ HS DAVE PRN Reason: Protocol Stop: 02/20/18 21:01 Last Admin: 08/23/17 23:03 Dose: 3 units Insulin Human Lispro (Humalog) 0 units SQ TIDAC DAVE PRN Reason: Protocol Stop: 02/20/18 07:31 Last Admin: 08/24/17 08:49 Dose: 2 units Isosorbide Mononitrate (Imdur) 240 mg PO DAILY [facility] Stop: 02/18/18 09:01 Last Admin: 08/24/17 08:49 Dose: 240 mg Lidocaine HCl (Lidoderm 5% Patch) 1 each TP DAILY [facility] Stop: 02/19/18 12:46 Last Admin: 08/24/17 08:50 Dose: 1 each Magnesium Hydroxide (Milk Of Magnesia Conc) 5 ml PO HS PRN PRN Reason: Constipation Stop: 02/17/18 14:29 Methylprednisolone (Solu-Medrol) 60 mg IVP DAILY [facility] Stop: 02/22/18 09:01 Last Admin: 08/24/17 08:49 Dose: 60 mg Metoprolol Succinate (Toprol Xl) 200 mg PO DAILY [facility] Stop: 02/18/18 09:01 Last Admin: 08/24/17 08:48 Dose: 200 mg Naloxone HCl (Narcan) 0.4 mg IVP Q2MIN PRN PRN Reason: SEE COMMENTS Stop: 02/17/18 14:29 Nitroglycerin (Nitroglycerin) 0.4 mg SL Q5MIN PRN PRN Reason: Chest Pain Stop: 02/17/18 14:29 Ondansetron HCl (Zofran) 4 mg IVP Q6HR PRN PRN Reason: Nausea And Vomiting Stop: 02/17/18 14:29 Last Admin: 08/18/17 22:47 Dose: 4 mg Oxycodone HCl (Roxicodone) 5 mg PO Q4HR PRN PRN Reason: Mild pain 1-3 Stop: 02/17/18 14:29 Oxycodone HCl (Roxicodone) 10 mg PO Q4HR PRN PRN Reason: Moderate pain 4-6 Stop: 02/17/18 14:29 Last Admin: 08/24/17 04:54 Dose: 10 mg Pantoprazole Sodium (Protonix) 40 mg IVP Q12HR DAVE Stop: 02/21/18 06:01 Last Admin: 08/24/17 04:54 Dose: 40 mg Pharmacy Profile Note (Patient Taking Own Medication) 0 each PO QAM DAVE Stop: 02/18/18 09:01 Last Admin: 08/24/17 08:50 Dose: Not Given Senna (Senna) 17.2 mg PO HS PRN PRN Reason: Constipation Stop: 02/17/18 14:29 Sevelamer HCl (Renvela) 800 mg PO TIDWM DAVE Stop: 02/17/18 14:29 Last Admin: 08/24/17 08:49 Dose: 800 mg Temazepam (Restoril) 15 mg PO HS PRN; Protocol PRN Reason: Insomnia Stop: 02/17/18 21:01 Tiotropium [place] (Spiriva) 18 mcg IH DAILYR [facility] Stop: 02/18/18 09:01 Last Admin: 08/23/17 10:39 Dose: Not Given Vancomycin HCl (Vancocin) 0 each IVPB RPHPROT PRN PRN Reason: PULSE DOSE Stop: 02/20/18 00:25 Vitamin D (Vitamin D) 1,000 unit PO DAILY DAVE Stop: 02/18/18 09:01 Last Admin: 08/24/17 08:48 Dose: 1,000 unit Laboratory Tests 08/20/17 08/21/17 08/21/17 21:54 09:11 16:24 Hgb Troponin I 1.07 H* 4.61 H* 5.06 H* 08/23/17 08/24/17 12:52 05:58 Hgb 8.1 L Troponin I 2.09 H* - Imaging and Cardiology Chest Xray: report reviewed Echo: report reviewed - EKG Interpretation EKG results cardiology: other (Telemetry reviewed with average HR previous 12 hours noted to be 95, SR. PVCS and PACs noted.) - VTE Documentation of Mechanical Device: Intermittent pneumatic compression device Consult Discharge Plan - Plan Referrals: Isabella Bass, PAC [Physician Athletic Coordinator] - 08/28/17 9:15 am Raimundo Anderson MD [Partnered Physician] - 09/17/17 4:45 pm Mansoor Loaiza MD [Primary Care Provider] - Ranulfo Warren MD [Non-Partnered Physician] - 08/22/17 9:40 am
[2017-08-24] MEDS: Budesonide/Formoterol 160/4.5 MDI IH SCH ×2 (11:08→23:02)
[2017-08-24] MEDS: Tiotropium 18 MCG inhalation IH SCH (11:10)
--- NOTE | 2017-08-24 11:52 | Internal Med Progress Note ---
Date of Encounter: 08/24/17 Time of Encounter: 11:49 - Assessment and plan (1) Elevated troponin Current Visit: No Status: Chronic Assessment and plan: Was being Anticoagulated with eliquis. That has been on hold and heparin was started however that is also now on hold given the drop in hemoglobin. He is currently on aspirin. Also on a statin and beta petrona. Echo is done with an EF of 60%. No significant valvular dysfunction. Cardiology is following. No plans on intervention for now. (2) Acute blood loss as cause of postoperative anemia Current Visit: Yes Status: Acute Assessment and plan: Status post 3 units PRBCs 08/22. Hemoglobin is appropriate this morning. GI is involved and are planning an EGD. check FOBT (3) COPD exacerbation Current Visit: No Status: Chronic Assessment and plan: Change to oral steroids starting tomorrow. Continue nebulizers. Wean down oxygen as tolerated. (4) Sepsis Current Visit: Yes Status: Acute Assessment and plan: Patient is no longer tachycardic and tachypneic. Has a source being pneumonia as well and possibly a urinary tract infection. Lactic acid is not elevated. We will continue to treat underlying source as below. Qualifiers: Sepsis type: sepsis due to unspecified organism Qualified Code(s): A41.9 - Sepsis, unspecified organism (5) Hospital acquired PNA Current Visit: Yes Status: Acute Assessment and plan: De-escalate antibiotics to Levaquin. Stop vancomycin and Zosyn. Cultures are negative. wean down oxygen as tolerated. Continue nebulizers. (6) CAD (coronary artery disease) Current Visit: No Status: Acute Assessment and plan: Continue aspirin and statin beta petrona. Qualifiers: Coronary Disease-Associated Artery/Lesion type: [place] artery [place] vs. transplanted heart: [place] heart Associated angina: without angina Qualified Code(s): I25.10 - Atherosclerotic heart disease of [place] coronary artery without angina pectoris (7) CHF (congestive heart failure) Current Visit: No Status: Chronic Assessment and plan: Euvolemic. BNP is chronically elevated. Echo is noted as above. Qualifiers: Heart failure type: unspecified Heart failure chronicity: unspecified Qualified Code(s): I50.9 - Heart failure, unspecified (8) Diabetes mellitus Current Visit: No Status: Chronic Assessment and plan: Continue with insulin sliding scale. Continue with Levemir 20 units nightly. Continue Accu-Cheks. Qualifiers: Diabetes mellitus type: type 2 Diabetes mellitus complication status: with unspecified complications Diabetes mellitus skilled nursing insulin use: with skilled nursing use Qualified Code(s): E11.8 - Type 2 diabetes mellitus with unspecified complications; Z79.4 - exterminator helper (current) use of insulin; Z79.4 - shelter ( current) use of insulin; Z79.4 - shelter (current) use of insulin; Z79.4 - exterminator helper (current) use of insulin (9) ESRD (end stage renal disease) on dialysis Current Visit: No Status: Chronic Assessment and plan: Continue dialysis per nephrology. fix K with dialysis today (10) History of DVT (deep vein thrombosis) Current Visit: Yes Status: Acute Assessment and plan: Chronically on eliquis but we are holding that for now as well as any anticoagulation due to a drop in his hemoglobin (11) DVT prophylaxis Current Visit: No Status: Acute Assessment and plan: SCDs - Subjective Interval history: Patient was seen and examined. No acute events. Hemoglobin is stable. No signs of bleeding. Transfused 3 units 08/22 with appropriate response in H/H. No signs of bleeding. Seen by GI. The patient troponins continued to elevate and cardiology are involved. Medicine has been consulted regarding shortness breath. Being treated as healthcare associated pneumonia and COPD exacerbation. No chest pain. Afebrile - Constitutional Vitals: Temp Pulse Resp BP Pulse Ox 97.9 F 92 18 130/71 99 08/24/17 07:53 08/24/17 07:53 08/24/17 11:08 08/24/17 07:53 08/24/17 11:08 General appearance: Present: mild distress, A&O X 3, answers questions appropriately Exam: GEN: NAD CVS: RRR. S1, S2, No m/r/g RESP: Diminished ABD: Soft, NT, ND, +BS EXT: No edema. 2+ DP. No rashes. Left AKA noted. Area of right knee surgery with some bleeding. NEURO: Nonfocal Internal Medicine: Result - Labs CBC & Chem 7: 08/24/17 05:58 08/24/17 05:58 Labs: Short CBC 08/24/17 Range/Units 05:58 WBC 7.8 (4.3-11.1) K/mcL Hgb 8.1 L (12.9-16.9) g/dL Hct 25.2 L (37.5-50.1) % Plt Count 151 (140-400) K/mcL Neutrophils # 5.6 (1.6-8.9) K/mcL BMP 08/24/17 05:58 Sodium 135 L Potassium 4.2 Chloride 97 L Carbon Dioxide 27 BUN 39 H Creatinine 5.85 H Glucose 201 H Calcium 8.0 L Cardiac Enzymes 08/23/17 Range/Units 12:52 Troponin I 2.09 H* (< 0.04) ng/mL - ABG Interpretation ABG results: ABG ABG pH 7.49 pH Units (7.32-7.45) H 08/20/17 23:02 ABG pCO2 35 mmHg (35-45) 08/20/17 23:02 ABG pO2 56 mmHg (85-104) L 08/20/17 23:02 ABG O2 Saturation 91 % (95-98) L 08/20/17 23:02 PT/INR, D-dimer PT 24.4 Seconds (9.4-12.1) H 08/21/17 19:54 - VTE Documentation of Mechanical Device: Intermittent pneumatic compression device Consult Discharge Plan - Plan Referrals: Isabella Bass PAC [Physician Wire Stripper] - 08/28/17 9:15 am Raimundo Anderson MD [Partnered Physician] - 09/17/17 4:45 pm Mansoor Loaiza MD [Primary Care Provider] - Ranulfo Warren MD [Non-Partnered Physician] - 08/22/17 9:40 am
[2017-08-24] MEDS: levoFLOXacin 500 MG TABLET PO SCH (13:01)
--- NOTE | 2017-08-24 13:51 | Event Note ---
Date of Encounter: 08/24/17 Time of Encounter: 13:49 - Cardiology Event Note Discussed and reviewed with , NSTEMI, anemia. Unable to perform invasive cardiac testing due to anemia pending GI work up. LVEF preserved, no chest pain, no acute ischemic ECG changes. Cardiology will sign off and will follow in outpatient setting. FOllow up set.
--- NOTE | 2017-08-24 17:28 | Electrocardiograph Report ---
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
[2017-08-24] MEDS: Insulin DETEMIR 100 UNIT/ML X5UNITS SQ SCH (22:00)
[2017-08-25] MEDS: Pantoprazole 40 MG VIAL IVP SCH ×2 (04:02→17:58)
[2017-08-25] MEDS: *HR* OxyCODONE Immed Rel 5 MG TABLET PO PRN ×3 (04:02→21:02)
[2017-08-25] MEDS: Ringers Solution, Lactated 1,000 ML IVC SCH ×2 (04:04→17:58)
[2017-08-25] MEDS: Ipratropium/Albuterol Neb 3 ML IH SCH ×4 (04:58→22:03)
[2017-08-25 06:51] LABS: Hematocrit 24.7 % (37.5-50.1); Hemoglobin 7.9 g/dL (12.9-16.9); Mean Corpuscular Hemoglobin 30.5 pg (28.0-33.3); Mean Corpuscular Volume 95.4 fL (83.0-100.0); Mean Platelet Volume 9.4 fL (9.4-12.4); Nucleated Red Blood Cells 0.2 /100 WBC (0); Platelet Count 166 K/mcL (140-400); Red Blood Count 2.59 M/mcL (4.19-5.50); Red Cell Distribution Width 14.6 % (11.5-14.5)
[2017-08-25 07:09] LABS: Calcium 7.7 mg/dL (8.6-10.3); Potassium 5.1 mEq/L (3.5-5.1)
[2017-08-25 07:19] LABS: Lymphocytes # 1.3 K/mcL (0.6-4.6); Monocytes # 1.3 K/mcL (0.0-1.3); Platelet Estimate Normal (Normal)
[2017-08-25] MEDS: Insulin LISPRO 300 UNITS/3 ML VIAL SQ SCH ×4 (07:41→21:03)
--- NOTE | 2017-08-25 08:08 | Nephrology Progress Note ---
Date of Encounter: 08/25/17 Time of Encounter: 07:50 - Assessment and Plan (1) ESRD (end stage renal disease) on dialysis Current Visit: No Status: Chronic S/P right knee replacement. NSTEMI in setting of anemia. ESRD- No HD today, keeping TTS schedule. Hold BP medication for SBP< 130. Subjective Principal diagnosis: Right total knee replacement. Interval history: Sitting up in bed, denies chest pain. Objective - Vital Signs Vital signs: Vital Signs Temp Pulse Resp BP Pulse Ox 08/25/17 07:37 97.5 F L 73 19 136/66 98 08/25/17 05:02 97.4 F L 74 16 121/70 92 08/25/17 04:58 96 08/25/17 01:38 98.1 F 76 16 130/73 100 08/24/17 23:01 16 94 08/24/17 20:22 98.1 F 75 16 122/69 100 08/24/17 16:58 18 99 08/24/17 15:37 97.7 F 74 16 114/65 99 08/24/17 11:45 97.2 F L 81 19 130/78 98 08/24/17 11:08 18 99 08/24/17 09:04 2 Intake and Output 08/24/17 08/25/17 08/25/17 23:59 07:59 15:59 Intake Total 340 / 340 1000 / 1000 Balance 340 / 340 1000 / 1000 Intake: IV Fluids 100 / 100 1000 / 1000 Lactated Ringers 1,000 ML @ 75 1000 / 1000 mls/hr IVC .[id number] DAVE Rx#: [id number] Zosyn 3.375 GM In 0.9 % Sodium 100 / 100 Chloride 100 ML @ 25 mls/hr IVPB Q12H DAVE Rx#:[id number] Oral 240 / 240 Other: Meal Dinner Percent of Meal Consumed 70% Blood Glucose* 219 86 - General Appearance General appearance: Present: well-developed, well-nourished, appears started age , obese EENT: Present: mucous membranes moist Neck: Present: no JVD Respiratory: Present: clear Cardiology: Present: no edema, regular rate, regular rhythm Gastrointestinal: Present: normoactive bowel sounds, no tenderness Integumentary: Present: warm and dry Neurologic: Present: alert and oriented x3 - Lab 08/25/17 06:31 02/19/18 06:31 Most recent lab results ABG pH 7.49 pH Units (7.32-7.45) H 08/20/17 23:02 ABG pCO2 35 mmHg (35-45) 08/20/17 23:02 ABG pO2 56 mmHg (85-104) L 08/20/17 23:02 ABG HCO3 26 mEq/L (21-27) 08/20/17 23:02 ABG O2 Saturation 91 % (95-98) L 08/20/17 23:02 Calcium 7.7 mg/dL (8.6-10.3) L 08/25/17 06:31 - VTE Documentation of Mechanical Device: Intermittent pneumatic compression device Consult Discharge Plan - Plan Referrals: Isabella Bass PAC [Physician Six Sigma Black Belt Engineer] - 08/28/17 9:15 am Raimundo Anderson MD [Partnered Physician] - 09/17/17 4:45 pm Mansoor Loaiza MD [Primary Care Provider] - Ranulfo Warren MD [Non-Partnered Physician] - 08/22/17 9:40 am
--- NOTE | 2017-08-25 09:39 | Orthopedics Progress Note ---
Date of Encounter: 08/25/17 Time of Encounter: 08:30 - Assessment and Plan (1) Osteoarthritis of right knee Current Visit: Yes Status: Chronic Qualifiers: Osteoarthritis type: unspecified Qualified Code(s): M17.11 - Unilateral primary osteoarthritis, right knee (2) HTN (hypertension) Current Visit: No Status: Chronic Qualifiers: Hypertension type: unspecified Qualified Code(s): I10 - Essential (primary ) hypertension (3) Diabetes mellitus Current Visit: No Status: Chronic Qualifiers: Diabetes mellitus type: type 2 Diabetes mellitus complication status: with unspecified complications Diabetes mellitus mcfp insulin use: with exterminator termite use Qualified Code(s): E11.8 - Type 2 diabetes mellitus with unspecified complications; Z79.4 - group home (current) use of insulin; Z79.4 - group home ( current) use of insulin; Z79.4 - group home (current) use of insulin; Z79.4 - exterminator helper (current) use of insulin (4) CAD (coronary artery disease) Current Visit: No Status: Chronic Qualifiers: Coronary Disease-Associated Artery/Lesion type: unspecified vessel or lesion type [place] vs. transplanted heart: [place] heart Associated angina: without angina Qualified Code(s): I25.10 - Atherosclerotic heart disease of [place] coronary artery without angina pectoris (5) exterminator helper current use of anticoagulant Current Visit: No Status: Chronic (6) ESRD (end stage renal disease) on dialysis Current Visit: No Status: Chronic (7) HLD (hyperlipidemia) Current Visit: No Status: Chronic Qualifiers: Hyperlipidemia type: unspecified Qualified Code(s): E78.5 - Hyperlipidemia , unspecified (8) Gout Current Visit: No Status: Chronic Qualifiers: Gout site: unspecified site Gout etiology: unspecified cause Chronicity: unspecified Qualified Code(s): M10.9 - Gout, unspecified (9) CHF (congestive heart failure) Current Visit: No Status: Chronic Qualifiers: Heart failure type: unspecified Heart failure chronicity: unspecified Qualified Code(s): I50.9 - Heart failure, unspecified (10) PVD (peripheral vascular disease) Current Visit: No Status: Chronic (11) Obesity Current Visit: No Status: Chronic Qualifiers: Obesity type: unspecified obesity type Obesity classification: adult class 2 (BMI 35 - 39.9) Serious obesity comorbidity presence: unspecified whether serious comorbidity present Body mass index: BMI 35.0-35.9 Qualified Code(s) : E66.9 - Obesity, unspecified; Z68.35 - Body mass index (BMI) 35.0-35.9, adult ; Z68.35 - Body mass index (BMI) 35.0-35.9, adult (12) History of left below knee amputation Current Visit: No Status: Chronic (13) Status post right knee replacement Current Visit: Yes Status: Acute Subjective Principal diagnosis: Right total knee replacement. Interval history: Patient is status post Right TKR 08/18/18 with subsequent development of Hospital acquired pna and NSTEMI. Nephro, Cardio, and Hospitalist teams on board. Patient found to have significant wound bleeding since initiation of Heparin drip after concern for NSTEMI developed appx 5 days ago. On exam patient found to be resting on room air. RLE inspection reveals ecchymosis as expected to right knee and leg. Pressure dressing in place. Taken down reveals full saturation and active bleeding to mid incision. Zipline removed, [place] placed which significantly slowed bleeding and Honeycomb placed. Neurovascularly intact. S/w patient's nurse to continue pressure dressing changes Q6 hours if honeycomb becomes 50% saturated. S/w Dr. Metz re: patient's other health conditions to transfer to hospitalist service as primary and he states that is okay. Will change service line assignment. Patient currently on work up for GI causes of anemia. We will sign off at this point, but per Dr. Metz's request will reach out to hospitalist taking over tomorrow to give update and further recommendations. If patient inpatient through end of week, will order xrays of right knee and make dressing recommendations if unable to be seen outpatient this week. Objective Vital signs: Vital Signs Temp Pulse Resp BP Pulse Ox 08/25/17 07:37 97.5 F L 73 19 136/66 98 08/25/17 05:02 97.4 F L 74 16 121/70 92 08/25/17 04:58 96 08/25/17 01:38 98.1 F 76 16 130/73 100 08/24/17 23:01 16 94 08/24/17 20:22 98.1 F 75 16 122/69 100 08/24/17 16:58 18 99 08/24/17 15:37 97.7 F 74 16 114/65 99 08/24/17 11:45 97.2 F L 81 19 130/78 98 08/24/17 11:08 18 99 Intake and Output 08/24/17 08/25/17 08/25/17 23:59 07:59 15:59 Intake Total 340 / 340 1000 / 1000 Balance 340 / 340 1000 / 1000 Intake: IV Fluids 100 / 100 1000 / 1000 Lactated Ringers 1,000 ML @ 75 1000 / 1000 mls/hr IVC .[id number] DAVE Rx#: [id number] Zosyn 3.375 GM In 0.9 % Sodium 100 / 100 Chloride 100 ML @ 25 mls/hr IVPB Q12H DAVE Rx#:[id number] Oral 240 / 240 Other: Meal Dinner Percent of Meal Consumed 70% Blood Glucose* 219 86 - Labs CBC & BMP: 08/25/17 06:31 08/25/17 06:31 Labs: Abnormal lab results RBC 2.59 M/mcL (4.19-5.50) L 08/25/17 06:31 Hgb 7.9 g/dL (12.9-16.9) L 08/25/17 06:31 Hct 24.7 % (37.5-50.1) L 08/25/17 06:31 RDW 14.6 % (11.5-14.5) H 08/25/17 06:31 Immature Gran % 7.1 % (0-4) H 08/24/17 05:58 Nucleated RBCs/100 WBC 0.2 /100 WBC (0) H 08/25/17 06:31 PT 24.4 Seconds (9.4-12.1) H 08/21/17 19:54 APTT 40.5 Seconds (26.0-36.0) H 08/22/17 01:10 ABG pH 7.49 pH Units (7.32-7.45) H 08/20/17 23:02 ABG pO2 56 mmHg (85-104) L 08/20/17 23:02 ABG Total CO2 28 mEq/L (20-26) H 08/20/17 23:02 ABG O2 Saturation 91 % (95-98) L 08/20/17 23:02 Sodium 135 mEq/L (136-145) L 08/25/17 06:31 BUN 58 mg/dL (8-23) H 08/25/17 06:31 Creatinine 7.41 mg/dL (0.70-1.30) H 08/25/17 06:31 Est GFR ( Amer) 9 (> 60) L 08/25/17 06:31 Est GFR (Non-Af Amer) 8 (> 60) L 08/25/17 06:31 POC Glucose 133 (58-89) H 08/24/17 11:51 Calcium 7.7 mg/dL (8.6-10.3) L 08/25/17 06:31 Troponin I 2.09 ng/mL (< 0.04) H* 08/23/17 12:52 B-Natriuretic Peptide 1415 pg/mL (Less than 100) H 08/20/17 21:55 Urine Clarity Cloudy (Clear) A 08/20/17 22:40 Urine Protein 100 mg/dL (Neg-Trace) H 08/20/17 22:40 Urine Blood Large (Negative) H 08/20/17 22:40 Ur Leukocyte Esterase Moderate (Negative) H 08/20/17 22:40 Urine Microscopic RBC TNTC per hpf (0-3) H 08/20/17 22:40 Urine Microscopic WBC 15-30 per hpf (0-3) H 08/20/17 22:40 Ur Culture Indicated? YES (NO) A 08/20/17 22:40 - VTE Documentation of Mechanical Device: Intermittent pneumatic compression device Consult Discharge Plan - Plan Referrals: Isabella Bass, RAND [Physician Car Dropper] - 08/28/17 9:15 am Raimundo Anderson MD [Partnered Physician] - 09/17/17 4:45 pm Mansoor Loaiza MD [Primary Care Provider] - Ranulfo Warren MD [Non-Partnered Physician] - 08/22/17 9:40 am
[2017-08-25] MEDS: predniSONE 20 MG TABLET PO SCH (10:06)
[2017-08-25] MEDS: Aspirin Enteric Coated 81 MG Tablet PO SCH (10:06)
[2017-08-25] MEDS: amLODIPine 5 MG TABLET PO SCH (10:06)
[2017-08-25] MEDS: Metoprolol XL (24 HR) Succ 50 MG TAB.ER.24H PO SCH (10:06)
[2017-08-25] MEDS: Cholecalciferol (D-3) 1,000 UNIT TABLET PO SCH (10:06)
[2017-08-25] MEDS: Isosorbide MONOnitrate (24 HR) 60 MG TAB.ER.24H PO SCH (10:06)
--- NOTE | 2017-08-25 10:06 | Internal Med Progress Note ---
Date of Encounter: 08/25/17 Time of Encounter: 10:03 - Assessment and plan (1) S/P total knee arthroplasty Current Visit: Yes Status: Acute Assessment and plan: This was done on 08/18/2018. Orthopedics is following. We will take over as primary given other medical conditions. Surgical site bleed is managed by orthopedics and angela were applied this morning with control of the bleed Qualifiers: Laterality: right Qualified Code(s): Z96.651 - Presence of right artificial knee joint (2) Elevated troponin Current Visit: No Status: Chronic Assessment and plan: Was being Anticoagulated with eliquis. That has been on hold and heparin was started however that is also now on hold given the drop in hemoglobin. He is currently on aspirin. Also on a statin and beta petrona. Echo is done with an EF of 60%. No significant valvular dysfunction. Cardiology was following but now signed off. No plans on intervention. (3) Acute blood loss as cause of postoperative anemia Current Visit: Yes Status: Acute Assessment and plan: Status post 3 units PRBCs 08/22. Hemoglobin is appropriate this morning. GI is involved and are planning an EGD. check FOBT (4) COPD exacerbation Current Visit: No Status: Chronic Assessment and plan: Change to oral steroids starting today. Continue nebulizers. Wean down oxygen as tolerated. (5) Sepsis Current Visit: Yes Status: Acute Assessment and plan: Patient is no longer tachycardic and tachypneic. Has a source being pneumonia as well and possibly a urinary tract infection. Lactic acid is not elevated. We will continue to treat underlying source as below. Qualifiers: Sepsis type: sepsis due to unspecified organism Qualified Code(s): A41.9 - Sepsis, unspecified organism (6) Hospital acquired PNA Current Visit: Yes Status: Acute Assessment and plan: Abx changed to Levaquin 08/24. Stopped vancomycin and Zosyn. Cultures are negative. wean down oxygen as tolerated. Continue nebulizers. (7) CAD (coronary artery disease) Current Visit: No Status: Acute Assessment and plan: Continue aspirin and statin beta petrona. Qualifiers: Coronary Disease-Associated Artery/Lesion type: [place] artery [place] vs. transplanted heart: [place] heart Associated angina: without angina Qualified Code(s): I25.10 - Atherosclerotic heart disease of [place] coronary artery without angina pectoris (8) CHF (congestive heart failure) Current Visit: No Status: Chronic Assessment and plan: Euvolemic. BNP is chronically elevated. Echo is noted as above. Qualifiers: Heart failure type: unspecified Heart failure chronicity: unspecified Qualified Code(s): I50.9 - Heart failure, unspecified (9) Diabetes mellitus Current Visit: No Status: Chronic Assessment and plan: Continue with insulin sliding scale. Continue with Levemir 20 units nightly. Continue Accu-Cheks. Qualifiers: Diabetes mellitus type: type 2 Diabetes mellitus complication status: with unspecified complications Diabetes mellitus half-way insulin use: with termite exterminator use Qualified Code(s): E11.8 - Type 2 diabetes mellitus with unspecified complications; Z79.4 - laborer marine terminal (current) use of insulin; Z79.4 - long-term ( current) use of insulin; Z79.4 - long-term (current) use of insulin; Z79.4 - long-term (current) use of insulin (10) ESRD (end stage renal disease) on dialysis Current Visit: No Status: Chronic Assessment and plan: Continue dialysis per nephrology. fix K with dialysis today (11) History of DVT (deep vein thrombosis) Current Visit: Yes Status: Acute Assessment and plan: Chronically on eliquis but we are holding that for now as well as any anticoagulation due to a drop in his hemoglobin (12) DVT prophylaxis Current Visit: No Status: Acute Assessment and plan: SCDs - Subjective Interval history: Patient was seen and examined. No acute events. Hemoglobin is 7.9 today and 8.1 yesterday. No signs of bleeding other than at knee surgical site which ortho is aware of and angela were applied this morning. Transfused 3 units with appropriate response in H/H. Seen by GI. The patient troponins continued to elevate and cardiology are involved. Medicine has been consulted regarding shortness breath. Being treated as healthcare associated pneumonia and COPD exacerbation. No chest pain. Afebrile - Constitutional Vitals: Temp Pulse Resp BP Pulse Ox 97.5 F L 73 19 136/66 98 08/25/17 07:37 08/25/17 07:37 08/25/17 07:37 08/25/17 07:37 08/25/17 07:37 General appearance: Present: mild distress, A&O X 3, answers questions appropriately Exam: GEN: NAD CVS: RRR. S1, S2, No m/r/g RESP: Diminished ABD: Soft, NT, ND, +BS EXT: 2+ edema. 2+ DP. No rashes. Left AKA noted. Area of right knee surgery without bleeding around dressing. Angela noted NEURO: Nonfocal Internal Medicine: Result - Labs CBC & Chem 7: 08/25/17 06:31 08/25/17 06:31 Labs: Short CBC 08/25/17 Range/Units 06:31 WBC 10.5 (4.3-11.1) K/mcL Hgb 7.9 L (12.9-16.9) g/dL Hct 24.7 L (37.5-50.1) % Plt Count 166 (140-400) K/mcL Neutrophils # 8.0 (1.6-8.9) K/mcL BMP 08/25/17 06:31 Sodium 135 L Potassium 5.1 Chloride 98 Carbon Dioxide 26 BUN 58 H Creatinine 7.41 H Glucose 84 Calcium 7.7 L Cardiac Enzymes 08/23/17 Range/Units 12:52 Troponin I 2.09 H* (< 0.04) ng/mL - ABG Interpretation ABG results: ABG ABG pH 7.49 pH Units (7.32-7.45) H 08/20/17 23:02 ABG pCO2 35 mmHg (35-45) 08/20/17 23:02 ABG pO2 56 mmHg (85-104) L 08/20/17 23:02 ABG O2 Saturation 91 % (95-98) L 08/20/17 23:02 PT/INR, D-dimer PT 24.4 Seconds (9.4-12.1) H 08/21/17 19:54 - VTE Documentation of Mechanical Device: Intermittent pneumatic compression device Consult Discharge Plan - Plan Referrals: Isabella Bass, RAND [Physician Engineering Designer] - 08/28/17 9:15 am Raimundo Anderson MD [Partnered Physician] - 09/17/17 4:45 pm Mansoor Loaiza MD [Primary Care Provider] - Ranulfo Warren MD [Non-Partnered Physician] - 08/22/17 9:40 am
[2017-08-25] MEDS: Budesonide/Formoterol 160/4.5 MDI IH SCH ×2 (11:22→22:03)
[2017-08-25] MEDS: (Febuxostat [Uloric] 40 MG) PO SCH (11:28)
[2017-08-25] MEDS ORDERED: *HR* Midazolam HCl 5 MG/5 ML VIAL IVP ONE (18:26)
[2017-08-25] MEDS ORDERED: *HR* FentaNYL (PF) 100 MCG/2 ML VIAL ONE (18:26)
[2017-08-25] MEDS ORDERED: *HR* Midazolam HCl 2 MG/2 ML VIAL IVP ONE (18:46)
[2017-08-25] MEDS ORDERED: *HR* FentaNYL (PF) 100 MCG/2 ML VIAL IVP ONE (18:46)
[2017-08-25] MEDS ORDERED: Simethicone 40 MG/0.6 ML MLS IR ONE (18:46)
[2017-08-25] MEDS ORDERED: Tetracaine/Benzocaine/Butamben 200MG/SPRAY (100SPY/BOT) MM ONE (18:46)
--- NOTE | 2017-08-25 18:47 | Pre-Sedation Evaluation ---
Pre-sedation evaluation - Pre-sedation checklist Date of procedure: 08/18/17 Procedure: EGD Recent Vitals: Last Vital Signs Temp 98.1 F 08/25/17 16:06 Pulse 78 08/25/17 16:06 Resp 18 08/25/17 16:58 BP 138/74 08/25/17 16:06 Pulse Ox 95 08/25/17 16:58 H&P (including ROS) documented in medical record: Yes Previous reaction to sedatives/anesthetics: No Dietary Status: NPO after Midnight Dentition: No loose teeth or bridges ASA Classification *see protocol: CLASS III-Severe systemic disease Plan of Care: Pt appropriate candidate for procedure/moderate/conscious sedation , Risks/benefits of procedure/sedation discussed w/ patient/family
[2017-08-25] MEDS: Insulin DETEMIR 100 UNIT/ML X5UNITS SQ SCH (21:02)
[2017-08-26 03:31] LABS: Hematocrit 26.4 % (37.5-50.1); Hemoglobin 8.4 g/dL (12.9-16.9)
[2017-08-26 03:40] LABS: Mean Corpuscular HGB Conc 32.4 g/dL (31.6-35.5); Mean Corpuscular Hemoglobin 30.9 pg (28.0-33.3); Mean Corpuscular Volume 95.3 fL (83.0-100.0); Mean Platelet Volume 9.3 fL (9.4-12.4); Platelet Count 214 K/mcL (140-400); Red Blood Count 2.75 M/mcL (4.19-5.50); Red Cell Distribution Width 14.5 % (11.5-14.5)
[2017-08-26 03:50] LABS: INR 1.2; Prothrombin Time 13.3 Seconds (9.4-12.1)
[2017-08-26 04:03] LABS: Lymphocytes # 1.1 K/mcL (0.6-4.6); Neutrophils # 12.4 K/mcL (1.6-8.9); Platelet Estimate Normal (Normal)
[2017-08-26 04:16] LABS: Calcium 7.9 mg/dL (8.6-10.3)
[2017-08-26] MEDS: Ipratropium/Albuterol Neb 3 ML IH SCH ×4 (04:20→22:34)
[2017-08-26] MEDS: Pantoprazole 40 MG VIAL IVP SCH (05:04)
[2017-08-26] MEDS: *HR* OxyCODONE Immed Rel 5 MG TABLET PO PRN ×2 (05:05→22:37)
[2017-08-26] MEDS ORDERED: 0.9 % Sodium Chloride 250 ML IVC PRN (08:02)
--- NOTE | 2017-08-26 08:02 | Nephrology Progress Note ---
Date of Encounter: 08/26/17 Time of Encounter: 08:00 - Assessment and Plan (1) ESRD (end stage renal disease) on dialysis Current Visit: No Status: Chronic Patient will undergo dialysis today. He will be maintained on Aranesp for his anemia. I think we can stop the maintenance IV fluids. Blood pressure is stable. (2) End stage renal disease on dialysis due to type 2 diabetes mellitus Current Visit: No Status: Acute (3) Status post right knee replacement Current Visit: Yes Status: Acute Subjective Principal diagnosis: Right total knee replacement. Interval history: Patient reports no new complaints. He denies any shortness of breath. He says his appetite is okay. He is scheduled for his usual dialysis today. EGD results of been reviewed. Objective - Vital Signs Vital signs: Vital Signs Temp Pulse Resp BP Pulse Ox 08/26/17 07:22 98.0 F 84 17 141/78 84 08/26/17 04:53 97.8 F 87 20 128/70 94 08/26/17 00:48 98.0 F 91 18 130/73 96 08/25/17 22:06 18 96 08/25/17 20:28 98.0 F 92 18 143/74 97 08/25/17 18:53 83 18 133/81 98 08/25/17 18:46 97.8 F 81 18 144/87 97 08/25/17 16:58 18 95 08/25/17 16:06 98.1 F 78 16 138/74 95 08/25/17 11:23 16 95 08/25/17 10:58 97.9 F 75 17 138/76 95 Intake and Output 08/25/17 08/26/17 08/26/17 23:59 07:59 15:59 Intake Total 340 / 340 0 / 0 Output Total 300 / 300 0 / 0 Balance 40 / 40 0 / 0 Intake: IV Fluids 100 / 100 Lactated Ringers 1,000 ML @ 75 0 / 0 mls/hr IVC .[id number] [facility] Rx#: [id number] Zosyn 3.375 GM In 0.9 % Sodium 100 / 100 Chloride 100 ML @ 25 mls/hr IVPB Q12HR [facility] Rx#:[id number] Oral 240 / 240 0 / 0 Output: Urine 300 / 300 0 / 0 Other: Meal meatloaf meal, turkey sandwich Percent of Meal Consumed 90% Weight 157 kg Blood Glucose* 98 189 Patient Weight 08/26/17 23:59 Weight 157 kg - General Appearance Exam: Patient is alert and oriented. He is in no acute distress. Lungs essentially clear to auscultation anteriorly. Heart regular rate and rhythm with a 2/6 systolic ejection murmur. Abdomen is benign. Patient is status post left BKA. Right lower extremity shows 3+ edema. There is a functioning AV fistula in the right upper extremity. - Lab 08/26/17 03:16 08/26/17 03:16 Most recent lab results ABG pH 7.49 pH Units (7.32-7.45) H 08/20/17 23:02 ABG pCO2 35 mmHg (35-45) 08/20/17 23:02 ABG pO2 56 mmHg (85-104) L 08/20/17 23:02 ABG HCO3 26 mEq/L (21-27) 08/20/17 23:02 ABG O2 Saturation 91 % (95-98) L 08/20/17 23:02 Calcium 7.9 mg/dL (8.6-10.3) L 08/26/17 03:16 - VTE Documentation of Mechanical Device: Venous foot pump, device Consult Discharge Plan - Plan Referrals: Isabella Bass PAC [Physician Manager Consumer] - 08/28/17 9:15 am Raimundo Anderson MD [Partnered Physician] - 09/17/17 4:45 pm Mansoor Loaiza MD [Primary Care Provider] - Ranulfo Warren MD [Non-Partnered Physician] - 08/22/17 9:40 am
[2017-08-26] MEDS ORDERED: Darbepoetin 100 MCG/0.5 ML SYRINGE SQ SCH (08:15)
[2017-08-26] MEDS ORDERED: 0.9 % Sodium Chloride 2,000 ML ONE (08:34)
--- NOTE | 2017-08-26 08:36 | Orthopedics Progress Note ---
Date of Encounter: 08/26/17 Time of Encounter: 08:15 - Assessment and Plan (1) Osteoarthritis of right knee Current Visit: Yes Status: Chronic Qualifiers: Osteoarthritis type: unspecified Qualified Code(s): M17.11 - Unilateral primary osteoarthritis, right knee (2) HTN (hypertension) Current Visit: No Status: Chronic Qualifiers: Hypertension type: unspecified Qualified Code(s): I10 - Essential (primary ) hypertension (3) Diabetes mellitus Current Visit: No Status: Chronic Qualifiers: Diabetes mellitus type: type 2 Diabetes mellitus complication status: with unspecified complications Diabetes mellitus group home insulin use: with oysterman use Qualified Code(s): E11.8 - Type 2 diabetes mellitus with unspecified complications; Z79.4 - skilled nursing (current) use of insulin; Z79.4 - skilled nursing ( current) use of insulin; Z79.4 - skilled nursing (current) use of insulin; Z79.4 - lobsterman (current) use of insulin (4) CAD (coronary artery disease) Current Visit: No Status: Chronic Qualifiers: Coronary Disease-Associated Artery/Lesion type: unspecified vessel or lesion type [place] vs. transplanted heart: [place] heart Associated angina: without angina Qualified Code(s): I25.10 - Atherosclerotic heart disease of [place] coronary artery without angina pectoris (5) lobsterman current use of anticoagulant Current Visit: No Status: Chronic (6) ESRD (end stage renal disease) on dialysis Current Visit: No Status: Chronic (7) HLD (hyperlipidemia) Current Visit: No Status: Chronic Qualifiers: Hyperlipidemia type: unspecified Qualified Code(s): E78.5 - Hyperlipidemia , unspecified (8) Gout Current Visit: No Status: Chronic Qualifiers: Gout site: unspecified site Gout etiology: unspecified cause Chronicity: unspecified Qualified Code(s): M10.9 - Gout, unspecified (9) CHF (congestive heart failure) Current Visit: No Status: Chronic Qualifiers: Heart failure type: unspecified Heart failure chronicity: unspecified Qualified Code(s): I50.9 - Heart failure, unspecified (10) PVD (peripheral vascular disease) Current Visit: No Status: Chronic (11) Obesity Current Visit: No Status: Chronic Qualifiers: Obesity type: unspecified obesity type Obesity classification: adult class 2 (BMI 35 - 39.9) Serious obesity comorbidity presence: unspecified whether serious comorbidity present Body mass index: BMI 35.0-35.9 Qualified Code(s) : E66.9 - Obesity, unspecified; Z68.35 - Body mass index (BMI) 35.0-35.9, adult ; Z68.35 - Body mass index (BMI) 35.0-35.9, adult (12) History of left below knee amputation Current Visit: No Status: Chronic (13) Status post right knee replacement Current Visit: Yes Status: Acute Subjective Principal diagnosis: Right total knee replacement. Interval history: Patient is status post Right TKR 08/18/18 with subsequent development of Hospital acquired pna and NSTEMI. Nephro, Cardio, and Hospitalist teams on board. Patient found to have significant wound bleeding since initiation of Heparin drip after concern for NSTEMI developed appx 5 days ago. On exam patient found to be resting on room air. RLE inspection reveals ecchymosis as expected to right knee and leg - gradual improvement from yesterday. Pressure dressing in place over honeycomb. [place] saturated. No active bleeding noted. [place] intact. Motion intact. Neurovascularly intact. S/w patient's nurse to continue pressure dressing changes Q6 hours. Patient currently on work up with GI. Will continue to follow given incisional bleeding. Likely secondary to anticoagulation. Objective Vital signs: Vital Signs Temp Pulse Resp BP Pulse Ox 08/26/17 07:22 98.0 F 84 17 141/78 84 08/26/17 04:53 97.8 F 87 20 128/70 94 08/26/17 00:48 98.0 F 91 18 130/73 96 08/25/17 22:06 18 96 08/25/17 20:28 98.0 F 92 18 143/74 97 08/25/17 18:53 83 18 133/81 98 08/25/17 18:46 97.8 F 81 18 144/87 97 08/25/17 16:58 18 95 08/25/17 16:06 98.1 F 78 16 138/74 95 08/25/17 11:23 16 95 08/25/17 10:58 97.9 F 75 17 138/76 95 Intake and Output 08/25/17 08/26/17 08/26/17 23:59 07:59 15:59 Intake Total 340 / 340 0 / 0 Output Total 300 / 300 0 / 0 Balance 40 / 40 0 / 0 Intake: IV Fluids 100 / 100 Lactated Ringers 1,000 ML @ 75 0 / 0 mls/hr IVC .[id number] [facility] Rx#: [id number] Zosyn 3.375 GM In 0.9 % Sodium 100 / 100 Chloride 100 ML @ 25 mls/hr IVPB Q12HR [facility] Rx#:[id number] Oral 240 / 240 0 / 0 Output: Urine 300 / 300 0 / 0 Other: Meal meatloaf meal, turkey sandwich Percent of Meal Consumed 90% Weight 157 kg Blood Glucose* 98 189 Patient Weight 08/26/17 23:59 Weight 157 kg - Labs CBC & BMP: 08/26/17 03:16 08/26/17 03:16 Labs: Abnormal lab results WBC 14.1 K/mcL (4.3-11.1) H 08/26/17 03:16 RBC 2.75 M/mcL (4.19-5.50) L 08/26/17 03:16 Hgb 8.4 g/dL (12.9-16.9) L 08/26/17 03:16 Hct 26.4 % (37.5-50.1) L 08/26/17 03:16 MPV 9.3 fL (9.4-12.4) L 08/26/17 03:16 Metamyelocytes % 2.0 % (0) H 08/26/17 03:16 Myelocytes % 2.0 % (0) H 08/26/17 03:16 Neutrophils # 12.4 K/mcL (1.6-8.9) H 08/26/17 03:16 Nucleated RBCs/100 WBC 0.2 /100 WBC (0) H 08/25/17 06:31 PT 13.3 Seconds (9.4-12.1) H 08/26/17 03:16 APTT 40.5 Seconds (26.0-36.0) H 08/22/17 01:10 ABG pH 7.49 pH Units (7.32-7.45) H 08/20/17 23:02 ABG pO2 56 mmHg (85-104) L 08/20/17 23:02 ABG Total CO2 28 mEq/L (20-26) H 08/20/17 23:02 ABG O2 Saturation 91 % (95-98) L 08/20/17 23:02 Sodium 133 mEq/L (136-145) L 08/26/17 03:16 Potassium 6.0 mEq/L (3.5-5.1) H 08/26/17 03:16 Chloride 96 mEq/L (98-107) L 08/26/17 03:16 BUN 68 mg/dL (8-23) H 08/26/17 03:16 Creatinine 8.45 mg/dL (0.70-1.30) H 08/26/17 03:16 Est GFR ( Amer) 8 (> 60) L 08/26/17 03:16 Est GFR (Non-Af Amer) 6 (> 60) L 08/26/17 03:16 Glucose 157 mg/dL (70-105) H 08/26/17 03:16 POC Glucose 90 (58-89) H 08/25/17 16:02 Calcium 7.9 mg/dL (8.6-10.3) L 08/26/17 03:16 Troponin I 2.09 ng/mL (< 0.04) H* 08/23/17 12:52 B-Natriuretic Peptide 1415 pg/mL (Less than 100) H 08/20/17 21:55 Urine Clarity Cloudy (Clear) A 08/20/17 22:40 Urine Protein 100 mg/dL (Neg-Trace) H 08/20/17 22:40 Urine Blood Large (Negative) H 08/20/17 22:40 Ur Leukocyte Esterase Moderate (Negative) H 08/20/17 22:40 Urine Microscopic RBC TNTC per hpf (0-3) H 08/20/17 22:40 Urine Microscopic WBC 15-30 per hpf (0-3) H 08/20/17 22:40 Ur Culture Indicated? YES (NO) A 08/20/17 22:40 - VTE Documentation of Mechanical Device: Venous foot pump, device Consult Discharge Plan - Plan Referrals: Isabella Bass PAC [Physician Customer Program Specialist] - 08/28/17 9:15 am Raimundo Anderson MD [Partnered Physician] - 09/17/17 4:45 pm Mansoor Loaiza MD [Primary Care Provider] - Ranulfo Warren MD [Non-Partnered Physician] - 08/22/17 9:40 am
[2017-08-26] MEDS: Metoprolol XL (24 HR) Succ 50 MG TAB.ER.24H PO SCH (08:48)
[2017-08-26] MEDS: predniSONE 20 MG TABLET PO SCH (08:48)
[2017-08-26] MEDS: Isosorbide MONOnitrate (24 HR) 60 MG TAB.ER.24H PO SCH (08:48)
[2017-08-26] MEDS: Cholecalciferol (D-3) 1,000 UNIT TABLET PO SCH (08:48)
[2017-08-26] MEDS: Aspirin Enteric Coated 81 MG Tablet PO SCH (08:49)
[2017-08-26] MEDS: amLODIPine 5 MG TABLET PO SCH (08:49)
--- NOTE | 2017-08-26 08:50 | Internal Med Progress Note ---
Date of Encounter: 08/26/17 Time of Encounter: 08:50 - Assessment and plan (1) Pneumonia Current Visit: Yes Status: Suspected Assessment and plan: Pt with pneumonia. Postoperative R TKA. Will continue abx as ordered as he seems to be slowly improving. Qualifiers: Pneumonia type: due to other aerobic Gram-negative bacteria Laterality: right Lung location: lower lobe of lung Qualified Code(s): J15.6 - Pneumonia due to other Gram-negative bacteria (2) COPD exacerbation Current Visit: No Status: Acute Assessment and plan: Currently doing OK on oral steroids. (3) Sepsis Current Visit: Yes Status: Resolved Assessment and plan: Resolved. Due to pneumonia/UTI. Qualifiers: Sepsis type: sepsis due to unspecified organism Qualified Code(s): A41.9 - Sepsis, unspecified organism (4) UTI (urinary tract infection) Current Visit: Yes Status: Acute Assessment and plan: Completing course of abx. Qualifiers: Urinary tract infection type: acute cystitis Hematuria presence: without hematuria Qualified Code(s): N30.00 - Acute cystitis without hematuria (5) Acute blood loss as cause of postoperative anemia Current Visit: Yes Status: Acute Assessment and plan: Status post 3 units PRBCs 08/22. Hemoglobin stable today but continues to bleed from knee incision. Managment per ortho service. (6) NSTEMI (non-ST elevated myocardial infarction) Current Visit: Yes Status: Resolved Assessment and plan: Medical management at this time. Asymptomatic. (7) CAD (coronary artery disease) Current Visit: No Status: Chronic Assessment and plan: Continue aspirin and statin beta [place]. Qualifiers: Coronary Disease-Associated Artery/Lesion type: [place] artery [place] vs. transplanted heart: [place] heart Associated angina: without angina Qualified Code(s): I25.10 - Atherosclerotic heart disease of [place] coronary artery without angina pectoris (8) Atrial fibrillation Current Visit: No Status: Chronic Assessment and plan: Chronic issue. Qualifiers: Atrial fibrillation type: paroxysmal Qualified Code(s): I48.0 - Paroxysmal atrial fibrillation (9) Diabetes mellitus Current Visit: No Status: Chronic Assessment and plan: Continue with insulin sliding scale. Continue with Levemir 20 units nightly. Continue Accu-Cheks. Qualifiers: Diabetes mellitus type: type 2 Diabetes mellitus complication status: with kidney complications Diabetes mellitus complication detail: with chronic kidney disease Diabetes mellitus bed bug exterminator insulin use: with bed bug exterminator use Chronic kidney disease stage: on chronic dialysis Qualified Code(s): E11.22 - Type 2 diabetes mellitus with diabetic chronic kidney disease; N18.6 - End stage renal disease; N18.6 - End stage renal disease; N18.6 - End stage renal disease; N18.6 - End stage renal disease; Z79.4 - MCC (current) use of insulin; Z79.4 - MCC (current) use of insulin; Z79.4 - MCC (current ) use of insulin; Z79.4 - MCC (current) use of insulin; Z99.2 - Dependence on renal dialysis; Z99.2 - Dependence on renal dialysis; Z99.2 - Dependence on renal dialysis; Z99.2 - Dependence on renal dialysis (10) HTN (hypertension) Current Visit: No Status: Chronic Assessment and plan: Chronic issue. Qualifiers: Hypertension type: essential hypertension Qualified Code(s): I10 - Essential (primary) hypertension - Subjective Interval history: Mr Barcenas is currently admitted for acute NSTEMI as well as bleeding from OR site. He remains moderate to high risk due to potential for worsening clinical status. Mr Barcenas feels OK but his knee is still bleeding. Dressing changed to pressure dressing today. No fever or chills. To have dialysis today. Appetite OK. - Constitutional Vitals: Temp Pulse Resp BP Pulse Ox 98.0 F 84 17 141/78 84 08/26/17 07:22 08/26/17 07:22 08/26/17 07:22 08/26/17 07:22 08/26/17 07:22 General appearance: Present: A&O X 3, answers questions appropriately - Head Head exam: Present: atraumatic, normocephalic - Eye Eye exam: Present: conjuntiva pink - ENT ENT exam: Present: mucous membranes dry - Respiratory Respiratory exam: Present: decreased breath sounds. Absent: rales, rhonchi, wheezes - Cardiovascular Cardiovascular exam: Present: RRR. Absent: tachycardia - GI/Abdominal GI/Abdominal exam: Present: soft. Absent: tenderness - Extremities Exam Extremities exam: Present: warm Additional comments: Bleeding noted from incision on R knee. Some edema noted. L BKA - Neurological Exam Neurological exam: Present: alert, oriented X3 - Skin Skin exam: Present: warm. Absent: rash Internal Medicine: Result - Labs CBC & Chem 7: 08/26/17 03:16 08/26/17 03:16 Labs: Short CBC 08/26/17 Range/Units 03:16 WBC 14.1 H (4.3-11.1) K/mcL Hgb 8.4 L (12.9-16.9) g/dL Hct 26.4 L (37.5-50.1) % Plt Count 214 (140-400) K/mcL Neutrophils # 12.4 H (1.6-8.9) K/mcL BMP 08/26/17 03:16 Sodium 133 L Potassium 6.0 H Chloride 96 L Carbon Dioxide 23 BUN 68 H Creatinine 8.45 H Glucose 157 H Calcium 7.9 L - ABG Interpretation ABG results: ABG ABG pH 7.49 pH Units (7.32-7.45) H 08/20/17 23:02 ABG pCO2 35 mmHg (35-45) 08/20/17 23:02 ABG pO2 56 mmHg (85-104) L 08/20/17 23:02 ABG O2 Saturation 91 % (95-98) L 08/20/17 23:02 PT/INR, D-dimer PT 13.3 Seconds (9.4-12.1) H 08/26/17 03:16 - VTE Documentation of Mechanical Device: Venous foot pump, device Consult Discharge Plan - Plan Referrals: Isabella Bass PAC [Physician Mold Puller] - 08/28/17 9:15 am Raimundo Anderson MD [Partnered Physician] - 09/17/17 4:45 pm Mansoor Loaiza MD [Primary Care Provider] - Ranulfo Warren MD [Non-Partnered Physician] - 08/22/17 9:40 am
[2017-08-26] MEDS: Insulin LISPRO 300 UNITS/3 ML VIAL SQ SCH ×4 (08:51→21:55)
[2017-08-26] MEDS: Budesonide/Formoterol 160/4.5 MDI IH SCH ×2 (11:30→22:34)
--- NOTE | 2017-08-26 11:31 | Event Note ---
Date of Encounter: 08/26/17 Time of Encounter: 11:30 Notified nursing staff of wound care orders that are in place as well as patient needing to be in knee immobilizer and no knee motion, including with therapy for now.
[2017-08-26] MEDS: levoFLOXacin 500 MG TABLET PO SCH (14:01)
--- NOTE | 2017-08-26 16:27 | Event Note ---
Date of Encounter: 08/26/17 Time of Encounter: 16:00 status post Right TKR 08/18/18 with subsequent development of Hospital acquired pna and NSTEMI. Nephro, Cardio, and Hospitalist teams on board. Patient still having continued bleeding despite pressure dressings. Incision cleaned and added 2 more catie today to middle of incision. bleeding did immediately stop and no active bleeding noted for several minutes afterwards. Reapplied pressure dressing and knee immobilizer. Continue no knee flexion until incision healed more. Continue to ice and elevate.
[2017-08-26] MEDS ORDERED: Vancomycin 500 MG in 0.9 % Sodium Chloride Mini Bag 100 ML IVPB ONE (18:00)
[2017-08-26] MEDS: Insulin DETEMIR 100 UNIT/ML X5UNITS SQ SCH (22:37)
--- NOTE | 2017-08-27 02:02 | Electrocardiograph Report ---
[address] [place], [place] [address] Test Date: 2017-08-20 Pat Name: Benigno Barcenas Department: 114 Room: 2A71 Gender: M Handy Man: : 1955 Requested By: Dara Tracey Order Number: [id number] Reading MD: Ratna Fisher Measurements Intervals [place] Rate: 117 P: 184 KS: 138 QRS: 17 QRSD: 128 T: 142 QT: 318 QTc: 388 Interpretive Statements SINUS TACHYCARDIA INFERIOR MYOCARDIAL INFARCTION, PROBABLY OLD MODERATE T-WAVE ABNORMALITY, CONSIDER LATERAL ISCHEMIA Electronically Signed On 08-27-2017 2:00:53 EST by Ratna Fisher
[2017-08-27] MEDS: Ipratropium/Albuterol Neb 3 ML IH SCH ×4 (03:51→23:05)
[2017-08-27] MEDS: Metoprolol XL (24 HR) Succ 50 MG TAB.ER.24H PO SCH (08:26)
[2017-08-27] MEDS: Cholecalciferol (D-3) 1,000 UNIT TABLET PO SCH (08:26)
[2017-08-27] MEDS: Aspirin Enteric Coated 81 MG Tablet PO SCH (08:26)
[2017-08-27] MEDS: Isosorbide MONOnitrate (24 HR) 60 MG TAB.ER.24H PO SCH (08:26)
[2017-08-27] MEDS: predniSONE 20 MG TABLET PO SCH (08:26)
[2017-08-27] MEDS: amLODIPine 5 MG TABLET PO SCH (08:27)
[2017-08-27] MEDS: Insulin LISPRO 300 UNITS/3 ML VIAL SQ SCH ×4 (08:27→20:28)
[2017-08-27 08:39] LABS: Hematocrit 24.5 % (37.5-50.1); Hemoglobin 7.9 g/dL (12.9-16.9); Mean Corpuscular HGB Conc 32.2 g/dL (31.6-35.5); Mean Corpuscular Hemoglobin 30.4 pg (28.0-33.3); Mean Corpuscular Volume 94.2 fL (83.0-100.0); Mean Platelet Volume 9.3 fL (9.4-12.4); Platelet Count 188 K/mcL (140-400); Red Cell Distribution Width 14.9 % (11.5-14.5)
[2017-08-27] MEDS: *HR* OxyCODONE Immed Rel 5 MG TABLET PO PRN ×2 (08:42→23:21)
--- NOTE | 2017-08-27 08:50 | Nephrology Progress Note ---
Date of Encounter: 08/27/17 Time of Encounter: 08:35 - Assessment and Plan (1) ESRD (end stage renal disease) on dialysis Current Visit: No Status: Chronic S/P right knee replacement. NSTEMI in setting of anemia. Hgb 7.9. ESRD- No HD today, keeping TTS schedule. Subjective Principal diagnosis: Right total knee replacement. Interval history: Sitting up in bed, denies chest pain. Objective - Vital Signs Vital signs: Vital Signs Temp Pulse Resp BP Pulse Ox 08/27/17 07:35 97.8 F 77 16 138/70 97 08/27/17 03:15 97.8 F 81 18 131/72 95 08/27/17 01:12 97.9 F 71 18 116/69 96 08/26/17 22:34 16 98 08/26/17 22:16 92 08/26/17 19:05 98.1 F 89 18 117/69 92 08/26/17 16:41 18 91 08/26/17 15:54 97.3 F L 87 17 115/78 92 08/26/17 13:26 97.6 F 18 128/70 08/26/17 12:50 128/70 08/26/17 12:45 134/65 08/26/17 12:30 145/73 08/26/17 12:15 160/95 08/26/17 12:00 157/85 08/26/17 11:45 163/89 08/26/17 11:30 173/93 08/26/17 11:15 171/89 08/26/17 11:00 154/91 08/26/17 10:45 156/78 08/26/17 10:30 160/87 08/26/17 10:15 174/89 08/26/17 10:00 168/88 08/26/17 09:45 171/89 08/26/17 09:30 180/82 08/26/17 09:15 98.1 F 18 170/88 08/26/17 08:57 141/78 Intake and Output 08/26/17 08/27/17 08/27/17 23:59 07:59 15:59 Intake Total 340 / 340 Output Total 480 / 480 Balance 340 / 340 -480 / -480 Intake: IV Fluids 100 / 100 Zosyn 3.375 GM In 0.9 % Sodium 100 / 100 Chloride 100 ML @ 25 mls/hr IVPB Q12HR [facility] Rx#:[id number] Oral 240 / 240 Output: Urine 480 / 480 Other: Meal Dinner Percent of Meal Consumed 100% Weight 157 kg Blood Glucose* 242 80 Patient Weight 08/27/17 23:59 Weight 157 kg - General Appearance General appearance: Present: well-developed, well-nourished, appears started age , obese Neck: Present: no JVD Respiratory: Present: clear Cardiology: Present: edema, regular rate, regular rhythm Additional Comments: 1+swelling R pedal, leg in immobilizer, left BKA Gastrointestinal: Present: normoactive bowel sounds, no tenderness Integumentary: Present: warm and dry Neurologic: Present: alert and oriented x3 - Lab 08/27/17 07:55 08/26/17 03:16 Most recent lab results ABG pH 7.49 pH Units (7.32-7.45) H 08/20/17 23:02 ABG pCO2 35 mmHg (35-45) 08/20/17 23:02 ABG pO2 56 mmHg (85-104) L 08/20/17 23:02 ABG HCO3 26 mEq/L (21-27) 08/20/17 23:02 ABG O2 Saturation 91 % (95-98) L 08/20/17 23:02 Calcium 7.9 mg/dL (8.6-10.3) L 08/26/17 03:16 - VTE Documentation of Mechanical Device: Venous foot pump, device Consult Discharge Plan - Plan Referrals: Isabella Bass, RAND [Physician Reservoir Engineering Consultant] - 08/28/17 9:15 am Raimundo Anderson MD [Partnered Physician] - 09/17/17 4:45 pm Mansoor Loaiza MD [Primary Care Provider] - Ranulfo Warren MD [Non-Partnered Physician] - 08/22/17 9:40 am
[2017-08-27 08:56] LABS: Calcium 7.9 mg/dL (8.6-10.3); Potassium 4.8 mEq/L (3.5-5.1)
[2017-08-27] MEDS: Budesonide/Formoterol 160/4.5 MDI IH SCH ×2 (10:53→23:06)
[2017-08-27] MEDS ORDERED: Aminoglycoside Consult 1 EACH MC ONE (11:52)
--- NOTE | 2017-08-27 12:44 | Orthopedics Progress Note ---
Date of Encounter: 08/27/17 Time of Encounter: 12:10 Subjective Principal diagnosis: Right total knee replacement. Interval history: Patient is status post Right TKR 08/18/18 with subsequent development of Hospital acquired pna and NSTEMI. Nephro, Cardio, and Hospitalist teams on board. Patient found to have significant wound bleeding since initiation of Heparin drip after concern for NSTEMI developed appx 5 days ago. On exam incision c/d/i with no active bleeding but there is a quarter sized area of bleeding on dressings. [place] intact. No calf tenderness to palpation. Pressure dressings reapplied. Patient resting comfortably in bed. Grossly [place] intact. Continue pressure dressing changes as needed per drainage. Since patient is now POD#9 will order xrays of right knee to check hardware placement. Spoke with hospitalist, plan for DC to [facility]CF tomorrow. Will continue to follow given incisional bleeding. Likely secondary to anticoagulation. Has significantly decreased compared to yesterday Will follow up in [facility] office in 1 week. Will fax appt card to floor. Objective Vital signs: Vital Signs Temp Pulse Resp BP Pulse Ox 08/27/17 11:31 98.0 F 79 17 127/71 95 08/27/17 10:53 16 96 08/27/17 08:44 97 08/27/17 07:35 97.8 F 77 16 138/70 97 08/27/17 03:15 97.8 F 81 18 131/72 95 08/27/17 01:12 97.9 F 71 18 116/69 96 08/26/17 22:34 16 98 08/26/17 22:16 92 08/26/17 19:05 98.1 F 89 18 117/69 92 08/26/17 16:41 18 91 08/26/17 15:54 97.3 F L 87 17 115/78 92 08/26/17 13:26 97.6 F 18 128/70 08/26/17 12:50 128/70 08/26/17 12:45 134/65 Intake and Output 08/26/17 08/27/17 08/27/17 23:59 07:59 15:59 Intake Total 340 / 340 Output Total 480 / 480 Balance 340 / 340 -480 / -480 Intake: IV Fluids 100 / 100 Zosyn 3.375 GM In 0.9 % Sodium 100 / 100 Chloride 100 ML @ 25 mls/hr IVPB Q12HR [facility] Rx#:[id number] Oral 240 / 240 Output: Urine 480 / 480 Other: Meal Dinner Breakfast Percent of Meal Consumed 100% 100% Weight 157 kg Blood Glucose* 242 80 101 Patient Weight 08/27/17 23:59 Weight 157 kg - Labs CBC & BMP: 08/27/17 07:55 08/27/17 07:55 Labs: Abnormal lab results WBC 13.3 K/mcL (4.3-11.1) H 08/27/17 07:55 RBC 2.60 M/mcL (4.19-5.50) L 08/27/17 07:55 Hgb 7.9 g/dL (12.9-16.9) L 08/27/17 07:55 Hct 24.5 % (37.5-50.1) L 08/27/17 07:55 RDW 14.9 % (11.5-14.5) H 08/27/17 07:55 MPV 9.3 fL (9.4-12.4) L 08/27/17 07:55 Metamyelocytes % 2.0 % (0) H 08/26/17 03:16 Myelocytes % 2.0 % (0) H 08/26/17 03:16 Neutrophils # 12.4 K/mcL (1.6-8.9) H 08/26/17 03:16 Nucleated RBCs/100 WBC 0.2 /100 WBC (0) H 08/25/17 06:31 PT 13.3 Seconds (9.4-12.1) H 08/26/17 03:16 APTT 40.5 Seconds (26.0-36.0) H 08/22/17 01:10 ABG pH 7.49 pH Units (7.32-7.45) H 08/20/17 23:02 ABG pO2 56 mmHg (85-104) L 08/20/17 23:02 ABG Total CO2 28 mEq/L (20-26) H 08/20/17 23:02 ABG O2 Saturation 91 % (95-98) L 08/20/17 23:02 BUN 49 mg/dL (8-23) H 08/27/17 07:55 Creatinine 6.21 mg/dL (0.70-1.30) H 08/27/17 07:55 Est GFR ( Amer) 11 (> 60) L 08/27/17 07:55 Est GFR (Non-Af Amer) 9 (> 60) L 08/27/17 07:55 POC Glucose 208 (58-89) H 08/26/17 16:03 Calcium 7.9 mg/dL (8.6-10.3) L 08/27/17 07:55 Troponin I 2.09 ng/mL (< 0.04) H* 08/23/17 12:52 B-Natriuretic Peptide 1415 pg/mL (Less than 100) H 08/20/17 21:55 Urine Clarity Cloudy (Clear) A 08/20/17 22:40 Urine Protein 100 mg/dL (Neg-Trace) H 08/20/17 22:40 Urine Blood Large (Negative) H 08/20/17 22:40 Ur Leukocyte Esterase Moderate (Negative) H 08/20/17 22:40 Urine Microscopic RBC TNTC per hpf (0-3) H 08/20/17 22:40 Urine Microscopic WBC 15-30 per hpf (0-3) H 08/20/17 22:40 Ur Culture Indicated? YES (NO) A 08/20/17 22:40 - VTE Documentation of Mechanical Device: Venous foot pump, device Consult Discharge Plan - Plan Referrals: Isabella Bass PAC [Physician Insurance Legal Assistant] - 08/28/17 9:15 am Raimundo Anderson MD [Partnered Physician] - 09/17/17 4:45 pm Mansoor Loaiza MD [Primary Care Provider] - Ranulfo Warren MD [Non-Partnered Physician] - 08/22/17 9:40 am
--- NOTE | 2017-08-27 15:26 | Internal Med Progress Note ---
Date of Encounter: 08/27/17 Time of Encounter: 15:26 - Assessment and plan (1) Pneumonia Current Visit: Yes Status: Suspected Assessment and plan: Continues to slowly improve. Will complete course of abx. Qualifiers: Pneumonia type: due to other aerobic Gram-negative bacteria Laterality: right Lung location: lower lobe of lung Qualified Code(s): J15.6 - Pneumonia due to other Gram-negative bacteria (2) COPD exacerbation Current Visit: No Status: Acute Assessment and plan: Currently doing OK on oral steroids. Will taper some at this time. (3) Sepsis Current Visit: Yes Status: Resolved Qualifiers: Sepsis type: sepsis due to unspecified organism Qualified Code(s): A41.9 - Sepsis, unspecified organism (4) UTI (urinary tract infection) Current Visit: Yes Status: Acute Assessment and plan: Completing course of abx. Qualifiers: Urinary tract infection type: acute cystitis Hematuria presence: without hematuria Qualified Code(s): N30.00 - Acute cystitis without hematuria (5) Acute blood loss as cause of postoperative anemia Current Visit: Yes Status: Acute Assessment and plan: Hemoglobin has decreased some. Will recheck tomorrow and anticipate transfusion if needed (had NSTEMI with anemia). (6) NSTEMI (non-ST elevated myocardial infarction) Current Visit: Yes Status: Resolved Assessment and plan: Medical management at this time. Asymptomatic. (7) CAD (coronary artery disease) Current Visit: No Status: Chronic Assessment and plan: Continue aspirin and statin beta [place]. Qualifiers: Coronary Disease-Associated Artery/Lesion type: [place] artery [place] vs. transplanted heart: [place] heart Associated angina: without angina Qualified Code(s): I25.10 - Atherosclerotic heart disease of [place] coronary artery without angina pectoris (8) Atrial fibrillation Current Visit: No Status: Chronic Assessment and plan: Chronic issue. Anticoagulation on hold at this time. Will ask ortho for timeframe to restart. Qualifiers: Atrial fibrillation type: paroxysmal Qualified Code(s): I48.0 - Paroxysmal atrial fibrillation (9) Diabetes mellitus Current Visit: No Status: Chronic Assessment and plan: Continue with insulin sliding scale. Continue with Levemir 20 units nightly. Continue Accu-Cheks. 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 Qualifiers: Hypertension type: essential hypertension Qualified Code(s): I10 - Essential (primary) hypertension - Subjective Interval history: Mr Barcenas is currently admitted for acute NSTEMI as well as bleeding from OR site. He remains moderate to high risk due to potential for worsening clinical status. Mr Barcenas is feeling OK. Pain controlled. Seems that the bleeding has stopped for the most part. No fever or chills. Working on discharge to SNF at this time. Having difficulty sleeping due to being awakened a lot. - Constitutional Vitals: Temp Pulse Resp BP Pulse Ox 98.0 F 79 17 127/71 95 08/27/17 11:31 08/27/17 11:31 08/27/17 11:31 08/27/17 11:31 08/27/17 11:31 General appearance: Present: A&O X 3, answers questions appropriately - Head Head exam: Present: atraumatic, normocephalic - Eye Eye exam: Present: EOMI, conjuntiva pink - ENT ENT exam: Present: mucous membranes dry - Respiratory Respiratory exam: Present: decreased breath sounds, CTAB. Absent: rales, rhonchi, wheezes - Cardiovascular Cardiovascular exam: Present: distant heart sounds, RRR - GI/Abdominal GI/Abdominal exam: Present: soft. Absent: tenderness - Extremities Exam Extremities exam: Present: warm Additional comments: Knee immobilizer on R. BKA left. - Neurological Exam Neurological exam: Present: alert, oriented X3 - Skin Skin exam: Present: dry, warm. Absent: rash Internal Medicine: Result - Labs CBC & Chem 7: 08/27/17 07:55 08/27/17 07:55 Labs: Short CBC 08/27/17 Range/Units 07:55 WBC 13.3 H (4.3-11.1) K/mcL Hgb 7.9 L (12.9-16.9) g/dL Hct 24.5 L (37.5-50.1) % Plt Count 188 (140-400) K/mcL BMP 08/27/17 07:55 Sodium 138 Potassium 4.8 Chloride 100 Carbon Dioxide 27 BUN 49 H Creatinine 6.21 H Glucose 77 Calcium 7.9 L - ABG Interpretation ABG results: ABG ABG pH 7.49 pH Units (7.32-7.45) H 08/20/17 23:02 ABG pCO2 35 mmHg (35-45) 08/20/17 23:02 ABG pO2 56 mmHg (85-104) L 08/20/17 23:02 ABG O2 Saturation 91 % (95-98) L 08/20/17 23:02 PT/INR, D-dimer PT 13.3 Seconds (9.4-12.1) H 08/26/17 03:16 - Impressions Impressions Knee X-Ray 08/27/17 12:28 IMPRESSION: 1. Expected postoperative changes of right total knee arthroplasty. 2. Persistent trace right suprapatellar effusion. D/ / Parag Martinez MD / Parag Martinez MD Interpreting Provider: Parag Martinez MD - VTE Documentation of Mechanical Device: Venous foot pump, device Consult Discharge Plan - Plan Referrals: Isabella Bass PAC [Physician Sugar Drier] - 08/28/17 9:15 am Raimundo Anderson MD [Partnered Physician] - 09/17/17 4:45 pm Mansoor Loaiza MD [Primary Care Provider] - Ranulfo Warren MD [Non-Partnered Physician] - 08/22/17 9:40 am
[2017-08-27] MEDS: Insulin DETEMIR 100 UNIT/ML X5UNITS SQ SCH (20:28)
[2017-08-28] MEDS: Ipratropium/Albuterol Neb 3 ML IH SCH ×3 (04:17→16:01)
[2017-08-28 06:39] LABS: Hematocrit 22.6 % (37.5-50.1); Hemoglobin 7.3 g/dL (12.9-16.9); Mean Corpuscular HGB Conc 32.3 g/dL (31.6-35.5); Mean Corpuscular Hemoglobin 30.4 pg (28.0-33.3); Mean Corpuscular Volume 94.2 fL (83.0-100.0); Mean Platelet Volume 9.2 fL (9.4-12.4); Platelet Count 191 K/mcL (140-400); Red Cell Distribution Width 14.7 % (11.5-14.5)
[2017-08-28 07:00] LABS: Calcium 7.3 mg/dL (8.6-10.3); Potassium 4.8 mEq/L (3.5-5.1)
[2017-08-28] MEDS ORDERED: 0.9 % Sodium Chloride 250 ML IVC PRN (07:48)
[2017-08-28] MEDS: Insulin LISPRO 300 UNITS/3 ML VIAL SQ SCH ×3 (07:56→17:25)
[2017-08-28] MEDS ORDERED: 0.9 % Sodium Chloride 1,000 ML PRIME SCH (08:00)
[2017-08-28] MEDS: predniSONE 20 MG TABLET PO SCH (08:47)
[2017-08-28] MEDS: Isosorbide MONOnitrate (24 HR) 60 MG TAB.ER.24H PO SCH (08:48)
[2017-08-28] MEDS: Cholecalciferol (D-3) 1,000 UNIT TABLET PO SCH (08:49)
[2017-08-28] MEDS: Aspirin Enteric Coated 81 MG Tablet PO SCH (08:49)
--- NOTE | 2017-08-28 09:12 | Nephrology Progress Note ---
Date of Encounter: 08/28/17 Time of Encounter: 08:45 - Assessment and Plan (1) ESRD (end stage renal disease) on dialysis Current Visit: No Status: Chronic S/P right knee replacement. NSTEMI in setting of anemia. Hgb 7.3. ESRD- HD today , keeping TTS schedule. 2 pRBC while on HD, orders given. Subjective Principal diagnosis: Right total knee replacement. Interval history: Sitting up in bed, denies chest pain. Objective - Vital Signs Vital signs: Vital Signs Temp Pulse Resp BP Pulse Ox 08/28/17 07:13 97.9 F 80 18 122/67 96 08/28/17 04:00 98.1 F 83 19 119/65 95 08/27/17 23:33 98.3 F 85 18 134/68 94 08/27/17 23:06 16 96 08/27/17 20:49 96 08/27/17 18:37 98.1 F 86 18 144/74 96 08/27/17 16:00 16 96 08/27/17 15:42 98.1 F 76 18 124/74 95 08/27/17 11:31 98.0 F 79 17 127/71 95 08/27/17 10:53 16 96 Intake and Output 08/27/17 08/28/17 08/28/17 23:59 07:59 15:59 Intake Total 440 / 440 Output Total 200 / 200 Balance 240 / 240 Intake: IV Fluids 200 / 200 Zosyn 3.375 GM In 0.9 % Sodium 200 / 200 Chloride 100 ML @ 25 mls/hr IVPB Q12HR [facility] Rx#:[id number] Oral 240 / 240 Output: Urine 200 / 200 Other: Meal Dinner Breakfast Percent of Meal Consumed 100% 90% Weight 147 kg Blood Glucose* 247 139 Patient Weight 08/28/17 23:59 Weight 147 kg - General Appearance General appearance: Present: well-developed, well-nourished, appears started age , obese EENT: Present: mucous membranes moist Neck: Present: no JVD Respiratory: Present: wheezing, rhonchi Cardiology: Present: edema, regular rate, regular rhythm Additional Comments: moderate right LE pedal Gastrointestinal: Present: normoactive bowel sounds, no tenderness Integumentary: Present: warm and dry Neurologic: Present: alert and oriented x3 - Lab 08/28/17 06:24 08/28/17 06:24 Most recent lab results ABG pH 7.49 pH Units (7.32-7.45) H 08/20/17 23:02 ABG pCO2 35 mmHg (35-45) 08/20/17 23:02 ABG pO2 56 mmHg (85-104) L 08/20/17 23:02 ABG HCO3 26 mEq/L (21-27) 08/20/17 23:02 ABG O2 Saturation 91 % (95-98) L 08/20/17 23:02 Calcium 7.3 mg/dL (8.6-10.3) L 08/28/17 06:24 Magnesium 2.0 mg/dL (1.6-2.6) 08/27/17 07:55 - VTE Documentation of Mechanical Device: Venous foot pump, device Consult Discharge Plan - Plan Referrals: Isabella Bass PAC [Physician Industrial Chemicals Supervisor] - 08/28/17 9:15 am Raimundo Anderson MD [Partnered Physician] - 09/17/17 4:45 pm Mansoor Loaiza MD [Primary Care Provider] - 09/03/17 11:30 am (web request sent on 08-28-17) Ranulfo Warren MD [Non-Partnered Physician] - 08/22/17 9:40 am
[2017-08-28] MEDS: Budesonide/Formoterol 160/4.5 MDI IH SCH (10:06)
[2017-08-28] MEDS: Metoprolol XL (24 HR) Succ 50 MG TAB.ER.24H PO SCH (13:31)
[2017-08-28] MEDS: amLODIPine 5 MG TABLET PO SCH (13:32)
[2017-08-28] MEDS: levoFLOXacin 500 MG TABLET PO SCH (13:32)
[2017-08-28] MEDS ORDERED: 0.9 % Sodium Chloride 1,000 ML ONE (14:09)
--- NOTE | 2017-08-28 15:13 | Electrocardiograph Report ---
[address] [place], [place] [address] Test Date: 2017-08-28 Pat Name: Benigno Barcenas Department: 112 Room: 2A71 Gender: M Risk Officer: : 1955 Requested By: Adolph Dickinson Order Number: [id number] Reading MD: Elisa Ramirez Measurements Intervals [place] Rate: 84 P: 21 [place]: 163 QRS: 5 QRSD: 123 T: 149 QT: 398 QTc: 438 Interpretive Statements SINUS RHYTHM INFERIOR MYOCARDIAL INFARCTION, PROBABLY OLD WITH POSTERIOR EXTENSION MODERATE T-WAVE ABNORMALITY, CONSIDER LATERAL ISCHEMIA Electronically Signed On 08-28-2017 15:11:23 EST by Elisa Ramirez
[2017-08-28 15:49] VITALS: BP 160/80
--- NOTE | 2017-08-28 16:37 | Physician Discharge Referral ---
ExtendedCare Referral Info Provider in Charge after Transfer: PCP Institutional Level of Care: Skilled - Diagnosis (1) Pneumonia Priority: Primary Status: Suspected (2) COPD exacerbation Priority: Primary Status: Resolved (3) Sepsis Priority: Primary Status: Resolved (4) UTI (urinary tract infection) Priority: Secondary Status: Resolved (5) Acute blood loss as cause of postoperative anemia Priority: Secondary Status: Resolved (6) NSTEMI (non-ST elevated myocardial infarction) Priority: Secondary Status: Resolved (7) CAD (coronary artery disease) Priority: Secondary Status: Chronic (8) Atrial fibrillation Priority: Secondary Status: Chronic (9) Diabetes mellitus Priority: Secondary Status: Chronic (10) HTN (hypertension) Priority: Secondary Status: Chronic (11) Status post right knee replacement Priority: Secondary Status: Resolved (12) Postoperative bleeding from incision Priority: Secondary Status: Acute Expected Duration of Placement: Less than 30 days Prognosis: Fair Aware of Diagnosis: Patient, Family Aware of Prognosis: Patient, Family - Transfer Medications Home Medications: Febuxostat [Uloric] 40 mg PO QAM 03/02/15 [History] Sevelamer [Renvela] 800 mg PO TIDWM 05/01/15 [History] Nitroglycerin 0.4 mg SL Q5MIN PRN #3 tab.subl 08/20/15 [Rx] Apixaban [Eliquis] 5 mg PO BID 10/30/15 [History] Amitriptyline [Elavil] 25 mg PO HS 04/01/16 [History] Budesonide/Formoterol 160/4.5 [Symbicort 160/4.5] 2 puff IH BIDR 04/01/16 [ History] Fluticasone Propionate Nasal [Flonase] 1 spray NS DAILY PRN 04/01/16 [History] Tiotropium [Spiriva] 18 mcg IH DAILY 04/01/16 [History] Albuterol Neb [Proventil Neb] 2.5 mg IH TID PRN 02/06/17 [History] Amlodipine Besylate 10 mg PO DAILY 02/06/17 [History] Aspirin [Lo-Dose Aspirin EC] 81 mg PO DAILY 02/06/17 [History] Atorvastatin Calcium [Lipitor] 80 mg PO HS 02/06/17 [History] Cholecalciferol (Vitamin D3) [Vitamin D3] 5,000 unit PO DAILY 02/06/17 [History] Insulin Glargine [Lantus] 20 unit SQ HS 02/06/17 [History] Isosorbide MONOnitrate [Isosorbide Mononitrate ER] 240 mg PO DAILY 02/06/17 [ History] Metoprolol Succinate 200 mg PO DAILY 02/06/17 [History] Pantoprazole Sodium [Protonix] 40 mg PO DAILY 02/06/17 [History] OxyCODONE Immed Rel [Roxicodone 5 MG] 5 mg PO Q6HR PRN 7 Days #28 tablet [Rx] Allergies/Adverse Reactions: 3 Allergy/AdvReac Type Severity Reaction Status Date / Time No Known Allergies Allergy Verified 08/18/17 09:34 - Respiratory Orders None Smoking Cessation: Smoking cessation has been advised. For more information, call the [employer] Tobacco Quit Line at 9-350-TRZL-NOW. - Lab Orders Lab Orders: CBC, Marvin 17 (Please do labs on Friday 09/01) - Advance Directives Code Status: Full Code - History and Physical History/Physical reviewed & approved w/add comments: Less dyspnea - Mobility Orders Ambulate - Rehabiliation Orders Rehab Potential: Fair Rehab Orders: Evaluation for Physical Therapy, Evaluation for Occupational Therapy - Treatments Skin tear care topically daily PRN per policy, May check for fecal impaction rectally daily PRN, Fleet enema rectally every other day PRN cleansing purposes List/Other: Pressure dressing to R knee - change daily and PRN Do not remove catie Knee immobilizer at all times - no knee flexion - Diet Orders Renal CERTIFICATION: I certify that the transfer of the above named patient to an Extended Care Facility is necessary for the continuing treatment of the diagnosis listed. The above information is true and accurate reflection of patient's current condition. Confidential - Redisclosure prohibited without a patient's written consent.
--- NOTE | 2017-08-28 16:59 | Discharge Summary ---
- NOTES TO OUTPATIENT PROVIDER Notes to Outpatient Provider: No anticoagulation until follow up with ortho and OK to restart. Orders not resulted at time of discharge: Pending orders 08/22/17 05:49 Stool guiac [Occult Blood,Stool] [BF] Routine Pathology 08/18/17 12:22 Surgical Pathology [PTH] Routine Comment: Department: Surgical Pathology Specimen: Has been collected Specimen placed in fixative?: Yes Tissue Removal Time:: 12:25 Tissue Fixative Time:: 12:25 DATE ARETHA:: 08/18/17 PRE-OP DIAGNOSIS:: right knee arthritis POST-OP DIAGNOSIS:: same SPECIMEN & SITE: 1: right knee synovium SPECIMEN & SITE: 2: right knee bone Date of Encounter: 08/28/17 Time of Encounter: 14:45 - Discharge Diagnosis (1) Pneumonia Priority: Primary Status: Suspected Qualifiers: Pneumonia type: due to other aerobic Gram-negative bacteria Laterality: right Lung location: lower lobe of lung Qualified Code(s): J15.6 - Pneumonia due to other Gram-negative bacteria (2) COPD exacerbation Priority: Primary Status: Resolved (3) Sepsis Priority: Primary Status: Resolved Qualifiers: Sepsis type: sepsis due to unspecified organism Qualified Code(s): A41.9 - Sepsis, unspecified organism (4) UTI (urinary tract infection) Priority: Secondary Status: Resolved Qualifiers: Urinary tract infection type: acute cystitis Hematuria presence: without hematuria Qualified Code(s): N30.00 - Acute cystitis without hematuria (5) Acute blood loss as cause of postoperative anemia Priority: Secondary Status: Resolved (6) NSTEMI (non-ST elevated myocardial infarction) Priority: Secondary Status: Resolved (7) CAD (coronary artery disease) Priority: Secondary Status: Chronic Qualifiers: Coronary Disease-Associated Artery/Lesion type: [place] artery [place] vs. transplanted heart: [place] heart Associated angina: without angina Qualified Code(s): I25.10 - Atherosclerotic heart disease of [place] coronary artery without angina pectoris (8) Postoperative bleeding from incision Priority: Secondary Status: Resolved (9) Atrial fibrillation Priority: Secondary Status: Chronic Qualifiers: Atrial fibrillation type: paroxysmal Qualified Code(s): I48.0 - Paroxysmal atrial fibrillation (10) Status post right knee replacement Priority: Secondary Status: Resolved (11) Diabetes mellitus Priority: Secondary Status: Chronic Qualifiers: Diabetes mellitus type: type 2 Diabetes mellitus complication status: with kidney complications Diabetes mellitus complication detail: with chronic kidney disease Diabetes mellitus group home insulin use: with group home use Chronic kidney disease stage: on chronic dialysis Qualified Code(s): E11.22 - Type 2 diabetes mellitus with diabetic chronic kidney disease; N18.6 - End stage renal disease; Z99.2 - Dependence on renal dialysis; Z99.2 - Dependence on renal dialysis; Z99.2 - Dependence on renal dialysis; N18.6 - End stage renal disease; N18.6 - End stage renal disease; N18.6 - End stage renal disease ; Z79.4 - MCC (current) use of insulin; Z79.4 - MCC (current) use of insulin; Z79.4 - MCC (current) use of insulin; 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 Barcenas is a 61 year old male with hx of ESRD on HD initially admitted R TKR. He was to be discharged when he developed dyspnea and respiratory distress. Medicine was consulted and deemed patient had sepsis and pneumonia. His discharge was held and he was started on IV abx. On 08/21 he was evaluated by cardiology due to elevated troponin (>4). He was diagnosed with NSTEMI and Eliquis was stopped and heparin drip started. He was also treated for COPD exacerbation. He had a significant drop in his hemoglobin and required blood transfusion. Due to his hx of duodenal ulcers he was evaluated by GI service. On 08/25 he underwent EGD with no active bleeding noted. He was noted to have significant bleeding from his operative site. He was reevaluated by ortho and had catie inserted. He continued to bleed and ultimately had leg put in knee immobilizer and pressure dressing. Bleeding has subsided though he did require more blood during dialysis today. He was also seen by renal service for dialysis. During hospitalization his other chronic issues were also addressed. Today he is afebrile with stable vitals. He is s/p transfusion of 2 units PRBCs. He is ready for discharge to SNF. He is to wear knee immobilizer and pressure dressing. No knee flexion. To see ortho next week. Discharge discussed with: patient - Time Spent with Patient Total time spent providing and/or coordinating discharge services: 42min - Discharge Medications Home Medications: Febuxostat [Uloric] 40 mg PO QAM 03/02/15 [History] Sevelamer [Renvela] 800 mg PO TIDWM 05/01/15 [History] Nitroglycerin 0.4 mg SL Q5MIN PRN #3 tab.subl 08/20/15 [Rx] Amitriptyline [Elavil] 25 mg PO HS 04/01/16 [History] Budesonide/Formoterol 160/4.5 [Symbicort 160/4.5] 2 puff IH BIDR 04/01/16 [ History] Fluticasone Propionate Nasal [Flonase] 1 spray NS DAILY PRN 04/01/16 [History] Tiotropium [Spiriva] 18 mcg IH DAILY 04/01/16 [History] Albuterol Neb [Proventil Neb] 2.5 mg IH TID PRN 02/06/17 [History] Amlodipine Besylate 10 mg PO DAILY 02/06/17 [History] Aspirin [Lo-Dose Aspirin EC] 81 mg PO DAILY 02/06/17 [History] Atorvastatin Calcium [Lipitor] 80 mg PO HS 02/06/17 [History] Cholecalciferol (Vitamin D3) [Vitamin D3] 5,000 unit PO DAILY 02/06/17 [History] Insulin Glargine [Lantus] 20 unit SQ HS 02/06/17 [History] Isosorbide MONOnitrate [Isosorbide Mononitrate ER] 240 mg PO DAILY 02/06/17 [ History] Metoprolol Succinate 200 mg PO DAILY 02/06/17 [History] Pantoprazole Sodium [Protonix] 40 mg PO DAILY 02/06/17 [History] OxyCODONE Immed Rel [Roxicodone 5 MG] 5 mg PO Q6HR PRN 7 Days #28 tablet [Rx] Darbepoetin [Aranesp] 100 mcg SQ QWEEK syringe 08/28/17 [Rx] Docusate [Colace] 100 mg PO BID capsule 08/28/17 [Rx] GuaiFENesin/Dextromethorphan [Robitussin/Dm] 10 ml PO Q6HR PRN udc 08/28/17 [Rx ] Lidocaine Patch [Lidoderm 5% patch] 1 each TP DAILY adh..patch 08/28/17 [Rx] levoFLOXacin [Levaquin] 500 mg PO Q48H tablet 08/28/17 [Rx] predniSONE [PredniSONE] 40 mg PO DAILY #0 tablet 08/28/17 [Rx] Allergies/Adverse Reactions: 3 Allergy/AdvReac Type Severity Reaction Status Date / Time No Known Allergies Allergy Verified 08/18/17 09:34 Date of admission: 08/18/17 15:09 Primary care physician: Mansoor Loaiza MD Consults: 08/18/17 14:28 Consult to Occupational Therapy [CONS] Routine Comment: Evaluate, develop and implement POC Reason for Consult: post knee surgery Consult to Orthopedic Navigator [CONS] [CONS] Routine Consult to Physical Therapy [CONS] Routine Comment: Evaluate, develop and impliment POC Reason for Consult: post knee surgery Consult to Wire Stitcher [CONS] Routine Reason for SW Consult: post op joint replacement RT Post Op Consult [CONS] Routine 08/19/17 08:26 Consult to Nephrology [CONS] Routine Consulting Provider: Karsten Newman Reason for Consult: Dialysis - mutual patient Time Notified: 08:26 Call Completed: Yes 08/19/17 11:30 Consult to Dialysis [CONS] ONCE 08/20/17 20:39 Consult to Hospitalist [CONS] Stat Consulting Provider: Hospitalist George Reason for Consult: dyspnea Call Completed: No 08/20/17 23:09 Consult to Cardiology [CONS] Routine Comment: Consulting Provider: Jostin Medeiros Reason for Consult: Elevated troponin Call Completed: No 08/21/17 07:45 Consult to Dialysis [CONS] ONCE 08/21/17 17:37 Consult to Cardiac Rehabilitation-Phase1 [CONS] Routine Comment: Reason for Consult: NSTEMI Call Completed: No 08/22/17 05:50 Consult to Gastroenterology [CONS] Routine Consulting Provider: Sandip Medeiros Reason for Consult: drop in Hb after heparin drip and Aliquis. Call Completed: No 08/23/17 09:30 Consult to Dialysis [CONS] ONCE 08/26/17 08:15 Consult to Dialysis [CONS] ONCE 08/28/17 08:00 Consult to Dialysis [CONS] ONCE Discharging clinician: Adolph Dickinson Anticipated date of discharge: 08/28/17 - Constitutional Vitals: Temp Pulse Resp BP Pulse Ox 97.9 F 85 94 160/80 96 08/28/17 15:48 08/28/17 15:48 08/28/17 15:48 08/28/17 15:48 08/28/17 15:24 General appearance: Present: A&O X 3, answers questions appropriately - Head Head exam: Present: normocephalic - Eye Eye exam: Present: EOMI, conjuntiva pink - ENT ENT exam: Present: mucous membranes dry - Respiratory Respiratory exam: Present: decreased breath sounds, CTAB. Absent: rales, rhonchi, wheezes - Cardiovascular Cardiovascular exam: Present: RRR. Absent: tachycardia - GI/Abdominal GI/Abdominal exam: Present: soft. Absent: tenderness - Extremities Exam Extremities exam: Present: warm Additional comments: Immobilizer intact. No bleeding noted on R. L BKA noted. - Neurological Exam Neurological exam: Present: alert, oriented X3 - Skin Skin exam: Present: warm. Absent: rash - Patient Status Disposition: Transfer SNF Condition: Fair Functional capacity at discharge: uses cane/walker (Knee mobilizer at all times. No knee flexion on R.) Overall status at discharge: patient is progressing back to baseline - Discharge Instructions Follow Up With: Isabella Bass PAC [Physician Cell Room Supervisor] - 08/28/17 9:15 am Raimundo Anderson MD [Partnered Physician] - 09/17/17 4:45 pm Mansoor Loaiza MD [Primary Care Provider] - 09/03/17 11:30 am (web request sent on 08-28-17) Ranulfo Warren MD [Non-Partnered Physician] - 08/22/17 9:40 am - Diet and Activity Activity: as per physical therapy Diet: diabetic diet, other (Renal diet) - VTE Documentation of Mechanical Device: Venous foot pump, device
[2017-08-28] MEDS: *HR* OxyCODONE Immed Rel 5 MG TABLET PO PRN (18:40)
== END 2017-08-28 18:49 | DRG 469 ==
LOC: SAMDAY 08:46 → 3NENU 15:09 → SUATTDRO 15:09 → 2ANU 08-23 13:37
PROVIDERS: ADMIT Orthopaedic Surgery; ATTEND Internal Medicine

== ENCOUNTER 2018-12-25 06:53 | Observation (INO) ==
[2018-12-25] MEDS ORDERED: *HR* FentaNYL (PF) 100 MCG/2 ML VIAL ONE (07:08)
[2018-12-25] MEDS ORDERED: *HR* Midazolam HCl 2 MG/2 ML VIAL ONE (07:09)
[2018-12-25] MEDS ORDERED: *HR* Propofol 200 MG/20 ML VIAL IVP ONE (07:09)
[2018-12-25] MEDS ORDERED: Albuterol 2.5 MG/3 ML NEBULIZER IH ONE (07:20)
[2018-12-25] MEDS ORDERED: CeFAZolin Syr 2,000MG/20 ML 2,000 MG/20 ML SYRINGE IVPB ONE (07:20)
[2018-12-25] MEDS ORDERED: Albuterol 2.5 MG/3 ML NEBULIZER ONE (07:23)
--- NOTE | 2018-12-25 07:24 | General Surg History&Physical ---
Date of Encounter: 12/25/18 Time of Encounter: 07:21 Assessment and Plan (1) Biliary acute pancreatitis Current Visit: Yes Status: Acute Benigon Barcenas presents for cholecystectomy after hospital admission for gallstone pancreatitis. I discussed the procedure including potential complications like bile duct injury as well as expected out comes. He will need HD either before or right after surgery, pending K levels; draw K plan for surgery if normal otherwise HD first, then surgery The assessment and plan as outlined above was discussed with the patient and/or family members who expressed understanding and agreement. All questions were answered. Qualifiers: Acute pancreatitis complication: unspecified Qualified Code(s): K85.10 - Biliary acute pancreatitis without necrosis or infection History of Present Illness Chief complaint: abdominal pain HPI: Mr. Barcenas is a 63 year old male pMH significant for CAD s/p CABG, DM, ESRD currently on MWF HD, COPD, DVT for which is he on xarelto. He is known to me as he was evaluated as an inpatient with gallstone pancreatitis and concern for choledocholithiasis. He did have and ERCP which did not demonstrate any evidence of obstruction. The suspicion is that he may have passed a few stones. His pain was resolved prior to discharge, but he had taken his xarelto and, therefore, the decision was made for outpatient surgery after evaluation in the clinic. Since discharge the patient continues to reports post prandial abdominal pain specifically with fatty meals. No associated nausea, vomiting, fevers, or chills. The pain is non radiating and usually self resolving. Past Med Surg Social Fam HX - Past Medical History Medical history: arthritis, asthma, atrial fibrillation, cardiomyopathy, CHF, COPD, coronary artery disease, DVT, diabetes, dialysis, GERD, hyperlipidemia, hypertension, osteoporosis, peripheral artery disease, renal disease, other Additional medical history: neuropathy Psychiatric history: no psych history - Past Surgical History Surgical History: coronary bypass (CABG), knee replacement, orthopedic, other, other Additional surgical history: lt bka. heart cath. triple bypass. right arm dialysis port. stent in liver - Social History Smoking Status: Former smoker Smokeless Tobacco Status: No Alcohol use: none Drug use: none - Family History Father Adopted: No Family Member Ethnicity: Non- Living Status: Hx Family Cardiac Disorders: No Hx Family Respiratory Disorders: No Hx Family Cancer: Yes Hx Family GI Disorders: No Hx Family Endocrine Disorder: No Hx Family Neuromuscular Disorders: No Hx Family Neurologic Disorders: No Hx Family HEENT Disorders: No Hx Family Autoimmune Disorders: No Mother Adopted: No Family Member Ethnicity: Non- Living Status: Hx Family Cardiac Disorders: Yes Hx Family Respiratory Disorders: No Hx Family Cancer: No Hx Family GI Disorders: No Hx Family Endocrine Disorder: Yes Hx Family Neuromuscular Disorders: No Hx Family Neurologic Disorders: No Hx Family HEENT Disorders: No Hx Family Autoimmune Disorders: No Medications and Allergies Febuxostat [Uloric] 40 mg PO QAM 03/02/15 [History] Nitroglycerin 0.4 mg SL Q5MIN PRN #3 tab.subl 08/20/15 [Rx] Budesonide/Formoterol 160/4.5 [Symbicort 160/4.5] 2 puff IH BIDR 04/01/16 [History] Tiotropium [Spiriva] 18 mcg IH DAILY 04/01/16 [History] Albuterol Neb [Proventil Neb] 2.5 mg IH TID PRN 02/06/17 [History] Aspirin [Lo-Dose Aspirin EC] 81 mg PO DAILY 02/06/17 [History] Pantoprazole Sodium [Protonix] 40 mg PO DAILY 02/06/17 [History] Atorvastatin Calcium [Lipitor] 80 mg PO HS 09/09/17 [History] Insulin ASPART [NovoLOG] 0 unit SQ TIDWM 09/09/17 [History] Apixaban [Eliquis] 5 mg PO BID 01/09/18 [History] Renal Vitamin [Renal Caps Softgel] 1 mg PO MOWEFR 05/04/18 [History] Cholecalciferol (Vitamin D3) [Dialyvite Vitamin D] 5,000 unit PO DAILY 06/28/18 [History] Insulin Glargine,Hum.rec.anlog [Lantus Solostar] 5 unit SQ HS 06/28/18 [History] Sevelamer [Renvela] 800 mg PO DAILY 06/28/18 [History] Calcium Acetate [Phos-LO] 1,334 mg PO TIDWM 10/22/18 [History] Fluticasone Propionate Nasal [Flonase] 2 spr NS DAILY 10/22/18 [History] Metoprolol Succinate [Toprol Xl] 100 mg PO DAILY 10/22/18 [History] Doxazosin [Cardura] 1 mg PO DAILY 11/13/18 [History] Isosorbide MONOnitrate [Isosorbide Mononitrate ER] 60 mg PO DAILY 11/13/18 [History] Allergy/AdvReac Type Severity Reaction Status Date / Time No Known Allergies Allergy Verified 12/15/18 10:41 Review of Systems All systems PM: 12 point ROS negative besides HPI findings General Surgery Exam - General physical appearance no distress - Eyes PERRL, normal ocular movement - Respiratory normal expansion, normal respiratory effort - Cardiovascular Cardiovascular exam: Present: RRR - Abdomen Abdomen general surgery: Present: soft, non tender - Integumentary Integumentary general surgery: Present: warm and dry, no abnormal pigmentation - Neurologic Present: CN 2-12 grossly intact - Musculoskeletal Present: normal posture - Psychiatric Psychiatric general surgery: Present: A&Ox3 Results - Labs All other labs normal.
[2018-12-25] MEDS ORDERED: Ringers Solution, Lactated 1,000 ML IVC SCH ×3 (07:30→13:24)
--- NOTE | 2018-12-25 07:39 | Anesthesia Evaluation PreOp ---
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: Denies Any Significant HX Other Medical History: Renal (ESRD HD MWF), Diabetes Type II (insulin dependent), GERD Anesthesia History: No Prior Anesthetic Complications, Past Anesthesia (ERCP, CABG) Alcohol Use: none Drug use: none Medications and Allergies Febuxostat [Uloric] 40 mg PO QAM 03/02/15 [History] Nitroglycerin 0.4 mg SL Q5MIN PRN #3 tab.subl 08/20/15 [Rx] Budesonide/Formoterol 160/4.5 [Symbicort 160/4.5] 2 puff IH BIDR 04/01/16 [History] Tiotropium [Spiriva] 18 mcg IH DAILY 04/01/16 [History] Albuterol Neb [Proventil Neb] 2.5 mg IH TID PRN 02/06/17 [History] Aspirin [Lo-Dose Aspirin EC] 81 mg PO DAILY 02/06/17 [History] Pantoprazole Sodium [Protonix] 40 mg PO DAILY 02/06/17 [History] Atorvastatin Calcium [Lipitor] 80 mg PO HS 09/09/17 [History] Insulin ASPART [NovoLOG] 0 unit SQ TIDWM 09/09/17 [History] Apixaban [Eliquis] 5 mg PO BID 01/09/18 [History] Renal Vitamin [Renal Caps Softgel] 1 mg PO MOWEFR 05/04/18 [History] Cholecalciferol (Vitamin D3) [Dialyvite Vitamin D] 5,000 unit PO DAILY 06/28/18 [History] Insulin Glargine,Hum.rec.anlog [Lantus Solostar] 5 unit SQ HS 06/28/18 [History] Sevelamer [Renvela] 800 mg PO DAILY 06/28/18 [History] Calcium Acetate [Phos-LO] 1,334 mg PO TIDWM 10/22/18 [History] Fluticasone Propionate Nasal [Flonase] 2 spr NS DAILY 10/22/18 [History] Metoprolol Succinate [Toprol Xl] 100 mg PO DAILY 10/22/18 [History] Doxazosin [Cardura] 1 mg PO DAILY 11/13/18 [History] Isosorbide MONOnitrate [Isosorbide Mononitrate ER] 60 mg PO DAILY 11/13/18 [History] Allergy/AdvReac Type Severity Reaction Status Date / Time No Known Allergies Allergy Verified 12/15/18 10:41 - Meds/Allergy Pre-op Review Medications Reviewed: Yes Allergies Reviewed: Yes Beta Blockers on Current Med List: Yes If Beta Blockers taken, Date/Time (Last Dose taken): 6am today Anesthesia Results - Labs 12/25/18 07:32 Laboratory Tests 12/08/18 12/08/18 12/15/18 18:33 18:33 10:52 WBC 4.9 Hgb 13.9 Hct 42.9 Plt Count 190 Sodium Potassium Chloride Carbon Dioxide BUN 25 H Creatinine 7.92 H Est GFR (Non-Af Amer) 7 L BUN/Creatinine Ratio 3 L Glucose 129 H Hemoglobin A1c 12/15/18 12/15/18 10:52 10:52 WBC Hgb Hct Plt Count Sodium 136 Potassium 3.8 Chloride 97 L Carbon Dioxide 30 H BUN Creatinine Est GFR (Non-Af Amer) BUN/Creatinine Ratio Glucose Hemoglobin A1c 6.2 H - Imaging EKG: report reviewed ( Interpretive Statements SINUS BRADYCARDIA INFERIOR MYOCARDIAL INFARCTION, PROBABLY OLD Electronically Signed On 11-17-2018 15:32:46 EDT by Orlin Fisher) Additional studies: 06/26/18 Impressions: Technically sub-optimal due to poor echocardiographic windows. LVEF 60%. Moderate left ventricular diastolic dysfunction. Normal right ventricular structure and function. Unable to estimate RVSP due to lack of TR jet. 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
[2018-12-25] MEDS ORDERED: Acetaminophen IV 1,000 MG/100 ML INFUS..BTL IVPB ONE (07:53)
[2018-12-25] MEDS ORDERED: Isovue-300 50 ML VIAL ONE (08:41)
[2018-12-25] MEDS ORDERED: Ondansetron 4 MG/2 ML VIAL IVP ONE (08:49)
[2018-12-25] MEDS ORDERED: *HR* OxyCODONE Immed Rel 5 MG TABLET PO PRN (08:49)
[2018-12-25] MEDS ORDERED: *HR* HYDROmorphone (PF) 1 MG/ML SYRINGE IVP PRN (08:49)
[2018-12-25] MEDS ORDERED: *HR* PHENYLEPHRINE 1,000 MCG/10 ML SYRINGE IVP ONE (09:21)
[2018-12-25] MEDS ORDERED: Lidocaine -MPF 2% 2 ML VIAL ONE (09:44)
[2018-12-25] MEDS ORDERED: Ondansetron 4 MG/2 ML VIAL ONE (09:44)
[2018-12-25] MEDS ORDERED: Lidocaine -MPF 4% 5 ML AMPUL ONE (09:45)
[2018-12-25] MEDS ORDERED: *HR* Rocuronium Bromide 50 MG/5 ML VIAL ONE ×3 (09:45→11:26)
[2018-12-25] MEDS ORDERED: Neostigmine Methylsulfate 3 MG/3 ML SYRINGE ONE (09:45)
--- NOTE | 2018-12-25 12:45 | Operative Note ---
Date of procedure: 12/25/18 Pre-op diagnosis: gallstone pancreatitis, choledocholithiasis Post-op diagnosis: same Procedure: robotic cholecystectomy intraoperative cholangiogram Implants: 19 fr nikkie drain Complications: none Anesthesia: GETA Local Anesthetics: 0.5% Sensorcaine HCL SubQ (cc) Surgeon: Elvin Rodriguez Was there an construction management assistant present: Yes Bunch Breaker: Adrienne Fountain Estimated blood loss (cc): 50 Specimen: gallbladder and contents Condition: stable Disposition: PACU Procedure in Detail: 63M PMH significant for CAD, CABG, atrial fibrillation, gallstone pancreatitis and choledocholithiasis s/p ERCP with stent placement. The patient continues to have post prandial abdominal pain so the decision was made to remove his gallbladder. The patient was brought into the operating room suite and was placed in the supine position. Mechanical DVT prophylaxis was applied. A time-in was conducted. The patient underwent smooth induction of anesthesia. Preoperative antibiotics were given. The patient was prepped and draped in the usual fashion. A time-out was held identifying the correct patient, pathology, and procedure. Everyone was in agreement and we began the procedure. Incision to Dissection I started by creating a 12mm supraumbilical incision. Via open Alondra technique I did enter into the abdomen. I inserted the 12mm trocar followed by the 30 degree camera, ensured that I did not cause intraabdominal injury upon entry, and quickly identified the gallbladder. I created a 5mm incisions one handbreadth to the left and right of the umbilical incision and an construction management assistant port along the R anterior axillary line. I then docked the robot in the usual fashion. Using laparoscopic graspers I managed to elevate the gallbladder above the liver. It should be stated that his gallbladder was acute inflammed and required 20 minutes of LUBNA especially to separate the duodenum from the infundibulum; At the Console I grasp the edge of the gallbladder to retract laterally. Using the [place] instrument as well as the hook-electrocautery, I dissected out the cystic duct and the cystic artery. I excised the posterior tissue to visualize the liver. I was able to clearly visualize the critical view of safety. I then performed an intraoperative cholangiogram in the standard fashion using the ham instrument. There was flow into the common bile duct, no filling defects, and there was visualization of the proximal biliary tree. Critical view of Safety to Excison of the gallbladder I then clipped both structures using plastic clips, two on the stay side, one on the specimen side. Using robotic scissors, I cut between the clip on the specimen side and the first clip on the stay side. Then using tension and counter-tension, I used the electrocautery to excise the gallbladder off of the liver bed. Before complete excision, I evaluated the liver bed to ensure there 1.) there was no bleeding, 2. No excessive bile leakage, and 3.) to evaluate my clips. There was bleeding however because, as I was performing the dissection, the gallbladder did tear the liver capsule; there was no bile leakage, and the clips were all the way across both duct and artery. Removal of gallbladder to Closure After undocking the robot, I inserted the endocatch bag into the umbilical port. I placed the specimen into the bag and retrieved it through the umbilical port. i then irrgiated the liver bed and above the liver before suctioning both irrigation fluid and air. I placed a 19fr nikkie drain in the liver bed, removed the 5mm ports, turned off the insufllation, then removed the 12mm umbilical port. I then close the umbilical fascia a vicryl suture in a figure of 8 fashion. All incisions were closed with interrupted 4-0 monocryl and sealed with dermabond. The patient tolerated the procedure well and went back to PACU in stable condition.
--- NOTE | 2018-12-25 13:03 | Anesthesia Evaluation Post Op ---
Date of Encounter: 12/25/18 Time of Encounter: 13:02 - Vital Signs Vital Signs: Selected Entries 12/25/18 12:50 Temperature 97.9 F Pulse Rate 67 Respiratory Rate 16 Blood Pressure 143/77 O2 Sat by Pulse Oximetry 95 - Lungs Lungs: Clear Ascult./Percussion - Airway Airway: Non-obstructed - Cardiovascular Regular Rate - Mental Status Mental Status: Alert & Oriented, Answers Appropriately - Pain Pain Scale: 4 Pain Scale used: Numeric (1 - 10) - Nausea Vomiting Nausea Vomiting: Not Present - Hydration Hydration: Ice chips, Has not voided - Discharge PostOp Status: Transfer Patient to floor
[2018-12-25] MEDS ORDERED: Nitroglycerin 0.4 MG TAB.SUBL SL PRN (13:24)
[2018-12-25] MEDS ORDERED: traZODone 50 MG TABLET PO PRN (13:24)
[2018-12-25] MEDS ORDERED: Albuterol 2.5 MG/3 ML NEBULIZER IH PRN (13:24)
[2018-12-25] MEDS ORDERED: 0.9 % Sodium Chloride 250 ML IVC PRN (14:51)
[2018-12-25] MEDS ORDERED: 0.9 % Sodium Chloride 1,000 ML PRIME SCH (15:00)
[2018-12-25] MEDS: *HR* HYDROcodone/Acet 5/325 mg TABLET PO PRN ×2 (15:09→21:17)
[2018-12-25] MEDS: Budesonide/Formoterol 160/4.5 1 PUFF INH IH SCH (20:10)
--- NOTE | 2018-12-25 21:24 | Nephrology Consult Note ---
Date of Encounter: 12/25/18 Time of Encounter: 16:00 Assessment and Plan (1) ESRD (end stage renal disease) on dialysis Current Visit: No Status: Chronic Continue HD with UF as tolerated Fluid restriction advised Renal diet when able to eat Potassium WNL History of Present Illness - Reason for Consult Consult date: 12/25/18 end stage renal disease Requesting physician: Elvin Rodriguez - History of Present Illness 63 y o male with PMH of COPD, CAD s/p CABG, DM, DVT on xarelto held and ESRD on HD in [place] admitted for cholecystectomy after a recent hospital stay for gallstone pancreatitis. Pt seen and examined on HD doing well but exhausted post surgery. Past Med Surg Social Fam HX - Past Medical History Medical history: arthritis, asthma, atrial fibrillation, cardiomyopathy, CHF, COPD, coronary artery disease, DVT, diabetes, dialysis, GERD, hyperlipidemia, hypertension, osteoporosis, peripheral artery disease, renal disease, other Additional medical history: neuropathy Psychiatric history: no psych history - Past Surgical History Surgical History: coronary bypass (CABG), knee replacement, orthopedic, other, other Additional surgical history: cardiac cath, left knee below the knee amp, cardiac stent - Social History Smoking Status: Former smoker Smokeless Tobacco Status: No Alcohol use: none Drug use: none - Family History Father Adopted: No Family Member Ethnicity: Non- Living Status: Hx Family Cardiac Disorders: No Hx Family Respiratory Disorders: No Hx Family Cancer: Yes Hx Family GI Disorders: No Hx Family Endocrine Disorder: No Hx Family Neuromuscular Disorders: No Hx Family Neurologic Disorders: No Hx Family HEENT Disorders: No Hx Family Autoimmune Disorders: No Mother Adopted: No Family Member Ethnicity: Non- Living Status: Hx Family Cardiac Disorders: Yes Hx Family Respiratory Disorders: No Hx Family Cancer: No Hx Family GI Disorders: No Hx Family Endocrine Disorder: Yes Hx Family Neuromuscular Disorders: No Hx Family Neurologic Disorders: No Hx Family HEENT Disorders: No Hx Family Autoimmune Disorders: No Medications and Allergies Febuxostat [Uloric] 40 mg PO QAM 03/02/15 [History] Nitroglycerin 0.4 mg SL Q5MIN PRN #3 tab.subl 08/20/15 [Rx] Budesonide/Formoterol 160/4.5 [Symbicort 160/4.5] 2 puff IH BIDR 04/01/16 [History] Tiotropium [Spiriva] 18 mcg IH DAILY 04/01/16 [History] Albuterol Neb [Proventil Neb] 2.5 mg IH TID PRN 02/06/17 [History] Pantoprazole Sodium [Protonix] 40 mg PO DAILY 02/06/17 [History] Atorvastatin Calcium [Lipitor] 80 mg PO HS 09/09/17 [History] Insulin ASPART [NovoLOG] 0 unit SQ TIDWM 09/09/17 [History] Renal Vitamin [Renal Caps Softgel] 1 mg PO DAILY 05/04/18 [History] Cholecalciferol (Vitamin D3) [Dialyvite Vitamin D] 5,000 unit PO DAILY 06/28/18 [History] Insulin Glargine,Hum.rec.anlog [Lantus Solostar] 5 unit SQ HS 06/28/18 [History] Sevelamer [Renvela] 800 mg PO DAILY 06/28/18 [History] Calcium Acetate [Phos-LO] 1,334 mg PO TIDWM 10/22/18 [History] Fluticasone Propionate Nasal [Flonase] 2 spr NS DAILY 10/22/18 [History] Metoprolol Succinate [Toprol Xl] 100 mg PO DAILY 10/22/18 [History] Doxazosin [Cardura] 1 mg PO DAILY 11/13/18 [History] Isosorbide MONOnitrate [Isosorbide Mononitrate ER] 60 mg PO DAILY 11/13/18 [History] Apixaban [Eliquis] 5 mg PO BID #0 12/25/18 [Rx] Docusate Sodium [Colace] 100 mg PO BID PRN #30 capsule 12/25/18 [Rx] Midodrine HCl 10 mg PO MOWEFR 12/25/18 [History] OxyCODONE/APAP 5/325 [Percocet 5/325 MG] 1 each PO Q6HR PRN 7 Days #28 tablet 12/25/18 [Rx] traZODone [TraZODone] 50 mg PO HS PRN 12/25/18 [History] Allergy/AdvReac Type Severity Reaction Status Date / Time No Known Allergies Allergy Verified 12/25/18 08:48 Exam - Vital Signs Vital signs: Initial Vital Signs Temp Pulse Resp BP Pulse Ox 97.6 F 77 18 184/84 95 12/25/18 07:30 12/25/18 07:30 12/25/18 07:30 12/25/18 07:30 12/25/18 07:30 Vital Signs - Last 8 Hours Temp Pulse Resp BP Pulse Ox 12/25/18 20:10 17 97 12/25/18 19:02 97.6 F 16 158/92 12/25/18 18:45 135/83 12/25/18 18:30 132/80 12/25/18 18:15 135/84 12/25/18 18:00 149/83 12/25/18 17:45 148/83 12/25/18 17:30 159/92 12/25/18 17:15 141/87 12/25/18 17:00 150/88 12/25/18 16:45 153/81 12/25/18 16:30 158/84 12/25/18 16:15 173/90 12/25/18 16:00 176/87 12/25/18 15:45 97.5 F L 18 161/86 12/25/18 13:45 97.6 F 61 16 128/72 97 12/25/18 13:26 97.5 F L 63 16 149/79 97 Intake and Output 12/25/18 12/25/18 12/25/18 07:59 15:59 23:59 Intake Total 600 / 600 Output Total 50 / 3720 3670 / 3720 Balance 550 / -3120 -3670 / -3120 Intake: Intake, Rinseback and Flushes 600 / 600 Output: Total Dialysis (HD) Output 3600 / 3600 Estimated Blood Loss 50 / 50 Wound Drainage 70 / 70 Right Lower Abdomen 70 / 70 Other: Weight 113.398 kg Blood Glucose* 85 131 Hemodialysis Net Fluid Removed 0 3000 (mL) Patient Weight 12/25/18 23:59 Weight 113.398 kg Results - Lab Results 12/25/18 07:32 Consult Discharge Plan - Plan Instructions: Laparoscopic Cholecystectomy (DC) Additional Instructions: General Surgical Discharge Instructions 1. No pushing, pulling, or lifting greater than 15 lbs for 2-4 weeks (depending upon procedure). 2. You may shower beginning today, but no tub baths, soaking, or swimming for 2 weeks. 3. You may resume driving when you are off narcotics and are safe to react in a car. 4. You may take the as needed Percocet. Take narcotics as directed. Eat something prior to taking narcotics as this will reduce the risk of nausea. Do not take more narcotics then directed and do not share your narcotics with any other person. Do not drink alcohol while on narcotics. 5. Take stool softeners (Colace) or a water based laxative (Miralax) while taking narcotics. You may hold for loose stools. 6. Report any fevers greater than 100.5F, increase abdominal discomfort, drainage that looks like pus, increased redness or pain at the surgical site, or any vomiting. 7. Report any pain in the calves, shortness of breath, or rapid heartbeat. 8. Follow-up in the office as directed. 9. If you were prescribed antibiotics, do not stop them without talking to your provider. Referrals: Mansoor Loaiza MD [Primary Care Provider] - Radha Herrmann CNP [Advanced Practice Nurse] - 01/12/19 2:00 pm Prescriptions: Docusate Sodium [Colace] 100 mg PO BID PRN #30 capsule PRN Reason: Contstipation OxyCODONE/APAP 5/325 [Percocet 5/325 MG] 1 each PO Q6HR PRN 7 Days #28 tablet PRN Reason: Pain
[2018-12-25] MEDS: Insulin DETEMIR 100 UNIT/ML X5UNITS SQ SCH (21:27)
[2018-12-25] MEDS: Insulin LISPRO 300 UNITS/3 ML VIAL SQ SCH (22:16)
[2018-12-25] MEDS: Calcium Acetate 667 MG CAPSULE PO SCH (22:17)
[2018-12-26] MEDS: *HR* HYDROcodone/Acet 5/325 mg TABLET PO PRN ×3 (06:45→21:28)
[2018-12-26] MEDS: Budesonide/Formoterol 160/4.5 1 PUFF INH IH SCH ×2 (07:50→21:47)
[2018-12-26] MEDS: Tiotropium 18 MCG inhalation IH SCH (07:52)
[2018-12-26] MEDS: Renal Vitamin 1 CAP CAPSULE PO SCH (08:05)
[2018-12-26] MEDS: Cholecalciferol (D-3) 1,000 UNIT TABLET PO SCH (08:05)
[2018-12-26] MEDS: Calcium Acetate 667 MG CAPSULE PO SCH ×3 (08:05→18:04)
[2018-12-26] MEDS: Metoprolol XL (24 HR) Succ 50 MG TAB.ER.24H PO SCH (08:05)
[2018-12-26] MEDS: Isosorbide MONOnitrate (24 HR) 60 MG TAB.ER.24H PO SCH (08:05)
[2018-12-26] MEDS: Fluticasone Propionate Nasal 50 MCG/SPRAY BOTTLE NS SCH (08:08)
[2018-12-26] MEDS: Insulin LISPRO 300 UNITS/3 ML VIAL SQ SCH ×3 (08:08→18:07)
--- NOTE | 2018-12-26 08:33 | General Surgery Progress Note ---
Date of Encounter: 12/26/18 Time of Encounter: 07:45 - Assessment and Plan (1) S/P cholecystectomy Current Visit: Yes Status: Acute patient having a lot of postop discomfort not taking anything by mouth except clears at this point, he does not even want to try more solid food prn pain control OOB to chair with meals, will need assistance d/t LLE BKA check labs in am (2) ESRD (end stage renal disease) on dialysis Current Visit: No Status: Chronic management per nephrology, dialysis yesterday (3) Insulin dependent diabetes mellitus Current Visit: No Status: Chronic continue home meds SSI/MBS (4) Atrial fibrillation Current Visit: No Status: Chronic on eliquis Qualifiers: Atrial fibrillation type: paroxysmal Qualified Code(s): I48.0 - Paroxysmal atrial fibrillation (5) Obesity Current Visit: No Status: Chronic Qualifiers: Obesity type: unspecified obesity type Obesity classification: adult class 2 (BMI 35 - 39.9) Serious obesity comorbidity presence: unspecified whether serious comorbidity present Body mass index: BMI 35.0-35.9 Qualified Code(s): E66.9 - Obesity, unspecified; Z68.35 - Body mass index (BMI) 35.0-35.9, adult (6) History of left below knee amputation Current Visit: No Status: Chronic will need assistance with ambulation and bed transfers Subjective Patient reports: still having pain, tolerating liquids well, no flatus, no bowel movement, afebrile Objective Vital Signs - Last 8 Hours Temp Pulse Resp BP Pulse Ox 12/26/18 07:50 16 93 12/26/18 06:27 98.7 F 77 16 152/99 91 12/26/18 03:54 98.9 F 78 15 128/57 96 Intake and Output 12/25/18 12/26/18 12/26/18 23:59 07:59 15:59 Intake Total 0 / 0 Output Total 3670 / 3720 0 / 0 Balance -3670 / -3120 0 / 0 Intake: Oral 0 / 0 Output: Urine 0 / 0 Total Dialysis (HD) Output 3600 / 3600 Wound Drainage 70 / 70 Right Lower Abdomen 70 / 70 Other: Blood Glucose* 125 Hemodialysis Net Fluid Removed 3000 (mL) - General physical appearance well developed, well nourished, no distress, moderate pain - Eyes normal ocular movement - ENT normal mucosa - Neck Neck exam: trachea midline - Respiratory normal expansion, normal respiratory effort - Cardiovascular Cardiovascular exam: Present: RRR - Abdomen Abdomen: Present: bowel sounds present, soft, tender (appropriate post op tenderness) Additional Comments: RLQ drain: old dark blood - Incision Incision: Present: clean and dry, intact - Integumentary no rash, no growths - Neurologic CN 2-12 grossly intact - Musculoskeletal normal posture - Psychiatric oriented to time, oriented to person, oriented to place, speech is normal, memory intact - Labs 12/25/18 07:32 Consult Discharge Plan - Plan Instructions: Laparoscopic Cholecystectomy (DC) Additional Instructions: General Surgical Discharge Instructions 1. No pushing, pulling, or lifting greater than 15 lbs for 2-4 weeks (depending upon procedure). 2. You may shower beginning today, but no tub baths, soaking, or swimming for 2 weeks. 3. You may resume driving when you are off narcotics and are safe to react in a car. 4. You may take the as needed Percocet. Take narcotics as directed. Eat something prior to taking narcotics as this will reduce the risk of nausea. Do not take more narcotics then directed and do not share your narcotics with any other person. Do not drink alcohol while on narcotics. 5. Take stool softeners (Colace) or a water based laxative (Miralax) while taking narcotics. You may hold for loose stools. 6. Report any fevers greater than 100.5F, increase abdominal discomfort, drainage that looks like pus, increased redness or pain at the surgical site, or any vomiting. 7. Report any pain in the calves, shortness of breath, or rapid heartbeat. 8. Follow-up in the office as directed. 9. If you were prescribed antibiotics, do not stop them without talking to your provider. Referrals: Mansoor Loaiza MD [Primary Care Provider] - Radha Herrmann CNP [Advanced Practice Nurse] - 01/12/19 2:00 pm Prescriptions: Docusate Sodium [Colace] 100 mg PO BID PRN #30 capsule PRN Reason: Contstipation OxyCODONE/APAP 5/325 [Percocet 5/325 MG] 1 each PO Q6HR PRN 7 Days #28 tablet PRN Reason: Pain
[2018-12-26] MEDS: Insulin DETEMIR 100 UNIT/ML X5UNITS SQ SCH (20:37)
--- NOTE | 2018-12-26 23:41 | Nephrology Progress Note ---
Date of Encounter: 12/26/18 Time of Encounter: 13:00 - Assessment and Plan (1) ESRD (end stage renal disease) on dialysis Current Visit: No Status: Chronic s/p Hd yesterday, next planned for friday No new labs today Fluid restriction advised Renal diet if tolerating full diet Continue phos binder with meals (2) S/P cholecystectomy Current Visit: Yes Status: Acute Per surgery, POD #1 (3) Essential hypertension Current Visit: No Status: Acute Stable, continue current BP regimen Subjective Interval history: Pt seen and examined feeling better today with less pain overall. s/p HD yesterday Objective - Vital Signs Vital signs: Vital Signs Temp Pulse Resp BP Pulse Ox 12/26/18 21:47 16 95 12/26/18 19:12 98.4 F 78 15 146/80 95 12/26/18 15:03 98.2 F 75 14 106/64 97 12/26/18 10:27 97.9 F 76 16 85/50 94 12/26/18 07:50 16 93 12/26/18 06:27 98.7 F 77 16 152/99 91 12/26/18 03:54 98.9 F 78 15 128/57 96 12/26/18 00:02 98.5 F 77 14 115/75 97 Intake and Output 12/26/18 12/26/18 12/26/18 07:59 15:59 23:59 Intake Total 0 / 130 130 / 130 0 / 130 Output Total 0 / 20 20 0 / 20 Balance 0 / 110 110 / 110 0 / 110 Intake: Oral 0 / 130 130 / 130 0 / 130 Output: Urine 0 / 0 0 / 0 Wound Drainage Right Lower Abdomen Other: Meal Lunch Percent of Meal Consumed 35% Blood Glucose* 72 - General Appearance General appearance: Present: well-developed, well-nourished EENT: Present: ATNC, mucous membranes moist Neck: Present: no JVD, supple Respiratory: Present: clear Cardiology: Present: no edema (L BKA), normal S1, normal S2 Dialysis Vascular Access: Arteriovenous Fistula thrill: Yes bruit: Yes Gastrointestinal: Present: no tenderness, no guarding (right sided dressing noted with smaller incison with drainge noted) Integumentary: Present: warm and dry Neurologic: Present: no focal deficit Musculoskeletal: Present: no deformities Psychiatric: Present: mood/affect appropriate - Lab 12/25/18 07:32 Consult Discharge Plan - Plan Instructions: Laparoscopic Cholecystectomy (DC) Additional Instructions: General Surgical Discharge Instructions 1. No pushing, pulling, or lifting greater than 15 lbs for 2-4 weeks (depending upon procedure). 2. You may shower beginning today, but no tub baths, soaking, or swimming for 2 weeks. 3. You may resume driving when you are off narcotics and are safe to react in a car. 4. You may take the as needed Percocet. Take narcotics as directed. Eat something prior to taking narcotics as this will reduce the risk of nausea. Do not take more narcotics then directed and do not share your narcotics with any other person. Do not drink alcohol while on narcotics. 5. Take stool softeners (Colace) or a water based laxative (Miralax) while taking narcotics. You may hold for loose stools. 6. Report any fevers greater than 100.5F, increase abdominal discomfort, drainage that looks like pus, increased redness or pain at the surgical site, or any vomiting. 7. Report any pain in the calves, shortness of breath, or rapid heartbeat. 8. Follow-up in the office as directed. 9. If you were prescribed antibiotics, do not stop them without talking to your provider. Referrals: Mansoor Loaiza MD [Primary Care Provider] - Radha Herrmann CNP [Advanced Practice Nurse] - 01/12/19 2:00 pm Prescriptions: Docusate Sodium [Colace] 100 mg PO BID PRN #30 capsule PRN Reason: Contstipation OxyCODONE/APAP 5/325 [Percocet 5/325 MG] 1 each PO Q6HR PRN 7 Days #28 tablet PRN Reason: Pain
[2018-12-27 06:33] LABS: Basophils % 0.3 %; Eosinophils # 0.1 K/mcL (0.0-0.6); Eosinophils % 1.6 %; Hematocrit 36.8 % (37.5-50.1); Hemoglobin 12.1 g/dL (12.9-16.9); Immature Granulocytes % 0.7 % (0-4); Lymphocytes # 1.3 K/mcL (0.6-4.6); Lymphocytes % 17.5 %; Mean Corpuscular HGB Conc 32.9 g/dL (31.6-35.5); Mean Corpuscular Hemoglobin 31.2 pg (28.0-33.3); Mean Corpuscular Volume 94.8 fL (83.0-100.0); Mean Platelet Volume 10.3 fL (9.4-12.4); Monocytes # 0.5 K/mcL (0.0-1.3); Monocytes % 7.3 %; Neutrophils # 5.3 K/mcL (1.6-8.9); Platelet Count 139 K/mcL (140-400); Red Blood Count 3.88 M/mcL (4.19-5.50); Red Cell Distribution Width 12.8 % (11.5-14.5); Segmented Neutrophils % 72.6 %; White Blood Count 7.4 K/mcL (4.3-11.1)
[2018-12-27 06:56] LABS: Potassium 4.8 mEq/L (3.5-5.1)
[2018-12-27] MEDS: Budesonide/Formoterol 160/4.5 1 PUFF INH IH SCH ×2 (07:52→22:11)
[2018-12-27] MEDS: Tiotropium 18 MCG inhalation IH SCH (07:52)
[2018-12-27] MEDS: Fluticasone Propionate Nasal 50 MCG/SPRAY BOTTLE NS SCH (08:19)
[2018-12-27] MEDS: Cholecalciferol (D-3) 1,000 UNIT TABLET PO SCH (08:20)
[2018-12-27] MEDS: Apixaban 5 MG TABLET PO SCH ×2 (08:20→19:43)
[2018-12-27] MEDS: Calcium Acetate 667 MG CAPSULE PO SCH ×3 (08:20→17:39)
[2018-12-27] MEDS: Metoprolol XL (24 HR) Succ 50 MG TAB.ER.24H PO SCH (08:20)
[2018-12-27] MEDS: Renal Vitamin 1 CAP CAPSULE PO SCH (08:21)
[2018-12-27] MEDS: Insulin LISPRO 300 UNITS/3 ML VIAL SQ SCH ×3 (08:21→17:26)
[2018-12-27] MEDS: Isosorbide MONOnitrate (24 HR) 60 MG TAB.ER.24H PO SCH (08:21)
--- NOTE | 2018-12-27 08:38 | General Surgery Progress Note ---
Date of Encounter: 12/27/18 Time of Encounter: 08:37 - Assessment and Plan (1) S/P cholecystectomy Current Visit: Yes Status: Acute patient having improved postop discomfort tolerating renal diet prn pain control OOB to chair with meals, will need assistance d/t LLE BKA check labs in am Saud drain - old blood DC planning next 24-48 hrs after dialysis (2) ESRD (end stage renal disease) on dialysis Current Visit: No Status: Chronic management per nephrology, dialysis friday plan dialysis tomorrow (3) Insulin dependent diabetes mellitus Current Visit: No Status: Chronic continue home meds SSI/MBS controlled (4) Atrial fibrillation Current Visit: No Status: Chronic on eliquis Qualifiers: Atrial fibrillation type: paroxysmal Qualified Code(s): I48.0 - Paroxysmal atrial fibrillation (5) History of left below knee amputation Current Visit: No Status: Chronic will need assistance with ambulation and bed transfers Subjective Patient reports: feels better, still having pain, pain is less, tolerating a regular diet (renal diet), no flatus, no bowel movement, afebrile Narrative: no nausea Objective Vital Signs - Last 8 Hours Temp Pulse Resp BP Pulse Ox 12/27/18 07:52 16 98 12/27/18 07:31 98.4 F 80 15 162/89 97 12/27/18 03:46 98.1 F 79 14 150/73 96 Intake and Output 12/26/18 12/27/18 12/27/18 23:59 07:59 15:59 Intake Total 0 / 130 0 / 0 Output Total 0 / 20 30 / 30 Balance 0 / 110 -30 / -30 Intake: Oral 0 / 130 0 / 0 Output: Urine 0 / 0 0 / 0 Wound Drainage Right Lower Abdomen 30 Other: Blood Glucose* 72 67 - General physical appearance well developed, well nourished, no distress, moderate pain - Eyes PERRL, normal ocular movement - ENT normal mucosa, normocephalic - Neck Neck exam: trachea midline - Respiratory normal expansion, normal respiratory effort - Cardiovascular Cardiovascular exam: Present: distant heart sounds - Abdomen Abdomen: Present: bowel sounds present, soft, tender (appropriate post op tenderness) - Incision Incision: Present: clean and dry, intact - Integumentary no rash, no growths - Neurologic CN 2-12 grossly intact - Musculoskeletal normal posture - Psychiatric oriented to time, oriented to person, oriented to place, speech is normal, memory intact - Labs 12/27/18 04:51 12/27/18 04:51 Diabetes panel 12/27/18 Range/Units 04:51 Sodium 132 L (136-145) mEq/L Potassium 4.8 (3.5-5.1) mEq/L Chloride 92 L (98-107) mEq/L Carbon Dioxide 28 (23-29) mEq/L BUN 45 H (8-23) mg/dL Creatinine 7.97 H (0.70-1.30) mg/dL Glucose 66 L (70-105) mg/dL Calcium 9.0 (8.6-10.3) mg/dL Calcium panel 12/27/18 Range/Units 04:51 Calcium 9.0 (8.6-10.3) mg/dL Pituitary panel 12/27/18 Range/Units 04:51 Sodium 132 L (136-145) mEq/L Potassium 4.8 (3.5-5.1) mEq/L Chloride 92 L (98-107) mEq/L Carbon Dioxide 28 (23-29) mEq/L BUN 45 H (8-23) mg/dL Creatinine 7.97 H (0.70-1.30) mg/dL Glucose 66 L (70-105) mg/dL Calcium 9.0 (8.6-10.3) mg/dL Adrenal panel 12/27/18 Range/Units 04:51 Sodium 132 L (136-145) mEq/L Potassium 4.8 (3.5-5.1) mEq/L Chloride 92 L (98-107) mEq/L Carbon Dioxide 28 (23-29) mEq/L BUN 45 H (8-23) mg/dL Creatinine 7.97 H (0.70-1.30) mg/dL Glucose 66 L (70-105) mg/dL Calcium 9.0 (8.6-10.3) mg/dL Consult Discharge Plan - Plan Instructions: Laparoscopic Cholecystectomy (DC) Additional Instructions: General Surgical Discharge Instructions 1. No pushing, pulling, or lifting greater than 15 lbs for 2-4 weeks (depending upon procedure). 2. You may shower beginning today, but no tub baths, soaking, or swimming for 2 weeks. 3. You may resume driving when you are off narcotics and are safe to react in a car. 4. You may take the as needed Percocet. Take narcotics as directed. Eat something prior to taking narcotics as this will reduce the risk of nausea. Do not take more narcotics then directed and do not share your narcotics with any other person. Do not drink alcohol while on narcotics. 5. Take stool softeners (Colace) or a water based laxative (Miralax) while taking narcotics. You may hold for loose stools. 6. Report any fevers greater than 100.5F, increase abdominal discomfort, drainage that looks like pus, increased redness or pain at the surgical site, or any vomiting. 7. Report any pain in the calves, shortness of breath, or rapid heartbeat. 8. Follow-up in the office as directed. 9. If you were prescribed antibiotics, do not stop them without talking to your provider. Referrals: Mansoor Loaiza MD [Primary Care Provider] - Radha Herrmann CNP [Advanced Practice Nurse] - 01/12/19 2:00 pm Prescriptions: Docusate Sodium [Colace] 100 mg PO BID PRN #30 capsule PRN Reason: Contstipation OxyCODONE/APAP 5/325 [Percocet 5/325 MG] 1 each PO Q6HR PRN 7 Days #28 tablet PRN Reason: Pain
[2018-12-27] MEDS: *HR* HYDROcodone/Acet 5/325 mg TABLET PO PRN ×2 (13:14→19:43)
--- NOTE | 2018-12-27 18:42 | Nephrology Progress Note ---
Date of Encounter: 12/27/18 Time of Encounter: 13:00 - Assessment and Plan (1) ESRD (end stage renal disease) on dialysis Current Visit: No Status: Chronic next HD planned for friday Lytes WNL Continue fluid restriction Continue renal diet Continue phos binder with meals (2) S/P cholecystectomy Current Visit: Yes Status: Acute Per surgery, POD #2 (3) Essential hypertension Current Visit: No Status: Acute Stable, continue current BP regimen Subjective Interval history: Pt seen and examined feeling better today with less pain overall. Objective - Vital Signs Vital signs: Vital Signs Temp Pulse Resp BP Pulse Ox 12/27/18 15:10 97.7 F 80 15 152/84 92 12/27/18 10:10 97.8 F 77 15 140/78 91 12/27/18 07:52 16 98 12/27/18 07:31 98.4 F 80 15 162/89 97 12/27/18 03:46 98.1 F 79 14 150/73 96 12/26/18 21:47 16 95 12/26/18 19:12 98.4 F 78 15 146/80 95 Intake and Output 12/27/18 12/27/18 12/27/18 07:59 15:59 23:59 Intake Total 0 / 180 120 / 180 60 / 180 Output Total 30 / 80 50 / 80 Balance -30 / 100 70 / 100 60 / 100 Intake: Oral 0 / 180 120 / 180 60 / 180 Output: Urine 0 / 50 50 / 50 Wound Drainage 30 / 30 0 / 30 Right Lower Abdomen 30 / 30 0 / 30 Other: Meal Breakfast Dinner Percent of Meal Consumed 95% 10% # Bowel Movements 0 Blood Glucose* 67 80 110 - General Appearance General appearance: Present: well-developed, well-nourished EENT: Present: ATNC, mucous membranes moist Neck: Present: no JVD, supple Respiratory: Present: clear (ant bilat) Cardiology: Present: no edema, normal S1, normal S2 Dialysis Vascular Access: Arteriovenous Fistula thrill: Yes bruit: Yes Gastrointestinal: Present: no tenderness, no guarding (surgical wound with dressing) Integumentary: Present: warm and dry Neurologic: Present: no focal deficit Musculoskeletal: Present: no deformities Psychiatric: Present: mood/affect appropriate - Lab 12/27/18 04:51 12/27/18 04:51 Most recent lab results 12/27/18 04:51 Calcium 9.0 Consult Discharge Plan - Plan Instructions: Laparoscopic Cholecystectomy (DC) Additional Instructions: General Surgical Discharge Instructions 1. No pushing, pulling, or lifting greater than 15 lbs for 2-4 weeks (depending upon procedure). 2. You may shower beginning today, but no tub baths, soaking, or swimming for 2 weeks. 3. You may resume driving when you are off narcotics and are safe to react in a car. 4. You may take the as needed Percocet. Take narcotics as directed. Eat something prior to taking narcotics as this will reduce the risk of nausea. Do not take more narcotics then directed and do not share your narcotics with any other person. Do not drink alcohol while on narcotics. 5. Take stool softeners (Colace) or a water based laxative (Miralax) while taking narcotics. You may hold for loose stools. 6. Report any fevers greater than 100.5F, increase abdominal discomfort, drainage that looks like pus, increased redness or pain at the surgical site, or any vomiting. 7. Report any pain in the calves, shortness of breath, or rapid heartbeat. 8. Follow-up in the office as directed. 9. If you were prescribed antibiotics, do not stop them without talking to your provider. Referrals: Mansoor Loaiza MD [Primary Care Provider] - Radha Herrmann CNP [Advanced Practice Nurse] - 01/12/19 2:00 pm Prescriptions: Docusate Sodium [Colace] 100 mg PO BID PRN #30 capsule PRN Reason: Contstipation OxyCODONE/APAP 5/325 [Percocet 5/325 MG] 1 each PO Q6HR PRN 7 Days #28 tablet PRN Reason: Pain
[2018-12-27] MEDS: Insulin DETEMIR 100 UNIT/ML X5UNITS SQ SCH (20:28)
[2018-12-27] MEDS ORDERED: *HR* OxyCODONE/APAP 10/325 TABLET PO PRN (23:06)
[2018-12-28 04:39] LABS: Basophils % 0.3 %; Eosinophils # 0.1 K/mcL (0.0-0.6); Eosinophils % 1.9 %; Hematocrit 34.9 % (37.5-50.1); Hemoglobin 11.6 g/dL (12.9-16.9); Immature Granulocytes % 0.8 % (0-4); Lymphocytes # 1.2 K/mcL (0.6-4.6); Lymphocytes % 16.3 %; Mean Corpuscular HGB Conc 33.2 g/dL (31.6-35.5); Mean Corpuscular Hemoglobin 30.8 pg (28.0-33.3); Mean Corpuscular Volume 92.6 fL (83.0-100.0); Mean Platelet Volume 10.5 fL (9.4-12.4); Monocytes # 0.6 K/mcL (0.0-1.3); Monocytes % 8.4 %; Neutrophils # 5.3 K/mcL (1.6-8.9); Platelet Count 152 K/mcL (140-400); Red Blood Count 3.77 M/mcL (4.19-5.50); Red Cell Distribution Width 12.7 % (11.5-14.5); Segmented Neutrophils % 72.3 %; White Blood Count 7.4 K/mcL (4.3-11.1)
[2018-12-28 04:57] LABS: Calcium 8.7 mg/dL (8.6-10.3)
[2018-12-28] MEDS: Tiotropium 18 MCG inhalation IH SCH (07:19)
[2018-12-28] MEDS: Budesonide/Formoterol 160/4.5 1 PUFF INH IH SCH (07:19)
[2018-12-28] MEDS ORDERED: *HR* Heparin 10,000 UNIT/10 ML VIAL IV PRN (08:23)
[2018-12-28] MEDS ORDERED: 0.9 % Sodium Chloride 250 ML IVC PRN (08:23)
--- NOTE | 2018-12-28 12:12 | Discharge Summary ---
<Radha Herrmann - Last Filed: 12/28/18 12:09> Orders not resulted at time of discharge: Pending orders 12/25/18 12:04 Surgical Pathology [PTH] Routine Date of Encounter: 12/28/18 Time of Encounter: 11:00 - Discharge Diagnosis (1) Cholecystitis Priority: Primary Status: Resolved (2) End-stage renal disease on hemodialysis Priority: Secondary Status: Chronic General Surgery Exam Initial Vital Signs Temp Pulse Resp BP Pulse Ox 97.6 F 77 18 184/84 95 12/25/18 07:30 12/25/18 07:30 12/25/18 07:30 12/25/18 07:30 12/25/18 07:30 - General physical appearance other (Drowsy but a routable with minimal stimulation. He is in dialysis at this time) - Respiratory normal expansion, normal respiratory effort - Abdomen Abdomen general surgery: Present: bowel sounds present, soft, tender (Expected postoperative) - Incision Incision: Present: clean and dry, intact - Neurologic Present: normal sensation - Musculoskeletal Present: normal posture - Psychiatric Psychiatric general surgery: Present: appropriate, oriented to person, oriented to place, oriented to time - Hospital Course Hospital course: Mr. Barcenas is a 63 year old male who presented on 12/25/2017 for an elective laparoscopic cholecystectomy with Dr. Rodriguez. His hospital course was complicated by postoperative pain control. He has received dialysis on the and today the . His abdominal discomfort is now controlled, vital signs are stable, and he is afebrile. We will begin discharge planning to home with a follow-up in the office in approximately 2 weeks. - Time Spent with Patient Total time spent providing and/or coordinating discharge services: - Discharge Medications Prescriptions: New Docusate Sodium [Colace] 100 mg PO BID PRN #30 capsule PRN Reason: Contstipation OxyCODONE/APAP 5/325 [Percocet 5/325 MG] 1 each PO Q6HR PRN 7 Days #28 tablet PRN Reason: Pain Continued Nitroglycerin 0.4 mg SL Q5MIN PRN #3 tab.subl PRN Reason: Chest Pain Tiotropium [Spiriva] 18 mcg IH DAILY Budesonide/Formoterol 160/4.5 [Symbicort 160/4.5] 2 puff IH BIDR Pantoprazole Sodium [Protonix] 40 mg PO DAILY Albuterol Neb [Proventil Neb] 2.5 mg IH TID PRN PRN Reason: Shortness Of Breath Insulin Glargine,Hum.rec.anlog [Lantus Solostar] 5 unit SQ HS Sevelamer [Renvela] 800 mg PO DAILY Cholecalciferol (Vitamin D3) [Dialyvite Vitamin D] 5,000 unit PO DAILY Metoprolol Succinate [Toprol Xl] 100 mg PO DAILY Fluticasone Propionate Nasal [Flonase] 2 spr NS DAILY Calcium Acetate [Phos-LO] 1,334 mg PO TIDWM Doxazosin [Cardura] 1 mg PO DAILY Isosorbide MONOnitrate [Isosorbide Mononitrate ER] 60 mg PO DAILY Midodrine HCl 10 mg PO MOWEFR traZODone [TraZODone] 50 mg PO HS PRN PRN Reason: Sleep Apixaban [Eliquis] 5 mg PO BID #0 Febuxostat [Uloric] 40 mg PO QAM Insulin ASPART [NovoLOG] 0 unit SQ TIDWM Atorvastatin Calcium [Lipitor] 80 mg PO HS Renal Vitamin [Renal Caps Softgel] 1 mg PO DAILY Home Medications: Febuxostat [Uloric] 40 mg PO QAM 03/02/15 [History] Nitroglycerin 0.4 mg SL Q5MIN PRN #3 tab.subl 08/20/15 [Rx] Budesonide/Formoterol 160/4.5 [Symbicort 160/4.5] 2 puff IH BIDR 04/01/16 [History] Tiotropium [Spiriva] 18 mcg IH DAILY 04/01/16 [History] Albuterol Neb [Proventil Neb] 2.5 mg IH TID PRN 02/06/17 [History] Pantoprazole Sodium [Protonix] 40 mg PO DAILY 02/06/17 [History] Atorvastatin Calcium [Lipitor] 80 mg PO HS 09/09/17 [History] Insulin ASPART [NovoLOG] 0 unit SQ TIDWM 09/09/17 [History] Renal Vitamin [Renal Caps Softgel] 1 mg PO DAILY 05/04/18 [History] Cholecalciferol (Vitamin D3) [Dialyvite Vitamin D] 5,000 unit PO DAILY 06/28/18 [History] Insulin Glargine,Hum.rec.anlog [Lantus Solostar] 5 unit SQ HS 06/28/18 [History] Sevelamer [Renvela] 800 mg PO DAILY 06/28/18 [History] Calcium Acetate [Phos-LO] 1,334 mg PO TIDWM 10/22/18 [History] Fluticasone Propionate Nasal [Flonase] 2 spr NS DAILY 10/22/18 [History] Metoprolol Succinate [Toprol Xl] 100 mg PO DAILY 10/22/18 [History] Doxazosin [Cardura] 1 mg PO DAILY 11/13/18 [History] Isosorbide MONOnitrate [Isosorbide Mononitrate ER] 60 mg PO DAILY 11/13/18 [History] Apixaban [Eliquis] 5 mg PO BID #0 12/25/18 [Rx] Docusate Sodium [Colace] 100 mg PO BID PRN #30 capsule 12/25/18 [Rx] Midodrine HCl 10 mg PO MOWEFR 12/25/18 [History] OxyCODONE/APAP 5/325 [Percocet 5/325 MG] 1 each PO Q6HR PRN 7 Days #28 tablet 12/25/18 [Rx] traZODone [TraZODone] 50 mg PO HS PRN 12/25/18 [History] Allergies/Adverse Reactions: Allergy/AdvReac Type Severity Reaction Status Date / Time No Known Allergies Allergy Verified 12/25/18 08:48 Primary care physician: Mansoor Loaiza MD Consults: 12/25/18 07:24 Consult to Nephrology [CONS] Routine Consulting Provider: Kidney Mala/ANIBAL/MITCHEL/SILVIA Reason for Consult: inpatient dialysis Call Completed: Yes 12/25/18 15:00 Consult to Dialysis [CONS] ONCE 12/28/18 08:30 Consult to Dialysis [CONS] ONCE Discharging clinician: Elvin Rodriguez Anticipated date of discharge: 12/28/18 Labs on day of discharge: Labs from last 24 hours 12/28/18 12/28/18 12/27/18 03:57 03:57 20:20 WBC 7.4 RBC 3.77 L Hgb 11.6 L Hct 34.9 L MCV 92.6 MCH 30.8 MCHC 33.2 RDW 12.7 Plt Count 152 MPV 10.5 Immature Gran % 0.8 Seg Neutrophils % 72.3 Lymphocytes % 16.3 Monocytes % 8.4 Eosinophils % 1.9 Basophils % 0.3 Neutrophils # 5.3 Lymphocytes # 1.2 Monocytes # 0.6 Eosinophils # 0.1 Basophils # 0.0 Sodium 130 L Potassium 5.0 Chloride 91 L Carbon Dioxide 27 BUN 54 H Creatinine 9.65 H Est GFR ( Amer) 7 L Est GFR (Non-Af Amer) 5 L BUN/Creatinine Ratio 6 Glucose 131 H POC Glucose 127 H Calculated Osmolality 287 Calcium 8.7 12/27/18 12/27/18 12/27/18 11:39 10:06 07:34 WBC RBC Hgb Hct MCV MCH MCHC RDW Plt Count MPV Immature Gran % Seg Neutrophils % Lymphocytes % Monocytes % Eosinophils % Basophils % Neutrophils # Lymphocytes # Monocytes # Eosinophils # Basophils # Sodium Potassium Chloride Carbon Dioxide BUN Creatinine Est GFR ( Amer) Est GFR (Non-Af Amer) BUN/Creatinine Ratio Glucose POC Glucose 80 84 67 L Calculated Osmolality Calcium - Impressions ITS Impressions Cholangiogram,Operative 12/25/18 00:00 IMPRESSION: No choledocholithiasis evident. D/ / 12/25/2018 11:21:43 Pardeep Valencia MD / rosa Interpreting Provider: Pardeep Valencia MD - Patient Status Disposition: Home, Self-Care Condition: Good Overall status at discharge: patient is progressing back to baseline - Discharge Instructions Instructions: Pancreatitis (DC), Laparoscopic Cholecystectomy (DC), Chronic Hypertension (DC) Follow Up With: Radha Herrmann CNP [Advanced Practice Nurse] - 01/12/19 2:00 pm Additional Instructions: General Surgical Discharge Instructions 1. No pushing, pulling, or lifting greater than 15 lbs for 2-4 weeks (depending upon procedure). 2. You may shower beginning today, but no tub baths, soaking, or swimming for 2 weeks. 3. You may resume driving when you are off narcotics and are safe to react in a car. 4. You may take the as needed Percocet. Take narcotics as directed. Eat something prior to taking narcotics as this will reduce the risk of nausea. Do not take more narcotics then directed and do not share your narcotics with any other person. Do not drink alcohol while on narcotics. 5. Take stool softeners (Colace) or a water based laxative (Miralax) while taking narcotics. You may hold for loose stools. 6. Report any fevers greater than 100.5F, increase abdominal discomfort, drainage that looks like pus, increased redness or pain at the surgical site, or any vomiting. 7. Report any pain in the calves, shortness of breath, or rapid heartbeat. 8. Follow-up in the office as directed. 9. If you were prescribed antibiotics, do not stop them without talking to your provider. - Diet and Activity Activity: increase activity as tolerated Diet: advance to your usual diet <Elvin Rodriguez - Last Filed: 12/28/18 17:07> Date of Encounter: 12/28/18 - Discharge Diagnosis (1) Biliary acute pancreatitis Status: Acute Qualifiers: Acute pancreatitis complication: unspecified Qualified Code(s): K85.10 - Biliary acute pancreatitis without necrosis or infection General Surgery Exam Initial Vital Signs Temp Pulse Resp BP Pulse Ox 97.6 F 77 18 184/84 95 12/25/18 07:30 12/25/18 07:30 12/25/18 07:30 12/25/18 07:30 12/25/18 07:30 - Hospital Course Hospital course: Mr. Barcenas is a 63 year old male - Time Spent with Patient Total time spent providing and/or coordinating discharge services: Date of admission: 12/28/18 11:29 Primary care physician: Mansoor Loaiza MD Consults: 12/25/18 07:24 Consult to Nephrology [CONS] Routine Consulting Provider: Kidney Mala/ANIBAL/MITCHEL/SILVIA Reason for Consult: inpatient dialysis Call Completed: Yes 12/25/18 15:00 Consult to Dialysis [CONS] ONCE 12/28/18 08:30 Consult to Dialysis [CONS] ONCE Labs on day of discharge: Labs from last 24 hours 12/28/18 12/28/18 12/27/18 03:57 03:57 20:20 WBC 7.4 RBC 3.77 L Hgb 11.6 L Hct 34.9 L MCV 92.6 MCH 30.8 MCHC 33.2 RDW 12.7 Plt Count 152 MPV 10.5 Immature Gran % 0.8 Seg Neutrophils % 72.3 Lymphocytes % 16.3 Monocytes % 8.4 Eosinophils % 1.9 Basophils % 0.3 Neutrophils # 5.3 Lymphocytes # 1.2 Monocytes # 0.6 Eosinophils # 0.1 Basophils # 0.0 Sodium 130 L Potassium 5.0 Chloride 91 L Carbon Dioxide 27 BUN 54 H Creatinine 9.65 H Est GFR ( Amer) 7 L Est GFR (Non-Af Amer) 5 L BUN/Creatinine Ratio 6 Glucose 131 H POC Glucose 127 H Calculated Osmolality 287 Calcium 8.7 12/27/18 12/27/18 12/27/18 16:29 11:39 10:06 WBC RBC Hgb Hct MCV MCH MCHC RDW Plt Count MPV Immature Gran % Seg Neutrophils % Lymphocytes % Monocytes % Eosinophils % Basophils % Neutrophils # Lymphocytes # Monocytes # Eosinophils # Basophils # Sodium Potassium Chloride Carbon Dioxide BUN Creatinine Est GFR ( Amer) Est GFR (Non-Af Amer) BUN/Creatinine Ratio Glucose POC Glucose 110 H 80 84 Calculated Osmolality Calcium 12/27/18 07:34 WBC RBC Hgb Hct MCV MCH MCHC RDW Plt Count MPV Immature Gran % Seg Neutrophils % Lymphocytes % Monocytes % Eosinophils % Basophils % Neutrophils # Lymphocytes # Monocytes # Eosinophils # Basophils # Sodium Potassium Chloride Carbon Dioxide BUN Creatinine Est GFR ( Amer) Est GFR (Non-Af Amer) BUN/Creatinine Ratio Glucose POC Glucose 67 L Calculated Osmolality Calcium - Impressions ITS Impressions Cholangiogram,Operative 12/25/18 00:00 IMPRESSION: No choledocholithiasis evident. D/ / 12/25/2018 11:21:43 Pardeep Valencia MD / rosa Interpreting Provider: Pardeep Valencia MD - Attending Attestation I have personally seen and examined the patient. I have reviewed pertinent labs, imaging, progress notes, including this one. I have discussed the plan in thorough detail with the resident and nurse practitioner. I agree with the above assessment and plan.
[2018-12-28 13:49] VITALS: BP 127/79
[2018-12-28] MEDS: Insulin LISPRO 300 UNITS/3 ML VIAL SQ SCH ×2 (14:30→14:31)
[2018-12-28] MEDS: Calcium Acetate 667 MG CAPSULE PO SCH ×2 (14:31→14:33)
[2018-12-28] MEDS: Fluticasone Propionate Nasal 50 MCG/SPRAY BOTTLE NS SCH (14:32)
[2018-12-28] MEDS: Renal Vitamin 1 CAP CAPSULE PO SCH (14:44)
[2018-12-28] MEDS: Apixaban 5 MG TABLET PO SCH (14:44)
[2018-12-28] MEDS: Cholecalciferol (D-3) 1,000 UNIT TABLET PO SCH (14:45)
[2018-12-28] MEDS: Isosorbide MONOnitrate (24 HR) 60 MG TAB.ER.24H PO SCH (14:45)
[2018-12-28] MEDS: Metoprolol XL (24 HR) Succ 50 MG TAB.ER.24H PO SCH (14:45)
--- NOTE | 2018-12-28 17:34 | Nephrology Progress Note ---
Date of Encounter: 12/28/18 Time of Encounter: 12:00 - Assessment and Plan (1) ESRD (end stage renal disease) on dialysis Status: Chronic Continue HD with UF as tolerated Lytes WNL Continue fluid restriction Continue renal diet Continue phos binder with meals (2) S/P cholecystectomy Status: Resolved Per surgery, POD #3 tolerating po intake well (3) Essential hypertension Status: Acute Stable, continue current BP regimen Subjective Interval history: Pt seen and examined on HD doing well and eager to go home. Objective - Vital Signs Vital signs: Vital Signs Temp Pulse Resp BP Pulse Ox 12/28/18 13:35 98.9 F 20 127/79 12/28/18 13:00 111/75 12/28/18 12:45 113/75 12/28/18 12:30 127/81 12/28/18 12:15 139/77 12/28/18 12:00 140/79 12/28/18 11:45 144/76 12/28/18 11:30 141/77 12/28/18 11:15 135/72 12/28/18 11:00 138/83 12/28/18 10:45 153/84 12/28/18 10:30 167/83 12/28/18 10:15 165/88 12/28/18 10:00 171/91 12/28/18 09:45 168/90 12/28/18 09:30 99.4 F 18 161/89 12/28/18 07:51 97 12/28/18 07:23 98.1 F 81 14 179/84 97 12/27/18 22:14 16 92 12/27/18 19:12 98.4 F 81 15 165/74 90 Intake and Output 12/28/18 12/28/18 12/28/18 07:59 15:59 23:59 Intake Total 600 / 600 Output Total 350 / 3950 3600 / 3950 Balance -350 / -3350 -3000 / -3350 Intake: Oral 0 / 0 Intake, Rinseback and Flushes 600 / 600 Output: Urine 350 / 350 0 / 350 Total Dialysis (HD) Output 3600 / 3600 Wound Drainage 0 / 0 Right Lower Abdomen 0 / 0 Other: Blood Glucose* 111 Hemodialysis Net Fluid Removed 3000 (mL) - General Appearance General appearance: Present: well-developed, well-nourished EENT: Present: ATNC, mucous membranes moist Neck: Present: no JVD, supple Respiratory: Present: clear Cardiology: Present: no edema (L BKA), normal S1, normal S2 Dialysis Vascular Access: Arteriovenous Fistula thrill: Yes bruit: Yes Gastrointestinal: Present: no tenderness, no guarding Integumentary: Present: warm and dry Neurologic: Present: no focal deficit Musculoskeletal: Present: no deformities Psychiatric: Present: mood/affect appropriate - Lab 12/28/18 03:57 12/28/18 03:57 - VTE Reasons for not Prescribing Prophylaxis: Treatment not Indicated - Low risk for VTE Consult Discharge Plan - Plan Instructions: Pancreatitis (DC), Laparoscopic Cholecystectomy (DC), Chronic Hypertension (DC) Additional Instructions: General Surgical Discharge Instructions 1. No pushing, pulling, or lifting greater than 15 lbs for 2-4 weeks (depending upon procedure). 2. You may shower beginning today, but no tub baths, soaking, or swimming for 2 weeks. 3. You may resume driving when you are off narcotics and are safe to react in a car. 4. You may take the as needed Percocet. Take narcotics as directed. Eat something prior to taking narcotics as this will reduce the risk of nausea. Do not take more narcotics then directed and do not share your narcotics with any other person. Do not drink alcohol while on narcotics. 5. Take stool softeners (Colace) or a water based laxative (Miralax) while taking narcotics. You may hold for loose stools. 6. Report any fevers greater than 100.5F, increase abdominal discomfort, drainage that looks like pus, increased redness or pain at the surgical site, or any vomiting. 7. Report any pain in the calves, shortness of breath, or rapid heartbeat. 8. Follow-up in the office as directed. 9. If you were prescribed antibiotics, do not stop them without talking to your provider. Referrals: Radha Herrmann CNP [Advanced Practice Nurse] - 01/12/19 2:00 pm
== END 2018-12-28 16:29 | disposition home or self-care (01) ==
LOC: 3ANU 06:53 → SAMDAY 06:53 → 3ANU 13:26
PROVIDERS: ADMIT Surgery; ATTEND Surgery

== ENCOUNTER 2019-01-31 14:51 | Observation (INO) ==
[2019-01-31] MEDS ORDERED: *HR* Dextrose 50 % in Water (Syg) 50 ML SYRINGE IVP PRN (17:39)
[2019-01-31] MEDS ORDERED: Dextrose Gel 15 GM/37.5 ML TUBE PO PRN ×2 (17:39)
[2019-01-31] MEDS ORDERED: D5% in Water 1,000 ML IVC PRN (17:39)
[2019-01-31] MEDS ORDERED: Mag Hydrox/Al Hydrox/Simeth 30 ML UDC PO PRN (17:40)
[2019-01-31] MEDS ORDERED: *HR* Promethazine 25 MG/ML VIAL IVP PRN (17:40)
[2019-01-31] MEDS ORDERED: MOM Conc 10 ML UD.LIQ PO PRN (17:40)
[2019-01-31] MEDS ORDERED: traMADol 50 MG TABLET PO PRN (17:40)
[2019-01-31] MEDS ORDERED: Acetaminophen 325 MG TABLET PO PRN (17:40)
[2019-01-31] MEDS ORDERED: Naloxone 0.4 MG/ML INJ IVP PRN (17:40)
[2019-01-31] MEDS ORDERED: Ondansetron 4 MG/2 ML VIAL IVP PRN (17:40)
--- NOTE | 2019-01-31 17:50 | Internal Med History&Physical ---
Date of Encounter: 01/31/19 Time of Encounter: 17:43 Internal Medicine - H&P: HPI Admitted From: Long-term Nursing Facility Plans for Post Hospital Care: Transfer Assisted Care History of present illness: Mr. Barcenas is a 63 year old male with multiple comorbidities significant for CAD s/p CABG, end-stage renal disease with dialysis, COPD, CHF, paroxysmal atrial fibrillation, hypertension, history of DVT, and a diabetes who was transferred from [facility] because of acute onset of chest pain. Patient is a resident on a local F. Chest pain started earlier this morning, located at the upper side of the left chest, sharp, 6 out of 10, constant, associated with shortness of breath and a nausea, accompanied by abdominal pain at the left lower quadrant which started simultaneously with the chest pain. Patient recently was hospitalized because of abdominal abscess and was just discharged about half a month ago. In the [place] ED, patient vital signs were stable, first set of troponin was slightly elevated at 0.08 (this seems his baseline). She received 1 dose of aspirin and was transferred to this institute for further evaluation and management. CODE STATUS is full code. Past Med Surg Social Fam HX - Past Medical History Medical history: arthritis, asthma, atrial fibrillation, cardiomyopathy, CHF, COPD, coronary artery disease, DVT, diabetes, dialysis, GERD, hyperlipidemia, hypertension, osteoporosis, peripheral artery disease, renal disease, other Additional medical history: neuropathy. dialysis Friday. gout Psychiatric history: no psych history - Past Surgical History Surgical History: cholecystectomy, knee replacement Additional surgical history: cardiac cath, left knee below the knee amp, cardiac stent. bipass - Social History Smoking Status: Former smoker Smokeless Tobacco Status: No Alcohol use: none Drug use: none - Family History Father Adopted: No Family Member Ethnicity: Non- Living Status: Hx Family Cardiac Disorders: No Hx Family Respiratory Disorders: No Hx Family Cancer: Yes Hx Family GI Disorders: No Hx Family Endocrine Disorder: No Hx Family Neuromuscular Disorders: No Hx Family Neurologic Disorders: No Hx Family HEENT Disorders: No Hx Family Autoimmune Disorders: No Mother Adopted: No Family Member Ethnicity: Non- Living Status: Hx Family Cardiac Disorders: Yes Hx Family Respiratory Disorders: No Hx Family Cancer: No Hx Family GI Disorders: No Hx Family Endocrine Disorder: Yes Hx Family Neuromuscular Disorders: No Hx Family Neurologic Disorders: No Hx Family HEENT Disorders: No Hx Family Autoimmune Disorders: No Internal Medicine - H&P: Meds Febuxostat [Uloric] 40 mg PO QAM 03/02/15 [History] Nitroglycerin 0.4 mg SL Q5MIN PRN #3 tab.subl 08/20/15 [Rx] Tiotropium [Spiriva] 18 mcg IH DAILY 04/01/16 [History] Albuterol Neb [Proventil Neb] 2.5 mg IH TID PRN 02/06/17 [History] Pantoprazole Sodium [Protonix] 40 mg PO DAILY 02/06/17 [History] Atorvastatin Calcium [Lipitor] 80 mg PO HS 09/09/17 [History] Insulin ASPART [NovoLOG] 0 unit SQ TIDWM 09/09/17 [History] Renal Vitamin [Renal Caps Softgel] 1 mg PO DAILY 05/04/18 [History] Cholecalciferol (Vitamin D3) [Dialyvite Vitamin D] 5,000 unit PO DAILY 06/28/18 [History] Insulin Glargine,Hum.rec.anlog [Lantus Solostar] 5 unit SQ HS 06/28/18 [History] Sevelamer [Renvela] 800 mg PO DAILY 06/28/18 [History] Calcium Acetate [Phos-LO] 1,334 mg PO TIDWM 10/22/18 [History] Fluticasone Propionate Nasal [Flonase] 2 spr NS DAILY 10/22/18 [History] Metoprolol Succinate [Toprol Xl] 50 mg PO DAILY 10/22/18 [History] Doxazosin [Cardura] 1 mg PO DAILY 11/13/18 [History] Isosorbide MONOnitrate [Isosorbide Mononitrate ER] 60 mg PO DAILY 11/13/18 [History] Apixaban [Eliquis] 5 mg PO BID #0 12/25/18 [Rx] Docusate Sodium [Colace] 100 mg PO BID PRN #30 capsule 12/25/18 [Rx] Midodrine HCl 10 mg PO MOWEFR 12/25/18 [History] Allergy/AdvReac Type Severity Reaction Status Date / Time No Known Allergies Allergy Verified 12/25/18 08:48 All Systems PM: A 10-system review of systems was performed and is negative for pertinent findings except as documented above in the HPI. Review of systems: REVIEW OF SYSTEMS: CONSTITUTIONAL: No weight loss, fever, chills, weakness or fatigue. HEENT: Eyes: No visual loss, blurred vision, double vision or yellow sclerae. Ears, Nose, Throat: No hearing loss, sneezing, congestion, runny nose or sore throat. SKIN: No rash or itching. CARDIOVASCULAR: see HPI. RESPIRATORY: see HPI. GASTROINTESTINAL: No anorexia, nausea, vomiting or diarrhea. No abdominal pain or blood. GENITOURINARY: No dysuria, urgency, or frequency. NEUROLOGICAL: No headache, dizziness, syncope, paralysis, ataxia, numbness or tingling in the extremities. No change in bowel or bladder control. MUSCULOSKELETAL: No muscle, back pain, joint pain or stiffness. HEMATOLOGIC: No anemia, bleeding or bruising. LYMPHATICS: No enlarged nodes. No history of splenectomy. PSYCHIATRIC: No history of depression or anxiety. ENDOCRINOLOGIC: No reports of sweating, cold or heat intolerance. No polyuria or polydipsia. - Constitutional Vitals: Temp Pulse Resp BP Pulse Ox 98.0 F 72 20 164/87 95 01/31/19 17:18 01/31/19 17:18 01/31/19 17:18 01/31/19 17:18 01/31/19 17:18 General appearance: Present: A&O X 3 Exam: PHYSICAL EXAMINATION: GENERAL APPEARANCE: The patient is alert, oriented and in no acute distress. HEENT: Head is normocephalic. The sinuses are nontender. Pupils are equal and reactive. The nares are patent. Oropharynx clear without lesions. NECK: Supple without lymphadenopathy. HEART: Regular rate and rhythm. LUNGS: No crackles or wheezes are heard. ABDOMEN: Soft, nontender, nondistended with good bowel sounds heard. Inguinal area is normal. EXTREMITIES: Without cyanosis, clubbing or edema. NEUROLOGICAL: Gross nonfocal. SKIN: Warm and dry without any rash. - Assessment and Plan (1) Chest pain Current Visit: Yes Status: Acute Assessment and plan: Continue cycling troponin, telemetry monitoring, EKG as needed. he received 1 dose of aspirin. Other labs including A1c and lipid panel were also ordered. Echocardiogram and a stress test in the morning. Qualifiers: Chest pain type: unspecified Qualified Code(s): R07.9 - Chest pain, unspecified (2) Hyperlipemia Current Visit: No Status: Chronic Assessment and plan: Repeat a lipid panel in the morning, continue home medication. Qualifiers: Hyperlipidemia type: mixed hyperlipidemia Qualified Code(s): E78.2 - Mixed hyperlipidemia (3) Chronic deep venous thrombosis Current Visit: No Status: Chronic Assessment and plan: Continue Eliquis. Qualifiers: DVT location: lower extremity Affected thrombotic vein of extremity: unspecified vein of extremity Laterality: unspecified laterality Qualified Code(s): I82.509 - Chronic embolism and thrombosis of unspecified deep veins of unspecified lower extremity (4) ESRD (end stage renal disease) on dialysis Current Visit: No Status: Chronic Assessment and plan: Nephrology consult. (5) History of coronary artery bypass graft Current Visit: No Status: Chronic Assessment and plan: Same as above. (6) Insulin dependent diabetes mellitus Current Visit: No Status: Chronic Assessment and plan: Started patient on insulin sliding scale, resume home insulin once verified. (7) Atrial fibrillation Current Visit: No Status: Chronic Assessment and plan: Rate controlled, continue Eliquis. Qualifiers: Atrial fibrillation type: paroxysmal Qualified Code(s): I48.0 - Paroxysmal atrial fibrillation (8) DVT prophylaxis Current Visit: Yes Status: Acute Assessment and plan: Continue Eliquis. - Time Spent With Patient Total time spent is greater than 50% in coordination of care (as documented) at patient's floor/unit and/or counseling patient: Greater than 35 minutes
[2019-01-31] MEDS: Insulin LISPRO 300 UNITS/3 ML VIAL SQ SCH (21:41)
[2019-01-31] MEDS ORDERED: Albuterol 2.5 MG/3 ML NEBULIZER IH PRN (21:42)
[2019-01-31 21:56] LABS: Basophils % 0.5 %; Eosinophils # 0.1 K/mcL (0.0-0.6); Hematocrit 37.3 % (37.5-50.1); Hemoglobin 11.7 g/dL (12.9-16.9); Immature Granulocytes % 0.9 % (0-4); Lymphocytes # 1.6 K/mcL (0.6-4.6); Lymphocytes % 28.3 %; Mean Corpuscular HGB Conc 31.4 g/dL (31.6-35.5); Mean Corpuscular Hemoglobin 30.4 pg (28.0-33.3); Mean Corpuscular Volume 96.9 fL (83.0-100.0); Mean Platelet Volume 10.1 fL (9.4-12.4); Monocytes # 0.5 K/mcL (0.0-1.3); Neutrophils # 3.3 K/mcL (1.6-8.9); Platelet Count 143 K/mcL (140-400); Red Blood Count 3.85 M/mcL (4.19-5.50); Red Cell Distribution Width 13.4 % (11.5-14.5); Segmented Neutrophils % 59.3 %; White Blood Count 5.6 K/mcL (4.3-11.1)
[2019-01-31] MEDS ORDERED: Metoprolol XL (24 HR) Succ 50 MG TAB.ER.24H PO SCH (23:06)
[2019-02-01 02:08] LABS: Calcium 8.5 mg/dL (8.6-10.3); Chol/HDL Ratio 2.8 (0-4.9); Magnesium 1.7 mg/dL (1.6-2.6); Phosphorous 2.5 mg/dL (2.7-4.5); Potassium 4.1 mEq/L (3.5-5.1)
[2019-02-01] MEDS: Insulin LISPRO 300 UNITS/3 ML VIAL SQ SCH ×4 (07:36→21:23)
[2019-02-01] MEDS ORDERED: Regadenoson 0.4 MG/5 ML SYRINGE IVP ONE (08:46)
[2019-02-01] MEDS ORDERED: 0.9 % Sodium Chloride 250 ML IVC PRN (09:42)
[2019-02-01] MEDS ORDERED: 0.9 % Sodium Chloride 1,000 ML PRIME SCH (09:45)
[2019-02-01] MEDS: Metoprolol XL (24 HR) Succ 25 MG TAB.ER.24H PO SCH (11:13)
--- NOTE | 2019-02-01 11:16 | Nephrology Consult Note ---
Date of Encounter: 02/01/19 Time of Encounter: 11:12 Assessment and Plan (1) ESRD (end stage renal disease) on dialysis Current Visit: Yes Status: Acute Current regimen is MWF at [facility] HD in progress for today. Renal diet Renal vitamins Strict I/O Avoid nephrotoxins and renal dose all medications. (2) Chest pain Current Visit: Yes Status: Acute Per primary. Qualifiers: Chest pain type: intercostal pain Qualified Code(s): R07.82 - Intercostal pain (3) ACS (acute coronary syndrome) Current Visit: No Status: Acute Per primary. History of Present Illness - Reason for Consult Consult date: 02/01/19 end stage renal disease Requesting physician: Tran Gonsalez - Chief Complaint chest pain - History of Present Illness Mr. Barcenas is a 63 year old male who presented to ED with chest pain. He reports it started at 2 AM yesterday and has been consistent. States pain is a 6 out of 10 at this time. Denies radiation to the arm, neck or back. Denies nausea or vomiting. Denies shortness of breath. PMH: CAD s/p CABG, end-stage renal disease with dialysis, COPD, CHF, paroxysmal atrial fibrillation, hypertension, and DM. Current HD regimen is MWF at [facility]. Patient reports he has not missed any treatments recently. He has been on hemodialysis for approximately 4 years related to hypertension. Denies any family history of chronic kidney disease or hemodialysis. He is currently in an extended care facility for rehabilitation, but he lives at home with his normally. Denies any EtOH or illicit drug use. Denies any tobacco use. Denies any supplemental oxygen use at home. In a kidney specialists were consult to manage hemodialysis inpatient. HD is in progress for today and will remain on a Friday schedule. Additional UF or HD will be added if needed. Past Med Surg Social Fam HX - Past Medical History Medical history: arthritis, asthma, atrial fibrillation, cardiomyopathy, CHF, COPD, coronary artery disease, DVT, diabetes, dialysis, GERD, hyperlipidemia, hypertension, osteoporosis, peripheral artery disease, renal disease, other Additional medical history: neuropathy. dialysis Friday. gout Psychiatric history: no psych history - Past Surgical History Surgical History: cholecystectomy, knee replacement Additional surgical history: cardiac cath, left knee below the knee amp, cardiac stent. bipass - Social History Smoking Status: Former smoker Smokeless Tobacco Status: No Alcohol use: none Drug use: none - Family History Father Adopted: No Family Member Ethnicity: Non- Living Status: Hx Family Cardiac Disorders: No Hx Family Respiratory Disorders: No Hx Family Cancer: Yes Hx Family GI Disorders: No Hx Family Endocrine Disorder: No Hx Family Neuromuscular Disorders: No Hx Family Neurologic Disorders: No Hx Family HEENT Disorders: No Hx Family Autoimmune Disorders: No Mother Adopted: No Family Member Ethnicity: Non- Living Status: Hx Family Cardiac Disorders: Yes Hx Family Respiratory Disorders: No Hx Family Cancer: No Hx Family GI Disorders: No Hx Family Endocrine Disorder: Yes Hx Family Neuromuscular Disorders: No Hx Family Neurologic Disorders: No Hx Family HEENT Disorders: No Hx Family Autoimmune Disorders: No Medications and Allergies Febuxostat [Uloric] 40 mg PO QAM 03/02/15 [History] Nitroglycerin 0.4 mg SL Q5MIN PRN #3 tab.subl 08/20/15 [Rx] Tiotropium [Spiriva] 18 mcg IH DAILY 04/01/16 [History] Albuterol Neb [Proventil Neb] 2.5 mg IH TID PRN 02/06/17 [History] Pantoprazole Sodium [Protonix] 40 mg PO DAILY 02/06/17 [History] Atorvastatin Calcium [Lipitor] 80 mg PO HS 09/09/17 [History] Insulin ASPART [NovoLOG] 0 unit SQ TIDWM 09/09/17 [History] Renal Vitamin [Renal Caps Softgel] 1 mg PO DAILY 05/04/18 [History] Cholecalciferol (Vitamin D3) [Dialyvite Vitamin D] 5,000 unit PO DAILY 06/28/18 [History] Insulin Glargine,Hum.rec.anlog [Lantus Solostar] 5 unit SQ HS 06/28/18 [History] Sevelamer [Renvela] 800 mg PO DAILY 06/28/18 [History] Calcium Acetate [Phos-LO] 1,334 mg PO TIDWM 10/22/18 [History] Fluticasone Propionate Nasal [Flonase] 2 spr NS DAILY 10/22/18 [History] Metoprolol Succinate [Toprol Xl] 50 mg PO DAILY 10/22/18 [History] Doxazosin [Cardura] 1 mg PO DAILY 11/13/18 [History] Isosorbide MONOnitrate [Isosorbide Mononitrate ER] 60 mg PO DAILY 11/13/18 [History] Apixaban [Eliquis] 5 mg PO BID #0 12/25/18 [Rx] Docusate Sodium [Colace] 100 mg PO BID PRN #30 capsule 12/25/18 [Rx] Midodrine HCl 10 mg PO MOWEFR 12/25/18 [History] Allergy/AdvReac Type Severity Reaction Status Date / Time No Known Allergies Allergy Verified 12/25/18 08:48 Review of Systems All Systems review (narrative): The remainder her the systems are negative. Constitutional: fatigue, no chills, no fever(s) Nose, mouth and throat: no dizziness Cardiovascular: chest pain, chest pain at rest, chest pain with activity, no dyspnea, no edema Respiratory: no cough, no hemoptysis, no wheezing Gastrointestinal: no diarrhea, no nausea, no vomiting Genitourinary Male: no hematuria Exam - Vital Signs Vital signs: Initial Vital Signs Temp Pulse Resp BP Pulse Ox 98.0 F 72 20 164/87 95 01/31/19 17:18 01/31/19 17:18 01/31/19 17:18 01/31/19 17:18 01/31/19 17:18 Vital Signs - Last 8 Hours Temp Pulse Resp BP Pulse Ox 02/01/19 06:54 99.4 F 83 20 154/76 92 Intake and Output 01/31/19 02/01/19 02/01/19 23:59 07:59 15:59 Intake Total 100 / 100 Output Total 0 / 0 Balance 100 / 100 Intake: Oral 100 / 100 Output: Urine 0 / 0 Other: Meal Dinner Percent of Meal Consumed 10% Weight 123 kg 123 kg Blood Glucose* 80 90 Patient Weight 02/01/19 23:59 Weight 123 kg - General Appearance General appearance: well-developed, well-nourished EENT: ATNC, hearing intact, vision intact Neck: supple Respiratory: clear Cardiology: no edema, normal S1, normal S2 - Dialysis Access Dialysis Vascular Access: Arteriovenous Fistula thrill: Yes bruit: Yes Gastrointestinal: normoactive bowel sounds, no tenderness, no guarding Integumentary: no rash, warm and dry Neurologic: alert and oriented x3 Musculoskeletal: no deformities, no erythema Psychiatric: mood/affect appropriate, cooperative Results - Lab Results 01/31/19 19:36 02/01/19 00:46 Most recent lab results 02/01/19 00:46 Calcium 8.5 L Phosphorus 2.5 L Magnesium 1.7 Consult Discharge Plan - Plan Referrals: Mansoor Loaiza MD [Primary Care Provider] -
--- NOTE | 2019-02-01 14:44 | Internal Med Progress Note ---
Hospitalist Progress Note - Encounter Date of Encounter: 02/01/19 Time of Encounter: 14:44 - Subjective Interval History: Evaluated patient earlier today while he was in dialysis. Patient had been taken for stress test earlier this morning but had not been able to lay down flat and so the stress test was canceled. He reported having some shortness of breath. He complained of chest pain when I was evaluating him. It was located in the left upper chest. This was reproducible on exam. - Exam Vitals: Temp Pulse Resp BP Pulse Ox 97.8 F 83 22 168/86 92 02/01/19 10:30 02/01/19 06:54 02/01/19 10:30 02/01/19 13:45 02/01/19 06:54 Exam: General: Patient is alert, mild distress, oriented x 3 Respiratory: Good respiratory effort. Normal breath sounds. No wheezing or crackles. Cardiovascular: Left upper chest wall tenderness. Regular rate and rhythm. s1 and s2 normal No clicks, rubs, gallops, or murmurs. No pedal edema Abdomen: Abdomen is soft, nontender. Bowel sounds are present Musculoskeletal: Spontaneously moving all extremities , left BKA. Stump appears clean. Skin: warm, dry, intact. Neuro: Alert oriented x 3 normal cranial nerves, no focal deficits - Assessment and Plan (1) Chest pain Current Visit: Yes Status: Acute (2) Hyperlipemia Current Visit: No Status: Chronic (3) Chronic deep venous thrombosis Current Visit: No Status: Chronic (4) ESRD (end stage renal disease) on dialysis Current Visit: No Status: Chronic (5) History of coronary artery bypass graft Current Visit: No Status: Chronic (6) Insulin dependent diabetes mellitus Current Visit: Yes Status: Chronic (7) Atrial fibrillation Current Visit: Yes Status: Chronic (8) DVT prophylaxis Current Visit: Yes Status: Acute DVT Prophylaxis: Resume Eliquis - Summary of Assessment and Plan Summary of Assessment and Plan: Chest pain: Patient has atypical/reproducible chest pain. Unable to partake in stress test today as as he was not able to lay down flat. We will reassess and rescheduled for tomorrow. Chest stress test needed as patient does have comorbidities for coronary artery disease. Troponins have been negative. End-stage renal disease on hemodialysis: We will continue dialysis per nephrology recommendations. Atrial fibrillation: Rate controlled. Resume Eliquis. Diabetes mellitus type 2: Sliding scale insulin. Diabetic diet. - Time Spent with Patient Total time spent is greater than 50% in coordination of care (as documented) at patient's floor/unit and/or counseling patient: Internal Medicine: Result - Labs CBC & Chem 7: 01/31/19 19:36 02/01/19 00:46 Labs: Short CBC 01/31/19 Range/Units 19:36 WBC 5.6 (4.3-11.1) K/mcL Hgb 11.7 L (12.9-16.9) g/dL Hct 37.3 L (37.5-50.1) % Plt Count 143 (140-400) K/mcL Neutrophils # 3.3 (1.6-8.9) K/mcL BMP 02/01/19 00:46 Sodium 135 L Potassium 4.1 Chloride 96 L Carbon Dioxide 28 BUN 16 Creatinine 6.98 H Glucose 77 Calcium 8.5 L Cardiac Enzymes 01/31/19 01/31/19 02/01/19 Range/Units 19:36 21:25 00:46 Troponin I 0.07 H* 0.07 H* 0.07 H* (< 0.04) ng/mL 02/01/19 Range/Units 06:52 Troponin I 0.08 H* (< 0.04) ng/mL Consult Discharge Plan - Plan Referrals: Mansoor Loaiza MD [Primary Care Provider] - (1) Chest pain Qualifiers: Chest pain type: intercostal pain Qualified Code(s): R07.82 - Intercostal pain (2) Hyperlipemia Qualifiers: Hyperlipidemia type: mixed hyperlipidemia Qualified Code(s): E78.2 - Mixed hyperlipidemia (3) Chronic deep venous thrombosis Qualifiers: DVT location: lower extremity Affected thrombotic vein of extremity: unspecified vein of extremity Laterality: unspecified laterality Qualified Code(s): I82.509 - Chronic embolism and thrombosis of unspecified deep veins of unspecified lower extremity (7) Atrial fibrillation Qualifiers: Atrial fibrillation type: paroxysmal Qualified Code(s): I48.0 - Paroxysmal atrial fibrillation
[2019-02-01] MEDS ORDERED: Nitroglycerin 0.4 MG TAB.SUBL SL PRN (14:46)
[2019-02-01] MEDS: Calcium Acetate 667 MG CAPSULE PO SCH (17:37)
[2019-02-01] MEDS: Apixaban 5 MG TABLET PO SCH (21:31)
[2019-02-02] MEDS ORDERED: Regadenoson 0.4 MG/5 ML SYRINGE IVP ONE (06:17)
[2019-02-02] MEDS: Tiotropium 18 MCG inhalation IH SCH (07:10)
[2019-02-02] MEDS: Insulin LISPRO 300 UNITS/3 ML VIAL SQ SCH ×4 (07:24→22:33)
[2019-02-02] MEDS ORDERED: CHOLECALCIFEROL PO SCH (09:00)
[2019-02-02] MEDS ORDERED: Tiotropium 18 MCG inhalation IH SCH (09:00)
[2019-02-02] MEDS ORDERED: Renal Vitamin 1 CAP CAPSULE PO SCH (09:00)
[2019-02-02] MEDS ORDERED: NON-FORMULARY MEDICATION 1 EACH EACH (Febuxostat [Uloric] 40 MG) PO SCH (09:00)
[2019-02-02] MEDS: Calcium Acetate 667 MG CAPSULE PO SCH ×3 (10:24→17:02)
[2019-02-02] MEDS: Metoprolol XL (24 HR) Succ 25 MG TAB.ER.24H PO SCH (11:08)
[2019-02-02] MEDS: Renal Vitamin 1 CAP CAPSULE PO SCH (11:08)
[2019-02-02] MEDS: Isosorbide MONOnitrate (24 HR) 60 MG TAB.ER.24H PO SCH (11:08)
[2019-02-02] MEDS: Apixaban 5 MG TABLET PO SCH ×2 (11:08→21:16)
[2019-02-02] MEDS: Cholecalciferol (D-3) 1,000 UNIT (25MCG) TABLET PO SCH (11:08)
[2019-02-02 12:08] LABS: Basophils % 0.4 %; Calcium 8.6 mg/dL (8.6-10.3); Eosinophils # 0.1 K/mcL (0.0-0.6); Eosinophils % 1.2 %; Hematocrit 37.9 % (37.5-50.1); Hemoglobin 11.8 g/dL (12.9-16.9); Immature Granulocytes % 1.6 % (0-4); Lymphocytes % 12.9 %; Mean Corpuscular HGB Conc 31.1 g/dL (31.6-35.5); Mean Corpuscular Hemoglobin 30.4 pg (28.0-33.3); Mean Corpuscular Volume 97.7 fL (83.0-100.0); Monocytes # 0.6 K/mcL (0.0-1.3); Monocytes % 8.3 %; Platelet Count 141 K/mcL (140-400); Potassium 4.4 mEq/L (3.5-5.1); Red Blood Count 3.88 M/mcL (4.19-5.50); Red Cell Distribution Width 13.3 % (11.5-14.5); Segmented Neutrophils % 75.6 %; White Blood Count 7.5 K/mcL (4.3-11.1)
[2019-02-02 13:02] LABS: Neutrophils # 5.7 K/mcL (1.6-8.9)
--- NOTE | 2019-02-02 13:37 | Nephrology Progress Note ---
Date of Encounter: 02/02/19 Time of Encounter: 13:35 - Assessment and Plan (1) ESRD (end stage renal disease) on dialysis Current Visit: Yes Status: Acute Current regimen is MWF at [facility] HD completed yesterday without complication. Plan for HD tomorrow. Renal diet Renal vitamins Strict I/O Avoid nephrotoxins and renal dose all medications. (2) Chest pain Current Visit: Yes Status: Acute Per primary. Stress test completed 02/02/2019 Qualifiers: Chest pain type: intercostal pain Qualified Code(s): R07.82 - Intercostal pain (3) ACS (acute coronary syndrome) Current Visit: No Status: Acute Per primary. Subjective Principal diagnosis: chest pain Interval history: Patient seen and examined at this time. Is doing well. Was able to tolerate stress test today. Denies nausea vomiting or diarrhea. Denies shortness of breath admits to chest pain that is still reproducible to touch. Objective - Vital Signs Vital signs: Vital Signs Temp Pulse Resp BP Pulse Ox 02/02/19 10:44 97.7 F 73 19 159/78 100 02/02/19 07:12 18 99 02/02/19 06:39 98.0 F 75 19 170/81 98 02/02/19 03:59 98.1 F 78 17 158/72 98 02/01/19 23:36 98.0 F 68 17 157/82 98 02/01/19 18:58 98.6 F 73 17 131/87 99 02/01/19 15:58 98.4 F 83 16 172/82 100 02/01/19 14:48 97.5 F L 18 166/79 02/01/19 14:00 157/75 02/01/19 13:45 168/86 Intake and Output 02/01/19 02/02/19 02/02/19 23:59 07:59 15:59 Intake Total 300 / 900 100 / 100 Output Total 150 / 3750 0 / 0 Balance 150 / -2850 100 / 100 Intake: Oral 300 / 300 100 / 100 Output: Urine 150 / 150 0 / 0 Other: Stool Size Moderate Large Stool Consistency soft loose liquid Stool Color Brown # Voids 1 # Bowel Movements 1 1 Weight 121.3 kg Blood Glucose* 87 92 104 - General Appearance General appearance: Present: well-developed, well-nourished EENT: Present: ATNC, hearing intact, vision intact Neck: Present: supple Respiratory: Present: clear Cardiology: Present: no edema, normal S1, normal S2 Dialysis Vascular Access: Arteriovenous Fistula thrill: Yes bruit: Yes Gastrointestinal: Present: normoactive bowel sounds, no tenderness, no guarding Integumentary: Present: no rash, warm and dry Neurologic: Present: alert and oriented x3 Musculoskeletal: Present: no deformities, no erythema Psychiatric: Present: mood/affect appropriate, cooperative - Lab 02/02/19 11:35 02/02/19 11:35 Most recent lab results 02/02/19 11:35 Calcium 8.6 Consult Discharge Plan - Plan Referrals: Mansoor Loaiza MD [Primary Care Provider] -
--- NOTE | 2019-02-02 16:26 | Discharge Summary ---
- NOTES TO OUTPATIENT PROVIDER Notes to Outpatient Provider: Patient with a history of coronary artery disease status post CABG, end-stage renal disease on hemodialysis, COPD, atrial fibrillation, hypertension and CHF was hospitalized here after presenting with complaints of acute chest pain. Patient had negative troponins and then u nderwent cardiac stress test today which did not show any signs of reversible ischemia. She does have intercostal tenderness which is the likely cause of his chest pain. Recommend NSAIDs/Tylenol to help with his pain. Patient is now stable to be discharged back to skilled rehabilitation. He did receive hemodialysis yesterday. Orders not resulted at time of discharge: Pending orders 02/02/19 12:49 Fecal Clostridium difficile PCR [C.difficile Toxin PCR (>=2yo)] [MOLMIC] Routine Date of Encounter: 02/02/19 Time of Encounter: 16:24 - Discharge Diagnosis (1) Chest pain Priority: Primary Status: Acute Qualifiers: Chest pain type: intercostal pain Qualified Code(s): R07.82 - Intercostal pain (2) Hyperlipemia Priority: Secondary Status: Chronic Qualifiers: Hyperlipidemia type: mixed hyperlipidemia Qualified Code(s): E78.2 - Mixed hyperlipidemia (3) Chronic deep venous thrombosis Priority: Secondary Status: Chronic Qualifiers: DVT location: lower extremity Affected thrombotic vein of extremity: unspecified vein of extremity Laterality: unspecified laterality Qualified Code(s): I82.509 - Chronic embolism and thrombosis of unspecified deep veins of unspecified lower extremity (4) ESRD (end stage renal disease) on dialysis Priority: Secondary Status: Chronic (5) History of coronary artery bypass graft Priority: Secondary Status: Chronic (6) Insulin dependent diabetes mellitus Priority: Secondary Status: Chronic (7) Atrial fibrillation Priority: Secondary Status: Chronic Qualifiers: Atrial fibrillation type: paroxysmal Qualified Code(s): I48.0 - Paroxysmal atrial fibrillation (8) DVT prophylaxis Priority: Secondary Status: Acute Hospital course: Mr. Barcenas is a 63 year old male Patient with a history of coronary artery disease status post CABG, end-stage renal disease on hemodialysis, COPD, atrial fibrillation, hypertension and CHF was hospitalized here after presenting with complaints of acute chest pain. Patient had negative troponins and then underwent cardiac stress test today which did not show any signs of reversible ischemia. She does have intercostal tenderness which is the likely cause of his chest pain. Recommend NSAIDs/Tylenol to help with his pain. Patient is now stable to be discharged back to skilled rehabilitation. He did receive hemodialysis yesterday. Discharge discussed with: patient - Time Spent with Patient Total time spent providing and/or coordinating discharge services: Time spent: Less than 30 minutes (25 min) - Discharge Medications Prescriptions: Continued Nitroglycerin 0.4 mg SL Q5MIN PRN #3 tab.subl PRN Reason: Chest Pain Tiotropium [Spiriva] 18 mcg IH DAILY Pantoprazole Sodium [Protonix] 40 mg PO DAILY Albuterol Neb [Proventil Neb] 2.5 mg IH TID PRN PRN Reason: Shortness Of Breath Insulin Glargine,Hum.rec.anlog [Lantus Solostar] 5 unit SQ HS Sevelamer [Renvela] 800 mg PO DAILY Cholecalciferol (Vitamin D3) [Dialyvite Vitamin D] 5,000 unit PO DAILY Metoprolol Succinate [Toprol Xl] 50 mg PO DAILY Fluticasone Propionate Nasal [Flonase] 2 spr NS DAILY Calcium Acetate [Phos-LO] 1,334 mg PO TIDWM Doxazosin [Cardura] 1 mg PO DAILY Isosorbide MONOnitrate [Isosorbide Mononitrate ER] 60 mg PO DAILY Midodrine HCl 10 mg PO MOWEFR Apixaban [Eliquis] 5 mg PO BID #0 Docusate Sodium [Colace] 100 mg PO BID PRN #30 capsule PRN Reason: Contstipation Budesonide/Formoterol 160/4.5 [Symbicort 160/4.5] 2 puff PO BID traZODone [TraZODone] 50 mg PO HS PRN PRN Reason: Sleep Febuxostat [Uloric] 40 mg PO QAM Insulin ASPART [NovoLOG] 0 unit SQ ACHS Atorvastatin Calcium [Lipitor] 80 mg PO HS Renal Vitamin [Renal Caps Softgel] 1 mg PO DAILY Home Medications: Febuxostat [Uloric] 40 mg PO QAM 03/02/15 [History] Nitroglycerin 0.4 mg SL Q5MIN PRN #3 tab.subl 08/20/15 [Rx] Tiotropium [Spiriva] 18 mcg IH DAILY 04/01/16 [History] Albuterol Neb [Proventil Neb] 2.5 mg IH TID PRN 02/06/17 [History] Pantoprazole Sodium [Protonix] 40 mg PO DAILY 02/06/17 [History] Atorvastatin Calcium [Lipitor] 80 mg PO HS 09/09/17 [History] Insulin ASPART [NovoLOG] 0 unit SQ ACHS 09/09/17 [History] Renal Vitamin [Renal Caps Softgel] 1 mg PO DAILY 05/04/18 [History] Cholecalciferol (Vitamin D3) [Dialyvite Vitamin D] 5,000 unit PO DAILY 06/28/18 [History] Insulin Glargine,Hum.rec.anlog [Lantus Solostar] 5 unit SQ HS 06/28/18 [History] Sevelamer [Renvela] 800 mg PO DAILY 06/28/18 [History] Calcium Acetate [Phos-LO] 1,334 mg PO TIDWM 10/22/18 [History] Fluticasone Propionate Nasal [Flonase] 2 spr NS DAILY 10/22/18 [History] Metoprolol Succinate [Toprol Xl] 50 mg PO DAILY 10/22/18 [History] Doxazosin [Cardura] 1 mg PO DAILY 11/13/18 [History] Isosorbide MONOnitrate [Isosorbide Mononitrate ER] 60 mg PO DAILY 11/13/18 [History] Apixaban [Eliquis] 5 mg PO BID #0 12/25/18 [Rx] Docusate Sodium [Colace] 100 mg PO BID PRN #30 capsule 12/25/18 [Rx] Midodrine HCl 10 mg PO MOWEFR 12/25/18 [History] Budesonide/Formoterol 160/4.5 [Symbicort 160/4.5] 2 puff PO BID 02/01/19 [History] traZODone [TraZODone] 50 mg PO HS PRN 02/01/19 [History] Allergies/Adverse Reactions: Allergy/AdvReac Type Severity Reaction Status Date / Time No Known Allergies Allergy Verified 12/25/18 08:48 Date of admission: 01/31/19 16:41 Primary care physician: Mansoor Loaiza MD Consults: 01/31/19 17:38 Consult to Nephrology [CONS] Routine Consulting Provider: Kidney Mala/ANIBAL/MITCHEL/SILVIA Reason for Consult: ESRD HD Call Completed: Yes 02/01/19 09:45 Consult to Dialysis [CONS] ONCE 02/01/19 10:52 Consult to [facility] [CONS] Routine Reason for SW Consult: RETURN TO ECF Discharging clinician: Ivy Fernandez Anticipated date of discharge: 02/03/19 - Constitutional Vitals: Temp Pulse Resp BP Pulse Ox 97.7 F 77 16 98/61 98 02/02/19 15:31 02/02/19 15:31 02/02/19 15:31 02/02/19 15:31 02/02/19 15:31 General appearance: Present: A&O X 3 Exam: General: Patient is alert, mild distress, oriented x 3 Respiratory: Good respiratory effort. Normal breath sounds. No wheezing or crackles. Cardiovascular: Left upper chest wall tenderness. Regular rate and rhythm. s1 and s2 normal No clicks, rubs, gallops, or murmurs. No pedal edema Abdomen: Abdomen is soft, nontender. Bowel sounds are present Musculoskeletal: Spontaneously moving all extremities , left BKA. Stump appears clean. Skin: warm, dry, intact. Neuro: Alert oriented x 3 normal cranial nerves, no focal deficits - Patient Status Disposition: Transfer SNF Condition: Fair Functional capacity at discharge: wheelchair bound Overall status at discharge: patient is progressing back to baseline - Discharge Instructions Instructions: Atrial Fibrillation (DC), Chest Pain (DC), Chronic Hypertension (DC) Follow Up With: Mansoor Loaiza MD [Primary Care Provider] - (in 1 week) - Diet and Activity Activity: as per physical therapy Diet: low fat, low cholesterol, low salt diet
--- NOTE | 2019-02-02 16:33 | Physician Discharge Referral ---
ExtendedCare Referral Info Provider in Charge after Transfer: PCP Institutional Level of Care: Skilled - Diagnosis (1) Chest pain Priority: Primary Status: Acute (2) Hyperlipemia Priority: Secondary Status: Chronic (3) Chronic deep venous thrombosis Priority: Secondary Status: Chronic (4) ESRD (end stage renal disease) on dialysis Priority: Secondary Status: Chronic (5) History of coronary artery bypass graft Priority: Secondary Status: Chronic (6) Insulin dependent diabetes mellitus Priority: Secondary Status: Chronic (7) Atrial fibrillation Priority: Secondary Status: Chronic (8) DVT prophylaxis Priority: Secondary Status: Acute Prognosis: Fair Aware of Diagnosis: Patient Aware of Prognosis: Patient - Transfer Medications Home Medications: Febuxostat [Uloric] 40 mg PO QAM 03/02/15 [History] Nitroglycerin 0.4 mg SL Q5MIN PRN #3 tab.subl 08/20/15 [Rx] Tiotropium [Spiriva] 18 mcg IH DAILY 04/01/16 [History] Albuterol Neb [Proventil Neb] 2.5 mg IH TID PRN 02/06/17 [History] Pantoprazole Sodium [Protonix] 40 mg PO DAILY 02/06/17 [History] Atorvastatin Calcium [Lipitor] 80 mg PO HS 09/09/17 [History] Insulin ASPART [NovoLOG] 0 unit SQ ACHS 09/09/17 [History] Renal Vitamin [Renal Caps Softgel] 1 mg PO DAILY 05/04/18 [History] Cholecalciferol (Vitamin D3) [Dialyvite Vitamin D] 5,000 unit PO DAILY 06/28/18 [History] Insulin Glargine,Hum.rec.anlog [Lantus Solostar] 5 unit SQ HS 06/28/18 [History] Sevelamer [Renvela] 800 mg PO DAILY 06/28/18 [History] Calcium Acetate [Phos-LO] 1,334 mg PO TIDWM 10/22/18 [History] Fluticasone Propionate Nasal [Flonase] 2 spr NS DAILY 10/22/18 [History] Metoprolol Succinate [Toprol Xl] 50 mg PO DAILY 10/22/18 [History] Doxazosin [Cardura] 1 mg PO DAILY 11/13/18 [History] Isosorbide MONOnitrate [Isosorbide Mononitrate ER] 60 mg PO DAILY 11/13/18 [History] Apixaban [Eliquis] 5 mg PO BID #0 12/25/18 [Rx] Docusate Sodium [Colace] 100 mg PO BID PRN #30 capsule 12/25/18 [Rx] Midodrine HCl 10 mg PO MOWEFR 12/25/18 [History] Budesonide/Formoterol 160/4.5 [Symbicort 160/4.5] 2 puff PO BID 02/01/19 [History] traZODone [TraZODone] 50 mg PO HS PRN 02/01/19 [History] Allergies/Adverse Reactions: Allergy/AdvReac Type Severity Reaction Status Date / Time No Known Allergies Allergy Verified 12/25/18 08:48 - Respiratory Orders Smoking Cessation: Smoking cessation has been advised. For more information, call the [place] Tobacco Quit Line at 1-342-RXQB-NOW. - Advance Directives Code Status: Full Code - Mobility Orders Chair, Other (per PT) - Rehabiliation Orders Rehab Potential: Fair Rehab Orders: Evaluation for Physical Therapy, Evaluation for Occupational Therapy - Diet Orders No Concentrated Sweets, Renal, Cardiac CERTIFICATION: I certify that the transfer of the above named patient to an Extended Care Facility is necessary for the continuing treatment of the diagnosis listed. The above information is true and accurate reflection of patient's current condition. Confidential - Redisclosure prohibited without a patient's written consent.
[2019-02-03] MEDS: Insulin LISPRO 300 UNITS/3 ML VIAL SQ SCH ×2 (07:28→12:03)
[2019-02-03] MEDS: Tiotropium 18 MCG inhalation IH SCH (07:30)
[2019-02-03] MEDS: Apixaban 5 MG TABLET PO SCH (07:58)
[2019-02-03] MEDS: Cholecalciferol (D-3) 1,000 UNIT (25MCG) TABLET PO SCH (07:58)
[2019-02-03] MEDS: Renal Vitamin 1 CAP CAPSULE PO SCH (07:58)
[2019-02-03] MEDS: Isosorbide MONOnitrate (24 HR) 60 MG TAB.ER.24H PO SCH (07:58)
[2019-02-03] MEDS: Calcium Acetate 667 MG CAPSULE PO SCH ×2 (07:58→12:20)
[2019-02-03] MEDS: Metoprolol XL (24 HR) Succ 25 MG TAB.ER.24H PO SCH (07:58)
[2019-02-03 08:04] LABS: Hematocrit 29.9 % (37.5-50.1); Mean Corpuscular HGB Conc 31.8 g/dL (31.6-35.5); Mean Corpuscular Hemoglobin 30.4 pg (28.0-33.3); Mean Corpuscular Volume 95.5 fL (83.0-100.0); Mean Platelet Volume 9.9 fL (9.4-12.4); Platelet Count 135 K/mcL (140-400); Red Blood Count 3.13 M/mcL (4.19-5.50); Red Cell Distribution Width 13.5 % (11.5-14.5); White Blood Count 4.3 K/mcL (4.3-11.1)
[2019-02-03 08:15] LABS: Calcium 8.3 mg/dL (8.6-10.3)
[2019-02-03] MEDS ORDERED: 0.9 % Sodium Chloride 250 ML IVC PRN (08:24)
[2019-02-03] MEDS ORDERED: *HR* Heparin 10,000 UNIT/10 ML VIAL IV PRN (08:24)
[2019-02-03] MEDS ORDERED: 0.9 % Sodium Chloride 1,000 ML PRIME SCH (08:30)
[2019-02-03 08:43] LABS: Hemoglobin 9.5 g/dL (12.9-16.9)
--- NOTE | 2019-02-03 12:18 | Internal Med Progress Note ---
Hospitalist Progress Note - Encounter Date of Encounter: 02/03/19 Time of Encounter: 12:16 - Subjective Interval History: Evaluated patient during dialysis. Doing well at this time. He had an episode of diarrhea last evening but has not had any further episodes today. - Exam Vitals: Temp Pulse Resp BP Pulse Ox 97.8 F 73 18 150/72 98 02/03/19 08:55 02/03/19 07:21 02/03/19 08:55 02/03/19 11:40 02/03/19 07:21 Exam: General: Patient is alert, mild distress, oriented x 3 Respiratory: Good respiratory effort. Normal breath sounds. No wheezing or crackles. Cardiovascular: Left upper chest wall tenderness. Regular rate and rhythm. s1 and s2 normal No clicks, rubs, gallops, or murmurs. No pedal edema Abdomen: Abdomen is soft, nontender. Bowel sounds are present Musculoskeletal: Spontaneously moving all extremities , left BKA. Stump appears clean. Skin: warm, dry, intact. Neuro: Alert oriented x 3 normal cranial nerves, no focal deficits - Assessment and Plan (1) Chest pain Current Visit: Yes Status: Acute (2) Hyperlipemia Current Visit: No Status: Chronic (3) Chronic deep venous thrombosis Current Visit: No Status: Chronic (4) ESRD (end stage renal disease) on dialysis Current Visit: No Status: Chronic (5) History of coronary artery bypass graft Current Visit: No Status: Chronic (6) Insulin dependent diabetes mellitus Current Visit: Yes Status: Chronic (7) Atrial fibrillation Current Visit: Yes Status: Chronic (8) DVT prophylaxis Current Visit: Yes Status: Acute DVT Prophylaxis: On Eliquis - Summary of Assessment and Plan Summary of Assessment and Plan: Chest pain: Most likely intercostal pain as patient has tenderness on exam. Improving. No further workup needed at this time. Diarrhea: Improving. Most likely due to use of phosphate binders. We will cancel orders for C. difficile. End-stage renal disease on hemodialysis: Continue dialysis. Atrial fibrillation: Rate controlled. On Eliquis Diabetes mellitus type 2: Blood sugars are well controlled. Continue diabetic diet. Patient will be discharged to skilled rehabilitation later today. Discharge held yesterday because patient developed diarrhea - Time Spent with Patient Total time spent is greater than 50% in coordination of care (as documented) at patient's floor/unit and/or counseling patient: Internal Medicine: Result - Labs CBC & Chem 7: 02/03/19 06:40 02/03/19 06:40 Labs: Short CBC 02/02/19 02/03/19 Range/Units 11:35 06:40 WBC 7.5 4.3 (4.3-11.1) K/mcL Hgb 11.8 L 9.5 L D (12.9-16.9) g/dL Hct 37.9 29.9 L (37.5-50.1) % Plt Count 141 135 L (140-400) K/mcL Neutrophils # 5.7 (1.6-8.9) K/mcL BMP 02/03/19 06:40 Sodium 133 L Potassium 4.0 Chloride 94 L Carbon Dioxide 30 H BUN 26 H Creatinine 6.98 H Glucose 75 Calcium 8.3 L Consult Discharge Plan - Plan Instructions: Atrial Fibrillation (DC), Chest Pain (DC), Chronic Hypertension (DC) Referrals: Mansoor Loaiza MD [Primary Care Provider] - (in 1 week) (1) Chest pain Qualifiers: Chest pain type: intercostal pain Qualified Code(s): R07.82 - Intercostal pain (2) Hyperlipemia Qualifiers: Hyperlipidemia type: mixed hyperlipidemia Qualified Code(s): E78.2 - Mixed hyperlipidemia (3) Chronic deep venous thrombosis Qualifiers: DVT location: lower extremity Affected thrombotic vein of extremity: unspecified vein of extremity Laterality: unspecified laterality Qualified Code(s): I82.509 - Chronic embolism and thrombosis of unspecified deep veins of unspecified lower extremity (7) Atrial fibrillation Qualifiers: Atrial fibrillation type: paroxysmal Qualified Code(s): I48.0 - Paroxysmal atrial fibrillation
[2019-02-03 15:00] VITALS: BP 167/109
--- NOTE | 2019-02-03 15:04 | Nephrology Progress Note ---
Date of Encounter: 02/03/19 Time of Encounter: 15:02 - Assessment and Plan (1) ESRD (end stage renal disease) on dialysis Current Visit: Yes Status: Acute Current regimen is MWF at [facility] HD completed today without complicadtion. Renal diet Renal vitamins Strict I/O Avoid nephrotoxins and renal dose all medications. (2) Chest pain Current Visit: Yes Status: Acute Per primary. Stress test completed 02/02/2019 Qualifiers: Chest pain type: intercostal pain Qualified Code(s): R07.82 - Intercostal pain (3) ACS (acute coronary syndrome) Current Visit: No Status: Acute Per primary. Subjective Principal diagnosis: chest pain Interval history: Patient seen and examined at this time. Is resting with eyes closed. Denies nausea vomiting or diarrhea. Denies shortness of breath admits to chest pain that is still reproducible to touch. Objective - Vital Signs Vital signs: Vital Signs Temp Pulse Resp BP Pulse Ox 02/03/19 12:42 97.6 F 18 167/109 02/03/19 12:25 130/90 02/03/19 12:10 141/76 02/03/19 11:55 157/94 02/03/19 11:40 150/72 02/03/19 11:25 162/79 02/03/19 11:10 153/86 02/03/19 10:55 140/101 02/03/19 10:40 159/88 02/03/19 10:25 142/75 02/03/19 10:10 168/84 02/03/19 09:55 158/81 02/03/19 09:40 153/81 02/03/19 09:25 139/74 02/03/19 09:10 130/78 02/03/19 08:55 97.8 F 18 93/52 02/03/19 07:21 97.7 F 73 17 127/71 98 02/03/19 04:04 97.7 F 72 17 116/67 99 02/02/19 23:53 97.5 F L 71 17 158/78 99 02/02/19 18:57 97.6 F 75 17 122/71 100 02/02/19 15:31 97.7 F 77 16 98/61 98 Intake and Output 07/30/19 07/31/19 07/31/19 23:59 07:59 15:59 Intake Total 600 / 600 Output Total 3600 / 3600 Balance -3000 / -3000 Intake: Oral 0 / 0 Intake, Rinseback and Flushes 600 / 600 Output: Total Dialysis (HD) Output 3600 / 3600 Other: Blood Glucose* 107 70 81 Hemodialysis Net Fluid Removed 3000 (mL) - General Appearance General appearance: Present: well-developed, well-nourished EENT: Present: ATNC, hearing intact, vision intact Neck: Present: supple Respiratory: Present: clear Cardiology: Present: edema, normal S1, normal S2 Dialysis Vascular Access: Arteriovenous Fistula thrill: Yes bruit: Yes Gastrointestinal: Present: normoactive bowel sounds, no tenderness, no guarding Integumentary: Present: no rash, warm and dry Neurologic: Present: alert and oriented x3 Musculoskeletal: Present: no deformities, no erythema Psychiatric: Present: mood/affect appropriate, cooperative - Lab 02/03/19 06:40 02/03/19 06:40 Most recent lab results 02/03/19 06:40 Calcium 8.3 L Consult Discharge Plan - Plan Instructions: Atrial Fibrillation (DC), Chest Pain (DC), Chronic Hypertension (DC) Referrals: Mansoor Loaiza MD [Primary Care Provider] - (in 1 week)
== END 2019-02-03 16:39 ==
LOC: 2ANU
PROVIDERS: ADMIT Internal Medicine Nephrology; ATTEND Internal Medicine Nephrology

== ENCOUNTER 2019-04-21 02:00 | Observation (INO) ==
[2019-04-21] MEDS ORDERED: *HR* Dextrose 50 % in Water (Syg) 50 ML SYRINGE IVP PRN (06:14)
[2019-04-21] MEDS ORDERED: Dextrose Gel 15 GM/37.5 ML TUBE PO PRN ×2 (06:14)
[2019-04-21] MEDS ORDERED: D5% in Water 1,000 ML IVC PRN (06:14)
[2019-04-21] MEDS ORDERED: Ondansetron 4 MG/2 ML VIAL IVP PRN (07:56)
[2019-04-21] MEDS ORDERED: Acetaminophen 325 MG TABLET PO PRN (07:56)
[2019-04-21] MEDS ORDERED: Albuterol 2.5 MG/3 ML NEBULIZER IH PRN (08:02)
[2019-04-21] MEDS ORDERED: Nitroglycerin 0.4 MG TAB.SUBL SL PRN (08:02)
[2019-04-21] MEDS: Metoprolol XL (24 HR) Succ 50 MG TAB.ER.24H PO SCH (08:40)
[2019-04-21] MEDS: Apixaban 5 MG TABLET PO SCH ×2 (08:40→20:02)
[2019-04-21] MEDS: Isosorbide MONOnitrate (24 HR) 60 MG TAB.ER.24H PO SCH (08:40)
[2019-04-21] MEDS: Insulin LISPRO 300 UNITS/3 ML VIAL SQ SCH ×3 (08:41→16:14)
[2019-04-21] MEDS: Fluticasone Propionate Nasal 50 MCG/SPRAY BOTTLE NS SCH (08:44)
[2019-04-21] MEDS: Budesonide/Formoterol 160/4.5 1 PUFF INH IH SCH ×2 (08:44→20:20)
[2019-04-21] MEDS: Tiotropium 18 MCG inhalation IH SCH (08:46)
[2019-04-21] MEDS ORDERED: (Febuxostat [Uloric] 40 MG) PO SCH (09:00)
[2019-04-21] MEDS ORDERED: 0.9 % Sodium Chloride 250 ML IVC PRN (09:22)
[2019-04-21] MEDS ORDERED: 0.9 % Sodium Chloride 1,000 ML PRIME SCH (09:30)
[2019-04-21] MEDS ORDERED: traZODone 50 MG TABLET PO PRN (11:06)
[2019-04-21] MEDS: Calcium Acetate 667 MG CAPSULE PO SCH ×2 (12:52→17:12)
[2019-04-21] MEDS ORDERED: Insulin LISPRO 300 UNITS/3 ML VIAL SQ SCH (21:00)
[2019-04-21] MEDS ORDERED: Insulin DETEMIR 100 UNIT/ML X5UNITS SQ SCH (21:00)
[2019-04-22 05:04] LABS: Hematocrit 32.4 % (37.5-50.1); Hemoglobin 10.6 g/dL (12.9-16.9); Mean Corpuscular HGB Conc 32.7 g/dL (31.6-35.5); Mean Corpuscular Hemoglobin 30.4 pg (28.0-33.3); Mean Corpuscular Volume 92.8 fL (83.0-100.0); Mean Platelet Volume 9.9 fL (9.4-12.4); Platelet Count 168 K/mcL (140-400); Red Blood Count 3.49 M/mcL (4.19-5.50); Red Cell Distribution Width 13.8 % (11.5-14.5); White Blood Count 4.7 K/mcL (4.3-11.1)
[2019-04-22 05:22] LABS: Albumin 3.5 g/dL (3.5-5.7); Albumin/Globulin Ratio 1.4 (1.1-2.2); Bilirubin,Direct 0.2 mg/dL (0.0-0.2); Bilirubin,Total 1.2 mg/dL (0.3-1.0); Globulin 2.5 g/dL (2.4-3.5)
[2019-04-22 05:26] LABS: Calcium 8.7 mg/dL (8.6-10.3); Magnesium 1.8 mg/dL (1.6-2.6); Phosphorous 3.4 mg/dL (2.7-4.5); Potassium 3.7 mEq/L (3.5-5.1)
[2019-04-22] MEDS: Tiotropium 18 MCG inhalation IH SCH (07:28)
[2019-04-22] MEDS: Budesonide/Formoterol 160/4.5 1 PUFF INH IH SCH (07:28)
[2019-04-22] MEDS: Calcium Acetate 667 MG CAPSULE PO SCH ×2 (08:51→11:54)
[2019-04-22] MEDS: Apixaban 5 MG TABLET PO SCH (08:51)
[2019-04-22] MEDS: Metoprolol XL (24 HR) Succ 50 MG TAB.ER.24H PO SCH (08:51)
[2019-04-22] MEDS: Fluticasone Propionate Nasal 50 MCG/SPRAY BOTTLE NS SCH (08:51)
[2019-04-22] MEDS: Isosorbide MONOnitrate (24 HR) 60 MG TAB.ER.24H PO SCH (08:51)
[2019-04-22] MEDS: Insulin LISPRO 300 UNITS/3 ML VIAL SQ SCH ×2 (08:52→11:40)
[2019-04-22 11:39] VITALS: BP 116/72
== END 2019-04-22 12:28 | disposition home or self-care (01) ==
LOC: 2ANU → SUATTDRO 03:21
PROVIDERS: ADMIT Internal Medicine; ATTEND Internal Medicine

== ENCOUNTER 2019-08-16 01:28 | Inpatient (IN) ==
[2019-08-16] MEDS ORDERED: Naloxone 0.4 MG/ML INJ IVP PRN (05:32)
[2019-08-16] MEDS ORDERED: Ondansetron 4 MG/2 ML VIAL IVP PRN (05:32)
[2019-08-16] MEDS ORDERED: Acetaminophen 325 MG TABLET PO PRN (05:32)
[2019-08-16] MEDS ORDERED: Ipratropium/Albuterol Neb 3 ML IH PRN (06:57)
[2019-08-16] MEDS ORDERED: *HR* Dextrose 50 % in Water (Syg) 50 ML SYRINGE IVP PRN (06:58)
[2019-08-16] MEDS ORDERED: Dextrose Gel 15 GM/37.5 ML TUBE PO PRN ×2 (06:58)
[2019-08-16] MEDS ORDERED: D5% in Water 1,000 ML IVC PRN (06:58)
[2019-08-16] MEDS ORDERED: 0.9 % Sodium Chloride 1,000 ML PRIME SCH (08:30)
[2019-08-16] MEDS ORDERED: 0.9 % Sodium Chloride 250 ML IVC PRN (08:30)
[2019-08-16 08:35] LABS: INR 1.1; Prothrombin Time 12.4 Seconds (9.4-12.1)
[2019-08-16] MEDS: Insulin LISPRO 300 UNITS/3 ML VIAL SQ SCH ×3 (08:39→17:38)
[2019-08-16] MEDS: Insulin DETEMIR 100 UNIT/ML X5UNITS SQ SCH (08:43)
[2019-08-16] MEDS ORDERED: 0.9 % Sodium Chloride 1,000 ML ONE (08:48)
[2019-08-16 09:55] LABS: Basophils % 0.8 %; Eosinophils # 0.1 K/mcL (0.0-0.6); Eosinophils % 2.3 %; Hematocrit 43.5 % (37.5-50.1); Immature Granulocytes % 2.7 % (0-4); Lymphocytes % 18.7 %; Mean Corpuscular HGB Conc 34.5 g/dL (31.6-35.5); Mean Corpuscular Hemoglobin 31.7 pg (28.0-33.3); Mean Platelet Volume 9.8 fL (9.4-12.4); Monocytes # 0.3 K/mcL (0.0-1.3); Neutrophils # 3.6 K/mcL (1.6-8.9); Platelet Count 190 K/mcL (140-400); Red Blood Count 4.73 M/mcL (4.19-5.50); Red Cell Distribution Width 12.6 % (11.5-14.5); Segmented Neutrophils % 69.5 %; White Blood Count 5.2 K/mcL (4.3-11.1)
[2019-08-16 10:19] LABS: Calcium 8.7 mg/dL (8.6-10.3); Phosphorous 4.4 mg/dL (2.7-4.5); Potassium 3.9 mEq/L (3.5-5.1)
[2019-08-16 12:41] LABS: Hepatitis B Surface Antibody 103.82 mIU/mL
[2019-08-16 12:52] LABS: Hepatitis B Surface Antigen Nonreactive (Nonreactive)
[2019-08-16 13:43] LABS: Adenovirus Not Detected (Not Detect); Bordetella Pertussis Not Detected (Not Detect); Chlamydophila pneumoniae Not Detected (Not Detect); Coronavirus 229E Not Detected (Not Detect); Coronavirus HKU1 Not Detected (Not Detect); Coronavirus NL63 Not Detected (Not Detect); Coronavirus OC43 Not Detected (Not Detect); Human Metapneumovirus Not Detected (Not Detect); Human Rhinovirus/Enterovirus Not Detected (Not Detect); Influenza B Not Detected (Not Detect); Mycoplasma pneumoniae Not Detected (Not Detect); Parainfluenza Virus 1 Not Detected (Not Detect); Parainfluenza Virus 2 Not Detected (Not Detect); Parainfluenza Virus 3 Not Detected (Not Detect); Parainfluenza Virus 4 Not Detected (Not Detect); Respiratory Syncytial Virus Not Detected (Not Detect)
[2019-08-16 13:45] LABS: Influenza A Subtype 2009 H1 DETECTED (Not Detect)
[2019-08-16] MEDS: Apixaban 5 MG TABLET PO SCH (19:40)
[2019-08-17 07:10] LABS: Hematocrit 41.9 % (37.5-50.1); Hemoglobin 14.1 g/dL (12.9-16.9); Mean Corpuscular HGB Conc 33.7 g/dL (31.6-35.5); Mean Corpuscular Hemoglobin 31.3 pg (28.0-33.3); Mean Corpuscular Volume 93.1 fL (83.0-100.0); Platelet Count 198 K/mcL (140-400); Red Cell Distribution Width 12.8 % (11.5-14.5); White Blood Count 4.3 K/mcL (4.3-11.1)
[2019-08-17 07:27] LABS: Calcium 8.6 mg/dL (8.6-10.3); Magnesium 1.9 mg/dL (1.6-2.6); Phosphorous 3.9 mg/dL (2.7-4.5); Potassium 3.8 mEq/L (3.5-5.1)
[2019-08-17 08:01] LABS: Eosinophils # 0.2 K/mcL (0.0-0.6); Lymphocytes # 1.1 K/mcL (0.6-4.6); Monocytes # 0.7 K/mcL (0.0-1.3); Neutrophils # 2.3 K/mcL (1.6-8.9); Platelet Estimate Normal (Normal)
[2019-08-17] MEDS: Insulin LISPRO 300 UNITS/3 ML VIAL SQ SCH ×4 (09:49→20:28)
[2019-08-17] MEDS: Apixaban 5 MG TABLET PO SCH ×2 (09:53→20:31)
[2019-08-17] MEDS: Insulin DETEMIR 100 UNIT/ML X5UNITS SQ SCH (09:53)
[2019-08-17] MEDS: Ipratropium/Albuterol Neb 3 ML IH SCH ×3 (12:00→22:14)
[2019-08-17] MEDS ORDERED: Nitroglycerin 0.4 MG TAB.SUBL SL PRN (14:10)
[2019-08-17] MEDS: Calcium Acetate 667 MG CAPSULE PO SCH (16:40)
[2019-08-17] MEDS: Renal Vitamin 1 CAP CAPSULE PO SCH (16:40)
[2019-08-17] MEDS: Budesonide/Formoterol 160/4.5 1 PUFF INH IH SCH (22:14)
[2019-08-18] MEDS: Ipratropium/Albuterol Neb 3 ML IH SCH ×4 (04:04→22:04)
[2019-08-18 06:53] LABS: Calcium 8.5 mg/dL (8.6-10.3); Potassium 3.6 mEq/L (3.5-5.1)
[2019-08-18] MEDS ORDERED: 0.9 % Sodium Chloride 1,000 ML PRIME SCH (07:15)
[2019-08-18] MEDS: Insulin LISPRO 300 UNITS/3 ML VIAL SQ SCH ×4 (07:50→20:19)
[2019-08-18] MEDS: Calcium Acetate 667 MG CAPSULE PO SCH ×3 (10:38→16:06)
[2019-08-18] MEDS: Tiotropium 18 MCG inhalation IH SCH (10:41)
[2019-08-18] MEDS: Budesonide/Formoterol 160/4.5 1 PUFF INH IH SCH ×2 (10:41→22:04)
[2019-08-18] MEDS: Aspirin Enteric Coated 81 MG Tablet PO SCH (10:46)
[2019-08-18] MEDS: Apixaban 5 MG TABLET PO SCH ×2 (10:46→20:23)
[2019-08-18] MEDS: Renal Vitamin 1 CAP CAPSULE PO SCH (10:46)
[2019-08-18] MEDS: Fluticasone Propionate Nasal 50 MCG/SPRAY BOTTLE NS SCH (10:46)
[2019-08-18] MEDS: Cholecalciferol (D-3) 1,000 UNIT (25MCG) TABLET PO SCH (10:47)
[2019-08-18] MEDS: Insulin DETEMIR 100 UNIT/ML X5UNITS SQ SCH (10:47)
[2019-08-18] MEDS: Isosorbide MONOnitrate (24 HR) 60 MG TAB.ER.24H PO SCH (12:41)
[2019-08-18] MEDS: Benzonatate 100 MG CAPSULE PO SCH ×3 (12:41→20:23)
[2019-08-18] MEDS: Metoprolol XL (24 HR) Succ 50 MG TAB.ER.24H PO SCH (12:41)
[2019-08-18] MEDS ORDERED: Gabapentin 100 MG CAPSULE PO SCH (14:10)
[2019-08-19] MEDS ORDERED: 0.9 % Sodium Chloride 1,000 ML ONE (01:25)
[2019-08-19] MEDS: 0.9 % Sodium Chloride 250 ML IVC PRN ×2 (01:35→04:04)
[2019-08-19] MEDS: Ipratropium/Albuterol Neb 3 ML IH SCH ×4 (04:16→21:55)
[2019-08-19 06:14] LABS: Calcium 8.4 mg/dL (8.6-10.3); Potassium 3.7 mEq/L (3.5-5.1)
[2019-08-19] MEDS: Insulin LISPRO 300 UNITS/3 ML VIAL SQ SCH ×4 (08:34→22:54)
[2019-08-19] MEDS: Calcium Acetate 667 MG CAPSULE PO SCH ×3 (08:35→17:02)
[2019-08-19] MEDS: Renal Vitamin 1 CAP CAPSULE PO SCH (08:35)
[2019-08-19] MEDS: Cholecalciferol (D-3) 1,000 UNIT (25MCG) TABLET PO SCH (08:35)
[2019-08-19] MEDS: Apixaban 5 MG TABLET PO SCH ×2 (08:35→22:57)
[2019-08-19] MEDS: Benzonatate 100 MG CAPSULE PO SCH ×4 (08:35→22:57)
[2019-08-19] MEDS: Isosorbide MONOnitrate (24 HR) 60 MG TAB.ER.24H PO SCH (08:36)
[2019-08-19] MEDS: Aspirin Enteric Coated 81 MG Tablet PO SCH (08:36)
[2019-08-19] MEDS: Metoprolol XL (24 HR) Succ 50 MG TAB.ER.24H PO SCH (08:36)
[2019-08-19] MEDS: Fluticasone Propionate Nasal 50 MCG/SPRAY BOTTLE NS SCH (08:37)
[2019-08-19] MEDS: Budesonide/Formoterol 160/4.5 1 PUFF INH IH SCH ×2 (10:57→21:54)
[2019-08-19] MEDS: Tiotropium 18 MCG inhalation IH SCH (11:00)
[2019-08-19 20:05] VITALS: BP 98/52
[2019-08-20] MEDS: Ipratropium/Albuterol Neb 3 ML IH SCH (03:52)
== END 2019-08-19 23:30 | disposition home health service (06) | DRG 291 ==
LOC: 2ANU → SUATTDRO 03:35 → 2ANU 08-18 11:12
PROVIDERS: ADMIT Pharmacist; ATTEND Family Medicine

== ENCOUNTER 2019-11-16 22:17 | Inpatient (IN) ==
[2019-11-17] MEDS ORDERED: Naloxone 0.4 MG/ML INJ IVP PRN (03:45)
[2019-11-17] MEDS ORDERED: Ondansetron 4 MG/2 ML VIAL IVP PRN (03:45)
[2019-11-17 04:51] LABS: Hematocrit 33.8 % (37.5-50.1); Hemoglobin 10.9 g/dL (12.9-16.9); Mean Corpuscular HGB Conc 32.2 g/dL (31.6-35.5); Mean Corpuscular Hemoglobin 31.5 pg (28.0-33.3); Mean Corpuscular Volume 97.7 fL (83.0-100.0); Mean Platelet Volume 9.8 fL (9.4-12.4); Platelet Count 144 K/mcL (140-400); Red Blood Count 3.46 M/mcL (4.19-5.50); Red Cell Distribution Width 13.2 % (11.5-14.5); White Blood Count 5.2 K/mcL (4.3-11.1)
[2019-11-17 05:15] LABS: Albumin 3.6 g/dL (3.5-5.7); Albumin/Globulin Ratio 1.2 (1.1-2.2); Bilirubin,Total 1.9 mg/dL (0.3-1.0); Calcium 8.6 mg/dL (8.6-10.3); Globulin 2.9 g/dL (2.4-3.5); Magnesium 1.7 mg/dL (1.6-2.6); Phosphorous 4.1 mg/dL (2.7-4.5); Potassium 3.6 mEq/L (3.5-5.1); Total Protein 6.5 g/dL (6.4-8.9)
[2019-11-17 05:16] LABS: Troponin I 0.06 ng/mL (< 0.04)
[2019-11-17] MEDS ORDERED: D5% in Water 1,000 ML IVC PRN (06:18)
[2019-11-17] MEDS ORDERED: *HR* Dextrose 50 % in Water (Syg) 50 ML SYRINGE IVP PRN (06:18)
[2019-11-17] MEDS ORDERED: Dextrose Gel 15 GM/37.5 ML TUBE PO PRN ×2 (06:18)
[2019-11-17] MEDS ORDERED: *HR* Heparin 10,000 UNIT/10 ML VIAL IV PRN (08:04)
[2019-11-17] MEDS ORDERED: 0.9 % Sodium Chloride 250 ML IVC PRN (08:04)
[2019-11-17] MEDS ORDERED: 0.9 % Sodium Chloride 1,000 ML PRIME SCH (08:15)
[2019-11-17] MEDS ORDERED: Nitroglycerin 0.4 MG TAB.SUBL SL PRN (11:22)
[2019-11-17] MEDS ORDERED: Albuterol 2.5 MG/3 ML NEBULIZER IH PRN (11:22)
[2019-11-17] MEDS: Insulin LISPRO 300 UNITS/3 ML VIAL SQ SCH ×2 (12:45→16:38)
[2019-11-17] MEDS: Calcium Acetate 667 MG CAPSULE PO SCH ×2 (12:47→17:49)
[2019-11-17] MEDS: allopurinoL 100 MG TABLET PO SCH (12:55)
[2019-11-17] MEDS: Isosorbide MONOnitrate (24 HR) 60 MG TAB.ER.24H PO SCH (12:55)
[2019-11-17] MEDS: Cholecalciferol (D-3) 1,000 UNIT (25MCG) TABLET PO SCH (12:55)
[2019-11-17] MEDS: Aspirin Enteric Coated 81 MG Tablet PO SCH (12:55)
[2019-11-17] MEDS: Renal Vitamin 1 CAP CAPSULE PO SCH (12:55)
[2019-11-17] MEDS: Metoprolol XL (24 HR) Succ 50 MG TAB.ER.24H PO SCH (12:55)
[2019-11-17] MEDS: Fluticasone Propionate Nasal 50 MCG/SPRAY BOTTLE NS SCH (12:55)
[2019-11-17] MEDS: Tiotropium 18 MCG inhalation IH SCH (15:32)
[2019-11-17] MEDS: Gabapentin 100 MG CAPSULE PO SCH (17:49)
[2019-11-17] MEDS: Budesonide/Formoterol 160/4.5 1 PUFF INH IH SCH (20:09)
[2019-11-18] MEDS: Insulin LISPRO 300 UNITS/3 ML VIAL SQ SCH ×5 (00:43→20:15)
[2019-11-18] MEDS ORDERED: Lidocaine -MPF 4% 5 ML AMPUL ONE (06:32)
[2019-11-18] MEDS ORDERED: Lidocaine -MPF 2% 2 ML VIAL ONE (06:35)
[2019-11-18] MEDS ORDERED: Dexamethasone 4 MG/ML VIAL ONE (06:35)
[2019-11-18] MEDS ORDERED: Ondansetron 4 MG/2 ML VIAL ONE (06:35)
[2019-11-18] MEDS ORDERED: *HR* Propofol 200 MG/20 ML VIAL IVP ONE (06:37)
[2019-11-18] MEDS ORDERED: *HR* FentaNYL (PF) 100 MCG/2 ML VIAL ONE (06:37)
[2019-11-18] MEDS ORDERED: *HR* Succinylcholine 200 MG/10 ML VIAL IVP ONE (06:54)
[2019-11-18] MEDS ORDERED: EPHEDrine 50 MG/ML VIAL ONE (07:23)
[2019-11-18] MEDS: Calcium Acetate 667 MG CAPSULE PO SCH ×3 (07:27→17:16)
[2019-11-18] MEDS ORDERED: *HR* PHENYLEPHRINE 1,000 MCG/10 ML SYRINGE IVP ONE (07:57)
[2019-11-18] MEDS ORDERED: Indomethacin 50 MG SUPP.RECT RC ONE (09:01)
[2019-11-18] MEDS: Budesonide/Formoterol 160/4.5 1 PUFF INH IH SCH ×2 (11:12→21:20)
[2019-11-18] MEDS: Tiotropium 18 MCG inhalation IH SCH (11:12)
[2019-11-18] MEDS: Metoprolol XL (24 HR) Succ 50 MG TAB.ER.24H PO SCH (11:56)
[2019-11-18] MEDS: Cholecalciferol (D-3) 1,000 UNIT (25MCG) TABLET PO SCH (11:56)
[2019-11-18] MEDS: Isosorbide MONOnitrate (24 HR) 60 MG TAB.ER.24H PO SCH (11:56)
[2019-11-18] MEDS: Fluticasone Propionate Nasal 50 MCG/SPRAY BOTTLE NS SCH (11:56)
[2019-11-18] MEDS: Aspirin Enteric Coated 81 MG Tablet PO SCH (11:56)
[2019-11-18] MEDS: Renal Vitamin 1 CAP CAPSULE PO SCH (11:56)
[2019-11-18] MEDS ORDERED: *HR* OxyCODONE Immed Rel 5 MG TABLET PO PRN (23:11)
[2019-11-19 02:27] LABS: Basophils % 0.1 %; Hematocrit 30.7 % (37.5-50.1); Hemoglobin 9.8 g/dL (12.9-16.9); Immature Granulocytes % 0.7 % (0-4); Lymphocytes # 0.3 K/mcL (0.6-4.6); Lymphocytes % 2.8 %; Mean Corpuscular HGB Conc 31.9 g/dL (31.6-35.5); Mean Corpuscular Hemoglobin 31.5 pg (28.0-33.3); Mean Corpuscular Volume 98.7 fL (83.0-100.0); Mean Platelet Volume 10.4 fL (9.4-12.4); Monocytes # 0.6 K/mcL (0.0-1.3); Monocytes % 5.8 %; Neutrophils # 9.1 K/mcL (1.6-8.9); Platelet Count 146 K/mcL (140-400); Red Blood Count 3.11 M/mcL (4.19-5.50); Red Cell Distribution Width 13.1 % (11.5-14.5); Segmented Neutrophils % 90.6 %
[2019-11-19 02:39] LABS: Albumin 3.4 g/dL (3.5-5.7); Albumin/Globulin Ratio 1.3 (1.1-2.2); Calcium 8.1 mg/dL (8.6-10.3); Globulin 2.6 g/dL (2.4-3.5); Potassium 3.8 mEq/L (3.5-5.1)
[2019-11-19] MEDS ORDERED: *HR* Heparin 10,000 UNIT/10 ML VIAL IV PRN (07:25)
[2019-11-19] MEDS ORDERED: 0.9 % Sodium Chloride 250 ML IVC PRN (07:25)
[2019-11-19] MEDS: Insulin LISPRO 300 UNITS/3 ML VIAL SQ SCH ×4 (07:28→19:43)
[2019-11-19] MEDS ORDERED: 0.9 % Sodium Chloride 1,000 ML PRIME SCH (07:30)
[2019-11-19] MEDS: Tiotropium 18 MCG inhalation IH SCH (07:59)
[2019-11-19] MEDS: Budesonide/Formoterol 160/4.5 1 PUFF INH IH SCH ×2 (07:59→20:40)
[2019-11-19] MEDS: Renal Vitamin 1 CAP CAPSULE PO SCH (08:40)
[2019-11-19] MEDS: Calcium Acetate 667 MG CAPSULE PO SCH ×3 (08:40→16:53)
[2019-11-19] MEDS: Aspirin Enteric Coated 81 MG Tablet PO SCH (08:40)
[2019-11-19] MEDS: Cholecalciferol (D-3) 1,000 UNIT (25MCG) TABLET PO SCH (08:40)
[2019-11-19] MEDS: Fluticasone Propionate Nasal 50 MCG/SPRAY BOTTLE NS SCH (08:40)
[2019-11-19] MEDS ORDERED: Albumin 25% 25gram/100mL 25 GM/100 ML IV.SOLN IVPB ONE ×2 (10:11→19:34)
[2019-11-19] MEDS: allopurinoL 100 MG TABLET PO SCH (13:18)
[2019-11-19] MEDS: Isosorbide MONOnitrate (24 HR) 60 MG TAB.ER.24H PO SCH (13:18)
[2019-11-19] MEDS: Metoprolol XL (24 HR) Succ 50 MG TAB.ER.24H PO SCH (13:18)
[2019-11-19] MEDS: Gabapentin 100 MG CAPSULE PO SCH (13:18)
[2019-11-19] MEDS ORDERED: Albumin 25% 25gram/100mL 25 GM/100 ML IV.SOLN ONE (19:52)
[2019-11-19] MEDS ORDERED: Insulin DETEMIR 100 UNIT/ML X5UNITS SQ SCH (21:00)
[2019-11-19] MEDS: Apixaban 5 MG TABLET PO SCH (22:01)
[2019-11-20] MEDS: Insulin LISPRO 300 UNITS/3 ML VIAL SQ SCH ×2 (07:39→12:21)
[2019-11-20] MEDS: Isosorbide MONOnitrate (24 HR) 60 MG TAB.ER.24H PO SCH (08:23)
[2019-11-20] MEDS: Metoprolol XL (24 HR) Succ 50 MG TAB.ER.24H PO SCH (08:23)
[2019-11-20] MEDS: Cholecalciferol (D-3) 1,000 UNIT (25MCG) TABLET PO SCH (08:24)
[2019-11-20] MEDS: Aspirin Enteric Coated 81 MG Tablet PO SCH (08:24)
[2019-11-20] MEDS: Renal Vitamin 1 CAP CAPSULE PO SCH (08:24)
[2019-11-20] MEDS: Fluticasone Propionate Nasal 50 MCG/SPRAY BOTTLE NS SCH (08:25)
[2019-11-20] MEDS: Apixaban 5 MG TABLET PO SCH (08:25)
[2019-11-20] MEDS: Calcium Acetate 667 MG CAPSULE PO SCH ×2 (08:25→12:22)
[2019-11-20 09:23] LABS: Albumin 3.3 g/dL (3.5-5.7); Albumin/Globulin Ratio 1.4 (1.1-2.2); Bilirubin,Total 5.2 mg/dL (0.3-1.0); Calcium 7.9 mg/dL (8.6-10.3); Globulin 2.3 g/dL (2.4-3.5); Potassium 3.7 mEq/L (3.5-5.1); Total Protein 5.6 g/dL (6.4-8.9)
[2019-11-20] MEDS: Budesonide/Formoterol 160/4.5 1 PUFF INH IH SCH (10:18)
[2019-11-20] MEDS: Tiotropium 18 MCG inhalation IH SCH (10:18)
[2019-11-20 10:47] VITALS: BP 108/59
== END 2019-11-20 13:41 | disposition home health service (06) | DRG 919 ==
LOC: 2ANU
PROVIDERS: ADMIT Internal Medicine; ATTEND Internal Medicine
PROC: ENDOEBX (2019-11-18 09:00)